=== PATIENT | female | born 1940 | race Two or more races ===

== ENCOUNTER 2017-11-08 10:40 | Inpatient (IN) | payer MEDICAID, OTHER ==
[~2017-11-08] VITALS: Ht 147.3 cm; Wt 28.1 kg
[2017-11-08] VITALS (26 sets, daily range): BP systolic 77–173; BP diastolic 51–102
[~2017-11-08 10:40] MED LIST: HYDROCHLOROTHIA25 MG ORAL; NORVASC5 MG ORAL
--- NOTE | 2017-11-08 11:15 | Emergency Room Report ---
History of Present Illness General Chief Complaint: Upper Respiratory Illness Source: Patient Present Illness HPI Patient is a 69-year-old female who presented after increased diarrhea and headache. Patient reports having watery diarrhea. She reports having brown stool. She was having prior history of cardiac murmur. She had been having intermittent headache. She denies any fever. She denies any current pain. Allergies: Coded Allergies: PENICILLINS (Verified Allergy, Mild, Rash, 06/30/14) Patient History Past Medical History: see triage record Reviewed Nursing Documentation: PMH: Agreed, PSxH: Agreed Nursing Documentation-PMH Past Medical History: No History, Except For Hx Hypertension: Yes Review of Systems All Other Systems: negative except mentioned in HPI Physical Exam Vital Signs Date Time Temp Pulse Resp B/P (MAP) Pulse Ox O2 Delivery O2 Flow Rate FiO2 11/08/17 10:43 97.3 105 16 168/110 91 Room Air Sp02 EP Interpretation: reviewed, normal General Appearance: normal inspection, well appearing, no apparent distress, alert, Chronically Ill Head: atraumatic ENT: normal ENT inspection, hearing grossly normal, normal voice Neck: normal inspection, full range of motion, supple, no bony tend Respiratory: normal inspection, lungs clear, normal breath sounds, no respiratory distress, no retraction, no wheezing Cardiovascular #1: regular rate, rhythm, no edema, systolic murmur Gastrointestinal: normal inspection, normal bowel sounds, non tender, soft, no guarding, no hernia Genitourinary: no CVA tenderness Musculoskeletal: normal inspection, back normal, normal range of motion Neurologic: normal inspection, alert, responsive, speech normal Psychiatric: normal inspection, judgement/insight normal, mood/affect normal Skin: normal inspection, normal color, no rash Procedures Critical Care Time Critical Care Time Patient had a critical medical condition which untreated could potentially result in life or limb threatening injury. Total critical care time excluding procedures approximately 45 minutes. Central Line Central Line : Consent: Verbal Central Line Lumen: triple Maximal Sterile Barrier Tech: yes cap, yes mask, yes sterile gown, yes sterile gloves, yes large sterile sheet, yes hand hygiene, yes chlorhexidine prep Central Line Postion: internal jugular (L) Anesthesia: Lidocaine cc's of anesthesia: 5 Complications: none Central Line Post Position: sutured, good blood return, position confirmed w / CXR Attempts: One Patient Tolerated: Well Complications: None Intubation Intubation : Consent: Emergent Intubation Method: orotracheal Tube Size (cm): 6.0 Medications: Etomidate Breath Sounds after Intubation: equal Intubation Complications: no complications Post Intubation Xray: Yes Attempts: One Patient Tolerated: Well Complications: None Medical Decision Making Diagnostic Impression: Primary Impression: Pulmonary edema Additional Impressions: Respiratory failure Valvular disease ER Course Patient presented for abdominal pain. Differential diagnoses included ischemic bowel, appendicitis, perforated viscus, abdominal aortic aneurysm, inferior myocardial infarction, viral gastroenteritis. Because of complexity of patient' s case laboratory testing and imaging studies were ordered.patient was noted to have a negative troponin. Chest x-ray was noted to have some bilateral infiltrates. Dr. Pittman was contacted for inpatient management due to complexity of medical condition and is contracted physician. The patient noted have decompensation was intubated for respiratory distress. The patient started on nitroglycerin drip. CT abdomen pelvis read by radiology showed bilateral pleural effusions right greater than left . Patient was started on mechanical ventilation. Abg showed hypoventilation. Labs Test 11/08/17 11:28 11/08/17 14:48 White Blood Count 6.8 K/UL (4.8-10.8) Red Blood Count 5.10 M/UL (4.20-5.40) Hemoglobin 13.5 G/DL (12.0-16.0) Hematocrit 43.3 % (37.0-47.0) Mean Corpuscular Volume 85 FL (80-99) Mean Corpuscular Hemoglobin 26.5 PG (27.0-31.0) Mean Corpuscular Hemoglobin Concent 31.2 G/DL (32.0-36.0) Red Cell Distribution Width 12.0 % (11.6-14.8) Platelet Count 173 K/UL (150-450) Mean Platelet Volume 8.3 FL (6.5-10.1) Neutrophils (%) (Auto) 80.9 % (45.0-75.0) Lymphocytes (%) (Auto) 10.8 % (20.0-45.0) Monocytes (%) (Auto) 7.6 % (1.0-10.0) Eosinophils (%) (Auto) 0.2 % (0.0-3.0) Basophils (%) (Auto) 0.6 % (0.0-2.0) Sodium Level 133 MMOL/L (136-145) Potassium Level 4.2 MMOL/L (3.5-5.1) Chloride Level 97 MMOL/L (98-107) Carbon Dioxide Level 30 MMOL/L (21-32) Anion Gap 7 mmol/L (5-15) Blood Urea Nitrogen 14 mg/dL (7-18) Creatinine 0.8 MG/DL (0.55-1.30) Estimat Glomerular Filtration Rate mL/min (>60) Glucose Level 121 MG/DL (74-106) Calcium Level 9.2 MG/DL (8.5-10.1) Total Bilirubin 0.5 MG/DL (0.2-1.0) Aspartate Amino Transf (AST/SGOT) 33 U/L (15-37) Alanine Aminotransferase (ALT/SGPT) 26 U/L (12-78) Alkaline Phosphatase 80 U/L (46-116) Troponin I 0.000 ng/mL (0.000-0.056) Total Protein 8.0 G/DL (6.4-8.2) Albumin 4.1 G/DL (3.4-5.0) Globulin 3.9 g/dL Albumin/Globulin Ratio 1.1 (1.0-2.7) Lipase 199 U/L (73-393) Arterial Blood pH 7.180 (7.350-7.450) Arterial Blood Partial Pressure CO2 70.0 mmHg (35.0-45.0) Arterial Blood Partial Pressure O2 95.1 mmHg (75.0-100.0) Arterial Blood HCO3 25.8 mmol/L (22.0-26.0) Arterial Blood Oxygen Saturation 94.9 % (92.0-98.0) Arterial Blood Base Excess -3.9 Rafy Test Positive EKG Diagnostic Results Rate: normal Rhythm: NSR ST Segments: no acute changes Last Vital Signs Date Time Temp Pulse Resp B/P (MAP) Pulse Ox O2 Delivery O2 Flow Rate FiO2 11/08/17 10:43 97.3 105 16 168/110 91 Room Air Status: unchanged Disposition: ADMITTED INPATIENT Condition: Critical Referrals: NON PHYSICIAN (PCP) Peter Mancia Nov 08, 2017 11:15
[2017-11-08 11:48] LABS: BASOPHILS % (AUTO) 0.6 % (0.0-2.0); EOSINOPHILS % (AUTO) 0.2 % (0.0-3.0); HEMATOCRIT 43.3 % (37.0-47.0); HEMOGLOBIN 13.5 G/DL (12.0-16.0); LYMPHOCYTES % (AUTO) 10.8 % (20.0-45.0); MEAN CORPUSCULAR VOLUME 85 FL (80-99); MONOCYTES % (AUTO) 7.6 % (1.0-10.0); NEUTROPHILS % (AUTO) 80.9 % (45.0-75.0); PLATELET COUNT 173 K/UL (150-450); WHITE BLOOD COUNT 6.8 K/UL (4.8-10.8)
[2017-11-08 12:04] LABS: ANION GAP 7 mmol/L (5-15); BLOOD UREA NITROGEN 14 mg/dL (7-18); CALCIUM 9.2 MG/DL (8.5-10.1); CARBON DIOXIDE 30 MMOL/L (21-32); CHLORIDE 97 MMOL/L (98-107); CREATININE 0.8 MG/DL (0.55-1.30); POTASSIUM 4.2 MMOL/L (3.5-5.1); SODIUM 133 MMOL/L (136-145)
[2017-11-08 12:08] LABS: ALANINE AMINOTRANSFERASE 26 U/L (12-78); ALBUMIN 4.1 G/DL (3.4-5.0); ALBUMIN/GLOBULIN RATIO 1.1 (1.0-2.7); ALKALINE PHOSPHATASE 80 U/L (46-116); ASPARTATE AMINO TRANSFERASE 33 U/L (15-37); BILIRUBIN,TOTAL 0.5 MG/DL (0.2-1.0)
[2017-11-08] MEDS ORDERED: ATENOLOL25 MG ORAL (12:09)
[2017-11-08] MEDS ORDERED: Sodium Chloride 500ML 500 ML IV ONE (12:30)
[2017-11-08] MEDS ORDERED: DiphenhydrAMINE 50mg/ml Inj ONE (12:55)
[2017-11-08] MEDS ORDERED: Etomidate 40mg/20ml Inj IV ONE (13:15)
[2017-11-08] MEDS ORDERED: Nitroglycerin 50mg/250ml btl 250 ML IV SCH ×2 (13:30→22:15)
[2017-11-08] MEDS ORDERED: LORazepam Inj 2mg/ml 1ml ONE (13:44)
[2017-11-08] MEDS ORDERED: LORazepam Inj 2mg/ml 1ml IV ONE (14:00)
[2017-11-08] MEDS ORDERED: DiphenhydrAMINE 50mg/ml Inj IVP ONE (14:30)
[2017-11-08] MEDS ORDERED: Albuterol/Ipratropium 3ml neb HHN PRN (14:30)
[2017-11-08] MEDS ORDERED: Miralax 17gm pkt ORAL PRN (14:30)
[2017-11-08] MEDS ORDERED: Lidocaine 1% MPF 10mg/ml 5ml ONE (14:43)
[2017-11-08 15:59] LABS: APPEARANCE,URINE CLEAR; BILIRUBIN, URINE NEGATIVE (NEGATIVE); COLOR,URINE PALE YELLOW; GLUCOSE, URINE (UA) NEGATIVE (NEGATIVE); KETONES,URINE NEGATIVE (NEGATIVE); LEUKOCYTE ESTERASE ,URINE NEGATIVE (NEGATIVE); NITRITE,URINE NEGATIVE (NEGATIVE); PH,URINE 7 (4.5-8.0); PROTEIN,URINE 2+ (NEGATIVE); UROBILINOGEN,URINE NORMAL MG/DL (0.0-1.0)
--- NOTE | 2017-11-08 17:49 | Emergency Room Report ---
History of Present Illness General Chief Complaint: Upper Respiratory Illness Source: Patient Present Illness Allergies: Coded Allergies: PENICILLINS (Verified Allergy, Mild, Rash, 06/30/14) Nursing Documentation-[facility] Past Medical History: No History, Except For Hx Hypertension: Yes Physical Exam Vital Signs Date Time Temp Pulse Resp B/P (MAP) Pulse Ox O2 Delivery O2 Flow Rate FiO2 11/08/17 10:43 97.3 105 16 168/110 91 Room Air 11/08/17 12:06 2.0 11/08/17 13:00 100 Procedures Critical Care Time Critical Care Time CC time 30minutes Critical care time endorsed for this patient for acute respiratory failue from suspected acute CHF Critical care time includes review of laboratory tests, imaging, review of EMR, review of paperwork from SNF (if available), discussion with patient and family (if available), review of code status/POLS (if available). Critical care time also likely includes assessment of fluid status, stabilization of vital signs, review of ABG and adjustment of vent settings Critical care time does not include any procedures which are documented elsewhere in this EMR. Medical Decision Making Diagnostic Impression: Primary Impression: Pulmonary edema Qualified Codes: J81.0 - Acute pulmonary edema Additional Impressions: Respiratory failure Qualified Codes: J96.01 - Acute respiratory failure with hypoxia; J96.02 - Acute respiratory failure with hypercapnia Valvular disease ER Course Patient endorsed to me by Dr Mancia at 230pm On repeat ABG, improved CO2 and pH Vent settings remain with low TV given small weight - I texted Dr Pittman to readjust his vent settings appropriately PaO2 also good so we lowered PEEP to 5 from 8. Patient otherwise stable in ED Waiting for ICU bed Rhythm Strip Diag. Results EP Interpretation: yes Rate: 73 Rhythm: NSR, no PVC's, no ectopy Last Vital Signs Date Time Temp Pulse Resp B/P (MAP) Pulse Ox O2 Delivery O2 Flow Rate FiO2 11/08/17 17:30 22 11/08/17 17:22 82 70 11/08/17 17:00 97.9 116/73 100 Mechanical Ventilator 11/08/17 12:06 2.0 Status: improved Disposition: ADMITTED INPATIENT Condition: Critical Referrals: NON PHYSICIAN (PCP) JAMMIE COOK M.D. Nov 08, 2017 17:49
[2017-11-08] MEDS ORDERED: ASPIR 8181 MG ORAL (18:35)
[2017-11-08] MEDS ORDERED: METOPROLOL TART25 MG ORAL (18:35)
[2017-11-08] MEDS ORDERED: FOSAMAX70 MG ORAL (18:35)
[2017-11-08] MEDS: Heparin 5000 units/ml inj SUBQ SCH (21:39)
[2017-11-09] VITALS (40 sets, daily range): BP systolic 55–145; BP diastolic 47–81
[2017-11-09 05:31] LABS: HEMATOCRIT 34.7 % (37.0-47.0); HEMOGLOBIN 11.3 G/DL (12.0-16.0); MEAN CORPUSCULAR VOLUME 84 FL (80-99); PLATELET COUNT 134 K/UL (150-450); RED BLOOD COUNT 4.13 M/UL (4.20-5.40); WHITE BLOOD COUNT 8.3 K/UL (4.8-10.8)
[2017-11-09 05:51] LABS: ALBUMIN 3.2 G/DL (3.4-5.0); ANION GAP 8 mmol/L (5-15); BLOOD UREA NITROGEN 15 mg/dL (7-18); CALCIUM 8.3 MG/DL (8.5-10.1); CARBON DIOXIDE 30 MMOL/L (21-32); CHLORIDE 99 MMOL/L (98-107); PHOSPHORUS 4.7 MG/DL (2.5-4.9); POTASSIUM 3.5 MMOL/L (3.5-5.1); SODIUM 137 MMOL/L (136-145); TRIGLYCERIDES 48 MG/DL (30-150)
[2017-11-09] MEDS ORDERED: Morphine Sulfate 4mg/ml Inj IVP PRN (07:30)
[2017-11-09] MEDS ORDERED: LORazepam Inj 2mg/ml 1ml IV PRN (07:30)
--- NOTE | 2017-11-09 07:30 | History and Physical ---
History of Present Illness General Date patient seen: Nov 09, 2017 Reason for Hospitalization: Upper Respiratory Illness Present Illness HPI 69-year-old female with hx of HTN, presented from home with CC of increased diarrhea and headache. Patient reports having watery diarrhea. She reports having brown stool. She was having prior history of cardiac murmur. She had been having intermittent headache. She denies any fever. She denies any current pain. She developed respiratory failure and intubated and transferred to ICU. Currently, she is intubated, sedated and looks comfortable. Allergies: Coded Allergies: PENICILLINS (Verified Allergy, Mild, Rash, 06/30/14) Medication History Scheduled Alendronate Sodium* (Fosamax*), 35 MG ORAL ONCE A WEEK, (Reported) Amlodipine Besylate (Norvasc), 5 MG ORAL DAILY Aspirin* (Aspir 81*), 81 MG ORAL DAILY, (Reported) Hydrochlorothiazide* (Hydrochlorothiazide*), 25 MG ORAL DAILY Metoprolol Tartrate* (Metoprolol Tartrate*), 25 MG ORAL DAILY, (Reported) Discontinued Medications Atenolol* (Tenormin*), 25 MG ORAL DAILY, (Reported) Discontinued Reason: Pt stopped taking med Patient History Healthcare decision maker Resuscitation status Full Code Advanced Directive on File Past Medical/Surgical History Past Medical/Surgical History: (1) Hypertension (2) LVH (left ventricular hypertrophy) due to hypertensive disease Review of Systems All Other Systems: negative except mentioned in HPI Physical Exam General Appearance: cachetic Lines, tubes and drains: peripheral HEENT: normocephalic, atraumatic Neck: non-tender, normal alignment Respiratory/Chest: chest wall non-tender, lungs clear Cardiovascular/Chest: normal peripheral pulses, normal rate Abdomen: non tender, soft Genitourinary/Rectal: normal rectal exam Extremities: normal range of motion Skin Exam: normal pigmentation 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 Last 24 Hour Vital Signs Date Time Temp Pulse Resp B/P (MAP) Pulse Ox O2 Delivery O2 Flow Rate FiO2 11/09/17 07:00 85 22 107/59 100 Mechanical Ventilator 70 11/09/17 06:30 84 21 94/51 100 Mechanical Ventilator 70 11/09/17 06:00 83 21 112/64 100 Mechanical Ventilator 70 11/09/17 05:30 86 25 145/81 100 Mechanical Ventilator 70 11/09/17 05:30 87 27 70 11/09/17 05:00 89 24 99/59 100 Mechanical Ventilator 70 11/09/17 04:30 86 21 96/52 100 Mechanical Ventilator 70 11/09/17 04:00 98.1 86 21 94/53 100 Mechanical Ventilator 70 11/09/17 04:00 70 11/09/17 04:00 21 11/09/17 04:00 87 11/09/17 03:30 88 22 93/52 100 Mechanical Ventilator 70 11/09/17 03:07 86 22 70 11/09/17 03:00 86 23 92/55 100 Mechanical Ventilator 70 11/09/17 03:00 23 11/09/17 02:45 86 24 101/54 100 Mechanical Ventilator 70 11/09/17 02:30 22 11/09/17 02:30 97 27 100/65 100 Mechanical Ventilator 70 11/09/17 02:15 87 23 107/61 100 Mechanical Ventilator 70 11/09/17 02:15 22 11/09/17 02:00 88 23 97/54 100 Mechanical Ventilator 70 11/09/17 02:00 25 11/09/17 01:45 87 24 97/55 100 Mechanical Ventilator 70 11/09/17 01:45 26 11/09/17 01:30 87 23 70 11/09/17 01:30 30 11/09/17 01:30 88 24 96/55 100 Mechanical Ventilator 70 11/09/17 01:15 23 11/09/17 01:15 87 24 91/54 100 Mechanical Ventilator 70 11/09/17 01:00 86 24 99/55 100 Mechanical Ventilator 70 11/09/17 01:00 24 11/09/17 00:45 24 11/09/17 00:45 99.2 84 25 107/59 100 Mechanical Ventilator 70 11/09/17 00:30 85 25 101/55 100 Mechanical Ventilator 70 11/09/17 00:30 23 11/09/17 00:20 30 11/09/17 00:15 96 30 110/71 100 Mechanical Ventilator 70 11/09/17 00:03 85 26 70 11/09/17 00:00 98.1 87 24 86/55 100 Mechanical Ventilator 70 11/08/17 23:50 23 11/08/17 23:45 87 23 77/51 100 Mechanical Ventilator 70 11/08/17 23:35 23 2/10/18 23:30 86 23 101/61 100 Mechanical Ventilator 70 218 23:20 22 218 23:15 85 23 95/58 100 Mechanical Ventilator 70 2/18 23:05 23 218 23:00 89 24 125/75 100 Mechanical Ventilator 70 2/18 22:50 23 18 22:45 108 30 99/86 100 Mechanical Ventilator 70 18 22:44 25 18 22:40 130/76 18 22:39 24 18 22:30 88 25 130/76 100 Mechanical Ventilator 70 18 22:00 92 25 142/86 100 Mechanical Ventilator 70 11/08/17 21:00 84 24 124/70 100 Mechanical Ventilator 70 11/08/17 20:00 70 18 20:00 91 24 111/59 100 Mechanical Ventilator 70 18 20:00 82 11/08/17 19:45 83 24 144/82 100 Mechanical Ventilator 70 11/08/17 19:30 98.3 106 32 167/93 95 Mechanical Ventilator 70 18 19:00 98.3 99 34 159/97 94 Mechanical Ventilator 70 18 19:00 70 11/08/17 18:42 81 31 70 218 18:42 81 31 Mechanical Ventilator 70 18 18:30 22 18 18:25 81 20 119/69 100 Mechanical Ventilator 70 18 18:00 98.1 79 23 116/64 100 Mechanical Ventilator 70 18 17:46 70 18 17:30 22 18 17:22 82 27 70 218 17:20 70 218 17:00 97.9 83 22 116/73 100 Mechanical Ventilator 100 11/08/17 16:30 25 11/08/17 16:15 21 11/08/17 16:05 23 11/08/17 16:00 98.0 83 24 104/64 100 Mechanical Ventilator 100 11/08/17 16:00 21 11/08/17 15:50 23 11/08/17 15:45 20 11/08/17 15:35 22 11/08/17 15:30 18 11/08/17 15:29 90 27 100 11/08/17 15:25 20 11/08/17 15:25 18 11/08/17 15:24 18 11/08/17 15:05 90 20 121/68 99 Mechanical Ventilator 100 11/08/17 15:05 20 11/08/17 14:50 20 11/08/17 14:50 92 20 132/71 95 Mechanical Ventilator 100 11/08/17 14:40 20 11/08/17 14:35 18 11/08/17 14:35 96 18 139/81 99 Mechanical Ventilator 100 11/08/17 14:26 92 21 143/93 100 Mechanical Ventilator 100 11/08/17 14:26 19 11/08/17 14:15 159/86 11/08/17 14:11 98 22 144/84 99 Mechanical Ventilator 100 11/08/17 14:11 22 11/08/17 13:56 102 22 159/86 100 Room Air 11/08/17 13:56 19 11/08/17 13:41 23 11/08/17 13:41 119 21 153/83 99 Mechanical Ventilator 100 11/08/17 13:26 112 22 159/86 99 Mechanical Ventilator 100 11/08/17 13:26 28 11/08/17 13:10 111 31 100 11/08/17 13:00 100 11/08/17 13:00 112 12 173/102 99 Ambu-Bag 100 11/08/17 12:06 96 22 156/92 95 Nasal Cannula 2.0 11/08/17 11:44 97.6 93 23 157/101 94 Room Air 11/08/17 11:32 16 Room Air 11/08/17 10:43 97.3 105 16 168/110 91 Room Air Intake and Output 11/08/17 11/09/17 19:00 07:00 Intake Total 49.51 ml Output Total 280 ml 1305 ml Balance -280 ml -1255.49 ml Intake IV Total 49.51 ml Output Urine Total 280 ml 1305 ml # Voids 30 Laboratory Tests Test 11/08/17 11:28 11/08/17 14:48 11/08/17 15:31 11/08/17 17:04 White Blood Count 6.8 K/UL (4.8-10.8) Red Blood Count 5.10 M/UL (4.20-5.40) Hemoglobin 13.5 G/DL (12.0-16.0) Hematocrit 43.3 % (37.0-47.0) Mean Corpuscular Volume 85 FL (80-99) Mean Corpuscular Hemoglobin 26.5 PG (27.0-31.0) L Mean Corpuscular Hemoglobin Concent 31.2 G/DL (32.0-36.0) L Red Cell Distribution Width 12.0 % (11.6-14.8) Platelet Count 173 K/UL (150-450) Mean Platelet Volume 8.3 FL (6.5-10.1) Neutrophils (%) (Auto) 80.9 % (45.0-75.0) H Lymphocytes (%) (Auto) 10.8 % (20.0-45.0) L Monocytes (%) (Auto) 7.6 % (1.0-10.0) Eosinophils (%) (Auto) 0.2 % (0.0-3.0) Basophils (%) (Auto) 0.6 % (0.0-2.0) Sodium Level 133 MMOL/L (136-145) L Potassium Level 4.2 MMOL/L (3.5-5.1) Chloride Level 97 MMOL/L (98-107) L Carbon Dioxide Level 30 MMOL/L (21-32) Anion Gap 7 mmol/L (5-15) Blood Urea Nitrogen 14 mg/dL (7-18) Creatinine 0.8 MG/DL (0.55-1.30) Estimat Glomerular Filtration Rate mL/min (>60) Glucose Level 121 MG/DL (74-106) H Calcium Level 9.2 MG/DL (8.5-10.1) Total Bilirubin 0.5 MG/DL (0.2-1.0) Aspartate Amino Transf (AST/SGOT) 33 U/L (15-37) Alanine Aminotransferase (ALT/SGPT) 26 U/L (12-78) Alkaline Phosphatase 80 U/L (46-116) Troponin I 0.000 ng/mL (0.000-0.056) 0.019 ng/mL (0.000-0.056) Total Protein 8.0 G/DL (6.4-8.2) Albumin 4.1 G/DL (3.4-5.0) Globulin 3.9 g/dL Albumin/Globulin Ratio 1.1 (1.0-2.7) Triglycerides Level 83 MG/DL (30-150) Lipase 199 U/L (73-393) Arterial Blood pH 7.180 (7.350-7.450) Arterial Blood Partial Pressure CO2 70.0 mmHg (35.0-45.0) *H Arterial Blood Partial Pressure O2 95.1 mmHg (75.0-100.0) Arterial Blood HCO3 25.8 mmol/L (22.0-26.0) Arterial Blood Oxygen Saturation 94.9 % (92.0-98.0) Arterial Blood Base Excess -3.9 Rafy Test Positive Urine Color Pale yellow Urine Appearance Clear Urine pH 7 (4.5-8.0) Urine Specific [place] 1.005 (1.005-1.035) Urine Protein 2+ (NEGATIVE) H Urine Glucose (UA) Negative (NEGATIVE) Urine Ketones Negative (NEGATIVE) Urine Occult Blood 4+ (NEGATIVE) H Urine Nitrite Negative (NEGATIVE) Urine Bilirubin Negative (NEGATIVE) Urine Urobilinogen Normal MG/DL (0.0-1.0) Urine Leukocyte Esterase Negative (NEGATIVE) Urine RBC 2-4 /HPF (0 - 2) H Urine WBC 0-2 /HPF (0 - 2) Urine Squamous Epithelial Cells Few /LPF (NONE/OCC) Urine Amorphous Sediment Few /LPF (NONE) H Urine Bacteria Few /HPF (NONE) Test 11/08/17 17:31 11/09/17 04:20 Arterial Blood pH 7.370 (7.350-7.450) Arterial Blood Partial Pressure CO2 43.2 mmHg (35.0-45.0) Arterial Blood Partial Pressure O2 100.7 mmHg (75.0-100.0) H Arterial Blood HCO3 24.8 mmol/L (22.0-26.0) Arterial Blood Oxygen Saturation 97.1 % (92.0-98.0) Arterial Blood Base Excess -0.5 Rafy Test Positive White Blood Count 8.3 K/UL (4.8-10.8) Red Blood Count 4.13 M/UL (4.20-5.40) L Hemoglobin 11.3 G/DL (12.0-16.0) L Hematocrit 34.7 % (37.0-47.0) L Mean Corpuscular Volume 84 FL (80-99) Mean Corpuscular Hemoglobin 27.4 PG (27.0-31.0) Mean Corpuscular Hemoglobin Concent 32.6 G/DL (32.0-36.0) Red Cell Distribution Width 12.0 % (11.6-14.8) Platelet Count 134 K/UL (150-450) L Mean Platelet Volume 9.3 FL (6.5-10.1) Neutrophils (%) (Auto) % (45.0-75.0) Lymphocytes (%) (Auto) % (20.0-45.0) Monocytes (%) (Auto) % (1.0-10.0) Eosinophils (%) (Auto) % (0.0-3.0) Basophils (%) (Auto) % (0.0-2.0) Neutrophils % (Manual) Pending Lymphocytes % (Manual) Pending Platelet Estimate Pending Platelet Morphology Pending Sodium Level 137 MMOL/L (136-145) Potassium Level 3.5 MMOL/L (3.5-5.1) Chloride Level 99 MMOL/L (98-107) Carbon Dioxide Level 30 MMOL/L (21-32) Anion Gap 8 mmol/L (5-15) Blood Urea Nitrogen 15 mg/dL (7-18) Creatinine 1.0 MG/DL (0.55-1.30) Estimat Glomerular Filtration Rate mL/min (>60) Glucose Level 95 MG/DL (74-106) Calcium Level 8.3 MG/DL (8.5-10.1) L Phosphorus Level 4.7 MG/DL (2.5-4.9) Troponin I 0.022 ng/mL (0.000-0.056) Albumin 3.2 G/DL (3.4-5.0) L Triglycerides Level 48 MG/DL (30-150) Height (Feet): 4 Height (Inches): 10.00 Weight (Pounds): 59 Medications Current Medications Medications (Trade) Dose Ordered Sig/Puja Route PRN Reason Start Time Stop Time Status Last Admin Dose Admin Acetaminophen (Tylenol) 650 mg Q4H PRN ORAL Fever 11/08/17 14:30 12/08/17 14:29 Albuterol/ Ipratropium (Albuterol/ Ipratropium) 3 ml Q4H PRN HHN Shortness of Breath 11/08/17 14:30 11/13/17 14:29 Dextrose (Dextrose 50%) STAT PRN IV Hypoglycemia 11/08/17 14:30 12/08/17 14:29 Furosemide (Lasix) 40 mg EVERY 8 HOURS IV 11/08/17 14:45 12/08/17 14:44 11/09/17 05:45 Heparin Sodium (Porcine) (Heparin 5000 units/ml) 5,000 units EVERY 12 HOURS SUBQ 11/08/17 21:00 12/08/17 20:59 11/08/17 21:39 Lorazepam (Ativan 2mg/ml 1ml) 2 mg Q4H PRN IV For Anxiety 11/08/17 14:30 11/15/17 14:29 Morphine Sulfate (Morphine Sulfate) 4 mg Q4H PRN IVP Moderate Pain (Pain Scale 4-6) 11/08/17 14:30 11/15/17 14:29 Nitroglycerin 250 ml @ 0 mls/hr Q24H IV 11/08/17 13:30 12/08/17 13:29 11/08/17 14:15 Nitroglycerin 250 ml @ 0 mls/hr Q24H IV 11/08/17 22:15 12/08/17 22:14 11/08/17 22:40 Ondansetron HCl (Zofran) 4 mg Q6H PRN IVP Nausea & Vomiting 11/08/17 14:30 12/08/17 14:29 Pantoprazole (Protonix) 40 mg DAILY IV 11/09/17 09:00 12/09/17 08:59 Polyethylene Glycol (Miralax) 17 gm DAILYPRN PRN ORAL Constipation 11/08/17 14:30 12/08/17 14:29 Propofol 100 ml @ 0 mls/hr Q24H IV 11/08/17 13:15 11/10/17 13:14 11/08/17 13:26 Propofol 100 ml @ 0 mls/hr Q24H IV 11/08/17 22:15 11/10/17 22:14 11/08/17 22:39 Temazepam (Restoril) 15 mg HSPRN PRN ORAL Insomnia 11/08/17 14:30 11/15/17 14:29 Assessment/Plan Problem List: (1) Respiratory failure ICD Codes: J96.90 - Respiratory failure, unspecified, unspecified whether with hypoxia or hypercapnia SNOMED: 568553025 Qualifiers: Qualified Codes: J96.01 - Acute respiratory failure with hypoxia; J96.02 - Acute respiratory failure with hypercapnia (2) Pulmonary edema ICD Codes: J81.1 - Chronic pulmonary edema SNOMED: 82029324 Qualifiers: Qualified Codes: J81.0 - Acute pulmonary edema (3) Protein-calorie malnutrition, severe ICD Codes: E43 - Unspecified severe protein-calorie malnutrition SNOMED: 145486292 Respiratory: monitor respiratory rate, adjust FIO2, CXR Cardiac: continue to monitor HR/BP Renal: F/U I&O Infectious Disease: check cultures, continue antibiotics Gastrointestinal: continue feedings/current rate Endocrine: monitor blood sugar, check TSH Hematologic: monitor H/H, transfuse if hgb<8.5 Neurologic: PRN Ativan, keep patient comfortable Affect: PRN ativan Prophylaxis: Protonix Notes Reviewed: cardio, renal Discussed with: nurses, consultants, child welfare caseworker DIANA AGGARWAL Nov 09, 2017 07:30
--- NOTE | 2017-11-09 08:32 | Diagnostic Imaging Report ---
Indication: Dyspnea Technique: XRAY Chest 1v Comparison: Heart is enlarged. There is interstitial opacification/edema and bilateral predominantly perihilar airspace opacities. There is a small left pleural effusion with left basilar atelectasis/consolidation. There is no pneumothorax. No acute osseous abnormality seen. Findings: Cardiomegaly with interstitial opacification/edema and patchy bilateral airspace opacities. Small left pleural effusion and left basilar atelectasis/consolidation. Findings may be related to CHF/pulmonary edema. Superimposed pneumonia not excluded. Clinical correlation and follow-up exam recommended. Impression: No radiographic evidence of acute cardiopulmonary disease.
--- NOTE | 2017-11-09 08:36 | Diagnostic Imaging Report ---
Indication: Intubation. Technique: XRAY Chest 1v Comparison: 11/08/2017, 12:33 Findings/Impression: Interval endotracheal intubation. Tip of the ET tube approximately 6 cm above the [place]. Additional findings without significant interval change from exam approximately one hour earlier. This corresponds with the [facility] preliminary report.
--- NOTE | 2017-11-09 08:40 | Diagnostic Imaging Report ---
Indication: Intubation. Technique: XRAY Chest 1v Comparison: 11/08/2017, 13:20 Findings/Impression: Interval placement of left internal jugular vein approach central venous catheter. Catheter tip in the region of the right atrium. There is no definite pneumothorax. ET tube approximately 5.5 cm above the car[place]. Balloon of the ETT tip above the level of thoracic inlet. Advancement is recommended for more ideal positioning. Additional findings without significant interval change from exam a few hours earlier.
--- NOTE | 2017-11-09 08:52 | Diagnostic Imaging Report ---
Indication: Dyspnea Technique: XRAY Chest 1v Comparison: 11/08/2017 Findings: ET tube tip approximately 5 cm above the carol[place]. The balloon is inflated with portions above the thoracic inlet. Slight advancement would provide more ideal positioning. This was discussed with treating ICU nurse via telephone conversation 8:42 AM 11/09/2017. Interval placement of NG tube, which courses below the level of diaphragms, tip outside the inferior margin of the study. Left-sided central line tip at the cavoatrial junction. Heart size and mediastinal contours are stable. Persistent interstitial and perihilar opacities. Aeration is slightly improved. Small left pleural effusion with left basilar atelectasis/consolidation -also slightly improved. No pneumothorax. No acute osseous abnormality. IMPRESSION: Persistent but improved interstitial and perihilar airspace opacities possibly reflective of slight interval improvement in pulmonary edema. Support lines and tubes as above.
[2017-11-09] MEDS ORDERED: Pantoprazole Inj IV SCH (09:00)
[2017-11-09] MEDS: Pantoprazole Inj IV SCH (09:22)
[2017-11-09] MEDS: LORazepam Inj 2mg/ml 1ml IV PRN ×2 (09:23→13:39)
[2017-11-09] MEDS: Heparin 5000 units/ml inj SUBQ SCH ×2 (09:28→20:42)
--- NOTE | 2017-11-09 10:28 | Diagnostic Imaging Report ---
Indication: Follow-up Technique: XRAY Chest 1v Comparison: 11/09/2017, 8:08 Findings: ET tube has been advanced slightly, tip 3.5 cm above the carolynn. Central line and enteric tube unchanged. Heart size and mediastinal contours are stable. Persistent interstitial and perihilar airspace opacities. Probable small left pleural effusion with left basilar atelectasis/consolidation. No pneumothorax. Impression: Slight advancement of the ET tube, tip now 3.5 cm above the carolynn. Additional findings without significant interval change from exam approximately 90 minutes earlier.
--- NOTE | 2017-11-09 12:03 | Diagnostic Imaging Report ---
Indication: Abdominal pain Technique: CT of the abdomen and pelvis utilizing automated exposure control with intravenous contrast. Venous scanning performed. CT dose: Total DLP 288.6 mGycm; CTDI vol 7.14 mGy Comparison: None Findings: Motion degraded exam. Evaluation of the intra-abdominal structures is limited due to paucity of intra-abdominal fat. There is trace left and small right pleural effusions. There is compressive atelectasis in the bilateral lower lungs. Suggestion of septal thickening. Heart is enlarged. No focal liver mass lesion is appreciated. Gallbladder grossly unremarkable. Spleen, adrenal glands and pancreas grossly unremarkable. Kidneys enhance symmetrically. No definite urinary tract stone or hydronephrosis bilaterally. Bladder is unremarkable in appearance. Lobular contour of the uterus with multiple coarse calcifications likely representing fibroids. Adnexa are not definitively visualized. No free intraperitoneal air. No evidence of bowel obstruction. The colon is underdistended and not well assessed. There may be underlying colonic thickening, possible colitis in the appropriate clinical setting. There is no evidence to suggest an acute appendicitis. Abdominal aorta is normal in caliber with mild atherosclerotic calcification. No bulky lymphadenopathy identified. There are multilevel degenerative changes of the spine. No acute osseous abnormality is seen. Calcifications noted in the gluteal soft tissues, possible prior trauma or medication injection. IMPRESSION: Limited exam due to patient motion and paucity of intra-abdominal fat, which particularly limits evaluation of the gastrointestinal tract. Within these limitations: * Small right and trace left pleural effusions. Septal thickening suggesting marrow edema. Correlate with chest radiograph. * Cardiomegaly. * Large calcified fibroids. * Underdistention versus thickening of portions. Correlate clinically to assess for mild colitis. Additional findings as above. This corresponds with the statrad preliminary report. The CT scanner at [facility] is accredited by the [employer] and the scans are performed using protocols designed to limit radiation exposure to as low as reasonably achievable to attain images of sufficient resolution adequate for diagnostic evaluation.
--- NOTE | 2017-11-09 12:52 | Diagnostic Imaging Report ---
Indication: Renal failure Technique: Planar grayscale and color Doppler imaging of the kidneys and bladder. Comparison: Concurrent CT of the abdomen Findings: Right kidney measures 8.3 cm in length. Left kidney measures 7.9 cm in length. Both kidneys demonstrate normal parenchymal echogenicity. No evidence of hydronephrosis bilaterally. Layering echogenic debris noted within the bladder. No appreciable bladder wall thickening. Impression: Layering echogenic debris noted within the bladder. Correlate with urinalysis to exclude cystitis. No evidence of hydronephrosis bilaterally.
[2017-11-09] MEDS: Morphine Sulfate 4mg/ml Inj IVP PRN (13:46)
--- NOTE | 2017-11-09 14:43 | Cardiology Report ---
APPROVED REPORT EXAM: Two-dimensional and M-mode echocardiogram with Doppler and color Doppler. INDICATION LV FUNCTION M-Mode DIMENSIONS IVSd1.1 (0.7-1.1cm)Left Atrium (MM)2.4 (1.6-4.0cm) LVDd3.5 (3.5-5.6cm)Aortic Root3.0 (2.0-3.7cm) PWd0.8 (0.7-1.1cm)Aortic Cusp Exc.1.7 (1.5-2.0cm) IVSs2.1 cm LVDs2.3 (2.5-4.0cm) PWs1.0 cm Normal left ventricular chamber size, systolic function and wall motion. Left ventricular ejection fraction estimated to be 65-70 %. No evidence of pericardial effusion Mild left ventricular hypertrophy by 2-D. echogenic material noted on anterior mitral valve leaflet. Mild Left atrial enlargement. Right ventricular chamber sizes is within normal limits. Focal aortic valve sclerosis with adequate cusp excursion. Heavy Thickened mitral valve leaflets with normal excursion. Heavy Mitral annulus and aortic root calcification. Pulmonic valve not well visualized. Normal tricuspid valve structure. IVC at 1.5 cm with physiologic collapse . A color flow and spectral Doppler study was performed and revealed: No aortic regurgitation. Mild mitral regurgitation. Normal left ventricular diastolic function. Mild tricuspid regurgitation. Tricuspid systolic velocities suggests peak right ventricular systolic pressure of 39 mmHg ,consistent with mild pulmonary hypertension . Trace Pulmonic regurgitation present.
[2017-11-09] MEDS ORDERED: NS 500ML ONE (16:08)
[2017-11-09] MEDS ORDERED: D5 1/2NS 1000ml IV ONE (16:08)
[2017-11-10] VITALS (24 sets, daily range): BP systolic 101–148; BP diastolic 55–87
[2017-11-10 04:08] LABS: BASOPHILS % (AUTO) 0.3 % (0.0-2.0); EOSINOPHILS % (AUTO) 0.1 % (0.0-3.0); LYMPHOCYTES % (AUTO) 7.5 % (20.0-45.0); MEAN CORPUSCULAR VOLUME 85 FL (80-99); MONOCYTES % (AUTO) 9.3 % (1.0-10.0); NEUTROPHILS % (AUTO) 82.8 % (45.0-75.0); PLATELET COUNT 132 K/UL (150-450); RED BLOOD COUNT 4.02 M/UL (4.20-5.40); WHITE BLOOD COUNT 7.8 K/UL (4.8-10.8)
[2017-11-10 04:48] LABS: ALANINE AMINOTRANSFERASE 17 U/L (12-78); ALBUMIN 3.1 G/DL (3.4-5.0); ALBUMIN/GLOBULIN RATIO 0.9 (1.0-2.7); ALKALINE PHOSPHATASE 58 U/L (46-116); ANION GAP 12 mmol/L (5-15); ASPARTATE AMINO TRANSFERASE 26 U/L (15-37); BILIRUBIN,TOTAL 0.7 MG/DL (0.2-1.0); BLOOD UREA NITROGEN 25 mg/dL (7-18); CALCIUM 7.8 MG/DL (8.5-10.1); CARBON DIOXIDE 30 MMOL/L (21-32); CHLORIDE 99 MMOL/L (98-107); CREATININE 1.1 MG/DL (0.55-1.30); PHOSPHORUS 3.5 MG/DL (2.5-4.9); POTASSIUM 2.9 MMOL/L (3.5-5.1); SODIUM 141 MMOL/L (136-145)
[2017-11-10] MEDS: Potassium Chloride 40 MEQ in Sodium Chloride 500ML 550 ML IVPB SCH ×2 (08:38→11:50)
[2017-11-10] MEDS: Pantoprazole Inj IV SCH (08:38)
[2017-11-10] MEDS: Heparin 5000 units/ml inj SUBQ SCH ×2 (08:42→20:44)
[2017-11-10] MEDS ORDERED: NS 275ml ONE (10:06)
--- NOTE | 2017-11-10 10:12 | Pulmonolgy Critical Care Note ---
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 (4) Protein-calorie malnutrition, severe Respiratory: monitor respiratory rate Cardiac: continue to monitor HR/BP Renal: F/U I&O, other - start lasix Infectious Disease: check cultures Gastrointestinal: adjust feedings Endocrine: monitor blood sugar Hematologic: monitor H/H Affect: PRN ativan Prophylaxis: Protonix Notes Reviewed: loftsman/woman Discussed with: nurses, consultants, case packer and sealerpromotions manager - Objective Last 24 Hour Vital Signs Date Time Temp Pulse Resp B/P (MAP) Pulse Ox O2 Delivery O2 Flow Rate FiO2 11/10/17 09:20 88 16 45 11/10/17 09:00 82 18 131/69 100 Mechanical Ventilator 50 11/10/17 08:00 97 11/10/17 08:00 50 11/10/17 08:00 98.4 97 18 131/72 100 Mechanical Ventilator 50 11/10/17 07:16 96 18 45 11/10/17 07:00 98 23 125/65 100 Mechanical Ventilator 50 11/10/17 06:00 114 17 126/69 100 Mechanical Ventilator 50 11/10/17 05:13 94 15 50 11/10/17 05:00 89 17 116/62 100 Mechanical Ventilator 50 11/10/17 04:00 50 11/10/17 04:00 96 11/10/17 04:00 99.2 99 20 120/61 100 Mechanical Ventilator 50 11/10/17 03:30 97 16 50 11/10/17 03:00 98 17 108/59 100 Mechanical Ventilator 50 11/10/17 02:00 99 17 106/60 100 Mechanical Ventilator 50 11/10/17 01:30 99 17 50 11/10/17 01:00 94 22 112/63 100 Mechanical Ventilator 50 11/10/17 00:00 50 11/10/17 00:00 105 11/10/17 00:00 98.3 92 21 122/87 100 Mechanical Ventilator 50 11/09/17 23:30 99 18 50 11/09/17 23:00 95 21 85/51 100 Mechanical Ventilator 50 11/09/17 22:00 94 23 135/76 100 Mechanical Ventilator 50 11/09/17 21:16 84 20 50 11/09/17 21:00 82 16 90/48 100 Mechanical Ventilator 50 11/09/17 20:00 50 11/09/17 20:00 82 11/09/17 20:00 98.5 80 14 100/53 100 Mechanical Ventilator 50 11/09/17 19:30 83 16 50 11/09/17 19:00 88 14 123/78 100 Mechanical Ventilator 70 11/09/17 18:00 87 16 111/67 100 Mechanical Ventilator 70 11/09/17 17:13 83 14 70 11/09/17 17:00 86 17 86/50 100 Mechanical Ventilator 70 11/09/17 16:00 84 11/09/17 16:00 98.6 87 14 91/54 100 Mechanical Ventilator 70 11/09/17 16:00 70 11/09/17 15:14 89 15 70 11/09/17 15:00 90 15 84/50 100 Mechanical Ventilator 70 11/09/17 14:00 90 15 76/47 100 Mechanical Ventilator 70 11/09/17 13:25 102 21 70 11/09/17 13:00 87 21 114/62 100 Mechanical Ventilator 70 11/09/17 12:00 70 11/09/17 12:00 98.2 87 21 103/54 100 Mechanical Ventilator 70 11/09/17 12:00 87 11/09/17 11:22 86 18 70 11/09/17 11:00 87 18 109/59 100 Mechanical Ventilator 70 Status: sedated Condition: critical HEENT: atraumatic Abdomen: soft, non-tender Extremities: no C/C/E Decubiti: location Micro: Microbiology Date/Time Source Procedure Growth Status 11/08/17 16:00 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 Complete Critical Care - Subjective ICU Day: 2 Condition: critical EKG Rhythm: Sinus Rhythm FI02: 45 Vent Support Breath Rate: 12 Vent Support Mode: AC Vent Tidal Volume: 300 Sputum Amount: Small PEEP: 5.0 PIP: 22 I&O: Intake and Output 11/09/17 11/10/17 19:00 07:00 Intake Total 3.0 ml Output Total 915 ml 2080 ml Balance -912.0 ml -2080 ml Intake IV Total 3.0 ml Output Urine Total 915 ml 2080 ml CXR: clearing ET-Tube: 6.0 ET Position: 20 Labs: Laboratory Tests Test 11/09/17 14:10 11/10/17 03:45 11/10/17 07:55 Troponin I 0.008 ng/mL (0.000-0.056) 0.000 ng/mL (0.000-0.056) White Blood Count 7.8 K/UL (4.8-10.8) Red Blood Count 4.02 M/UL (4.20-5.40) L Hemoglobin 11.0 G/DL (12.0-16.0) L Hematocrit 34.0 % (37.0-47.0) L Mean Corpuscular Volume 85 FL (80-99) Mean Corpuscular Hemoglobin 27.4 PG (27.0-31.0) Mean Corpuscular Hemoglobin Concent 32.4 G/DL (32.0-36.0) Red Cell Distribution Width 12.0 % (11.6-14.8) Platelet Count 132 K/UL (150-450) L Mean Platelet Volume 8.6 FL (6.5-10.1) Neutrophils (%) (Auto) 82.8 % (45.0-75.0) H Lymphocytes (%) (Auto) 7.5 % (20.0-45.0) L Monocytes (%) (Auto) 9.3 % (1.0-10.0) Eosinophils (%) (Auto) 0.1 % (0.0-3.0) Basophils (%) (Auto) 0.3 % (0.0-2.0) Sodium Level 141 MMOL/L (136-145) Potassium Level 2.9 MMOL/L (3.5-5.1) L Chloride Level 99 MMOL/L (98-107) Carbon Dioxide Level 30 MMOL/L (21-32) Anion Gap 12 mmol/L (5-15) Blood Urea Nitrogen 25 mg/dL (7-18) H Creatinine 1.1 MG/DL (0.55-1.30) Estimat Glomerular Filtration Rate mL/min (>60) Glucose Level 90 MG/DL (74-106) Calcium Level 7.8 MG/DL (8.5-10.1) L Phosphorus Level 3.5 MG/DL (2.5-4.9) Magnesium Level 1.5 MG/DL (1.8-2.4) L Total Bilirubin 0.7 MG/DL (0.2-1.0) Aspartate Amino Transf (AST/SGOT) 26 U/L (15-37) Alanine Aminotransferase (ALT/SGPT) 17 U/L (12-78) Alkaline Phosphatase 58 U/L (46-116) Total Protein 6.7 G/DL (6.4-8.2) Albumin 3.1 G/DL (3.4-5.0) L Globulin 3.6 g/dL Albumin/Globulin Ratio 0.9 (1.0-2.7) L Arterial Blood pH 7.400 (7.350-7.450) Arterial Blood Partial Pressure CO2 52.2 mmHg (35.0-45.0) H Arterial Blood Partial Pressure O2 138.8 mmHg (75.0-100.0) H Arterial Blood HCO3 32.0 mmol/L (22.0-26.0) H Arterial Blood Oxygen Saturation 98.3 % (92.0-98.0) H Arterial Blood Base Excess 6.1 Rafy Test Positive DIANA AGGARWAL Nov 10, 2017 10:12
[2017-11-10] MEDS: LORazepam Inj 2mg/ml 1ml IV PRN ×2 (10:36→22:36)
--- NOTE | 2017-11-10 11:05 | Diagnostic Imaging Report ---
Indication: Dyspnea Comparison: 11/09/2017 A single view chest radiograph was obtained. Findings: Cardiomegaly is again demonstrated. Some interstitial edema has probably improved since the prior day. Tubes and lines are stable. Lungs are hyperexpanded. IMPRESSION: Improved interstitial edema
[2017-11-10] MEDS ORDERED: Potassium Chloride 40 MEQ in 1/2 NS 1000ml 1,000 ML IV SCH (16:00)
[2017-11-10] MEDS ORDERED: Dyna-Hex 2% Top Sol 2oz TOPIC SCH (20:00)
--- NOTE | 2017-11-10 20:00 | Cardiology Progress Note ---
Assessment/Plan Assessment/Plan [id number] sig heart murmur nto correlate with echo reading will try to review echo tooorrrow check venous duplex Objective Last 24 Hour Vital Signs Date Time Temp Pulse Resp B/P (MAP) Pulse Ox O2 Delivery O2 Flow Rate FiO2 11/10/17 18:00 88 19 105/61 100 Mechanical Ventilator 40 11/10/17 17:00 86 20 108/59 100 Mechanical Ventilator 40 11/10/17 16:53 99 17 45 11/10/17 16:00 92 11/10/17 16:00 97.8 92 17 118/62 100 Mechanical Ventilator 40 11/10/17 16:00 40 11/10/17 15:06 101 14 45 11/10/17 15:00 93 20 123/69 100 Mechanical Ventilator 40 11/10/17 14:00 100 24 126/70 100 Mechanical Ventilator 40 11/10/17 13:18 88 19 45 11/10/17 13:00 91 18 115/69 100 Mechanical Ventilator 40 11/10/17 12:00 40 11/10/17 12:00 89 11/10/17 12:00 98.3 89 18 139/78 100 Mechanical Ventilator 40 11/10/17 11:14 88 17 45 11/10/17 11:00 90 17 108/56 100 Mechanical Ventilator 40 11/10/17 10:00 97 21 116/61 100 Mechanical Ventilator 40 11/10/17 09:20 88 16 45 11/10/17 09:00 82 18 131/69 100 Mechanical Ventilator 50 11/10/17 08:00 97 11/10/17 08:00 50 11/10/17 08:00 98.4 97 18 131/72 100 Mechanical Ventilator 50 11/10/17 07:16 96 18 45 11/10/17 07:00 98 23 125/65 100 Mechanical Ventilator 50 11/10/17 06:00 114 17 126/69 100 Mechanical Ventilator 50 11/10/17 05:13 94 15 50 11/10/17 05:00 89 17 116/62 100 Mechanical Ventilator 50 11/10/17 04:00 50 11/10/17 04:00 96 11/10/17 04:00 99.2 99 20 120/61 100 Mechanical Ventilator 50 11/10/17 03:30 97 16 50 11/10/17 03:00 98 17 108/59 100 Mechanical Ventilator 50 11/10/17 02:00 99 17 106/60 100 Mechanical Ventilator 50 11/10/17 01:30 99 17 50 11/10/17 01:00 94 22 112/63 100 Mechanical Ventilator 50 11/10/17 00:00 50 11/10/17 00:00 105 11/10/17 00:00 98.3 92 21 122/87 100 Mechanical Ventilator 50 11/09/17 23:30 99 18 50 11/09/17 23:00 95 21 85/51 100 Mechanical Ventilator 50 11/09/17 22:00 94 23 135/76 100 Mechanical Ventilator 50 11/09/17 21:16 84 20 50 11/09/17 21:00 82 16 90/48 100 Mechanical Ventilator 50 11/09/17 20:00 50 11/09/17 20:00 82 11/09/17 20:00 98.5 80 14 100/53 100 Mechanical Ventilator 50 Intake and Output 11/09/17 11/10/17 19:00 07:00 Intake Total 3.0 ml Output Total 915 ml 2080 ml Balance -912.0 ml -2080 ml Intake IV Total 3.0 ml Output Urine Total 915 ml 2080 ml Laboratory Tests Test 11/10/17 03:45 11/10/17 07:55 White Blood Count 7.8 K/UL (4.8-10.8) Red Blood Count 4.02 M/UL (4.20-5.40) L Hemoglobin 11.0 G/DL (12.0-16.0) L Hematocrit 34.0 % (37.0-47.0) L Mean Corpuscular Volume 85 FL (80-99) Mean Corpuscular Hemoglobin 27.4 PG (27.0-31.0) Mean Corpuscular Hemoglobin Concent 32.4 G/DL (32.0-36.0) Red Cell Distribution Width 12.0 % (11.6-14.8) Platelet Count 132 K/UL (150-450) L Mean Platelet Volume 8.6 FL (6.5-10.1) Neutrophils (%) (Auto) 82.8 % (45.0-75.0) H Lymphocytes (%) (Auto) 7.5 % (20.0-45.0) L Monocytes (%) (Auto) 9.3 % (1.0-10.0) Eosinophils (%) (Auto) 0.1 % (0.0-3.0) Basophils (%) (Auto) 0.3 % (0.0-2.0) Sodium Level 141 MMOL/L (136-145) Potassium Level 2.9 MMOL/L (3.5-5.1) L Chloride Level 99 MMOL/L (98-107) Carbon Dioxide Level 30 MMOL/L (21-32) Anion Gap 12 mmol/L (5-15) Blood Urea Nitrogen 25 mg/dL (7-18) H Creatinine 1.1 MG/DL (0.55-1.30) Estimat Glomerular Filtration Rate mL/min (>60) Glucose Level 90 MG/DL (74-106) Calcium Level 7.8 MG/DL (8.5-10.1) L Phosphorus Level 3.5 MG/DL (2.5-4.9) Magnesium Level 1.5 MG/DL (1.8-2.4) L Total Bilirubin 0.7 MG/DL (0.2-1.0) Aspartate Amino Transf (AST/SGOT) 26 U/L (15-37) Alanine Aminotransferase (ALT/SGPT) 17 U/L (12-78) Alkaline Phosphatase 58 U/L (46-116) Troponin I 0.000 ng/mL (0.000-0.056) Total Protein 6.7 G/DL (6.4-8.2) Albumin 3.1 G/DL (3.4-5.0) L Globulin 3.6 g/dL Albumin/Globulin Ratio 0.9 (1.0-2.7) L Arterial Blood pH 7.400 (7.350-7.450) Arterial Blood Partial Pressure CO2 52.2 mmHg (35.0-45.0) H Arterial Blood Partial Pressure O2 138.8 mmHg (75.0-100.0) H Arterial Blood HCO3 32.0 mmol/L (22.0-26.0) H Arterial Blood Oxygen Saturation 98.3 % (92.0-98.0) H Arterial Blood Base Excess 6.1 Rafy Test Positive Microbiology Date/Time Source Procedure Growth Status 11/08/17 16:00 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 Complete NALINI GIBBONS Nov 10, 2017 20:00
[2017-11-11] VITALS (24 sets, daily range): BP systolic 87–161; BP diastolic 54–95
--- NOTE | 2017-11-11 03:00 | Consultation ---
DATE OF CONSULTATION: 11/10/2017 CARDIOLOGY CRITICAL CARE NOTE CONSULTING PHYSICIAN: Kamar Pedroza M.D. REFERRING PHYSICIAN: Dylan Pittman M.D. REASON FOR REFERRAL: Respiratory failure and a heart murmur. HISTORY OF PRESENT ILLNESS: This is a 77-year-old female with a history of a heart murmur. Apparently, she has seen a physician before, but nobody apparently has been following her. On the day of admission, she was coughing a bit. No real shortness of breath. Her cough did not sound productive. She was not having any real fevers or chills and she was able to walk to the emergency room according to her sister, and she presented to the emergency room at [facility]. It appears that she was critically ill with acute respiratory failure with hypoxemia and the patient was intubated in the emergency room and subsequently admitted to the hospital. This consultation was requested because of the patient's heart murmur. The patient is on a ventilator, not able to provide any meaningful history. Information is obtained from the patient's sister. PAST MEDICAL HISTORY: Positive for history of heart murmur and high blood pressure. No history of heart attack. No cancer, stroke, hepatitis, tuberculosis, asthma, or emphysema. No ulcers, kidney problems, liver problems, thyroid problems, anemia, or arthritis. ALLERGIES: She is allergic to penicillin. SOCIAL HISTORY: Does not smoke or drink. REVIEW OF SYSTEMS: GASTROINTESTINAL: She has had five bouts of diarrhea in the morning of her admission. No bloody or black stool. GENITOURINARY: She was not complaining of discomfort on urination. PULMONARY: Does cough, but no sinus congestion. NEUROLOGIC: She was . PHYSICAL EXAMINATION: GENERAL: Shows to be an elderly female on a mechanical ventilator. She is thin, cachectic looking. NECK: Supple. No jugular venous distention. LUNGS: Appear to be clear to auscultation bilaterally. CARDIAC: S1 is normal. S2 is normal. Regular rhythm. Holosystolic regurgitant murmur and systolic ejection murmur is noted. ABDOMEN: Soft and nontender. Positive bowel sounds. EXTREMITIES: There is no edema. NEUROLOGIC: She is minimally responsive. LABORATORY AND DIAGNOSTIC DATA: A chest x-ray performed shows cardiomegaly and interstitial edema, probably improved since prior days. Her original chest x-ray in the emergency room showed no radiographic evidence of acute cardiopulmonary process, the heart was enlarged however and interstitial opacification edema was noted on that EKG. She has had a CT scan of her abdomen and pelvis that preliminary report shows a small right and trace left pleural effusion, septal thickness suggestive of edema, cardiomegaly, large calcified fibroids, underdistention, and then she has had an echocardiogram that shows ejection fraction of 65% to 70%. Echogenic material noted on the anterior mitral valve, no significant valvular regurgitation being documented on that echocardiogram. Right ventricular systolic pressure of 39 and mild left ventricular hypertrophy was noted on that echocardiogram. White count of 7.8, hemoglobin 11, and platelet count of 132,000. The pH of 7.40, pCO2 52, pO2 139, and bicarbonate 32. Sodium is 141, potassium 2.9, chloride 99, bicarbonate 30, BUN 12, creatinine 1.0, and glucose of 90. Liver function tests are relatively normal except for albumin of 3.1. All three sets of cardiac enzymes are negative and no proBNP is available. Her EKG performed in the emergency room shows sinus rhythm, a lot of motion artifact being documented. No significant ST-T wave abnormalities are documented. ASSESSMENT AND PLAN: 1. Respiratory failure. 2. Hypertension history. 3. Diarrhea at the time of admission. 4. Cachexia. Dr. Pittman, this patient was seen in cardiac consultation and she is on a mechanical ventilator. Blood pressure appears to be intact at the present time. She does have a heart problem, but the echocardiogram report does not show any evidence of significant left ventricular hypertrophy, outflow obstruction, or valvular regurgitation of any kind or valvular stenosis of any kind. I will try to review the echocardiogram myself tomorrow. She should have a venous duplex study of the lower extremities to rule out deep venous thromboses and she is getting empiric antibiotics. Potassium to be supplemented. Blood cultures so far are negative and x-rays are as mentioned. CT scan of the abdomen was also noted. We will follow the patient along with you. Kamar Pedroza M.D. DR: Jensen JOB#: [id number] CC:
[2017-11-11 06:30] LABS: BASOPHILS % (AUTO) 0.4 % (0.0-2.0); EOSINOPHILS % (AUTO) 0.1 % (0.0-3.0); HEMATOCRIT 33.5 % (37.0-47.0); HEMOGLOBIN 10.7 G/DL (12.0-16.0); LYMPHOCYTES % (AUTO) 6.9 % (20.0-45.0); MEAN CORPUSCULAR VOLUME 86 FL (80-99); MONOCYTES % (AUTO) 8.8 % (1.0-10.0); NEUTROPHILS % (AUTO) 83.8 % (45.0-75.0); PLATELET COUNT 122 K/UL (150-450); RED BLOOD COUNT 3.89 M/UL (4.20-5.40); RED CELL DISTRIBUTION WIDTH 12.3 % (11.6-14.8); WHITE BLOOD COUNT 6.5 K/UL (4.8-10.8)
[2017-11-11 06:51] LABS: ALANINE AMINOTRANSFERASE 19 U/L (12-78); ALBUMIN 2.8 G/DL (3.4-5.0); ALBUMIN/GLOBULIN RATIO 0.8 (1.0-2.7); ALKALINE PHOSPHATASE 65 U/L (46-116); ANION GAP 4 mmol/L (5-15); ASPARTATE AMINO TRANSFERASE 27 U/L (15-37); BILIRUBIN,TOTAL 0.4 MG/DL (0.2-1.0); BLOOD UREA NITROGEN 17 mg/dL (7-18); CALCIUM 8.1 MG/DL (8.5-10.1); CARBON DIOXIDE 30 MMOL/L (21-32); CHLORIDE 107 MMOL/L (98-107); CREATININE 0.7 MG/DL (0.55-1.30); PHOSPHORUS 1.4 MG/DL (2.5-4.9); POTASSIUM 5.2 MMOL/L (3.5-5.1); SODIUM 141 MMOL/L (136-145)
[2017-11-11] MEDS: Pantoprazole Inj IV SCH (08:17)
[2017-11-11] MEDS: Heparin 5000 units/ml inj SUBQ SCH ×2 (08:18→20:44)
--- NOTE | 2017-11-11 09:20 | Pulmonolgy Critical Care Note ---
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 (4) Protein-calorie malnutrition, severe Respiratory: monitor respiratory rate, adjust FIO2, CXR Cardiac: continue to monitor HR/BP Renal: F/U I&O, keep IV fluid, check electrolytes Infectious Disease: check cultures, continue antibiotics Gastrointestinal: continue feedings/current rate Endocrine: monitor blood sugar Hematologic: monitor H/H, transfuse if hgb<8.5 Neurologic: PRN Ativan, keep patient comfortable Affect: PRN ativan Prophylaxis: Heparin Notes Reviewed: mobile lounge driver, cardio, renal Discussed with: nurses, consultants, case hardenerbusiness management manager - Objective Last 24 Hour Vital Signs Date Time Temp Pulse Resp B/P (MAP) Pulse Ox O2 Delivery O2 Flow Rate FiO2 11/11/17 09:04 115 27 30 11/11/17 08:00 98.5 103 16 132/76 100 Mechanical Ventilator 30 11/11/17 08:00 30 11/11/17 07:28 112 24 30 11/11/17 07:00 119 22 161/81 100 Mechanical Ventilator 30 11/11/17 06:00 89 17 105/71 100 Mechanical Ventilator 30 11/11/17 05:00 88 15 104/62 100 Mechanical Ventilator 30 11/11/17 04:51 88 17 30 11/11/17 04:00 90 11/11/17 04:00 30 11/11/17 04:00 98.7 99 14 93/60 100 Mechanical Ventilator 30 11/11/17 03:02 96 20 35 11/11/17 03:00 103 18 144/95 100 Mechanical Ventilator 30 11/11/17 02:00 81 14 99/57 100 Mechanical Ventilator 35 11/11/17 01:03 81 15 35 11/11/17 01:00 85 17 97/55 100 Mechanical Ventilator 35 11/11/17 00:00 98.9 81 16 87/54 100 Mechanical Ventilator 40 11/11/17 00:00 40 11/11/17 00:00 86 11/10/17 23:18 105 18 40 11/10/17 23:00 90 19 148/86 100 Mechanical Ventilator 40 11/10/17 22:00 99 16 142/70 100 Mechanical Ventilator 40 11/10/17 21:11 86 15 40 11/10/17 21:00 83 15 116/59 100 Mechanical Ventilator 40 11/10/17 20:00 40 11/10/17 20:00 98.4 85 17 101/55 100 Mechanical Ventilator 40 11/10/17 20:00 83 11/10/17 19:44 83 17 40 11/10/17 19:00 87 19 105/61 100 Mechanical Ventilator 40 11/10/17 18:00 88 19 105/61 100 Mechanical Ventilator 40 11/10/17 17:00 86 20 108/59 100 Mechanical Ventilator 40 11/10/17 16:53 99 17 45 11/10/17 16:00 92 11/10/17 16:00 97.8 92 17 118/62 100 Mechanical Ventilator 40 11/10/17 16:00 40 11/10/17 15:06 101 14 45 11/10/17 15:00 93 20 123/69 100 Mechanical Ventilator 40 11/10/17 14:00 100 24 126/70 100 Mechanical Ventilator 40 11/10/17 13:18 88 19 45 11/10/17 13:00 91 18 115/69 100 Mechanical Ventilator 40 11/10/17 12:00 40 11/10/17 12:00 89 11/10/17 12:00 98.3 89 18 139/78 100 Mechanical Ventilator 40 11/10/17 11:14 88 17 45 11/10/17 11:00 90 17 108/56 100 Mechanical Ventilator 40 11/10/17 10:00 97 21 116/61 100 Mechanical Ventilator 40 11/10/17 09:20 88 16 45 Status: sedated Condition: critical HEENT: atraumatic Neck: full ROM Lungs: clear Heart: HR/BP unstable Abdomen: non-tender, feeding tube Extremities: edema Decubiti: location, stage Micro: Microbiology Date/Time Source Procedure Growth Status 11/08/17 16:00 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 Complete Critical Care - Subjective ROS Limited/Unobtainable: Yes ICU Day: 3 Condition: critical EKG Rhythm: Sinus Rhythm FI02: 30 Vent Support Breath Rate: 12 Vent Support Mode: AC Vent Tidal Volume: 300 Sputum Amount: Small PEEP: 5.0 PIP: 27 Tube Feeding Amount: 35 I&O: Intake and Output 11/10/17 11/11/17 19:00 07:00 Intake Total 1155 ml 910 ml Output Total 760 ml 450 ml Balance 395 ml 460 ml Intake Free Water 50 ml IV Total 1105 ml 600 ml Tube Feeding 50 ml 260 ml Output Urine Total 760 ml 450 ml CXR: No change ET-Tube: 6.0 ET Position: 20 Labs: Laboratory Tests Test 11/11/17 05:00 11/11/17 08:15 White Blood Count 6.5 K/UL (4.8-10.8) Red Blood Count 3.89 M/UL (4.20-5.40) L Hemoglobin 10.7 G/DL (12.0-16.0) L Hematocrit 33.5 % (37.0-47.0) L Mean Corpuscular Volume 86 FL (80-99) Mean Corpuscular Hemoglobin 27.4 PG (27.0-31.0) Mean Corpuscular Hemoglobin Concent 31.8 G/DL (32.0-36.0) L Red Cell Distribution Width 12.3 % (11.6-14.8) Platelet Count 122 K/UL (150-450) L Mean Platelet Volume 8.9 FL (6.5-10.1) Neutrophils (%) (Auto) 83.8 % (45.0-75.0) H Lymphocytes (%) (Auto) 6.9 % (20.0-45.0) L Monocytes (%) (Auto) 8.8 % (1.0-10.0) Eosinophils (%) (Auto) 0.1 % (0.0-3.0) Basophils (%) (Auto) 0.4 % (0.0-2.0) Sodium Level 141 MMOL/L (136-145) Potassium Level 5.2 MMOL/L (3.5-5.1) #H Chloride Level 107 MMOL/L (98-107) Carbon Dioxide Level 30 MMOL/L (21-32) Anion Gap 4 mmol/L (5-15) L Blood Urea Nitrogen 17 mg/dL (7-18) Creatinine 0.7 MG/DL (0.55-1.30) Estimat Glomerular Filtration Rate mL/min (>60) Glucose Level 154 MG/DL (74-106) H Calcium Level 8.1 MG/DL (8.5-10.1) L Phosphorus Level 1.4 MG/DL (2.5-4.9) L Magnesium Level 2.8 MG/DL (1.8-2.4) H Total Bilirubin 0.4 MG/DL (0.2-1.0) Aspartate Amino Transf (AST/SGOT) 27 U/L (15-37) Alanine Aminotransferase (ALT/SGPT) 19 U/L (12-78) Alkaline Phosphatase 65 U/L (46-116) Pro-B-Type Natriuretic Peptide 2068 pg/mL (0-125) H Total Protein 6.3 G/DL (6.4-8.2) L Albumin 2.8 G/DL (3.4-5.0) L Globulin 3.5 g/dL Albumin/Globulin Ratio 0.8 (1.0-2.7) L Arterial Blood pH 7.415 (7.350-7.450) Arterial Blood Partial Pressure CO2 46.2 mmHg (35.0-45.0) H Arterial Blood Partial Pressure O2 87.7 mmHg (75.0-100.0) Arterial Blood HCO3 29.0 mmol/L (22.0-26.0) H Arterial Blood Oxygen Saturation 96.7 % (92.0-98.0) Arterial Blood Base Excess 3.8 Rafy Test Positive DIANA AGGARWAL Nov 11, 2017 09:19
[2017-11-11] MEDS ORDERED: Phospha 250 Neutral tab ORAL ONE (09:45)
[2017-11-11] MEDS ORDERED: Tubing IV Secondary IV ONE (10:55)
--- NOTE | 2017-11-11 11:01 | Diagnostic Imaging Report ---
Indication: Dyspnea Comparison: 11/10/2017 A single view chest radiograph was obtained. Findings: Tubes and lines are stable. Heart is enlarged. Lungs are hyperexpanded. Left hemidiaphragm is obscured. IMPRESSION: No change from the previous day
[2017-11-11] MEDS: LORazepam Inj 2mg/ml 1ml IV PRN ×2 (11:17→17:44)
--- NOTE | 2017-11-11 13:12 | Diagnostic Imaging Report ---
APPROVED REPORT CPT Code: 79956 Present Symptoms BILATERAL: Imaging reveals a patent deep venous system bilaterally. There is no evidence of thrombus within the femoral, popliteal or tibial segments. The greater saphenous veins are also within normal limits. Doppler indicates normal spontaneous flow within these segments.
--- NOTE | 2017-11-11 14:35 | Cardiology Progress Note ---
Assessment/Plan Assessment/Plan 1. Respiratory failure. 2. Hypertension history. 3. Diarrhea at the time of admission. 4. Cachexia. i wonder she may have MR not picked up on tanja echo view as may be eccentric will d/w with manufacturing test technician to take more images is now quite tachy in the 130's will given lwo martinez iv bb is waking up more per staff may be agitated due to ett cxr apear hyperinflated echo images personally reviewed MV sig thickened ant leafleft may be billowing past the post leaflet Subjective ROS Limited/Unobtainable: Yes Cardiovascular: Reports: chest pain Objective Last 24 Hour Vital Signs Date Time Temp Pulse Resp B/P (MAP) Pulse Ox O2 Delivery O2 Flow Rate FiO2 11/11/17 14:00 108 17 137/79 100 Mechanical Ventilator 30 11/11/17 13:29 118 19 30 11/11/17 13:00 125 21 150/93 100 Mechanical Ventilator 30 11/11/17 12:00 98.7 120 20 113/67 100 Mechanical Ventilator 30 11/11/17 12:00 30 11/11/17 12:00 97 11/11/17 11:00 127 22 157/88 100 Mechanical Ventilator 30 11/11/17 10:45 136 31 30 11/11/17 10:00 125 21 153/57 100 Mechanical Ventilator 30 11/11/17 09:04 115 27 30 11/11/17 09:00 130 18 147/82 100 Mechanical Ventilator 30 11/11/17 08:00 98.5 103 16 132/76 100 Mechanical Ventilator 30 11/11/17 08:00 105 11/11/17 08:00 30 11/11/17 07:28 112 24 30 11/11/17 07:00 119 22 161/81 100 Mechanical Ventilator 30 11/11/17 06:00 89 17 105/71 100 Mechanical Ventilator 30 11/11/17 05:00 88 15 104/62 100 Mechanical Ventilator 30 11/11/17 04:51 88 17 30 11/11/17 04:00 90 11/11/17 04:00 30 11/11/17 04:00 98.7 99 14 93/60 100 Mechanical Ventilator 30 11/11/17 03:02 96 20 35 11/11/17 03:00 103 18 144/95 100 Mechanical Ventilator 30 11/11/17 02:00 81 14 99/57 100 Mechanical Ventilator 35 11/11/17 01:03 81 15 35 11/11/17 01:00 85 17 97/55 100 Mechanical Ventilator 35 11/11/17 00:00 98.9 81 16 87/54 100 Mechanical Ventilator 40 11/11/17 00:00 40 11/11/17 00:00 86 11/10/17 23:18 105 18 40 11/10/17 23:00 90 19 148/86 100 Mechanical Ventilator 40 11/10/17 22:00 99 16 142/70 100 Mechanical Ventilator 40 11/10/17 21:11 86 15 40 11/10/17 21:00 83 15 116/59 100 Mechanical Ventilator 40 11/10/17 20:00 40 11/10/17 20:00 98.4 85 17 101/55 100 Mechanical Ventilator 40 11/10/17 20:00 83 11/10/17 19:44 83 17 40 11/10/17 19:00 87 19 105/61 100 Mechanical Ventilator 40 11/10/17 18:00 88 19 105/61 100 Mechanical Ventilator 40 11/10/17 17:00 86 20 108/59 100 Mechanical Ventilator 40 11/10/17 16:53 99 17 45 11/10/17 16:00 92 11/10/17 16:00 97.8 92 17 118/62 100 Mechanical Ventilator 40 11/10/17 16:00 40 11/10/17 15:06 101 14 45 11/10/17 15:00 93 20 123/69 100 Mechanical Ventilator 40 General Appearance: on vent Cardiovascular: normal rate, tachycardia Respiratory/Chest: rhonchi - bilaterally Abdomen: normal bowel sounds, non tender, soft Extremities: no swelling Intake and Output 11/10/17 11/11/17 19:00 07:00 Intake Total 1155 ml 910 ml Output Total 760 ml 450 ml Balance 395 ml 460 ml Intake Free Water 50 ml IV Total 1105 ml 600 ml Tube Feeding 50 ml 260 ml Output Urine Total 760 ml 450 ml Laboratory Tests Test 11/11/17 05:00 11/11/17 08:15 White Blood Count 6.5 K/UL (4.8-10.8) Red Blood Count 3.89 M/UL (4.20-5.40) L Hemoglobin 10.7 G/DL (12.0-16.0) L Hematocrit 33.5 % (37.0-47.0) L Mean Corpuscular Volume 86 FL (80-99) Mean Corpuscular Hemoglobin 27.4 PG (27.0-31.0) Mean Corpuscular Hemoglobin Concent 31.8 G/DL (32.0-36.0) L Red Cell Distribution Width 12.3 % (11.6-14.8) Platelet Count 122 K/UL (150-450) L Mean Platelet Volume 8.9 FL (6.5-10.1) Neutrophils (%) (Auto) 83.8 % (45.0-75.0) H Lymphocytes (%) (Auto) 6.9 % (20.0-45.0) L Monocytes (%) (Auto) 8.8 % (1.0-10.0) Eosinophils (%) (Auto) 0.1 % (0.0-3.0) Basophils (%) (Auto) 0.4 % (0.0-2.0) Sodium Level 141 MMOL/L (136-145) Potassium Level 5.2 MMOL/L (3.5-5.1) #H Chloride Level 107 MMOL/L (98-107) Carbon Dioxide Level 30 MMOL/L (21-32) Anion Gap 4 mmol/L (5-15) L Blood Urea Nitrogen 17 mg/dL (7-18) Creatinine 0.7 MG/DL (0.55-1.30) Estimat Glomerular Filtration Rate mL/min (>60) Glucose Level 154 MG/DL (74-106) H Calcium Level 8.1 MG/DL (8.5-10.1) L Phosphorus Level 1.4 MG/DL (2.5-4.9) L Magnesium Level 2.8 MG/DL (1.8-2.4) H Total Bilirubin 0.4 MG/DL (0.2-1.0) Aspartate Amino Transf (AST/SGOT) 27 U/L (15-37) Alanine Aminotransferase (ALT/SGPT) 19 U/L (12-78) Alkaline Phosphatase 65 U/L (46-116) Pro-B-Type Natriuretic Peptide 2068 pg/mL (0-125) H Total Protein 6.3 G/DL (6.4-8.2) L Albumin 2.8 G/DL (3.4-5.0) L Globulin 3.5 g/dL Albumin/Globulin Ratio 0.8 (1.0-2.7) L Arterial Blood pH 7.415 (7.350-7.450) Arterial Blood Partial Pressure CO2 46.2 mmHg (35.0-45.0) H Arterial Blood Partial Pressure O2 87.7 mmHg (75.0-100.0) Arterial Blood HCO3 29.0 mmol/L (22.0-26.0) H Arterial Blood Oxygen Saturation 96.7 % (92.0-98.0) Arterial Blood Base Excess 3.8 Rafy Test Positive Microbiology Date/Time Source Procedure Growth Status 11/08/17 16:00 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 Complete NALINI GIBBONS Nov 11, 2017 14:35
[2017-11-11] MEDS ORDERED: Metoprolol 5mg/5ml Inj IVP ONE ×2 (14:45→19:05)
--- NOTE | 2017-11-11 16:57 | Cardiology Report ---
APPROVED REPORT EKG Measurement Heart [id number] Sinus tachycardia Rightward axis Left ventricular hypertrophy with QRS widening Abnormal ECG
[2017-11-12] VITALS (24 sets, daily range): BP systolic 80–162; BP diastolic 48–96
[2017-11-12] MEDS: LORazepam Inj 2mg/ml 1ml IV PRN ×2 (02:14→11:07)
[2017-11-12 06:59] LABS: BASOPHILS % (AUTO) 0.3 % (0.0-2.0); EOSINOPHILS % (AUTO) 0.1 % (0.0-3.0); HEMATOCRIT 35.3 % (37.0-47.0); HEMOGLOBIN 11.1 G/DL (12.0-16.0); LYMPHOCYTES % (AUTO) 12.6 % (20.0-45.0); MEAN CORPUSCULAR VOLUME 86 FL (80-99); MONOCYTES % (AUTO) 9.4 % (1.0-10.0); NEUTROPHILS % (AUTO) 77.7 % (45.0-75.0); PLATELET COUNT 129 K/UL (150-450); RED BLOOD COUNT 4.12 M/UL (4.20-5.40)
[2017-11-12 07:13] LABS: ALANINE AMINOTRANSFERASE 19 U/L (12-78); ALBUMIN 2.8 G/DL (3.4-5.0); ALBUMIN/GLOBULIN RATIO 0.7 (1.0-2.7); ALKALINE PHOSPHATASE 65 U/L (46-116); ANION GAP 3 mmol/L (5-15); ASPARTATE AMINO TRANSFERASE 21 U/L (15-37); BILIRUBIN,TOTAL 0.5 MG/DL (0.2-1.0); BLOOD UREA NITROGEN 11 mg/dL (7-18); CALCIUM 8.6 MG/DL (8.5-10.1); CARBON DIOXIDE 30 MMOL/L (21-32); CHLORIDE 103 MMOL/L (98-107); CREATININE 0.6 MG/DL (0.55-1.30); PHOSPHORUS 1.6 MG/DL (2.5-4.9); POTASSIUM 4.3 MMOL/L (3.5-5.1); SODIUM 136 MMOL/L (136-145)
[2017-11-12] MEDS: Pantoprazole Inj IV SCH (09:14)
[2017-11-12] MEDS: Metoprolol 5mg/5ml Inj IVP PRN (09:15)
[2017-11-12] MEDS: Heparin 5000 units/ml inj SUBQ SCH ×2 (09:16→21:13)
--- NOTE | 2017-11-12 10:22 | Pulmonolgy Critical Care Note ---
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 (4) Protein-calorie malnutrition, severe Respiratory: monitor respiratory rate, adjust FIO2, CXR, other - try weaning in am again Cardiac: continue pressors, continue to monitor HR/BP Renal: F/U I&O, keep IV fluid Infectious Disease: check cultures, continue antibiotics Gastrointestinal: continue feedings/current rate Endocrine: monitor blood sugar, check TSH, continue sliding scale insulin Hematologic: transfuse if hgb<8.5 Neurologic: PRN Ativan, PRN Morphine, keep patient comfortable Affect: PRN ativan Prophylaxis: Protonix, Heparin Time Spent (Minutes): 30 Notes Reviewed: building construction contractor, cardio, renal Discussed with: nurses, consultants, case preparer and linermanager interface - Objective Last 24 Hour Vital Signs Date Time Temp Pulse Resp B/P (MAP) Pulse Ox O2 Delivery O2 Flow Rate FiO2 11/12/17 09:15 132 153/82 11/12/17 09:02 30 11/12/17 09:00 132 29 153/82 100 Mechanical Ventilator 30 11/12/17 08:55 30 11/12/17 08:50 100 11/12/17 08:45 106 25 30 11/12/17 08:42 110 22 30 11/12/17 08:00 98.3 117 20 132/76 100 Mechanical Ventilator 30 11/12/17 08:00 103 11/12/17 08:00 30 11/12/17 07:00 115 21 121/72 100 Mechanical Ventilator 30 11/12/17 07:00 105 21 121/72 100 Mechanical Ventilator 30 11/12/17 06:59 99 21 30 11/12/17 06:00 98 21 121/72 100 Mechanical Ventilator 30 11/12/17 05:08 110 20 30 11/12/17 05:00 101 22 118/63 100 Mechanical Ventilator 30 11/12/17 04:00 98.2 100 16 110/64 100 Mechanical Ventilator 30 11/12/17 04:00 30 11/12/17 04:00 100 11/12/17 03:16 98 18 30 11/12/17 03:00 97 19 102/58 100 Mechanical Ventilator 30 11/12/17 02:00 121 27 162/96 100 Mechanical Ventilator 30 11/12/17 01:08 112 20 30 11/12/17 01:00 97 19 104/55 100 Mechanical Ventilator 30 11/12/17 00:00 103 11/12/17 00:00 30 11/12/17 00:00 98.7 101 20 135/60 100 Mechanical Ventilator 30 11/11/17 23:14 117 22 30 11/11/17 23:00 114 24 139/86 100 Mechanical Ventilator 30 11/11/17 22:00 98.7 112 24 140/87 100 Mechanical Ventilator 30 11/11/17 21:20 104 24 30 11/11/17 21:00 111 24 133/74 100 Mechanical Ventilator 30 11/11/17 20:00 99.1 112 24 145/89 100 Mechanical Ventilator 30 11/11/17 20:00 111 11/11/17 20:00 30 11/11/17 19:11 107 21 30 11/11/17 19:02 122 143/54 11/11/17 19:00 109 21 145/89 100 Mechanical Ventilator 30 11/11/17 18:00 117 21 143/54 99 Mechanical Ventilator 30 11/11/17 17:00 98.6 124 28 157/88 98 Mechanical Ventilator 30 11/11/17 16:53 126 31 30 11/11/17 16:00 99.0 123 17 155/86 100 Mechanical Ventilator 30 11/11/17 16:00 119 11/11/17 16:00 30 11/11/17 15:29 115 29 30 11/11/17 15:06 116 137/79 11/11/17 15:00 116 21 139/70 100 Mechanical Ventilator 30 11/11/17 14:00 108 17 137/79 100 Mechanical Ventilator 30 11/11/17 13:29 118 19 30 11/11/17 13:00 125 21 150/93 100 Mechanical Ventilator 30 11/11/17 12:00 98.7 120 20 113/67 100 Mechanical Ventilator 30 11/11/17 12:00 30 11/11/17 12:00 97 11/11/17 11:00 127 22 157/88 100 Mechanical Ventilator 30 11/11/17 10:45 136 31 30 Status: sedated, other - RESPIRATORY NOTE:pt was placed back to AC 12, Vt 300, FiO2 30%. HR was elevated to 135 pt lasted only 5 min. Condition: critical, grave Neck: full ROM Lungs: rales, rhonchi Heart: HR/BP stable Abdomen: soft, non-tender, feeding tube Extremities: edema Decubiti: location Critical Care - Subjective ROS Limited/Unobtainable: Yes Condition: critical EKG Rhythm: Sinus Rhythm FI02: 30 Vent Support Breath Rate: 12 Vent Support Mode: AC Vent Tidal Volume: 300 Sputum Amount: Scant PEEP: 5.0 PIP: 25 Tube Feeding Amount: 35 I&O: Intake and Output 11/11/17 11/12/17 19:00 07:00 Intake Total 625 ml 365 ml Output Total 495 ml 515 ml Balance 130 ml -150 ml Intake Free Water 80 ml 50 ml IV Total 100 ml Tube Feeding 415 ml 315 ml Other 30 ml Output Urine Total 495 ml 515 ml CXR: ET in place, no change ET-Tube: 6.0 ET Position: 20 Labs: Laboratory Tests Test 11/12/17 04:00 11/12/17 05:10 Arterial Blood pH 7.440 (7.350-7.450) Arterial Blood Partial Pressure CO2 43.0 mmHg (35.0-45.0) Arterial Blood Partial Pressure O2 92.7 mmHg (75.0-100.0) Arterial Blood HCO3 28.6 mmol/L (22.0-26.0) H Arterial Blood Oxygen Saturation 97.2 % (92.0-98.0) Arterial Blood Base Excess 4.0 Rafy Test Positive White Blood Count 5.0 K/UL (4.8-10.8) Red Blood Count 4.12 M/UL (4.20-5.40) L Hemoglobin 11.1 G/DL (12.0-16.0) L Hematocrit 35.3 % (37.0-47.0) L Mean Corpuscular Volume 86 FL (80-99) Mean Corpuscular Hemoglobin 26.9 PG (27.0-31.0) L Mean Corpuscular Hemoglobin Concent 31.4 G/DL (32.0-36.0) L Red Cell Distribution Width 12.0 % (11.6-14.8) Platelet Count 129 K/UL (150-450) L Mean Platelet Volume 8.7 FL (6.5-10.1) Neutrophils (%) (Auto) 77.7 % (45.0-75.0) H Lymphocytes (%) (Auto) 12.6 % (20.0-45.0) L Monocytes (%) (Auto) 9.4 % (1.0-10.0) Eosinophils (%) (Auto) 0.1 % (0.0-3.0) Basophils (%) (Auto) 0.3 % (0.0-2.0) Sodium Level 136 MMOL/L (136-145) Potassium Level 4.3 MMOL/L (3.5-5.1) Chloride Level 103 MMOL/L (98-107) Carbon Dioxide Level 30 MMOL/L (21-32) Anion Gap 3 mmol/L (5-15) L Blood Urea Nitrogen 11 mg/dL (7-18) Creatinine 0.6 MG/DL (0.55-1.30) Estimat Glomerular Filtration Rate mL/min (>60) Glucose Level 124 MG/DL (74-106) H Calcium Level 8.6 MG/DL (8.5-10.1) Phosphorus Level 1.6 MG/DL (2.5-4.9) L Magnesium Level 2.2 MG/DL (1.5-2.4) Total Bilirubin 0.5 MG/DL (0.2-1.0) Aspartate Amino Transf (AST/SGOT) 21 U/L (15-37) Alanine Aminotransferase (ALT/SGPT) 19 U/L (12-78) Alkaline Phosphatase 65 U/L (46-116) Total Protein 6.8 G/DL (6.4-8.2) Albumin 2.8 G/DL (3.4-5.0) L Globulin 4.0 g/dL Albumin/Globulin Ratio 0.7 (1.0-2.7) L DIANA AGGARWAL Nov 12, 2017 10:22
--- NOTE | 2017-11-12 11:42 | Diagnostic Imaging Report ---
Indication: Dyspnea Comparison: 11/11/2017 A single view chest radiograph was obtained. Findings: Heart is enlarged. Endotracheal tube is a few centimeters above the [place] in good position. Nasogastric tube is in good position. Left jugular catheter previously seen was removed. The left hemidiaphragm is not visualized. IMPRESSION: No significant change compared to the previous day.
[2017-11-12] MEDS: Morphine Sulfate 4mg/ml Inj IVP PRN (13:12)
[2017-11-13] VITALS (24 sets, daily range): BP systolic 96–205; BP diastolic 33–119
[2017-11-13] MEDS: Metoprolol 5mg/5ml Inj IVP PRN ×2 (03:12→09:18)
[2017-11-13 05:56] LABS: BASOPHILS % (AUTO) 0.9 % (0.0-2.0); EOSINOPHILS % (AUTO) 0.7 % (0.0-3.0); HEMATOCRIT 36.6 % (37.0-47.0); HEMOGLOBIN 11.7 G/DL (12.0-16.0); LYMPHOCYTES % (AUTO) 10.3 % (20.0-45.0); MEAN CORPUSCULAR VOLUME 85 FL (80-99); MONOCYTES % (AUTO) 11.7 % (1.0-10.0); NEUTROPHILS % (AUTO) 76.5 % (45.0-75.0); PLATELET COUNT 176 K/UL (150-450); RED CELL DISTRIBUTION WIDTH 11.9 % (11.6-14.8); WHITE BLOOD COUNT 6.3 K/UL (4.8-10.8)
[2017-11-13 06:45] LABS: ALANINE AMINOTRANSFERASE 23 U/L (12-78); ALBUMIN 2.9 G/DL (3.4-5.0); ALBUMIN/GLOBULIN RATIO 0.7 (1.0-2.7); ALKALINE PHOSPHATASE 65 U/L (46-116); ANION GAP 4 mmol/L (5-15); ASPARTATE AMINO TRANSFERASE 24 U/L (15-37); BILIRUBIN,TOTAL 0.4 MG/DL (0.2-1.0); BLOOD UREA NITROGEN 18 mg/dL (7-18); CALCIUM 8.9 MG/DL (8.5-10.1); CARBON DIOXIDE 31 MMOL/L (21-32); CHLORIDE 98 MMOL/L (98-107); CREATININE 0.6 MG/DL (0.55-1.30); PHOSPHORUS 2.4 MG/DL (2.5-4.9); POTASSIUM 4.4 MMOL/L (3.5-5.1); SODIUM 133 MMOL/L (136-145)
[2017-11-13] MEDS: Pantoprazole Inj IV SCH (09:19)
[2017-11-13] MEDS: Heparin 5000 units/ml inj SUBQ SCH ×2 (09:24→20:43)
--- NOTE | 2017-11-13 11:03 | Pulmonolgy Critical Care Note ---
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 (4) Protein-calorie malnutrition, severe Respiratory: adjust tidal volume, monitor respiratory rate, adjust FIO2, CXR, ABG, other - no tolerating weaning, hr up to 130 and RR more thna 35 Cardiac: continue to monitor HR/BP Renal: F/U I&O, keep IV fluid Infectious Disease: check cultures Gastrointestinal: continue feedings/current rate, hold feedings Endocrine: monitor blood sugar, check TSH, continue sliding scale insulin Hematologic: monitor H/H, transfuse if hgb<8.5 Neurologic: PRN Morphine, keep patient comfortable Affect: PRN ativan Prophylaxis: Protonix Disposition: keep in ICU Notes Reviewed: health information systems technician Discussed with: nurses, consultants, upper caserterritory manager - Objective Last 24 Hour Vital Signs Date Time Temp Pulse Resp B/P (MAP) Pulse Ox O2 Delivery O2 Flow Rate FiO2 11/13/17 10:00 30 11/13/17 10:00 105 19 121/71 100 Mechanical Ventilator 30 11/13/17 09:54 104 21 30 11/13/17 09:53 100 11/13/17 09:18 148 170/100 11/13/17 09:00 142 28 170/100 100 Mechanical Ventilator 30 11/13/17 08:00 98.6 128 25 166/86 100 Mechanical Ventilator 30 11/13/17 08:00 30 11/13/17 08:00 132 11/13/17 07:12 135 29 30 11/13/17 07:00 133 19 170/103 100 Mechanical Ventilator 30 11/13/17 06:00 107 19 147/33 100 Mechanical Ventilator 30 11/13/17 05:04 110 21 30 11/13/17 05:00 110 18 160/53 100 Mechanical Ventilator 30 11/13/17 04:00 98.1 96 18 152/68 100 Mechanical Ventilator 30 11/13/17 04:00 96 11/13/17 04:00 30 11/13/17 03:12 131 159/59 11/13/17 03:00 126 19 159/59 100 Mechanical Ventilator 30 11/13/17 02:53 122 23 30 11/13/17 02:00 100 18 156/59 100 Mechanical Ventilator 30 11/13/17 01:15 99 19 30 11/13/17 01:00 99 18 156/59 100 Mechanical Ventilator 30 11/13/17 00:00 97 11/13/17 00:00 97.8 97 19 146/44 100 Mechanical Ventilator 30 11/13/17 00:00 30 11/12/17 23:17 106 18 30 11/12/17 23:00 95 18 151/58 100 Mechanical Ventilator 30 11/12/17 22:00 96 17 139/75 100 Mechanical Ventilator 30 11/12/17 21:21 94 16 30 11/12/17 21:00 92 18 126/64 100 Mechanical Ventilator 30 11/12/17 20:00 98.0 87 16 117/56 100 Mechanical Ventilator 30 11/12/17 20:00 92 11/12/17 20:00 30 11/12/17 19:06 84 16 30 11/12/17 19:00 92 17 117/56 100 Mechanical Ventilator 30 11/12/17 18:00 82 17 123/71 100 Mechanical Ventilator 30 11/12/17 17:02 82 15 30 11/12/17 17:00 98.4 89 16 133/71 100 Mechanical Ventilator 30 11/12/17 16:00 30 11/12/17 16:00 92 17 82/57 100 Mechanical Ventilator 30 11/12/17 16:00 90 11/12/17 15:00 98.5 93 17 90/54 100 Mechanical Ventilator 30 11/12/17 14:53 96 15 30 11/12/17 14:12 99.5 11/12/17 14:00 99.8 95 16 80/48 100 Mechanical Ventilator 30 11/12/17 13:13 100.3 11/12/17 13:00 100.3 129 33 107/60 100 Mechanical Ventilator 30 11/12/17 12:52 131 35 30 11/12/17 12:00 99.1 112 24 107/60 100 Mechanical Ventilator 30 11/12/17 12:00 114 Status: awake Condition: critical Neck: full ROM Lungs: clear Abdomen: non-tender Extremities: no C/C/E, edema Critical Care - Subjective ROS Limited/Unobtainable: No ICU Day: 5 Intubation Day: 5 Condition: critical EKG Rhythm: Sinus Rhythm FI02: 30 Vent Support Breath Rate: 12 Vent Support Mode: CPAP Vent Tidal Volume: 300 Sputum Amount: Scant PEEP: 5.0 PIP: 17 Tube Feeding Amount: 35 I&O: Intake and Output 11/12/17 11/13/17 19:00 07:00 Intake Total 520 ml 520 ml Output Total 285 ml 265 ml Balance 235 ml 255 ml Intake Free Water 100 ml 100 ml Tube Feeding 420 ml 420 ml Output Urine Total 285 ml 265 ml CXR: no change ET-Tube: 6.0 ET Position: 20 Labs: Laboratory Tests Test 11/13/17 04:50 11/13/17 10:00 White Blood Count 6.3 K/UL (4.8-10.8) Red Blood Count 4.30 M/UL (4.20-5.40) Hemoglobin 11.7 G/DL (12.0-16.0) L Hematocrit 36.6 % (37.0-47.0) L Mean Corpuscular Volume 85 FL (80-99) Mean Corpuscular Hemoglobin 27.1 PG (27.0-31.0) Mean Corpuscular Hemoglobin Concent 31.9 G/DL (32.0-36.0) L Red Cell Distribution Width 11.9 % (11.6-14.8) Platelet Count 176 K/UL (150-450) Mean Platelet Volume 9.1 FL (6.5-10.1) Neutrophils (%) (Auto) 76.5 % (45.0-75.0) H Lymphocytes (%) (Auto) 10.3 % (20.0-45.0) L Monocytes (%) (Auto) 11.7 % (1.0-10.0) H Eosinophils (%) (Auto) 0.7 % (0.0-3.0) Basophils (%) (Auto) 0.9 % (0.0-2.0) Sodium Level 133 MMOL/L (136-145) L Potassium Level 4.4 MMOL/L (3.5-5.1) Chloride Level 98 MMOL/L (98-107) Carbon Dioxide Level 31 MMOL/L (21-32) Anion Gap 4 mmol/L (5-15) L Blood Urea Nitrogen 18 mg/dL (7-18) Creatinine 0.6 MG/DL (0.55-1.30) Estimat Glomerular Filtration Rate mL/min (>60) Glucose Level 110 MG/DL (74-106) H Calcium Level 8.9 MG/DL (8.5-10.1) Phosphorus Level 2.4 MG/DL (2.5-4.9) L Magnesium Level 2.2 MG/DL (1.8-2.4) Total Bilirubin 0.4 MG/DL (0.2-1.0) Aspartate Amino Transf (AST/SGOT) 24 U/L (15-37) Alanine Aminotransferase (ALT/SGPT) 23 U/L (12-78) Alkaline Phosphatase 65 U/L (46-116) Total Protein 7.2 G/DL (6.4-8.2) Albumin 2.9 G/DL (3.4-5.0) L Globulin 4.3 g/dL Albumin/Globulin Ratio 0.7 (1.0-2.7) L Arterial Blood pH 7.424 (7.350-7.450) Arterial Blood Partial Pressure CO2 46.3 mmHg (35.0-45.0) H Arterial Blood Partial Pressure O2 84.0 mmHg (75.0-100.0) Arterial Blood HCO3 29.6 mmol/L (22.0-26.0) H Arterial Blood Oxygen Saturation 96.5 % (92.0-98.0) Arterial Blood Base Excess 4.6 Rafy Test Positive DIANA AGGARWAL Nov 13, 2017 11:03
[2017-11-13] MEDS: LORazepam Inj 2mg/ml 1ml IV PRN ×2 (11:43→20:42)
[2017-11-13] MEDS: D5NS 1,000 ML IV SCH (11:56)
[2017-11-13] MEDS ORDERED: Sodium Phosphate 30 MM in NS 275 ML IV ONE (13:00)
--- NOTE | 2017-11-13 13:05 | Diagnostic Imaging Report ---
Indication: Dyspnea Comparison: 11/12/2017 A single view chest radiograph was obtained. Findings: There is a left basilar density and pleural effusion noted. The heart is enlarged. There is interstitial edema and prominent vascularity. NG tube is in good position. Endotracheal tube is in good position. IMPRESSION: Left pleural effusion suspected. No significant change
[2017-11-13] MEDS: Morphine Sulfate 4mg/ml Inj IVP PRN (15:20)
[2017-11-13] MEDS ORDERED: Sterile Water Irrig 1000ml IRRIG ONE (17:35)
[2017-11-13] MEDS ORDERED: D5 1/2NS 1000ml IV ONE (17:35)
--- NOTE | 2017-11-13 20:19 | Cardiology Progress Note ---
Assessment/Plan Assessment/Plan 1. Respiratory failure. 2. Hypertension history. 3. Diarrhea at the time of admission. 4. Cachexia. i wonder she may have MR not picked up on tanja echo view as may be eccentric will d/w with cardiovascular radiologic technologist to take more images will given lwo dose bb via ng with prniv if needed agitation causes her to have more tachy cxr apear hyperinflated echo images personally reviewed MV sig thickened ant leafleft may be billowing past the post leaflet no new images were performed Subjective ROS Limited/Unobtainable: Yes Objective Last 24 Hour Vital Signs Date Time Temp Pulse Resp B/P (MAP) Pulse Ox O2 Delivery O2 Flow Rate FiO2 11/13/17 20:00 110 27 118/59 100 Mechanical Ventilator 30 11/13/17 20:00 30 11/13/17 19:04 99 16 30 11/13/17 19:00 110 24 108/53 100 Mechanical Ventilator 30 11/13/17 18:00 98 15 101/52 100 Mechanical Ventilator 30 11/13/17 17:00 99 22 115/61 100 Mechanical Ventilator 30 11/13/17 16:56 105 16 30 11/13/17 16:00 30 11/13/17 16:00 98.7 105 17 96/56 100 Mechanical Ventilator 30 11/13/17 16:00 105 11/13/17 15:13 124 26 30 11/13/17 15:00 213 20 137/84 100 Mechanical Ventilator 30 11/13/17 14:00 119 23 123/61 100 Mechanical Ventilator 30 11/13/17 13:00 116 22 153/53 100 Mechanical Ventilator 30 11/13/17 12:53 125 27 30 11/13/17 12:00 30 11/13/17 12:00 128 11/13/17 12:00 99.2 128 26 102/55 100 Mechanical Ventilator 30 11/13/17 11:01 117 23 30 11/13/17 11:00 111 18 116/64 100 Mechanical Ventilator 30 11/13/17 10:50 30 11/13/17 10:00 30 11/13/17 10:00 105 19 121/71 100 Mechanical Ventilator 30 11/13/17 09:54 104 21 30 11/13/17 09:53 100 11/13/17 09:18 148 170/100 11/13/17 09:00 142 28 170/100 100 Mechanical Ventilator 30 11/13/17 08:00 98.6 128 25 166/86 100 Mechanical Ventilator 30 11/13/17 08:00 30 11/13/17 08:00 132 11/13/17 07:12 135 29 30 11/13/17 07:00 133 19 170/103 100 Mechanical Ventilator 30 11/13/17 06:00 107 19 147/33 100 Mechanical Ventilator 30 11/13/17 05:04 110 21 30 11/13/17 05:00 110 18 160/53 100 Mechanical Ventilator 30 11/13/17 04:00 98.1 96 18 152/68 100 Mechanical Ventilator 30 11/13/17 04:00 96 11/13/17 04:00 30 11/13/17 03:12 131 159/59 11/13/17 03:00 126 19 159/59 100 Mechanical Ventilator 30 11/13/17 02:53 122 23 30 11/13/17 02:00 100 18 156/59 100 Mechanical Ventilator 30 11/13/17 01:15 99 19 30 11/13/17 01:00 99 18 156/59 100 Mechanical Ventilator 30 11/13/17 00:00 97 11/13/17 00:00 97.8 97 19 146/44 100 Mechanical Ventilator 11/13/17 00:00 30 11/12/17 23:17 106 18 30 11/12/17 23:00 95 18 151/58 100 Mechanical Ventilator 30 11/12/17 22:00 96 17 139/75 100 Mechanical Ventilator 30 11/12/17 21:21 94 16 30 11/12/17 21:00 92 18 126/64 100 Mechanical Ventilator 30 General Appearance: on vent Neck: supple Cardiovascular: normal rate, regular rhythm Respiratory/Chest: lungs clear Abdomen: normal bowel sounds, non tender, soft Extremities: no swelling Intake and Output 11/12/17 11/13/17 19:00 07:00 Intake Total 520 ml 520 ml Output Total 285 ml 265 ml Balance 235 ml 255 ml Intake Free Water 100 ml 100 ml Tube Feeding 420 ml 420 ml Output Urine Total 285 ml 265 ml Laboratory Tests Test 11/13/17 04:50 11/13/17 10:00 White Blood Count 6.3 K/UL (4.8-10.8) Red Blood Count 4.30 M/UL (4.20-5.40) Hemoglobin 11.7 G/DL (12.0-16.0) L Hematocrit 36.6 % (37.0-47.0) L Mean Corpuscular Volume 85 FL (80-99) Mean Corpuscular Hemoglobin 27.1 PG (27.0-31.0) Mean Corpuscular Hemoglobin Concent 31.9 G/DL (32.0-36.0) L Red Cell Distribution Width 11.9 % (11.6-14.8) Platelet Count 176 K/UL (150-450) Mean Platelet Volume 9.1 FL (6.5-10.1) Neutrophils (%) (Auto) 76.5 % (45.0-75.0) H Lymphocytes (%) (Auto) 10.3 % (20.0-45.0) L Monocytes (%) (Auto) 11.7 % (1.0-10.0) H Eosinophils (%) (Auto) 0.7 % (0.0-3.0) Basophils (%) (Auto) 0.9 % (0.0-2.0) Sodium Level 133 MMOL/L (136-145) L Potassium Level 4.4 MMOL/L (3.5-5.1) Chloride Level 98 MMOL/L (98-107) Carbon Dioxide Level 31 MMOL/L (21-32) Anion Gap 4 mmol/L (5-15) L Blood Urea Nitrogen 18 mg/dL (7-18) Creatinine 0.6 MG/DL (0.55-1.30) Estimat Glomerular Filtration Rate mL/min (>60) Glucose Level 110 MG/DL (74-106) H Calcium Level 8.9 MG/DL (8.5-10.1) Phosphorus Level 2.4 MG/DL (2.5-4.9) L Magnesium Level 2.2 MG/DL (1.8-2.4) Total Bilirubin 0.4 MG/DL (0.2-1.0) Aspartate Amino Transf (AST/SGOT) 24 U/L (15-37) Alanine Aminotransferase (ALT/SGPT) 23 U/L (12-78) Alkaline Phosphatase 65 U/L (46-116) Total Protein 7.2 G/DL (6.4-8.2) Albumin 2.9 G/DL (3.4-5.0) L Globulin 4.3 g/dL Albumin/Globulin Ratio 0.7 (1.0-2.7) L Arterial Blood pH 7.424 (7.350-7.450) Arterial Blood Partial Pressure CO2 46.3 mmHg (35.0-45.0) H Arterial Blood Partial Pressure O2 84.0 mmHg (75.0-100.0) Arterial Blood HCO3 29.6 mmol/L (22.0-26.0) H Arterial Blood Oxygen Saturation 96.5 % (92.0-98.0) Arterial Blood Base Excess 4.6 Rafy Test Positive NALINI GIBBONS Nov 13, 2017 20:19
[2017-11-13] MEDS: Metoprolol Tartrate 12.5mg TAB NG SCH (20:41)
[2017-11-14] VITALS (24 sets, daily range): BP systolic 93–186; BP diastolic 51–92
[2017-11-14] MEDS: Morphine Sulfate 4mg/ml Inj IVP PRN ×3 (02:05→17:35)
[2017-11-14 05:13] LABS: BASOPHILS % (AUTO) 0.9 % (0.0-2.0); EOSINOPHILS % (AUTO) 0.4 % (0.0-3.0); HEMOGLOBIN 11.9 G/DL (12.0-16.0); LYMPHOCYTES % (AUTO) 11.6 % (20.0-45.0); MEAN CORPUSCULAR VOLUME 85 FL (80-99); MONOCYTES % (AUTO) 11.9 % (1.0-10.0); NEUTROPHILS % (AUTO) 75.1 % (45.0-75.0); PLATELET COUNT 201 K/UL (150-450); RED BLOOD COUNT 4.34 M/UL (4.20-5.40); WHITE BLOOD COUNT 7.6 K/UL (4.8-10.8)
[2017-11-14 05:31] LABS: ALANINE AMINOTRANSFERASE 28 U/L (12-78); ALBUMIN 2.9 G/DL (3.4-5.0); ALBUMIN/GLOBULIN RATIO 0.6 (1.0-2.7); ALKALINE PHOSPHATASE 66 U/L (46-116); ANION GAP 4 mmol/L (5-15); ASPARTATE AMINO TRANSFERASE 25 U/L (15-37); BILIRUBIN,TOTAL 0.4 MG/DL (0.2-1.0); BLOOD UREA NITROGEN 12 mg/dL (7-18); CALCIUM 8.7 MG/DL (8.5-10.1); CARBON DIOXIDE 30 MMOL/L (21-32); CHLORIDE 100 MMOL/L (98-107); CREATININE 0.6 MG/DL (0.55-1.30); PHOSPHORUS 3.3 MG/DL (2.5-4.9); POTASSIUM 4.2 MMOL/L (3.5-5.1); SODIUM 134 MMOL/L (136-145)
--- NOTE | 2017-11-14 07:41 | Pulmonolgy Critical Care Note ---
Critical Care - Asmt/Plan Assessment/Plan: ASSESSMENT Acute hypoxemic hypercapnic RF requiring intubation pulmonary edema HTN heart disease with LVH Mild pulmonary HTN severe protein calorie malnutrition PLAN OF CARE ICU s/p Nitro gtt, BP stable Vent support pulmonary toilet ATC and prn daily CXR and ABG, thus far did not tolerate weaning continue weaning protocol ABG stable on current settings keep settings as is serial troponin x 4 negative ECG no acute ischemic changes , r/out for acute [facility] cardio follows ECHO with pEF 65-70% and RVSP of 39 initial CXR with pulm edema Venous Duplex BLE negative Renal US no hydro, normal bilateral kidney echogenicity Gentle IVF DVT GI prophylaxis case discussed and evaluated by supervising physician Critical Care - Objective Last 24 Hour Vital Signs Date Time Temp Pulse Resp B/P (MAP) Pulse Ox O2 Delivery O2 Flow Rate FiO2 11/14/17 07:00 99 18 120/70 100 Mechanical Ventilator 30 11/14/17 06:51 102 13 30 11/14/17 06:00 101 18 120/70 98 Mechanical Ventilator 30 11/14/17 05:25 120 23 30 11/14/17 05:00 120 18 145/69 98 Mechanical Ventilator 30 11/14/17 04:00 98.8 91 16 105/61 100 Mechanical Ventilator 30 11/14/17 04:00 30 11/14/17 04:00 93 11/14/17 03:24 95 15 30 11/14/17 03:00 98 18 93/56 98 Mechanical Ventilator 30 11/14/17 02:36 98.6 11/14/17 02:05 98.6 11/14/17 02:00 110 18 138/74 98 Mechanical Ventilator 30 11/14/17 01:00 110 17 106/57 100 Mechanical Ventilator 30 11/14/17 00:48 102 18 30 11/14/17 00:00 104 11/14/17 00:00 30 11/14/17 00:00 98.6 107 24 135/71 100 Mechanical Ventilator 30 11/13/17 23:00 96 23 107/57 100 Mechanical Ventilator 30 11/13/17 22:43 98 18 30 11/13/17 22:00 101 22 106/58 100 Mechanical Ventilator 30 11/13/17 21:00 98.8 107 27 129/69 100 Mechanical Ventilator 30 11/13/17 20:41 141 32 30 11/13/17 20:41 148 118/59 2/15/18 20:00 112 11/13/17 20:00 110 27 118/59 100 Mechanical Ventilator 30 11/13/17 20:00 30 11/13/17 19:04 99 16 30 11/13/17 19:00 110 24 108/53 100 Mechanical Ventilator 30 11/13/17 18:00 98 15 101/52 100 Mechanical Ventilator 30 11/13/17 17:00 99 22 115/61 100 Mechanical Ventilator 30 11/13/17 16:56 105 16 30 11/13/17 16:00 30 11/13/17 16:00 98.7 105 17 96/56 100 Mechanical Ventilator 30 11/13/17 16:00 105 11/13/17 15:13 124 26 30 11/13/17 15:00 213 20 137/84 100 Mechanical Ventilator 30 11/13/17 14:00 119 23 123/61 100 Mechanical Ventilator 30 11/13/17 13:00 116 22 153/53 100 Mechanical Ventilator 30 11/13/17 12:53 125 27 30 11/13/17 12:00 30 11/13/17 12:00 128 11/13/17 12:00 99.2 128 26 102/55 100 Mechanical Ventilator 30 11/13/17 11:01 117 23 30 11/13/17 11:00 111 18 116/64 100 Mechanical Ventilator 30 11/13/17 10:50 30 11/13/17 10:00 30 11/13/17 10:00 105 19 121/71 100 Mechanical Ventilator 30 11/13/17 09:54 104 21 30 11/13/17 09:53 100 11/13/17 09:18 148 170/100 11/13/17 09:00 142 28 170/100 100 Mechanical Ventilator 30 11/13/17 08:00 98.6 128 25 166/86 100 Mechanical Ventilator 30 11/13/17 08:00 30 11/13/17 08:00 132 Status: sedated Condition: critical HEENT: atraumatic, normocephalic, other - OP with ET in place, inatct, OP tube with TF Lungs: clear Heart: HR/BP stable Abdomen: soft, non-tender, active bowel sounds Extremities: no C/C/E Critical Care - Subjective Interval Events: not tolerating weaning so far afebrile, no leucocytosis Condition: critical IV Access: peripheral EKG Rhythm: Sinus Tachycardia FI02: 30 Vent Support Breath Rate: 12 Vent Support Mode: AC Vent Tidal Volume: 300 Sputum Amount: Small PEEP: 5.0 PIP: 14 Fluids: D5NS at 40 Tube Feeding Amount: 35 I&O: Intake and Output 11/13/17 11/14/17 19:00 07:00 Intake Total 960.0 ml 830 ml Output Total 345 ml 360 ml Balance 615.0 ml 470 ml Intake Free Water 50 ml 50 ml IV Total 490.0 ml 360 ml Tube Feeding 420 ml 420 ml Output Urine Total 345 ml 360 ml CXR: 11/14 -Stable satisfactory positions of endotracheal and nasogastric tubes. Opacity at the left lung base, obscuration of left hemidiaphragm likely indicate pleural fluid and consolidation. There is slight hazy opacity of the right lung base. The heart remains enlarged. Findings are overall unchanged ET-Tube: 6.0 ET Position: 20 Behzad (Angélica Ramos NP Nov 14, 2017 07:41
[2017-11-14] MEDS: Metoprolol Tartrate 12.5mg TAB NG SCH (09:10)
[2017-11-14] MEDS: Pantoprazole Inj IV SCH (09:10)
[2017-11-14] MEDS: Heparin 5000 units/ml inj SUBQ SCH ×2 (09:11→21:12)
--- NOTE | 2017-11-14 09:31 | Diagnostic Imaging Report ---
Indication: Dyspnea Technique: One view of the chest Comparison: 11/13/2017 Findings: Stable satisfactory positions of endotracheal and nasogastric tubes. Opacity at the left lung base, obscuration of left hemidiaphragm likely indicate pleural fluid and consolidation. There is slight hazy opacity of the right lung base. The heart remains enlarged. Findings are overall unchanged Impression: Unchanged, over one day, findings as above.
[2017-11-14] MEDS ORDERED: Albuterol/Ipratropium 3ml neb HHN PRN (11:45)
[2017-11-14] MEDS: D5NS 1,000 ML IV SCH (12:19)
[2017-11-14] MEDS: Albuterol/Ipratropium 3ml neb HHN SCH ×2 (13:00→19:00)
[2017-11-14] MEDS: Metoprolol 5mg/5ml Inj IVP PRN (17:46)
--- NOTE | 2017-11-14 18:09 | Cardiology Progress Note ---
Assessment/Plan Assessment/Plan 1. Respiratory failure. 2. Hypertension history. 3. Diarrhea at the time of admission. 4. Cachexia. i wonder she may have MR not picked up on tanja echo view as may be eccentric will d/w with hyperbaric technologist to take more images will given lwo dose bb via ng with prn iv if needed agitation causes her to have more tachy cxr apear hyperinflated echo images personally reviewed MV sig thickened ant leafleft may be billowing past the post leaflet no new images were performed will hold ivf and admister lasix to keep on dry side to see if better able to wean Subjective ROS Limited/Unobtainable: Yes Subjective on vent agitation causes tachy Objective Last 24 Hour Vital Signs Date Time Temp Pulse Resp B/P (MAP) Pulse Ox O2 Delivery O2 Flow Rate FiO2 11/14/17 17:46 129 173/92 11/14/17 17:45 145 20 186/92 100 Mechanical Ventilator 30 11/14/17 17:35 98.4 11/14/17 17:16 134 21 30 11/14/17 15:11 102 19 30 11/14/17 15:00 99 20 143/76 100 Mechanical Ventilator 30 11/14/17 14:00 99 20 116/63 100 Mechanical Ventilator 30 11/14/17 14:00 30 11/14/17 13:54 98.4 11/14/17 13:24 98.4 11/14/17 13:06 128 26 30 11/14/17 12:00 122 11/14/17 12:00 98.4 113 18 143/68 99 Mechanical Ventilator 30 11/14/17 12:00 30 11/14/17 11:00 109 20 111/74 100 Mechanical Ventilator 30 11/14/17 10:41 95 16 30 11/14/17 10:00 95 20 125/78 100 Mechanical Ventilator 30 11/14/17 10:00 30 11/14/17 09:10 110 134/76 11/14/17 09:05 110 21 30 11/14/17 09:05 30 11/14/17 09:04 100 11/14/17 09:00 109 20 158/91 100 Mechanical Ventilator 30 11/14/17 08:00 100 11/14/17 08:00 98.8 98 15 134/76 99 Mechanical Ventilator 30 11/14/17 07:45 30 11/14/17 07:00 99 18 120/70 100 Mechanical Ventilator 30 11/14/17 06:51 102 13 30 11/14/17 06:00 101 18 120/70 98 Mechanical Ventilator 30 11/14/17 05:25 120 23 30 11/14/17 05:00 120 18 145/69 98 Mechanical Ventilator 30 11/14/17 04:00 98.8 91 16 105/61 100 Mechanical Ventilator 30 11/14/17 04:00 30 11/14/17 04:00 93 11/14/17 03:24 95 15 30 11/14/17 03:00 98 18 93/56 98 Mechanical Ventilator 30 11/14/17 02:05 98.6 11/14/17 02:00 110 18 138/74 98 Mechanical Ventilator 30 11/14/17 01:00 110 17 106/57 100 Mechanical Ventilator 30 11/14/17 00:48 102 18 30 11/14/17 00:00 104 11/14/17 00:00 30 11/14/17 00:00 98.6 107 24 135/71 100 Mechanical Ventilator 30 11/13/17 23:00 96 23 107/57 100 Mechanical Ventilator 30 11/13/17 22:43 98 18 30 11/13/17 22:00 101 22 106/58 100 Mechanical Ventilator 30 11/13/17 21:00 98.8 107 27 129/69 100 Mechanical Ventilator 30 11/13/17 20:41 141 32 30 11/13/17 20:41 148 118/59 11/13/17 20:00 112 11/13/17 20:00 110 27 118/59 100 Mechanical Ventilator 30 11/13/17 20:00 30 11/13/17 19:04 99 16 30 11/13/17 19:00 110 24 108/53 100 Mechanical Ventilator 30 General Appearance: no apparent distress, on vent Neck: supple Cardiovascular: normal rate Respiratory/Chest: lungs clear Abdomen: soft, hypoactive bowel sounds Extremities: no swelling Intake and Output 11/13/17 11/14/17 19:00 07:00 Intake Total 960.0 ml 870 ml Output Total 345 ml 360 ml Balance 615.0 ml 510 ml Intake Free Water 50 ml 50 ml IV Total 490.0 ml 400 ml Tube Feeding 420 ml 420 ml Output Urine Total 345 ml 360 ml Laboratory Tests Test 11/14/17 05:00 11/14/17 07:30 White Blood Count 7.6 K/UL (4.8-10.8) Red Blood Count 4.34 M/UL (4.20-5.40) Hemoglobin 11.9 G/DL (12.0-16.0) L Hematocrit 37.0 % (37.0-47.0) Mean Corpuscular Volume 85 FL (80-99) Mean Corpuscular Hemoglobin 27.4 PG (27.0-31.0) Mean Corpuscular Hemoglobin Concent 32.1 G/DL (32.0-36.0) Red Cell Distribution Width 12.0 % (11.6-14.8) Platelet Count 201 K/UL (150-450) Mean Platelet Volume 8.7 FL (6.5-10.1) Neutrophils (%) (Auto) 75.1 % (45.0-75.0) H Lymphocytes (%) (Auto) 11.6 % (20.0-45.0) L Monocytes (%) (Auto) 11.9 % (1.0-10.0) H Eosinophils (%) (Auto) 0.4 % (0.0-3.0) Basophils (%) (Auto) 0.9 % (0.0-2.0) Sodium Level 134 MMOL/L (136-145) L Potassium Level 4.2 MMOL/L (3.5-5.1) Chloride Level 100 MMOL/L (98-107) Carbon Dioxide Level 30 MMOL/L (21-32) Anion Gap 4 mmol/L (5-15) L Blood Urea Nitrogen 12 mg/dL (7-18) Creatinine 0.6 MG/DL (0.55-1.30) Estimat Glomerular Filtration Rate mL/min (>60) Glucose Level 120 MG/DL (74-106) H Calcium Level 8.7 MG/DL (8.5-10.1) Phosphorus Level 3.3 MG/DL (2.5-4.9) Magnesium Level 2.2 MG/DL (1.8-2.4) Total Bilirubin 0.4 MG/DL (0.2-1.0) Aspartate Amino Transf (AST/SGOT) 25 U/L (15-37) Alanine Aminotransferase (ALT/SGPT) 28 U/L (12-78) Alkaline Phosphatase 66 U/L (46-116) Total Protein 7.4 G/DL (6.4-8.2) Albumin 2.9 G/DL (3.4-5.0) L Globulin 4.5 g/dL Albumin/Globulin Ratio 0.6 (1.0-2.7) L Arterial Blood pH 7.400 (7.350-7.450) Arterial Blood Partial Pressure CO2 49.8 mmHg (35.0-45.0) H Arterial Blood Partial Pressure O2 77.0 mmHg (75.0-100.0) Arterial Blood HCO3 30.2 mmol/L (22.0-26.0) H Arterial Blood Oxygen Saturation 95.0 % (92.0-98.0) Arterial Blood Base Excess 4.5 Rafy Test Positive NALINI GIBBONS Nov 14, 2017 18:09
[2017-11-14] MEDS: Metoprolol 25mg tab NG SCH (21:10)
[2017-11-14] MEDS: Acetaminophen 650mg/20.3ml NG PRN (21:13)
[2017-11-15] VITALS (24 sets, daily range): BP systolic 91–184; BP diastolic 53–94
[2017-11-15] MEDS: Albuterol/Ipratropium 3ml neb HHN SCH ×3 (01:00→06:47)
[2017-11-15] MEDS: LORazepam Inj 2mg/ml 1ml IV PRN ×3 (02:22→17:19)
[2017-11-15 05:25] LABS: BASOPHILS % (AUTO) 0.4 % (0.0-2.0); EOSINOPHILS % (AUTO) 0.8 % (0.0-3.0); HEMATOCRIT 30.6 % (37.0-47.0); HEMOGLOBIN 9.8 G/DL (12.0-16.0); LYMPHOCYTES % (AUTO) 7.8 % (20.0-45.0); MEAN CORPUSCULAR VOLUME 85 FL (80-99); NEUTROPHILS % (AUTO) 80.1 % (45.0-75.0); PLATELET COUNT 194 K/UL (150-450); RED BLOOD COUNT 3.62 M/UL (4.20-5.40); RED CELL DISTRIBUTION WIDTH 11.8 % (11.6-14.8); WHITE BLOOD COUNT 6.4 K/UL (4.8-10.8)
[2017-11-15 06:01] LABS: ANION GAP 3 mmol/L (5-15); BLOOD UREA NITROGEN 16 mg/dL (7-18); CALCIUM 8.2 MG/DL (8.5-10.1); CARBON DIOXIDE 36 MMOL/L (21-32); CHLORIDE 98 MMOL/L (98-107); CREATININE 0.6 MG/DL (0.55-1.30); POTASSIUM 3.7 MMOL/L (3.5-5.1); SODIUM 137 MMOL/L (136-145)
[2017-11-15] MEDS: Metoprolol 5mg/5ml Inj IVP PRN (07:26)
[2017-11-15] MEDS: Metoprolol 25mg tab NG SCH ×2 (09:00→21:06)
--- NOTE | 2017-11-15 09:29 | Pulmonolgy Critical Care Note ---
Critical Care - Asmt/Plan Assessment/Plan: ASSESSMENT Acute hypoxemic hypercapnic RF requiring intubation pulmonary edema HTN heart disease with LVH Mild pulmonary HTN severe protein calorie malnutrition PLAN OF CARE ICU s/p Nitro gtt, Vent support pulmonary toilet ATC and prn ( with Xopebnex due to tachy) daily CXR and ABG, thus far did not tolerate weaning continue weaning protocol worsening CXR and raising pro BNP per cardio : stopped gentle IVF, s/p diuresis x 1 on 11/15 ABG stable on current settings keep settings as is serial troponin x 4 negative ECG no acute ischemic changes , r/out for acute [place] cardio follows ECHO with pEF 65-70% and RVSP of 39 initial CXR with pulm edema Venous Duplex BLE negative Renal US no hydro, normal bilateral kidney echogenicity DVT GI prophylaxis if unable to wean, may need trach case discussed and evaluated by supervising physician Critical Care - Objective Last 24 Hour Vital Signs Date Time Temp Pulse Resp B/P (MAP) Pulse Ox O2 Delivery O2 Flow Rate FiO2 11/15/17 09:18 40 11/15/17 08:52 124 37 50 11/15/17 08:05 30 11/15/17 08:00 50 11/15/17 08:00 99.3 129 33 157/92 95 Mechanical Ventilator 50 11/15/17 07:26 140 190/116 11/15/17 07:00 127 19 91/53 97 Mechanical Ventilator 50 11/15/17 06:48 Mechanical Ventilator 30 11/15/17 06:48 Mechanical Ventilator 30 11/15/17 06:42 114 21 50 11/15/17 06:00 93 19 91/53 100 Mechanical Ventilator 50 11/15/17 05:17 109 28 30 11/15/17 05:00 105 23 144/84 100 Mechanical Ventilator 50 11/15/17 04:00 50 11/15/17 04:00 96 11/15/17 04:00 99.5 115 22 144/94 100 Mechanical Ventilator 50 11/15/17 03:10 98 22 30 11/15/17 03:00 98 20 106/56 100 Mechanical Ventilator 50 11/15/17 02:00 96 22 141/87 100 Mechanical Ventilator 50 11/15/17 01:28 103 18 30 11/15/17 01:24 Mechanical Ventilator 30 11/15/17 01:24 Mechanical Ventilator 30 2/17/18 01:00 87 21 141/87 100 Mechanical Ventilator 50 2/17/18 00:00 99.4 88 19 108/54 100 Mechanical Ventilator 50 2/17/18 00:00 93 2/16/18 23:09 106 20 30 2/16/18 23:00 93 18 103/57 100 Mechanical Ventilator 50 2/16/18 22:00 101 19 102/51 100 Mechanical Ventilator 50 2/16/18 21:47 99.7 2/16/18 21:24 121 32 30 2/16/18 21:13 100.5 2/16/18 21:10 110 111/60 2/16/18 21:00 99.4 114 22 111/60 100 Mechanical Ventilator 50 2/16/18 20:00 118 2/16/18 20:00 100.5 112 22 115/60 100 Mechanical Ventilator 50 2/16/18 20:00 50 2/16/18 19:51 Mechanical Ventilator 30 2/16/18 19:51 Mechanical Ventilator 30 2/16/18 19:17 126 34 30 2/16/18 19:00 117 20 150/75 100 Mechanical Ventilator 30 2/16/18 18:05 98.4 2/16/18 18:00 105 20 122/69 100 Mechanical Ventilator 30 2/16/18 17:46 129 173/92 2/16/18 17:45 145 20 186/92 100 Mechanical Ventilator 30 2/16/18 17:35 98.4 2/16/18 17:16 134 21 30 2/16/18 17:00 139 20 157/72 100 Mechanical Ventilator 30 2/16/18 17:00 50 2/16/18 16:00 102 2/16/18 16:00 98.9 123 18 126/70 99 Mechanical Ventilator 30 2/16/18 15:11 102 19 30 2/16/18 15:00 99 20 143/76 100 Mechanical Ventilator 30 2/16/18 14:00 99 20 116/63 100 Mechanical Ventilator 30 2/16/18 14:00 30 2/16/18 13:24 98.4 2/16/18 13:06 128 26 30 2/16/18 12:00 122 2/16/18 12:00 98.4 113 18 143/68 99 Mechanical Ventilator 30 2/16/18 12:00 30 2/16/18 11:00 109 20 111/74 100 Mechanical Ventilator 30 2/16/18 10:41 95 16 30 11/14/17 10:00 95 20 125/78 100 Mechanical Ventilator 30 11/14/17 10:00 30 Objective: Status: somnolent, arousable Condition: critical HEENT: atraumatic, normocephalic, OP with ET in place, intact, OP tube with TF Lungs: clear Heart: HR/BP stable, ST on tele Abdomen: soft, non-tender, active bowel sounds Extremities: no C/C/E Critical Care - Subjective Interval Events: unable to wean afebrile, no leukocytosis tachy cardio stopped IV yesterday, diuresis x 1 Condition: critical IV Access: peripheral EKG Rhythm: Sinus Tachycardia FI02: 40 Vent Support Breath Rate: 12 Vent Support Mode: AC Vent Tidal Volume: 300 Sputum Amount: Small PEEP: 5.0 PIP: 29 Tube Feeding Amount: 35 I&O: Intake and Output 11/14/17 11/15/17 19:00 07:00 Intake Total 960 ml 520 ml Output Total 275 ml 690 ml Balance 685 ml -170 ml Intake Free Water 50 ml 50 ml IV Total 440 ml Tube Feeding 420 ml 420 ml Other 50 ml 50 ml Output Urine Total 275 ml 690 ml CXR: 11/15 Increasing bilateral infiltrates versus pulmonary edema. ET-Tube: 6.0 ET Position: 20 Behzad ([facility] Aburto NP Nov 15, 2017 09:29
[2017-11-15] MEDS: Pantoprazole Inj IV SCH (09:54)
[2017-11-15] MEDS: Heparin 5000 units/ml inj SUBQ SCH ×2 (09:55→21:12)
--- NOTE | 2017-11-15 10:58 | Diagnostic Imaging Report ---
Indication: Dyspnea Comparison: 11/15/2018 A single view chest radiograph was obtained. Findings: Patchy increasing infiltrates are demonstrated versus pulmonary edema. Please correlate clinically. Tubes and lines are stable. Heart is enlarged. IMPRESSION: Increasing bilateral infiltrates versus pulmonary edema. Please correlate clinically
[2017-11-15] MEDS: Morphine Sulfate 4mg/ml Inj IVP PRN (11:40)
--- NOTE | 2017-11-15 11:59 | Diagnostic Imaging Report ---
Indication: Dyspnea Comparison: 11/14/2018 A single view chest radiograph was obtained. Findings: Accounting for differences in technique no significant change appreciated. Tubes appear stable. The heart is enlarged but stable. Interstitial edema is suspected. Please correlate clinically. Impression: Suspected interstitial edema.
[2017-11-15] MEDS: Levalbuterol Inh UD 1.25mg/0.5ml HHN SCH ×2 (12:57→19:22)
--- NOTE | 2017-11-15 14:19 | Cardiology Progress Note ---
Assessment/Plan Assessment/Plan 1. Respiratory failure. 2. Hypertension history. 3. Diarrhea at the time of admission. 4. Cachexia. 5. sinus tachy 6. nsvt i wonder she may have MR not picked up on tanja echo view as may be eccentric will d/w with electronic warfare technician to take more images will given lwo dose bb via ng with prn iv if needed agitation causes her to have more tachy cxr apear hyperinflated echo images personally reviewed MV sig thickened ant leaf left may be billowing past the post leaflet no new images were performed increase bb has nsvt will check trop and electrolytes Subjective ROS Limited/Unobtainable: Yes Subjective on vent agitation causes tachy Objective Last 24 Hour Vital Signs Date Time Temp Pulse Resp B/P (MAP) Pulse Ox O2 Delivery O2 Flow Rate FiO2 11/15/17 13:07 108 17 98 Mechanical Ventilator 40 11/15/17 13:00 109 24 131/71 99 Mechanical Ventilator 40 11/15/17 12:57 106 13 98 Mechanical Ventilator 40 11/15/17 12:56 108 24 40 11/15/17 12:17 108 11/15/17 12:00 108 24 116/59 95 Mechanical Ventilator 40 11/15/17 12:00 40 18 11:20 116 27 40 18 11:00 123 31 135/70 99 Mechanical Ventilator 40 11/15/17 10:00 114 33 148/76 94 Mechanical Ventilator 40 18 09:18 40 18 09:00 125 33 184/94 100 Mechanical Ventilator 30 11/15/17 08:57 127 11/15/17 08:52 124 37 30 11/15/17 08:05 30 18 08:05 30 11/15/18 08:00 50 18 08:00 99.3 129 33 157/92 95 Mechanical Ventilator 50 18 07:26 140 190/116 18 07:00 127 19 91/53 97 Mechanical Ventilator 50 18 06:48 Mechanical Ventilator 30 18 06:48 Mechanical Ventilator 30 18 06:42 114 21 50 11/15/18 06:00 93 19 91/53 100 Mechanical Ventilator 50 18 05:17 109 28 30 18 05:00 105 23 144/84 100 Mechanical Ventilator 50 2/17/18 04:00 50 2/17/18 04:00 96 2/17/18 04:00 99.5 115 22 144/94 100 Mechanical Ventilator 50 2/17/18 03:10 98 22 30 2/17/18 03:00 98 20 106/56 100 Mechanical Ventilator 50 2/17/18 02:00 96 22 141/87 100 Mechanical Ventilator 50 2/17/18 01:28 103 18 30 2/17/18 01:24 Mechanical Ventilator 30 2/17/18 01:24 Mechanical Ventilator 30 2/17/18 01:00 87 21 141/87 100 Mechanical Ventilator 50 2/17/18 00:00 99.4 88 19 108/54 100 Mechanical Ventilator 50 2/17/18 00:00 93 2/16/18 23:09 106 20 30 2/16/18 23:00 93 18 103/57 100 Mechanical Ventilator 50 2/16/18 22:00 101 19 102/51 100 Mechanical Ventilator 50 2/16/18 21:47 99.7 2/16/18 21:24 121 32 30 2/16/18 21:13 100.5 2/16/18 21:10 110 111/60 2/16/18 21:00 99.4 114 22 111/60 100 Mechanical Ventilator 50 2/16/18 20:00 118 2/16/18 20:00 100.5 112 22 115/60 100 Mechanical Ventilator 50 2/16/18 20:00 50 2/16/18 19:51 Mechanical Ventilator 30 2/16/18 19:51 Mechanical Ventilator 30 2/16/18 19:17 126 34 30 2/16/18 19:00 117 20 150/75 100 Mechanical Ventilator 30 2/16/18 18:05 98.4 2/16/18 18:00 105 20 122/69 100 Mechanical Ventilator 30 2/16/18 17:46 129 173/92 2/16/18 17:45 145 20 186/92 100 Mechanical Ventilator 30 2/16/18 17:35 98.4 2/16/18 17:16 134 21 30 2/16/18 17:00 139 20 157/72 100 Mechanical Ventilator 30 2/16/18 17:00 50 2/16/18 16:00 102 2/16/18 16:00 98.9 123 18 126/70 99 Mechanical Ventilator 30 2/16/18 15:11 102 19 30 11/14/17 15:00 99 20 143/76 100 Mechanical Ventilator 30 General Appearance: no apparent distress Neck: supple Cardiovascular: normal rate, systolic murmur Respiratory/Chest: lungs clear Abdomen: normal bowel sounds, non tender, soft Extremities: no swelling Intake and Output 11/14/17 11/15/17 19:00 07:00 Intake Total 960 ml 520 ml Output Total 275 ml 690 ml Balance 685 ml -170 ml Intake Free Water 50 ml 50 ml IV Total 440 ml Tube Feeding 420 ml 420 ml Other 50 ml 50 ml Output Urine Total 275 ml 690 ml Laboratory Tests Test 11/15/17 04:00 11/15/17 05:00 Arterial Blood pH 7.430 (7.350-7.450) Arterial Blood Partial Pressure CO2 54.4 mmHg (35.0-45.0) H Arterial Blood Partial Pressure O2 155.4 mmHg (75.0-100.0) H Arterial Blood HCO3 36.0 mmol/L (22.0-26.0) H Arterial Blood Oxygen Saturation 98.7 % (92.0-98.0) H Arterial Blood Base Excess 10.2 Rafy Test Positive White Blood Count 6.4 K/UL (4.8-10.8) Red Blood Count 3.62 M/UL (4.20-5.40) L Hemoglobin 9.8 G/DL (12.0-16.0) L Hematocrit 30.6 % (37.0-47.0) L Mean Corpuscular Volume 85 FL (80-99) Mean Corpuscular Hemoglobin 27.0 PG (27.0-31.0) Mean Corpuscular Hemoglobin Concent 32.0 G/DL (32.0-36.0) Red Cell Distribution Width 11.8 % (11.6-14.8) Platelet Count 194 K/UL (150-450) Mean Platelet Volume 8.5 FL (6.5-10.1) Neutrophils (%) (Auto) 80.1 % (45.0-75.0) H Lymphocytes (%) (Auto) 7.8 % (20.0-45.0) L Monocytes (%) (Auto) 11.0 % (1.0-10.0) H Eosinophils (%) (Auto) 0.8 % (0.0-3.0) Basophils (%) (Auto) 0.4 % (0.0-2.0) Sodium Level 137 MMOL/L (136-145) Potassium Level 3.7 MMOL/L (3.5-5.1) Chloride Level 98 MMOL/L (98-107) Carbon Dioxide Level 36 MMOL/L (21-32) H Anion Gap 3 mmol/L (5-15) L Blood Urea Nitrogen 16 mg/dL (7-18) Creatinine 0.6 MG/DL (0.55-1.30) Estimat Glomerular Filtration Rate mL/min (>60) Glucose Level 148 MG/DL (74-106) H Calcium Level 8.2 MG/DL (8.5-10.1) L Magnesium Level 1.9 MG/DL (1.8-2.4) Pro-B-Type Natriuretic Peptide 4926 pg/mL (0-125) H NALINI GIBBONS Nov 15, 2017 14:19
[2017-11-15] MEDS ORDERED: Metoprolol Tartrate 12.5mg TAB NG ONE (14:30)
[2017-11-15] MEDS: Acetaminophen 650mg/20.3ml NG PRN (16:00)
[2017-11-16] VITALS (24 sets, daily range): BP systolic 96–162; BP diastolic 33–90
[2017-11-16] MEDS: LORazepam Inj 2mg/ml 1ml IV PRN ×2 (00:29→21:48)
[2017-11-16] MEDS: Morphine Sulfate 4mg/ml Inj IVP PRN ×2 (01:40→15:58)
[2017-11-16 05:02] LABS: BASOPHILS % (AUTO) 0.7 % (0.0-2.0); EOSINOPHILS % (AUTO) 0.4 % (0.0-3.0); HEMATOCRIT 33.9 % (37.0-47.0); LYMPHOCYTES % (AUTO) 7.1 % (20.0-45.0); MEAN CORPUSCULAR VOLUME 85 FL (80-99); MONOCYTES % (AUTO) 13.3 % (1.0-10.0); NEUTROPHILS % (AUTO) 78.5 % (45.0-75.0); PLATELET COUNT 222 K/UL (150-450); RED BLOOD COUNT 4.01 M/UL (4.20-5.40); RED CELL DISTRIBUTION WIDTH 11.9 % (11.6-14.8); WHITE BLOOD COUNT 6.9 K/UL (4.8-10.8)
[2017-11-16 05:24] LABS: ANION GAP 4 mmol/L (5-15); BLOOD UREA NITROGEN 14 mg/dL (7-18); CARBON DIOXIDE 31 MMOL/L (21-32); CHLORIDE 97 MMOL/L (98-107); CREATININE 0.6 MG/DL (0.55-1.30); POTASSIUM 4.6 MMOL/L (3.5-5.1); SODIUM 132 MMOL/L (136-145)
[2017-11-16] MEDS: Levalbuterol Inh UD 1.25mg/0.5ml HHN SCH ×3 (06:59→19:30)
--- NOTE | 2017-11-16 09:31 | Pulmonolgy Critical Care Note ---
Critical Care - Asmt/Plan Assessment/Plan: ASSESSMENT Acute hypoxemic hypercapnic RF requiring intubation pulmonary edema HTN heart disease with LVH Mild pulmonary HTN severe protein calorie malnutrition fevers PLAN OF CARE ICU s/p Nitro gtt, Vent support pulmonary toilet ATC and prn ( with Xopenex due to tachy) daily CXR and ABG, ABG this am stable on currnt settings, but patient tachycardic and tachypneic thus far did not tolerate weaning continue weaning protocol febrile, do UA, CXR, blood cx and start empiric abx ID eval pro BNP u) and CXR on 11/15 worse a s well per cardio : stopped gentle IVF s/p diuresis x 1 on 11/15 may need additional diuresis serial troponin x 4 negative ECG no acute ischemic changes , r/out for acute [place] cardio follows ECHO with pEF 65-70% and RVSP of 39 initial CXR with pulm edema Venous Duplex BLE negative Renal US no hydro, normal bilateral kidney echogenicity DVT GI prophylaxis if unable to wean, may need trach family can't decide case discussed and evaluated by supervising physician Critical Care - Objective Last 24 Hour Vital Signs Date Time Temp Pulse Resp B/P (MAP) Pulse Ox O2 Delivery O2 Flow Rate FiO2 11/16/17 09:06 127 35 40 11/16/17 07:26 115 22 100 Mechanical Ventilator 40 11/16/17 07:00 109 31 100 Mechanical Ventilator 40 11/16/17 06:52 119 30 40 11/16/17 06:05 120 27 132/67 98 Mechanical Ventilator 40 11/16/17 05:25 113 30 40 11/16/17 05:00 110 25 153/84 97 Mechanical Ventilator 40 11/16/17 04:00 107 11/16/17 04:00 40 11/16/17 04:00 100.1 107 22 117/66 98 Mechanical Ventilator 40 11/16/17 03:01 104 20 40 11/16/17 03:00 104 21 120/67 100 Mechanical Ventilator 40 11/16/17 02:00 105 23 96/52 100 Mechanical Ventilator 40 11/16/17 01:21 116 37 40 11/16/17 01:00 105 21 142/90 100 Mechanical Ventilator 40 11/16/17 00:00 108 11/16/17 00:00 40 11/16/17 00:00 98.3 108 31 134/74 100 Mechanical Ventilator 40 2/17/18 23:12 108 33 40 2/17/18 23:00 105 31 115/67 100 Mechanical Ventilator 40 2/17/18 22:00 100 28 133/81 100 Mechanical Ventilator 40 2/17/18 21:17 106 30 40 2/17/18 21:06 103 120/72 2/17/18 21:00 113 35 103/60 100 Mechanical Ventilator 40 2/17/18 20:00 99.9 106 30 120/72 100 Mechanical Ventilator 40 2/17/18 20:00 120 2/17/18 20:00 40 2/17/18 19:29 111 30 98 Mechanical Ventilator 40 2/17/18 19:24 104 13 100 Mechanical Ventilator 40 2/17/18 19:23 104 37 40 2/17/18 19:00 111 32 126/75 100 Mechanical Ventilator 40 2/17/18 18:00 116 32 127/70 100 Mechanical Ventilator 40 2/17/18 17:00 125 32 160/90 98 Mechanical Ventilator 40 2/17/18 16:52 116 37 40 2/17/18 16:30 100.7 2/17/18 16:00 40 2/17/18 16:00 119 32 148/79 98 Mechanical Ventilator 40 2/17/18 16:00 101.8 2/17/18 15:31 129 2/17/18 15:03 126 38 40 2/17/18 15:00 125 35 164/82 97 Mechanical Ventilator 40 2/17/18 15:00 101.8 2/17/18 14:42 119 150/73 2/17/18 14:00 119 29 150/73 98 Mechanical Ventilator 40 2/17/18 13:07 108 17 98 Mechanical Ventilator 40 2/17/18 13:00 109 24 131/71 99 Mechanical Ventilator 40 2/17/18 12:57 106 13 98 Mechanical Ventilator 40 2/17/18 12:56 108 24 40 2/17/18 12:17 108 2/17/18 12:00 108 24 116/59 95 Mechanical Ventilator 40 2/17/18 12:00 40 2/17/18 11:20 116 27 40 2/17/18 11:00 123 31 135/70 99 Mechanical Ventilator 40 2/17/18 10:00 114 33 148/76 94 Mechanical Ventilator 40 Objective: Status: somnolent, arousable Condition: critical HEENT: atraumatic, normocephalic, OP with ET in place, intact, OP tube with TF Lungs: few crackles at bases Heart: ST on tele Abdomen: soft, non-tender, active bowel sounds Extremities: no C/C/E Critical Care - Subjective ROS Limited/Unobtainable: Yes Interval Events: tachycardic tachypneic not tolerating weaning + fever, no leucocytosis ABG ok Condition: critical IV Access: peripheral EKG Rhythm: Sinus Tachycardia FI02: 40 Vent Support Breath Rate: 12 Vent Support Mode: AC Vent Tidal Volume: 300 Sputum Amount: Moderate PEEP: 5.0 PIP: 30 Tube Feeding Amount: 35 I&O: Intake and Output 11/15/17 11/16/17 19:00 07:00 Intake Total 480 ml 385 ml Output Total 415 ml 435 ml Balance 65 ml -50 ml Intake Free Water 60 ml Tube Feeding 420 ml 385 ml Output Urine Total 415 ml 435 ml # Bowel Movements 4 CXR: 11/16 Interstitial edema demonstrated bilaterally with cardiomegaly. Some airspace opacities also noted Endotracheal tube and nasogastric tubes are in good position unchanged. ET-Tube: 6.0 ET Position: 20 Behzad (ManuelAngélica perez NP Nov 16, 2017 09:31
[2017-11-16] MEDS: Metoprolol 25mg tab NG SCH (09:45)
[2017-11-16] MEDS ORDERED: Albuterol/Ipratropium 3ml neb HHN PRN (09:45)
[2017-11-16] MEDS: Acetaminophen 650mg/20.3ml NG PRN (09:45)
[2017-11-16] MEDS: Pantoprazole Inj IV SCH (09:45)
[2017-11-16] MEDS: Heparin 5000 units/ml inj SUBQ SCH ×2 (09:51→20:32)
--- NOTE | 2017-11-16 10:58 | Cardiology Progress Note ---
Assessment/Plan Assessment/Plan 1. Respiratory failure. 2. Hypertension history. 3. Diarrhea at the time of admission. 4. Cachexia. 5. sinus tachy 6. nsvt 7. fever i wonder she may have MR not picked up on the echo view as may be eccentric will d/w with restaurant maintenance technician to take more images on bb via ng with prn iv if needed increase agitation causes her to have more tachy echo images personally reviewed MV sig thickened ant leaf left may be billowing past the post leaflet no new images were performed iv lasix daily febriel to day will order blood cx adn yanet cs d/w isaiah ciera note d/w rn Subjective ROS Limited/Unobtainable: Yes Subjective on vent agitation causes tachy Objective Last 24 Hour Vital Signs Date Time Temp Pulse Resp B/P (MAP) Pulse Ox O2 Delivery O2 Flow Rate FiO2 11/16/17 10:40 104 31 40 11/16/17 10:15 100.0 11/16/17 09:45 130 144/73 11/16/17 09:45 102.0 11/16/17 09:06 127 35 40 11/16/17 07:26 115 22 100 Mechanical Ventilator 40 11/16/17 07:00 109 31 100 Mechanical Ventilator 40 11/16/17 06:52 119 30 40 11/16/17 06:05 120 27 132/67 98 Mechanical Ventilator 40 11/16/17 05:25 113 30 40 11/16/17 05:00 110 25 153/84 97 Mechanical Ventilator 40 11/16/17 04:00 107 11/16/17 04:00 40 11/16/17 04:00 100.1 107 22 117/66 98 Mechanical Ventilator 40 11/16/17 03:01 104 20 40 18 03:00 104 21 120/67 100 Mechanical Ventilator 40 11/16/17 02:00 105 23 96/52 100 Mechanical Ventilator 40 11/16/17 01:21 116 37 40 18 01:00 105 21 142/90 100 Mechanical Ventilator 40 11/16/17 00:00 108 218/18 00:00 40 11/16/17 00:00 98.3 108 31 134/74 100 Mechanical Ventilator 40 11/15/17 23:12 108 33 40 11/15/17 23:00 105 31 115/67 100 Mechanical Ventilator 40 2/17/18 22:00 100 28 133/81 100 Mechanical Ventilator 40 2/17/18 21:17 106 30 40 2/17/18 21:06 103 120/72 2/17/18 21:00 113 35 103/60 100 Mechanical Ventilator 40 2/17/18 20:00 99.9 106 30 120/72 100 Mechanical Ventilator 40 2/17/18 20:00 120 2/17/18 20:00 40 2/17/18 19:29 111 30 98 Mechanical Ventilator 40 2/17/18 19:24 104 13 100 Mechanical Ventilator 40 2/17/18 19:23 104 37 40 2/17/18 19:00 111 32 126/75 100 Mechanical Ventilator 40 2/17/18 18:00 116 32 127/70 100 Mechanical Ventilator 40 217/18 17:00 125 32 160/90 98 Mechanical Ventilator 40 217/18 16:52 116 37 40 217/18 16:00 40 17/18 16:00 119 32 148/79 98 Mechanical Ventilator 40 11/15/18 16:00 101.8 11/15/18 15:31 129 /17/18 15:03 126 38 40 217/18 15:00 125 35 164/82 97 Mechanical Ventilator 40 17/18 15:00 101.8 217/18 14:42 119 150/73 17/18 14:00 119 29 150/73 98 Mechanical Ventilator 40 17/18 13:07 108 17 98 Mechanical Ventilator 40 217/18 13:00 109 24 131/71 99 Mechanical Ventilator 40 2/18 12:57 106 13 98 Mechanical Ventilator 40 11/15/18 12:56 108 24 40 217/18 12:17 108 2/17/18 12:00 108 24 116/59 95 Mechanical Ventilator 40 217/18 12:00 40 2/17/18 11:20 116 27 40 2/17/18 11:00 123 31 135/70 99 Mechanical Ventilator 40 General Appearance: on vent Neck: supple Cardiovascular: normal rate, systolic murmur Respiratory/Chest: lungs clear, normal breath sounds Abdomen: normal bowel sounds, non tender, soft Extremities: no swelling Intake and Output 17/18 2/18/18 19:00 07:00 Intake Total 480 ml 385 ml Output Total 415 ml 435 ml Balance 65 ml -50 ml Intake Free Water 60 ml Tube Feeding 420 ml 385 ml Output Urine Total 415 ml 435 ml # Bowel Movements 4 Laboratory Tests Test 11/16/17 03:50 11/16/17 04:00 White Blood Count 6.9 K/UL (4.8-10.8) Red Blood Count 4.01 M/UL (4.20-5.40) L Hemoglobin 11.0 G/DL (12.0-16.0) L Hematocrit 33.9 % (37.0-47.0) L Mean Corpuscular Volume 85 FL (80-99) Mean Corpuscular Hemoglobin 27.4 PG (27.0-31.0) Mean Corpuscular Hemoglobin Concent 32.4 G/DL (32.0-36.0) Red Cell Distribution Width 11.9 % (11.6-14.8) Platelet Count 222 K/UL (150-450) Mean Platelet Volume 7.6 FL (6.5-10.1) Neutrophils (%) (Auto) 78.5 % (45.0-75.0) H Lymphocytes (%) (Auto) 7.1 % (20.0-45.0) L Monocytes (%) (Auto) 13.3 % (1.0-10.0) H Eosinophils (%) (Auto) 0.4 % (0.0-3.0) Basophils (%) (Auto) 0.7 % (0.0-2.0) Sodium Level 132 MMOL/L (136-145) L Potassium Level 4.6 MMOL/L (3.5-5.1) Chloride Level 97 MMOL/L (98-107) L Carbon Dioxide Level 31 MMOL/L (21-32) Anion Gap 4 mmol/L (5-15) L Blood Urea Nitrogen 14 mg/dL (7-18) Creatinine 0.6 MG/DL (0.55-1.30) Estimat Glomerular Filtration Rate mL/min (>60) Glucose Level 105 MG/DL (74-106) Calcium Level 9.0 MG/DL (8.5-10.1) Arterial Blood pH 7.458 (7.350-7.450) Arterial Blood Partial Pressure CO2 53.1 mmHg (35.0-45.0) H Arterial Blood Partial Pressure O2 81.1 mmHg (75.0-100.0) Arterial Blood HCO3 36.7 mmol/L (22.0-26.0) H Arterial Blood Oxygen Saturation 96.2 % (92.0-98.0) Arterial Blood Base Excess 11.3 Rafy Test Positive NALINI GIBBONS Nov 16, 2017 10:58
--- NOTE | 2017-11-16 11:47 | Diagnostic Imaging Report ---
Indication: Dyspnea Comparison: 11/15/2017 A single view chest radiograph was obtained. Findings: Interstitial edema demonstrated bilaterally with cardiomegaly. Some airspace opacities also noted Endotracheal tube and nasogastric tubes are in good position unchanged. IMPRESSION: No change from the prior day. Pulmonary edema and/or infiltrates
[2017-11-16] MEDS ORDERED: Aztreonam Inj 0.5 GM in D5W 55 ML IVPB SCH (13:00)
[2017-11-16] MEDS ORDERED: Vancomycin 500mg/D5W 110ml IVPB SCH ×2 (14:00)
[2017-11-16] MEDS: Vancomycin 500 MG in NS 110 ML IVPB SCH (14:25)
[2017-11-16 17:37] LABS: APPEARANCE,URINE CLEAR; BILIRUBIN, URINE NEGATIVE (NEGATIVE); GLUCOSE, URINE (UA) NEGATIVE (NEGATIVE); KETONES,URINE NEGATIVE (NEGATIVE); LEUKOCYTE ESTERASE ,URINE 1+ (NEGATIVE); NITRITE,URINE NEGATIVE (NEGATIVE); PH,URINE 5 (4.5-8.0); PROTEIN,URINE NEGATIVE (NEGATIVE); UROBILINOGEN,URINE 1 MG/DL (0.0-1.0)
[2017-11-16 17:39] LABS: COLOR,URINE YELLOW
[2017-11-16] MEDS: Aztreonam Inj 0.5 GM in NS 55 ML IVPB SCH (20:31)
[2017-11-16] MEDS: Metoprolol Tartrate 50mg tab NG SCH (20:34)
[2017-11-17] VITALS (24 sets, daily range): BP systolic 79–160; BP diastolic 38–88
[2017-11-17] MEDS: Acetaminophen 650mg/20.3ml NG PRN ×2 (00:09→17:36)
[2017-11-17] MEDS: Aztreonam Inj 0.5 GM in NS 55 ML IVPB SCH ×3 (05:01→21:08)
[2017-11-17 05:35] LABS: BASOPHILS % (AUTO) 0.6 % (0.0-2.0); EOSINOPHILS % (AUTO) 0.2 % (0.0-3.0); HEMATOCRIT 27.7 % (37.0-47.0); HEMOGLOBIN 8.9 G/DL (12.0-16.0); LYMPHOCYTES % (AUTO) 8.9 % (20.0-45.0); MEAN CORPUSCULAR VOLUME 84 FL (80-99); MONOCYTES % (AUTO) 12.4 % (1.0-10.0); NEUTROPHILS % (AUTO) 77.8 % (45.0-75.0); PLATELET COUNT 230 K/UL (150-450); RED BLOOD COUNT 3.31 M/UL (4.20-5.40); RED CELL DISTRIBUTION WIDTH 11.8 % (11.6-14.8); WHITE BLOOD COUNT 9.6 K/UL (4.8-10.8)
[2017-11-17 05:42] LABS: ANION GAP 2 mmol/L (5-15); BLOOD UREA NITROGEN 17 mg/dL (7-18); CALCIUM 8.2 MG/DL (8.5-10.1); CARBON DIOXIDE 34 MMOL/L (21-32); CHLORIDE 95 MMOL/L (98-107); CREATININE 0.7 MG/DL (0.55-1.30); SODIUM 131 MMOL/L (136-145)
[2017-11-17] MEDS: LORazepam Inj 2mg/ml 1ml IV PRN ×3 (06:04→23:22)
[2017-11-17] MEDS: Levalbuterol Inh UD 1.25mg/0.5ml HHN SCH ×3 (07:24→18:50)
[2017-11-17] MEDS: Morphine Sulfate 4mg/ml Inj IVP PRN (08:15)
[2017-11-17] MEDS: Pantoprazole Inj IV SCH (08:15)
[2017-11-17] MEDS: Metoprolol Tartrate 50mg tab NG SCH ×2 (08:16→21:00)
[2017-11-17] MEDS: Heparin 5000 units/ml inj SUBQ SCH ×2 (08:34→21:00)
--- NOTE | 2017-11-17 09:39 | Pulmonolgy Critical Care Note ---
Critical Care - Asmt/Plan Assessment/Plan: ASSESSMENT Acute hypoxemic hypercapnic RF requiring intubation pulmonary edema HTN heart disease with LVH Mild pulmonary HTN severe protein calorie malnutrition fevers PLAN OF CARE ICU s/p Nitro gtt, Vent support pulmonary toilet ATC and prn ( with Xopenex due to tachy) daily CXR and ABG, ABG this am stable on current settings, but patient tachycardic and tachypneic thus far did not tolerate weaning continue weaning protocol UA-negative, CXR-negative, blood cx pending started empiric abx ID eval pending no obvious source of infection so far pro BNP and CXR on 11/15 worse as well per cardio : stopped gentle IVF s/p diuresis x 1 on 11/15 may need additional diuresis cardio thinks patient may have MR not picked up on ECHO started on gentle IV Lasix diuresis monitor cardio renal parameters, lytes BP management with BB and optimize further as per cardio recs ECHO with pEF 65-70% and RVSP of 39 initial CXR with pulm edema fup with CXR and BNP in am serial troponin x 4 negative ECG no acute ischemic changes , r/out for acute [place] Venous Duplex BLE negative Renal US no hydro, normal bilateral kidney echogenicity DVT GI prophylaxis if unable to wean, may need trach family can't decide case discussed and evaluated by supervising physician Critical Care - Objective Last 24 Hour Vital Signs Date Time Temp Pulse Resp B/P (MAP) Pulse Ox O2 Delivery O2 Flow Rate FiO2 11/17/17 08:45 98.6 11/17/17 08:16 131 162/89 11/17/17 08:15 98.4 11/17/17 07:36 106 15 100 Mechanical Ventilator 40 11/17/17 07:24 110 37 100 Mechanical Ventilator 40 11/17/17 07:20 110 37 40 11/17/17 07:00 111 31 114/63 100 Mechanical Ventilator 40 11/17/17 06:00 122 28 149/86 100 Mechanical Ventilator 40 11/17/17 05:10 96 32 40 11/17/17 05:00 95 25 144/59 99 Mechanical Ventilator 40 11/17/17 04:00 104 11/17/17 04:00 40 11/17/17 04:00 98.2 109 30 128/74 100 Mechanical Ventilator 40 11/17/17 03:24 103 37 40 2/19/18 03:00 102 30 148/78 100 Mechanical Ventilator 40 2/19/18 02:00 104 31 128/58 100 Mechanical Ventilator 40 2/19/18 01:00 97 35 40 2/19/18 01:00 99.0 103 27 134/38 100 Mechanical Ventilator 40 2/19/18 00:39 99.0 2/19/18 00:09 101.0 2/19/18 00:00 116 2/19/18 00:00 40 2/19/18 00:00 101.0 116 32 160/66 100 Mechanical Ventilator 40 2/18/18 23:45 124 37 40 2/18/18 23:00 117 32 154/33 100 Mechanical Ventilator 40 2/18/18 22:00 117 29 136/68 100 Mechanical Ventilator 40 2/18/18 21:10 112 37 40 2/18/18 21:00 99.0 117 31 160/85 99 Mechanical Ventilator 40 2/18/18 20:34 130 161/81 2/18/18 20:00 121 2/18/18 20:00 40 2/18/18 20:00 99.4 126 33 162/87 98 Mechanical Ventilator 40 2/18/18 19:40 119 33 100 Mechanical Ventilator 40 2/18/18 19:32 96 32 40 2/18/18 19:30 119 31 100 Mechanical Ventilator 40 2/18/18 19:00 109 27 140/55 100 Mechanical Ventilator 40 2/18/18 18:00 110 25 139/59 100 Mechanical Ventilator 40 2/18/18 17:15 96 32 40 2/18/18 17:00 112 26 152/60 99 Mechanical Ventilator 40 2/18/18 16:00 40 2/18/18 16:00 112 2/18/18 16:00 99.9 115 27 144/80 98 Mechanical Ventilator 40 2/18/18 15:58 100.0 2/18/18 15:26 115 31 40 2/18/18 15:00 111 25 125/60 100 Mechanical Ventilator 40 2/18/18 14:00 112 25 122/60 98 Mechanical Ventilator 40 2/18/18 13:36 110 32 100 Mechanical Ventilator 40 2/18/18 13:13 101 26 100 Mechanical Ventilator 40 2/18/18 13:12 104 26 40 2/18/18 13:00 112 25 114/57 98 Mechanical Ventilator 40 2/18/18 12:00 110 11/16/17 12:00 40 11/16/17 12:00 100.0 115 27 139/76 98 Mechanical Ventilator 40 11/16/17 11:00 116 24 101/54 98 Mechanical Ventilator 40 11/16/17 10:40 104 31 40 11/16/17 10:00 119 25 150/60 98 Mechanical Ventilator 40 11/16/17 09:45 130 144/73 11/16/17 09:45 102.0 Objective: Status: somnolent, arousable Condition: critical HEENT: atraumatic, normocephalic, OP with ET in place, intact, OP tube with TF Lungs: few crackles at bases Heart: ST on tele Abdomen: soft, non-tender, active bowel sounds Extremities: no C/C/E Critical Care - Subjective ROS Limited/Unobtainable: Yes Interval Events: fever last night, no leukocytosis, during the day 11/16 up to 102 pancultured and started on abx tachycardic, tachypneic unable to wean Condition: critical IV Access: peripheral EKG Rhythm: Sinus Tachycardia FI02: 40 Vent Support Breath Rate: 12 Vent Support Mode: AC Vent Tidal Volume: 300 Sputum Amount: Small PEEP: 5.0 PIP: 31 Tube Feeding Amount: 35 I&O: Intake and Output 11/16/17 11/17/17 19:00 07:00 Intake Total 585 ml 630 ml Output Total 730 ml 675 ml Balance -145 ml -45 ml IV Total 165 ml 110 ml Tube Feeding 420 ml 420 ml Other 100 ml Output Urine Total 730 ml 675 ml CXR: 11/17 -Bilateral diffuse interstitial and airspace opacities are unchanged. Stable satisfactory positions of endotracheal and nasogastric tubes. Suspect small left pleural effusion. The heart is enlarged. Findings are overall unchanged allowing for differences in degree of inspiration ET-Tube: 6.0 ET Position: 20 Behzad (ManuelAngélica perez NP Nov 17, 2017 09:39
--- NOTE | 2017-11-17 10:26 | Diagnostic Imaging Report ---
Indication: Shortness of breath Technique: One view of the chest Comparison: 11/16/2017 Findings: Bilateral diffuse interstitial and airspace opacities are unchanged. Stable satisfactory positions of endotracheal and nasogastric tubes. Suspect small left pleural effusion. The heart is enlarged. Findings are overall unchanged allowing for differences in degree of inspiration Impression: Unchanged, over one day, findings as above.
--- NOTE | 2017-11-17 13:14 | Consultation ---
Consult Note Consult Note ID DIC # [id number] KUSH ESPINO M.D. Nov 17, 2017 13:14
[2017-11-17 14:13] LABS: ALANINE AMINOTRANSFERASE 24 U/L (12-78); ALBUMIN 2.2 G/DL (3.4-5.0); ALBUMIN/GLOBULIN RATIO 0.5 (1.0-2.7); ALKALINE PHOSPHATASE 64 U/L (46-116); ANION GAP -1 mmol/L (5-15); ASPARTATE AMINO TRANSFERASE 22 U/L (15-37); BILIRUBIN,TOTAL 0.4 MG/DL (0.2-1.0); BLOOD UREA NITROGEN 19 mg/dL (7-18); CALCIUM 8.5 MG/DL (8.5-10.1); CARBON DIOXIDE 39 MMOL/L (21-32); CHLORIDE 95 MMOL/L (98-107); CREATININE 0.7 MG/DL (0.55-1.30); POTASSIUM 4.1 MMOL/L (3.5-5.1); SODIUM 133 MMOL/L (136-145)
[2017-11-17] MEDS: Vancomycin 500 MG in NS 110 ML IVPB SCH (14:38)
--- NOTE | 2017-11-17 15:09 | Consultation ---
History of Present Illness General Date patient seen: Nov 17, 2017 Chief Complaint: Upper Respiratory Illness Reason for Consultation: respiratory insufficiency; prolonged intubation Present Illness HPI 77 year old female with multiple medical comorbidities currently in ICU under care and management of medical team. Please refer to EMR notes for details. Presented with respiratory insufficiency requiring intubation. Has been intubated for some time now without tolerating weaning from ventilatory despite overall improvement. continues to require ventilatory support. surgery called to evaluate for trach. patient seen, chart reviewed, exam performed, case discussed with team and patients family members. Allergies: Coded Allergies: PENICILLINS (Verified Allergy, Mild, Rash, 06/30/14) Medication History Scheduled Alendronate Sodium* (Fosamax*), 35 MG ORAL ONCE A WEEK, (Reported) Amlodipine Besylate (Norvasc), 5 MG ORAL DAILY Aspirin* (Aspir 81*), 81 MG ORAL DAILY, (Reported) Hydrochlorothiazide* (Hydrochlorothiazide*), 25 MG ORAL DAILY Metoprolol Tartrate* (Metoprolol Tartrate*), 25 MG ORAL DAILY, (Reported) Patient History History Provided By: Family Member, Medical Record, PMD Healthcare decision maker Resuscitation status Full Code Advanced Directive on File Past Medical/Surgical History Past Medical/Surgical History: (1) Hypertension (2) Pulmonary edema (3) Respiratory failure (4) Valvular disease (5) Hypertension (6) LVH (left ventricular hypertrophy) due to hypertensive disease (7) Protein-calorie malnutrition, severe (8) Fever Review of Systems ROS Narrative cannot obtain given patients current medical condition Physical Exam General Appearance: lethargic Lines, tubes and drains: central line HEENT: normocephalic, atraumatic Neck: normal inspection Respiratory/Chest: on vent Cardiovascular/Chest: normal peripheral pulses Abdomen: normal bowel sounds, soft, no organomegaly, no mass Extremities: normal inspection Skin Exam: normal pigmentation, warm/dry Neurologic: unresponsiveness, other - uncomfortable with ET tube in place. Last 24 Hour Vital Signs Date Time Temp Pulse Resp B/P (MAP) Pulse Ox O2 Delivery O2 Flow Rate FiO2 11/17/17 14:00 109 23 133/71 100 Mechanical Ventilator 40 11/17/17 13:33 103 16 100 Mechanical Ventilator 40 11/17/17 13:23 105 20 100 Mechanical Ventilator 40 11/17/17 13:20 105 20 40 2/19/18 13:00 103 20 132/69 100 Mechanical Ventilator 40 2/19/18 12:00 98.4 102 22 98/52 100 Mechanical Ventilator 40 2/19/18 12:00 101 2/19/18 12:00 40 2/19/18 11:09 101 25 40 2/19/18 11:00 102 20 101/63 100 Mechanical Ventilator 40 2/19/18 10:00 102 20 91/51 100 Mechanical Ventilator 40 2/19/18 09:36 100 2/19/18 09:02 105 21 40 2/19/18 09:00 104 22 84/49 100 Mechanical Ventilator 40 2/19/18 08:45 98.6 2/19/18 08:16 131 162/89 2/19/18 08:15 98.4 2/19/18 08:00 40 2/19/18 08:00 128 2/19/18 08:00 98.4 131 36 151/78 100 Mechanical Ventilator 40 2/19/18 07:36 106 15 100 Mechanical Ventilator 40 2/19/18 07:24 110 37 100 Mechanical Ventilator 40 2/19/18 07:20 110 37 40 2/19/18 07:00 111 31 114/63 100 Mechanical Ventilator 40 2/19/18 06:00 122 28 149/86 100 Mechanical Ventilator 40 2/19/18 05:10 96 32 40 2/19/18 05:00 95 25 144/59 99 Mechanical Ventilator 40 2/19/18 04:00 104 2/19/18 04:00 40 2/19/18 04:00 98.2 109 30 128/74 100 Mechanical Ventilator 40 2/19/18 03:24 103 37 40 2/19/18 03:00 102 30 148/78 100 Mechanical Ventilator 40 2/19/18 02:00 104 31 128/58 100 Mechanical Ventilator 40 2/19/18 01:00 97 35 40 2/19/18 01:00 99.0 103 27 134/38 100 Mechanical Ventilator 40 2/19/18 00:39 99.0 2/19/18 00:09 101.0 2/19/18 00:00 116 2/19/18 00:00 40 2/19/18 00:00 101.0 116 32 160/66 100 Mechanical Ventilator 40 2/18/18 23:45 124 37 40 2/18/18 23:00 117 32 154/33 100 Mechanical Ventilator 40 11/16/17 22:00 117 29 136/68 100 Mechanical Ventilator 40 18 21:10 112 37 40 18 21:00 99.0 117 31 160/85 99 Mechanical Ventilator 40 1818 20:34 130 161/81 18 20:00 121 18 20:00 40 11/16/17 20:00 99.4 126 33 162/87 98 Mechanical Ventilator 40 11/16/17 19:40 119 33 100 Mechanical Ventilator 40 18 19:32 96 32 40 18 19:30 119 31 100 Mechanical Ventilator 40 11/16/17 19:00 109 27 140/55 100 Mechanical Ventilator 40 11/16/17 18:00 110 25 139/59 100 Mechanical Ventilator 40 18 17:15 96 32 40 11/16/17 17:00 112 26 152/60 99 Mechanical Ventilator 40 11/16/17 16:00 40 11/16/17 16:00 112 11/16/17 16:00 99.9 115 27 144/80 98 Mechanical Ventilator 40 18 15:58 100.0 18 15:26 115 31 40 Intake and Output 11/16/17 11/17/17 19:00 07:00 Intake Total 585 ml 630 ml Output Total 730 ml 675 ml Balance -145 ml -45 ml IV Total 165 ml 110 ml Tube Feeding 420 ml 420 ml Other 100 ml Output Urine Total 730 ml 675 ml Laboratory Tests Test 11/16/17 17:00 11/17/17 03:50 11/17/17 09:11 11/17/17 13:50 Urine Color Yellow Urine Appearance Clear Urine pH 5 (4.5-8.0) Urine Specific [place] 1.015 (1.005-1.035) Urine Protein Negative (NEGATIVE) Urine Glucose (UA) Negative (NEGATIVE) Urine Ketones Negative (NEGATIVE) Urine Occult Blood 1+ (NEGATIVE) H Urine Nitrite Negative (NEGATIVE) Urine Bilirubin Negative (NEGATIVE) Urine Urobilinogen 1 MG/DL (0.0-1.0) H Urine Leukocyte Esterase 1+ (NEGATIVE) H Urine RBC 2-4 /HPF (0 - 2) H Urine WBC 0-2 /HPF (0 - 2) Urine Squamous Epithelial Cells Few /LPF (NONE/OCC) Urine Amorphous Sediment Few /LPF (NONE) H Urine Bacteria Few /HPF (NONE) White Blood Count 9.6 K/UL (4.8-10.8) Red Blood Count 3.31 M/UL (4.20-5.40) L Hemoglobin 8.9 G/DL (12.0-16.0) L Hematocrit 27.7 % (37.0-47.0) L Mean Corpuscular Volume 84 FL (80-99) Mean Corpuscular Hemoglobin 26.9 PG (27.0-31.0) L Mean Corpuscular Hemoglobin Concent 32.1 G/DL (32.0-36.0) Red Cell Distribution Width 11.8 % (11.6-14.8) Platelet Count 230 K/UL (150-450) Mean Platelet Volume 7.3 FL (6.5-10.1) Neutrophils (%) (Auto) 77.8 % (45.0-75.0) H Lymphocytes (%) (Auto) 8.9 % (20.0-45.0) L Monocytes (%) (Auto) 12.4 % (1.0-10.0) H Eosinophils (%) (Auto) 0.2 % (0.0-3.0) Basophils (%) (Auto) 0.6 % (0.0-2.0) Sodium Level 131 MMOL/L (136-145) L 133 MMOL/L (136-145) L Potassium Level 4.0 MMOL/L (3.5-5.1) 4.1 MMOL/L (3.5-5.1) Chloride Level 95 MMOL/L (98-107) L 95 MMOL/L (98-107) L Carbon Dioxide Level 34 MMOL/L (21-32) H 39 MMOL/L (21-32) H Anion Gap 2 mmol/L (5-15) L -1 mmol/L (5-15) L Blood Urea Nitrogen 17 mg/dL (7-18) 19 mg/dL (7-18) H Creatinine 0.7 MG/DL (0.55-1.30) 0.7 MG/DL (0.55-1.30) Estimat Glomerular Filtration Rate mL/min (>60) mL/min (>60) Glucose Level 127 MG/DL (74-106) H 119 MG/DL (74-106) H Calcium Level 8.2 MG/DL (8.5-10.1) L 8.5 MG/DL (8.5-10.1) Arterial Blood pH 7.420 (7.350-7.450) Arterial Blood Partial Pressure CO2 53.3 mmHg (35.0-45.0) H Arterial Blood Partial Pressure O2 99.0 mmHg (75.0-100.0) Arterial Blood HCO3 34.5 mmol/L (22.0-26.0) H Arterial Blood Oxygen Saturation 97.1 % (92.0-98.0) Arterial Blood Base Excess 9.0 Rafy Test Positive Total Bilirubin 0.4 MG/DL (0.2-1.0) Aspartate Amino Transf (AST/SGOT) 22 U/L (15-37) Alanine Aminotransferase (ALT/SGPT) 24 U/L (12-78) Alkaline Phosphatase 64 U/L (46-116) Total Protein 6.4 G/DL (6.4-8.2) Albumin 2.2 G/DL (3.4-5.0) L Globulin 4.2 g/dL Albumin/Globulin Ratio 0.5 (1.0-2.7) L Height (Feet): 4 Height (Inches): 10.00 Weight (Pounds): 63 Medications Current Medications Medications (Trade) Dose Ordered Sig/Puja Route PRN Reason Start Time Stop Time Status Last Admin Dose Admin Acetaminophen (Tylenol) 650 mg Q4H PRN NG T>100.5 11/14/17 19:45 12/14/17 19:44 11/17/17 00:09 Albuterol/ Ipratropium (Albuterol/ Ipratropium) 3 ml Q4HRT PRN HHN Shortness of Breath 11/16/17 09:45 11/21/17 09:44 Aztreonam 0.5 gm/ Sodium Chloride 55 ml @ 110 mls/hr Q8H IVPB 11/16/17 21:00 11/23/17 23:59 11/17/17 13:18 Dextrose (Dextrose 50%) STAT PRN IV Hypoglycemia 11/08/17 14:30 12/08/17 14:29 Furosemide (Lasix) 20 mg DAILY IV 11/16/17 11:00 12/16/17 10:59 11/17/17 08:15 Heparin Sodium (Porcine) (Heparin 5000 units/ml) 5,000 units EVERY 12 HOURS SUBQ 11/08/17 21:00 12/08/17 20:59 11/17/17 08:34 Levalbuterol HCl (Xopenex) 1.25 mg TIDRT HHN 11/15/17 13:00 11/20/17 12:59 11/17/17 13:22 Lorazepam (Ativan 2mg/ml 1ml) 2 mg Q4H PRN IV For Anxiety 11/14/17 12:30 11/21/17 12:29 11/17/17 06:04 Metoprolol Tartrate (Lopressor) 5 mg Q6H PRN IVP HR>130 11/11/17 19:00 12/11/17 18:59 11/15/17 07:26 Metoprolol Tartrate (Lopressor) 50 mg Q12HR NG 11/16/17 21:00 12/16/17 20:59 11/17/17 08:16 Morphine Sulfate (Morphine Sulfate) 2 mg Q4H PRN IVP Moderate Pain (Pain Scale 4-6) 11/17/17 10:30 11/24/17 23:59 Ondansetron HCl (Zofran) 4 mg Q6H PRN IVP Nausea & Vomiting 11/08/17 14:30 12/08/17 14:29 Pantoprazole (Protonix) 40 mg DAILY IV 11/09/17 09:00 12/09/17 08:59 11/17/17 08:15 Polyethylene Glycol (Miralax) 17 gm DAILYPRN PRN ORAL Constipation 11/08/17 14:30 12/08/17 14:29 11/13/17 15:18 Vancomycin HCl (Vanco rx to dose) 1 ea DAILY PRN MISC Per rx protocol 11/16/17 11:30 12/16/17 11:29 Vancomycin HCl 500 mg/Sodium Chloride 110 ml @ 110 mls/hr Q24H IVPB 11/16/17 14:00 11/21/17 23:59 11/17/17 14:38 Assessment/Plan Problem List: (1) Respiratory failure Assessment & Plan: 77F with respiratory insufficiency requiring prolonged ventilation without being able to wean from vent. given above trach indicated and recommended. risks, benefits, and alternatives discussed with family at bedside. they express interest in trach and consent to procedure. will plan for trach Friday consent ICD Codes: J96.90 - Respiratory failure, unspecified, unspecified whether with hypoxia or hypercapnia SNOMED: [id number] Qualifiers: Qualified Codes: J96.01 - Acute respiratory failure with hypoxia; J96.02 - Acute respiratory failure with hypercapnia Status: stable Andrew Krause Nov 17, 2017 15:09
--- NOTE | 2017-11-17 18:30 | Consultation ---
DATE OF CONSULTATION: 11/17/2017 INFECTIOUS DISEASE CONSULTATION CONSULTING PHYSICIAN: Femi Palm M.D. REQUESTING PHYSICIANS: 1. Dylan Pittman M.D. 2. Angélica ChristiansonNyu Langone Orthopedic HospitalVarinder Aburto REASON FOR CONSULTATION: Evaluation of the patient for fever and antibiotic management. HISTORY OF PRESENT ILLNESS: The patient is a 77-year-old female, who came from home for cough and shortness of breath. The patient had to be intubated in the emergency room for respiratory distress and the patient was admitted to the ICU. The patient now has developed fever, started on IV antibiotics, Infectious Disease consultation has been requested for further evaluation of the patient and antibiotic management. PAST MEDICAL HISTORY: 1. Hypertension. 2. Diarrhea at the time of admission that has resolved. MEDICATIONS: IV vancomycin and aztreonam. ALLERGIES: Penicillin. FAMILY HISTORY: The patient lives with the family. There is no history of flu in the family. REVIEW OF SYSTEMS: Unobtainable. PHYSICAL EXAMINATION: VITAL SIGNS: Temperature 98 and blood pressure 98/54. T-max 101.8. HEENT: No pale conjunctivae. No icterus. NECK: No lymphadenopathy. CHEST: Coarse breathing sounds. HEART: S1 and S2. ABDOMEN: Soft and nontender. EXTREMITIES: No cyanosis. NEUROLOGIC: Sedated. SKIN: No rash. No wounds. LABORATORY DATA: White blood cells 9.6, hemoglobin 9.9, and platelets 230. UA, unremarkable. BUN 17 and creatinine 0.3. ALT, AST, and alkaline phosphatase are unremarkable. Chest x-ray, bilateral diffuse interstitial opacity. ASSESSMENT: 1. Fever. 2. Probable ventilator-associated pneumonia. 3. Rule out influenza. 4. Rule out urinary tract infection. PLAN: 1. We will continue the patient on Azactam and vancomycin day #2. 2. Monitor CBC. 3. Monitor BMP. 4. Monitor cultures, blood, urine, and sputum. 5. Rapid influenza test. 6. Monitor chest x-ray. 7. Continue respiratory support. 8. Based on the patient's clinical course and labs, we will do further recommendations. 9. We will check a CMP. Thank you, Dr. Pittman and Ms. Angélica Wen, for allowing me to participate in the care of this patient. I will follow the patient with you during this hospitalization. Femi Palm M.D. DR: SANKET JOB#: [id number] CC:
--- NOTE | 2017-11-17 20:20 | Cardiology Progress Note ---
Assessment/Plan Assessment/Plan 1. Respiratory failure. 2. Hypertension history. 3. Diarrhea at the time of admission. 4. Cachexia. 5. sinus tachy 6. nsvt 7. fever 8. hyptesnion i wonder she may have MR not picked up on the echo view as may be eccentric will d/w with technology architect to take more images on bb via ng with prn iv if needed increase agitation causes her to have more tachy echo images personally reviewed MV sig thickened ant leaf left may be billowing past the post leaflet no new images were performed dc lasix a bp low infact ns boluse d/w fmaily trach planned for tomorrwo Subjective ROS Limited/Unobtainable: Yes Subjective on vent agitation causes tachy Objective Last 24 Hour Vital Signs Date Time Temp Pulse Resp B/P (MAP) Pulse Ox O2 Delivery O2 Flow Rate FiO2 11/17/17 19:00 98 14 100 Mechanical Ventilator 40 11/17/17 19:00 98 20 123/60 100 Mechanical Ventilator 40 11/17/17 18:53 103 24 100 Mechanical Ventilator 40 11/17/17 18:51 104 25 40 11/17/17 18:00 122 27 131/69 100 Mechanical Ventilator 40 18 18:00 99.5 11/17/17 17:36 99.8 11/17/17 17:00 120 21 136/79 100 Mechanical Ventilator 40 11/17/17 16:58 113 24 40 18 16:00 126 18 16:00 99.8 112 22 103/60 100 Mechanical Ventilator 40 11/17/17 16:00 40 11/17/17 15:00 81 21 79/53 99 Mechanical Ventilator 40 11/17/17 14:51 124 35 40 18 14:00 109 23 133/71 100 Mechanical Ventilator 40 18 13:33 103 16 100 Mechanical Ventilator 40 18 13:23 105 20 100 Mechanical Ventilator 40 18 13:20 105 20 40 18 13:00 103 20 132/69 100 Mechanical Ventilator 40 18 12:00 98.4 102 22 98/52 100 Mechanical Ventilator 40 11/17/17 12:00 101 11/17/17 12:00 40 18 11:09 101 25 40 2/19/18 11:00 102 20 101/63 100 Mechanical Ventilator 40 2/19/18 10:00 102 20 91/51 100 Mechanical Ventilator 40 2/19/18 09:36 100 2/19/18 09:02 105 21 40 2/19/18 09:00 104 22 84/49 100 Mechanical Ventilator 40 2/19/18 08:45 98.6 2/19/18 08:16 131 162/89 2/19/18 08:15 98.4 2/19/18 08:00 40 2/19/18 08:00 128 2/19/18 08:00 98.4 131 36 151/78 100 Mechanical Ventilator 40 2/19/18 07:36 106 15 100 Mechanical Ventilator 40 2/19/18 07:24 110 37 100 Mechanical Ventilator 40 2/19/18 07:20 110 37 40 2/19/18 07:00 111 31 114/63 100 Mechanical Ventilator 40 2/19/18 06:00 122 28 149/86 100 Mechanical Ventilator 40 2/19/18 05:10 96 32 40 2/19/18 05:00 95 25 144/59 99 Mechanical Ventilator 40 2/19/18 04:00 104 2/19/18 04:00 40 2/19/18 04:00 98.2 109 30 128/74 100 Mechanical Ventilator 40 2/19/18 03:24 103 37 40 2/19/18 03:00 102 30 148/78 100 Mechanical Ventilator 40 2/19/18 02:00 104 31 128/58 100 Mechanical Ventilator 40 2/19/18 01:00 97 35 40 2/19/18 01:00 99.0 103 27 134/38 100 Mechanical Ventilator 40 2/19/18 00:09 101.0 2/19/18 00:00 116 2/19/18 00:00 40 2/19/18 00:00 101.0 116 32 160/66 100 Mechanical Ventilator 40 2/18/18 23:45 124 37 40 2/18/18 23:00 117 32 154/33 100 Mechanical Ventilator 40 2/18/18 22:00 117 29 136/68 100 Mechanical Ventilator 40 2/18/18 21:10 112 37 40 2/18/18 21:00 99.0 117 31 160/85 99 Mechanical Ventilator 40 2/18/18 20:34 130 161/81 General Appearance: no apparent distress Neck: supple Cardiovascular: normal rate, regular rhythm Respiratory/Chest: lungs clear Abdomen: normal bowel sounds, non tender, soft Extremities: no swelling Intake and Output 11/16/17 11/17/17 19:00 07:00 Intake Total 585 ml 630 ml Output Total 730 ml 675 ml Balance -145 ml -45 ml IV Total 165 ml 110 ml Tube Feeding 420 ml 420 ml Other 100 ml Output Urine Total 730 ml 675 ml Laboratory Tests Test 11/17/17 03:50 11/17/17 09:11 11/17/17 13:50 White Blood Count 9.6 K/UL (4.8-10.8) Red Blood Count 3.31 M/UL (4.20-5.40) L Hemoglobin 8.9 G/DL (12.0-16.0) L Hematocrit 27.7 % (37.0-47.0) L Mean Corpuscular Volume 84 FL (80-99) Mean Corpuscular Hemoglobin 26.9 PG (27.0-31.0) L Mean Corpuscular Hemoglobin Concent 32.1 G/DL (32.0-36.0) Red Cell Distribution Width 11.8 % (11.6-14.8) Platelet Count 230 K/UL (150-450) Mean Platelet Volume 7.3 FL (6.5-10.1) Neutrophils (%) (Auto) 77.8 % (45.0-75.0) H Lymphocytes (%) (Auto) 8.9 % (20.0-45.0) L Monocytes (%) (Auto) 12.4 % (1.0-10.0) H Eosinophils (%) (Auto) 0.2 % (0.0-3.0) Basophils (%) (Auto) 0.6 % (0.0-2.0) Sodium Level 131 MMOL/L (136-145) L 133 MMOL/L (136-145) L Potassium Level 4.0 MMOL/L (3.5-5.1) 4.1 MMOL/L (3.5-5.1) Chloride Level 95 MMOL/L (98-107) L 95 MMOL/L (98-107) L Carbon Dioxide Level 34 MMOL/L (21-32) H 39 MMOL/L (21-32) H Anion Gap 2 mmol/L (5-15) L -1 mmol/L (5-15) L Blood Urea Nitrogen 17 mg/dL (7-18) 19 mg/dL (7-18) H Creatinine 0.7 MG/DL (0.55-1.30) 0.7 MG/DL (0.55-1.30) Estimat Glomerular Filtration Rate mL/min (>60) mL/min (>60) Glucose Level 127 MG/DL (74-106) H 119 MG/DL (74-106) H Calcium Level 8.2 MG/DL (8.5-10.1) L 8.5 MG/DL (8.5-10.1) Arterial Blood pH 7.420 (7.350-7.450) Arterial Blood Partial Pressure CO2 53.3 mmHg (35.0-45.0) H Arterial Blood Partial Pressure O2 99.0 mmHg (75.0-100.0) Arterial Blood HCO3 34.5 mmol/L (22.0-26.0) H Arterial Blood Oxygen Saturation 97.1 % (92.0-98.0) Arterial Blood Base Excess 9.0 Rafy Test Positive Total Bilirubin 0.4 MG/DL (0.2-1.0) Aspartate Amino Transf (AST/SGOT) 22 U/L (15-37) Alanine Aminotransferase (ALT/SGPT) 24 U/L (12-78) Alkaline Phosphatase 64 U/L (46-116) Total Protein 6.4 G/DL (6.4-8.2) Albumin 2.2 G/DL (3.4-5.0) L Globulin 4.2 g/dL Albumin/Globulin Ratio 0.5 (1.0-2.7) L NALINI GIBBONS Nov 17, 2017 20:20
[2017-11-17] MEDS ORDERED: NS 250 ML IVPB ONE (20:30)
[2017-11-18] VITALS (23 sets, daily range): BP systolic 86–169; BP diastolic 8–97
[2017-11-18] MEDS: Aztreonam Inj 0.5 GM in NS 55 ML IVPB SCH ×3 (04:35→20:40)
[2017-11-18] MEDS: Metoprolol 5mg/5ml Inj IVP PRN (04:35)
[2017-11-18 06:09] LABS: HEMATOCRIT 28.4 % (37.0-47.0); HEMOGLOBIN 8.9 G/DL (12.0-16.0); MEAN CORPUSCULAR VOLUME 83 FL (80-99); PLATELET COUNT 216 K/UL (150-450); RED BLOOD COUNT 3.41 M/UL (4.20-5.40); RED CELL DISTRIBUTION WIDTH 11.7 % (11.6-14.8); WHITE BLOOD COUNT 9.7 K/UL (4.8-10.8)
[2017-11-18 06:23] LABS: ANION GAP 2 mmol/L (5-15); BLOOD UREA NITROGEN 20 mg/dL (7-18); CALCIUM 8.4 MG/DL (8.5-10.1); CARBON DIOXIDE 34 MMOL/L (21-32); CHLORIDE 96 MMOL/L (98-107); CREATININE 0.7 MG/DL (0.55-1.30); POTASSIUM 3.8 MMOL/L (3.5-5.1); SODIUM 132 MMOL/L (136-145)
[2017-11-18] MEDS: Levalbuterol Inh UD 1.25mg/0.5ml HHN SCH ×3 (06:51→21:10)
[2017-11-18] MEDS: Heparin 5000 units/ml inj SUBQ SCH ×2 (09:00→20:41)
[2017-11-18] MEDS: Metoprolol Tartrate 50mg tab NG SCH ×2 (09:27→20:40)
[2017-11-18] MEDS: Pantoprazole Inj IV SCH (09:27)
--- NOTE | 2017-11-18 09:41 | Diagnostic Imaging Report ---
Indication: Shortness of breath Technique: One view of the chest Comparison: 11/17/2017 Findings: Stable satisfactory positions of endotracheal and nasogastric tube. Bilateral interstitial and airspace opacities, small left pleural effusion are again demonstrated, unchanged. The heart is enlarged. Impression: Unchanged, over one day, findings as above.
--- NOTE | 2017-11-18 10:57 | Infectious Diseases Prog Note ---
Assessment/Plan Assessment/Plan ASSESSMENT: The patient is a 77-year-old female, w Fever, SP Probable ventilator-associated pneumonia. influenza :neg Rule out urinary tract infection Diarrhea , SP at the time of admission Chest x-ray, bilateral diffuse interstitial opacity Hypertension PLAN: continue the patient on Azactam and vancomycin day # 3 Monitor CBC Monitor BMP, FLT Monitor cultures, blood, urine, and sputum Monitor chest x-ray TRACH : p Subjective Allergies: Coded Allergies: PENICILLINS (Verified Allergy, Mild, Rash, 06/30/14) Subjective on vent Objective Vital Signs Last 24 Hour Vital Signs Date Time Temp Pulse Resp B/P (MAP) Pulse Ox O2 Delivery O2 Flow Rate FiO2 11/18/17 10:32 103 18 40 11/18/17 10:00 107 24 119/67 100 Mechanical Ventilator 40 11/18/17 09:27 124 136/80 11/18/17 09:18 121 20 40 11/18/17 09:00 121 25 136/80 100 Mechanical Ventilator 40 11/18/17 08:00 98.6 126 26 131/64 100 Mechanical Ventilator 40 11/18/17 08:00 124 11/18/17 08:00 40 11/18/17 07:01 104 16 99 Mechanical Ventilator 40 11/18/17 07:00 111 18 98/56 100 Mechanical Ventilator 40 11/18/17 06:50 106 14 40 11/18/17 06:50 106 16 99 Mechanical Ventilator 40 11/18/17 06:00 120 28 148/75 100 Mechanical Ventilator 40 11/18/17 05:27 105 16 40 18 05:00 103 26 114/8 99 Mechanical Ventilator 40 18 04:35 135 161/95 20/18 04:00 103 20/18 04:00 98.3 135 29 161/95 100 Mechanical Ventilator 40 18 04:00 40 18 02:30 95 15 40 18 02:00 118 27 152/97 99 Mechanical Ventilator 40 11/18/17 01:00 104 14 40 11/18/18 01:00 89 19 86/48 100 Mechanical Ventilator 40 18 00:00 95 20/18 00:00 98.1 98 20 105/51 100 Mechanical Ventilator 40 11/18/17 00:00 40 2/19/18 23:04 91 19 40 2/19/18 23:00 103 29 137/88 100 Mechanical Ventilator 40 2/19/18 22:00 91 21 83/48 100 Mechanical Ventilator 40 2/18 21:04 89 22 40 2/19/18 21:00 91 20 99/56 100 Mechanical Ventilator 40 2/19/18 21:00 71 81/41 2/19/18 20:00 98.3 97 21 81/48 100 Mechanical Ventilator 40 2/18 20:00 97 2/19/18 20:00 40 2/18 19:00 98 14 100 Mechanical Ventilator 40 2//18 19:00 98 20 123/60 100 Mechanical Ventilator 40 2/18 18:53 103 24 100 Mechanical Ventilator 40 2/18 18:51 104 25 40 2/18 18:00 122 27 131/69 100 Mechanical Ventilator 40 2//18 18:00 99.5 11/17/18 17:36 99.8 2//18 17:00 120 21 136/79 100 Mechanical Ventilator 40 18 16:58 113 24 40 2/18 16:00 126 2//18 16:00 99.8 112 22 103/60 100 Mechanical Ventilator 40 11/17/18 16:00 40 11/17/18 15:00 81 21 79/53 99 Mechanical Ventilator 40 18 14:51 124 35 40 2/18 14:00 109 23 133/71 100 Mechanical Ventilator 40 11/17/18 13:33 103 16 100 Mechanical Ventilator 40 18 13:23 105 20 100 Mechanical Ventilator 40 18 13:20 105 20 40 2/18 13:00 103 20 132/69 100 Mechanical Ventilator 40 18 12:00 98.4 102 22 98/52 100 Mechanical Ventilator 40 11/17/18 12:00 101 2/18 12:00 40 18 11:09 101 25 40 18 11:00 102 20 101/63 100 Mechanical Ventilator 40 Height (Feet): 4 Height (Inches): 10.00 Weight (Pounds): 64 HEENT: atraumatic Respiratory/Chest: normal breath sounds Cardiovascular: regularly irregular Abdomen: non distended Microbiology Date/Time Source Procedure Growth Status 11/16/17 11:40 Blood Blood Culture - Preliminary NO GROWTH AFTER 24 HOURS Resulted 11/16/17 11:35 Blood Blood Culture - Preliminary NO GROWTH AFTER 24 HOURS Resulted 11/17/17 19:30 Nasopharynx Influenza Types A,B Antigen (RADHA) - Final Complete 11/17/17 19:20 Urine,Clean Catch Urine Culture - Preliminary NO GROWTH Resulted Laboratory Tests Test 11/17/17 13:50 11/18/17 05:40 11/18/17 06:50 Sodium Level 133 MMOL/L (136-145) L 132 MMOL/L (136-145) L Potassium Level 4.1 MMOL/L (3.5-5.1) 3.8 MMOL/L (3.5-5.1) Chloride Level 95 MMOL/L (98-107) L 96 MMOL/L (98-107) L Carbon Dioxide Level 39 MMOL/L (21-32) H 34 MMOL/L (21-32) H Anion Gap -1 mmol/L (5-15) L 2 mmol/L (5-15) L Blood Urea Nitrogen 19 mg/dL (7-18) H 20 mg/dL (7-18) H Creatinine 0.7 MG/DL (0.55-1.30) 0.7 MG/DL (0.55-1.30) Estimat Glomerular Filtration Rate mL/min (>60) mL/min (>60) Glucose Level 119 MG/DL (74-106) H 129 MG/DL (74-106) H Calcium Level 8.5 MG/DL (8.5-10.1) 8.4 MG/DL (8.5-10.1) L Total Bilirubin 0.4 MG/DL (0.2-1.0) Aspartate Amino Transf (AST/SGOT) 22 U/L (15-37) Alanine Aminotransferase (ALT/SGPT) 24 U/L (12-78) Alkaline Phosphatase 64 U/L (46-116) Total Protein 6.4 G/DL (6.4-8.2) Albumin 2.2 G/DL (3.4-5.0) L Globulin 4.2 g/dL Albumin/Globulin Ratio 0.5 (1.0-2.7) L White Blood Count 9.7 K/UL (4.8-10.8) Red Blood Count 3.41 M/UL (4.20-5.40) L Hemoglobin 8.9 G/DL (12.0-16.0) L Hematocrit 28.4 % (37.0-47.0) L Mean Corpuscular Volume 83 FL (80-99) Mean Corpuscular Hemoglobin 26.2 PG (27.0-31.0) L Mean Corpuscular Hemoglobin Concent 31.5 G/DL (32.0-36.0) L Red Cell Distribution Width 11.7 % (11.6-14.8) Platelet Count 216 K/UL (150-450) Mean Platelet Volume 7.1 FL (6.5-10.1) Neutrophils (%) (Auto) % (45.0-75.0) Lymphocytes (%) (Auto) % (20.0-45.0) Monocytes (%) (Auto) % (1.0-10.0) Eosinophils (%) (Auto) % (0.0-3.0) Basophils (%) (Auto) % (0.0-2.0) Differential Total Cells Counted 100 Neutrophils % (Manual) 90 % (45-75) H Lymphocytes % (Manual) 3 % (20-45) L Monocytes % (Manual) 5 % (1-10) Eosinophils % (Manual) 0 % (0-3) Basophils % (Manual) 0 % (0-2) Band Neutrophils 2 % (0-8) Platelet Estimate Adequate Platelet Morphology Normal Hypochromasia 1+ Pro-B-Type Natriuretic Peptide 1764 pg/mL (0-125) H Arterial Blood pH 7.608 (7.350-7.450) Arterial Blood Partial Pressure CO2 30.1 mmHg (35.0-45.0) L Arterial Blood Partial Pressure O2 55.7 mmHg (75.0-100.0) L Arterial Blood HCO3 29.4 mmol/L (22.0-26.0) H Arterial Blood Oxygen Saturation 93.8 % (92.0-98.0) Arterial Blood Base Excess 7.7 Rafy Test Positive Current Medications Medications (Trade) Dose Ordered Sig/Puja Route PRN Reason Start Time Stop Time Status Last Admin Dose Admin Acetaminophen (Tylenol) 650 mg Q4H PRN NG T>100.5 11/14/17 19:45 12/14/17 19:44 11/17/17 17:36 Albuterol/ Ipratropium (Albuterol/ Ipratropium) 3 ml Q4HRT PRN HHN Shortness of Breath 11/16/17 09:45 11/21/17 09:44 Aztreonam 0.5 gm/ Sodium Chloride 55 ml @ 110 mls/hr Q8H IVPB 11/16/17 21:00 11/23/17 23:59 11/18/17 04:35 Dextrose (Dextrose 50%) STAT PRN IV Hypoglycemia 11/08/17 14:30 12/08/17 14:29 Heparin Sodium (Porcine) (Heparin 5000 units/ml) 5,000 units EVERY 12 HOURS SUBQ 11/08/17 21:00 12/08/17 20:59 11/17/17 08:34 Levalbuterol HCl (Xopenex) 1.25 mg TIDRT HHN 11/15/17 13:00 11/20/17 12:59 11/18/17 06:51 Lorazepam (Ativan 2mg/ml 1ml) 2 mg Q4H PRN IV For Anxiety 11/14/17 12:30 11/21/17 12:29 11/17/17 23:22 Metoprolol Tartrate (Lopressor) 5 mg Q6H PRN IVP HR>130 11/11/17 19:00 12/11/17 18:59 11/18/17 04:35 Metoprolol Tartrate (Lopressor) 50 mg Q12HR NG 11/16/17 21:00 12/16/17 20:59 11/18/17 09:27 Morphine Sulfate (Morphine Sulfate) 2 mg Q4H PRN IVP Moderate Pain (Pain Scale 4-6) 11/17/17 10:30 11/24/17 23:59 Ondansetron HCl (Zofran) 4 mg Q6H PRN IVP Nausea & Vomiting 11/08/17 14:30 12/08/17 14:29 Pantoprazole (Protonix) 40 mg DAILY IV 11/09/17 09:00 12/09/17 08:59 11/18/17 09:27 Polyethylene Glycol (Miralax) 17 gm DAILYPRN PRN ORAL Constipation 11/08/17 14:30 12/08/17 14:29 11/13/17 15:18 Vancomycin HCl (Vanco rx to dose) 1 ea DAILY PRN MISC Per rx protocol 11/16/17 11:30 12/16/17 11:29 Vancomycin HCl 500 mg/Sodium Chloride 110 ml @ 110 mls/hr Q24H IVPB 11/16/17 14:00 11/21/17 23:59 11/17/17 14:38 KUSH ESPINO M.D. Nov 18, 2017 10:56
--- NOTE | 2017-11-18 11:54 | Cardiology Progress Note ---
Assessment/Plan Assessment/Plan 1. Respiratory failure. 2. Hypertension history. 3. Diarrhea at the time of admission. 4. Cachexia. 5. sinus tachy 6. nsvt 7. fever 8. hyptesnion i wonder she may have MR not picked up on the echo view as may be eccentric will d/w with radiation control technician to take more images to review once avialbe on bb via ng with prn iv if needed increase agitation causes her to have more tachy echo images personally reviewed MV sig thickened ant leaf left may be billowing past the post leaflet no new images were performed off lasix as of last tnie as was hypotensive 11/17 bp is much improved post bolus of ivf last nite bnp did improve will consider resume once bp stable poost trach await trach tele sinus Subjective ROS Limited/Unobtainable: Yes Subjective seem not agitated at th emoment Objective Last 24 Hour Vital Signs Date Time Temp Pulse Resp B/P (MAP) Pulse Ox O2 Delivery O2 Flow Rate FiO2 11/18/17 11:00 106 25 138/75 100 Mechanical Ventilator 40 18 10:32 103 18 40 220/18 10:00 107 24 119/67 100 Mechanical Ventilator 40 20/18 09:27 124 136/80 2/20/18 09:18 121 20 40 2/20/18 09:00 121 25 136/80 100 Mechanical Ventilator 40 11/18/18 08:00 98.6 126 26 131/64 100 Mechanical Ventilator 40 11/18/18 08:00 124 2/20/18 08:00 40 2/18 07:01 104 16 99 Mechanical Ventilator 40 2/18 07:00 111 18 98/56 100 Mechanical Ventilator 40 2/20/18 06:50 106 14 40 2/20/18 06:50 106 16 99 Mechanical Ventilator 40 220/18 06:00 120 28 148/75 100 Mechanical Ventilator 40 220/18 05:27 105 16 40 2/20/18 05:00 103 26 114/8 99 Mechanical Ventilator 40 220/18 04:35 135 161/95 2/20/18 04:00 103 2/20/18 04:00 98.3 135 29 161/95 100 Mechanical Ventilator 40 220/18 04:00 40 2/18 02:30 95 15 40 2/20/18 02:00 118 27 152/97 99 Mechanical Ventilator 40 2/20/18 01:00 104 14 40 2/20/18 01:00 89 19 86/48 100 Mechanical Ventilator 40 2/20/18 00:00 95 2/20/18 00:00 98.1 98 20 105/51 100 Mechanical Ventilator 40 2/20/18 00:00 40 2/19/18 23:04 91 19 40 2/19/18 23:00 103 29 137/88 100 Mechanical Ventilator 40 2/19/18 22:00 91 21 83/48 100 Mechanical Ventilator 40 2/19/18 21:04 89 22 40 2/19/18 21:00 91 20 99/56 100 Mechanical Ventilator 40 2/19/18 21:00 71 81/41 2/19/18 20:00 98.3 97 21 81/48 100 Mechanical Ventilator 40 2/19/18 20:00 97 2/19/18 20:00 40 2/19/18 19:00 98 14 100 Mechanical Ventilator 40 2/19/18 19:00 98 20 123/60 100 Mechanical Ventilator 40 2/19/18 18:53 103 24 100 Mechanical Ventilator 40 2/19/18 18:51 104 25 40 2/19/18 18:00 122 27 131/69 100 Mechanical Ventilator 40 2/19/18 18:00 99.5 2/19/18 17:36 99.8 2/19/18 17:00 120 21 136/79 100 Mechanical Ventilator 40 2/19/18 16:58 113 24 40 2/19/18 16:00 126 2/19/18 16:00 99.8 112 22 103/60 100 Mechanical Ventilator 40 2/19/18 16:00 40 2/19/18 15:00 81 21 79/53 99 Mechanical Ventilator 40 2/19/18 14:51 124 35 40 2/19/18 14:00 109 23 133/71 100 Mechanical Ventilator 40 2/19/18 13:33 103 16 100 Mechanical Ventilator 40 2/19/18 13:23 105 20 100 Mechanical Ventilator 40 2/19/18 13:20 105 20 40 2/19/18 13:00 103 20 132/69 100 Mechanical Ventilator 40 2/19/18 12:00 98.4 102 22 98/52 100 Mechanical Ventilator 40 2/19/18 12:00 101 2/19/18 12:00 40 General Appearance: no apparent distress, thin, on vent Neck: supple Cardiovascular: normal rate, systolic murmur Respiratory/Chest: rhonchi - bilaterally Abdomen: normal bowel sounds, non tender, soft Extremities: no swelling Intake and Output 11/17/17 11/18/17 18:59 06:59 Intake Total 585 ml 830 ml Output Total 535 ml 310 ml Balance 50 ml 520 ml Intake Free Water 50 ml IV Total 165 ml 360 ml Tube Feeding 420 ml 420 ml Output Urine Total 535 ml 310 ml Laboratory Tests Test 11/17/17 13:50 11/18/17 05:40 11/18/17 06:50 Sodium Level 133 MMOL/L (136-145) L 132 MMOL/L (136-145) L Potassium Level 4.1 MMOL/L (3.5-5.1) 3.8 MMOL/L (3.5-5.1) Chloride Level 95 MMOL/L (98-107) L 96 MMOL/L (98-107) L Carbon Dioxide Level 39 MMOL/L (21-32) H 34 MMOL/L (21-32) H Anion Gap -1 mmol/L (5-15) L 2 mmol/L (5-15) L Blood Urea Nitrogen 19 mg/dL (7-18) H 20 mg/dL (7-18) H Creatinine 0.7 MG/DL (0.55-1.30) 0.7 MG/DL (0.55-1.30) Estimat Glomerular Filtration Rate mL/min (>60) mL/min (>60) Glucose Level 119 MG/DL (74-106) H 129 MG/DL (74-106) H Calcium Level 8.5 MG/DL (8.5-10.1) 8.4 MG/DL (8.5-10.1) L Total Bilirubin 0.4 MG/DL (0.2-1.0) Aspartate Amino Transf (AST/SGOT) 22 U/L (15-37) Alanine Aminotransferase (ALT/SGPT) 24 U/L (12-78) Alkaline Phosphatase 64 U/L (46-116) Total Protein 6.4 G/DL (6.4-8.2) Albumin 2.2 G/DL (3.4-5.0) L Globulin 4.2 g/dL Albumin/Globulin Ratio 0.5 (1.0-2.7) L White Blood Count 9.7 K/UL (4.8-10.8) Red Blood Count 3.41 M/UL (4.20-5.40) L Hemoglobin 8.9 G/DL (12.0-16.0) L Hematocrit 28.4 % (37.0-47.0) L Mean Corpuscular Volume 83 FL (80-99) Mean Corpuscular Hemoglobin 26.2 PG (27.0-31.0) L Mean Corpuscular Hemoglobin Concent 31.5 G/DL (32.0-36.0) L Red Cell Distribution Width 11.7 % (11.6-14.8) Platelet Count 216 K/UL (150-450) Mean Platelet Volume 7.1 FL (6.5-10.1) Neutrophils (%) (Auto) % (45.0-75.0) Lymphocytes (%) (Auto) % (20.0-45.0) Monocytes (%) (Auto) % (1.0-10.0) Eosinophils (%) (Auto) % (0.0-3.0) Basophils (%) (Auto) % (0.0-2.0) Differential Total Cells Counted 100 Neutrophils % (Manual) 90 % (45-75) H Lymphocytes % (Manual) 3 % (20-45) L Monocytes % (Manual) 5 % (1-10) Eosinophils % (Manual) 0 % (0-3) Basophils % (Manual) 0 % (0-2) Band Neutrophils 2 % (0-8) Platelet Estimate Adequate Platelet Morphology Normal Hypochromasia 1+ Pro-B-Type Natriuretic Peptide 1764 pg/mL (0-125) H Arterial Blood pH 7.608 (7.350-7.450) Arterial Blood Partial Pressure CO2 30.1 mmHg (35.0-45.0) L Arterial Blood Partial Pressure O2 55.7 mmHg (75.0-100.0) L Arterial Blood HCO3 29.4 mmol/L (22.0-26.0) H Arterial Blood Oxygen Saturation 93.8 % (92.0-98.0) Arterial Blood Base Excess 7.7 Rafy Test Positive Microbiology Date/Time Source Procedure Growth Status 11/16/17 11:40 Blood Blood Culture - Preliminary NO GROWTH AFTER 24 HOURS Resulted 11/16/17 11:35 Blood Blood Culture - Preliminary NO GROWTH AFTER 24 HOURS Resulted 11/17/17 19:30 Nasopharynx Influenza Types A,B Antigen (RADHA) - Final Complete 11/17/17 19:20 Urine,Clean Catch Urine Culture - Preliminary NO GROWTH Resulted NALINI GIBBONS Nov 18, 2017 11:54
--- NOTE | 2017-11-18 13:01 | Pulmonolgy Critical Care Note ---
Critical Care - Asmt/Plan Assessment/Plan: ASSESSMENT Acute hypoxemic hypercapnic RF requiring intubation pulmonary edema HTN heart disease with LVH Mild pulmonary HTN severe protein calorie malnutrition fevers PLAN OF CARE ICU s/p Nitro gtt, Vent support pulmonary toilet ATC and prn ( with Xopenex due to tachy) daily CXR and ABG, did not tolerate weaning trach placement today UA-negative, CXR-negative, blood cx pending on empiric abx ID follwos probably VAP sputum cx pro BNP and CXR on 11/15 worse as well per cardio : stopped gentle IVF s/p diuresis x 1 on 11/15 started on gentle diuresis pro BNP trending down this am cardio thinks patient may have MR not picked up on ECHO monitor cardio renal parameters, lytes BP management with BB and optimize further as per cardio recs ECHO with pEF 65-70% and RVSP of 39 initial CXR with pulm edema serial troponin x 4 negative ECG no acute ischemic changes , r/out for acute NE Venous Duplex BLE negative Renal US no hydro, normal bilateral kidney echogenicity DVT GI prophylaxis case discussed and evaluated by supervising physician Critical Care - Objective Last 24 Hour Vital Signs Date Time Temp Pulse Resp B/P (MAP) Pulse Ox O2 Delivery O2 Flow Rate FiO2 11/18/17 12:47 105 17 100 Mechanical Ventilator 40 11/18/17 12:47 104 16 40 11/18/17 12:00 99.2 106 23 120/66 100 Mechanical Ventilator 40 11/18/17 12:00 40 11/18/17 12:00 111 11/18/17 11:00 106 25 138/75 100 Mechanical Ventilator 40 11/18/17 10:32 103 18 40 11/18/17 10:00 107 24 119/67 100 Mechanical Ventilator 40 11/18/17 09:27 124 136/80 11/18/17 09:18 121 20 40 11/18/17 09:00 121 25 136/80 100 Mechanical Ventilator 40 11/18/17 08:00 98.6 126 26 131/64 100 Mechanical Ventilator 40 11/18/17 08:00 124 11/18/17 08:00 40 11/18/17 07:01 104 16 99 Mechanical Ventilator 40 11/18/17 07:00 111 18 98/56 100 Mechanical Ventilator 40 11/18/17 06:50 106 14 40 2/20/18 06:50 106 16 99 Mechanical Ventilator 40 2/20/18 06:00 120 28 148/75 100 Mechanical Ventilator 40 2/20/18 05:27 105 16 40 2/20/18 05:00 103 26 114/8 99 Mechanical Ventilator 40 2/20/18 04:35 135 161/95 2/20/18 04:00 103 2/20/18 04:00 98.3 135 29 161/95 100 Mechanical Ventilator 40 2/20/18 04:00 40 2/20/18 02:30 95 15 40 2/20/18 02:00 118 27 152/97 99 Mechanical Ventilator 40 2/20/18 01:00 104 14 40 2/20/18 01:00 89 19 86/48 100 Mechanical Ventilator 40 2/20/18 00:00 95 2/20/18 00:00 98.1 98 20 105/51 100 Mechanical Ventilator 40 2/20/18 00:00 40 2/19/18 23:04 91 19 40 2/19/18 23:00 103 29 137/88 100 Mechanical Ventilator 40 2/19/18 22:00 91 21 83/48 100 Mechanical Ventilator 40 2/19/18 21:04 89 22 40 2/19/18 21:00 91 20 99/56 100 Mechanical Ventilator 40 2/19/18 21:00 71 81/41 2/19/18 20:00 98.3 97 21 81/48 100 Mechanical Ventilator 40 2/19/18 20:00 97 2/19/18 20:00 40 2/19/18 19:00 98 14 100 Mechanical Ventilator 40 2/19/18 19:00 98 20 123/60 100 Mechanical Ventilator 40 2/19/18 18:53 103 24 100 Mechanical Ventilator 40 2/19/18 18:51 104 25 40 2/19/18 18:00 122 27 131/69 100 Mechanical Ventilator 40 2/19/18 18:00 99.5 2/19/18 17:36 99.8 2/19/18 17:00 120 21 136/79 100 Mechanical Ventilator 40 2/19/18 16:58 113 24 40 2/19/18 16:00 126 2/19/18 16:00 99.8 112 22 103/60 100 Mechanical Ventilator 40 2/19/18 16:00 40 2/19/18 15:00 81 21 79/53 99 Mechanical Ventilator 40 2/19/18 14:51 124 35 40 11/17/17 14:00 109 23 133/71 100 Mechanical Ventilator 40 11/17/17 13:33 103 16 100 Mechanical Ventilator 40 11/17/17 13:23 105 20 100 Mechanical Ventilator 40 11/17/17 13:20 105 20 40 11/17/17 13:00 103 20 132/69 100 Mechanical Ventilator 40 Objective: Status: somnolent, arousable Condition: critical HEENT: atraumatic, normocephalic, OP with ET in place, intact, OP tube with TF Lungs: few crackles at bases Heart: ST on tele Abdomen: soft, non-tender, active bowel sounds Extremities: no C/C/E Micro: Microbiology Date/Time Source Procedure Growth Status 11/16/17 11:40 Blood Blood Culture - Preliminary NO GROWTH AFTER 24 HOURS Resulted 11/16/17 11:35 Blood Blood Culture - Preliminary NO GROWTH AFTER 24 HOURS Resulted 11/17/17 19:30 Nasopharynx Influenza Types A,B Antigen (RADHA) - Final Complete 11/17/17 19:20 Urine,Clean Catch Urine Culture - Preliminary NO GROWTH Resulted Critical Care - Subjective ROS Limited/Unobtainable: Yes Interval Events: unable to wean trach placement today family consented afebrile no leukocytosis Condition: critical IV Access: peripheral FI02: 40 Vent Support Breath Rate: 12 Vent Support Mode: AC Vent Tidal Volume: 300 Sputum Amount: Small PEEP: 5.0 PIP: 28 Tube Feeding Amount: 0 I&O: Intake and Output 11/17/17 11/18/17 19:00 07:00 Intake Total 585 ml 830 ml Output Total 535 ml 310 ml Balance 50 ml 520 ml Intake Free Water 50 ml IV Total 165 ml 360 ml Tube Feeding 420 ml 420 ml Output Urine Total 535 ml 310 ml CXR: 11/18 -Stable satisfactory positions of endotracheal and nasogastric tube. Bilateral interstitial and airspace opacities, small left pleural effusion are again demonstrated, unchanged. The heart is enlarged. ET-Tube: 6.0 ET Position: 20 Behzad (Angélica Ramos NP Nov 18, 2017 13:01
--- NOTE | 2017-11-18 13:07 | Cardiology Report ---
APPROVED REPORT EXAM: Two-dimensional and M-mode echocardiogram with Doppler and color Doppler. INDICATION Ejection Fraction M-Mode DIMENSIONS IVSd1.2 (0.7-1.1cm)Left Atrium (MM)2.7 (1.6-4.0cm) LVDd4.0 (3.5-5.6cm)Aortic Root2.7 (2.0-3.7cm) PWd0.9 (0.7-1.1cm)Aortic Cusp Exc.1.5 (1.5-2.0cm) LVDs1.3 (2.5-4.0cm) PWs1.8 cm Technically difficult study due to patients resistance and ventilator. Study quality precludes accurate assessment of regional wall motion. Normal left ventricular chamber size, systolic function and wall motion. Left ventricular ejection fraction estimated to be 65-70 %. Mild left ventricular hypertrophy. No evidence of pericardial effusion. Mild bi-atrial enlargement. Right ventricular chamber sizes is within normal limits. Mild focal aortic valve sclerosis with adequate cusp excursion. Heavy thickened mitral valve leaflets with normal excursion iwth evidence for ruputured chordae with eccentric posteriror directed MR Mild mitral annulus and aortic root calcification. Normal pulmonic valve structure. Normal tricuspid valve structure. IVC is normal in size and non-collapsing with respiration suggestive of increased RA pressure. A color flow and spectral Doppler study was performed and revealed: Trace aortic regurgitation. Two seperate jets of moderate eccentric mitral regurgitation. One jet is posteriorly and one jet is anteriorly. Mitral inflow indicates normal left ventricular diastolic function. Moderate tricuspid regurgitation. Tricuspid systolic velocities suggests peak right ventricular systolic pressure of 60 mmHg, consistent with severe pulmonary hypertension. Trace pulmonic regurgitation present.
[2017-11-18] MEDS: Vancomycin 500 MG in NS 110 ML IVPB SCH ×2 (13:49→15:17)
[2017-11-18] MEDS ORDERED: Lidocaine 1% 10mg/ml/EPI 0.01mg/ml 50ml INJ ONE (14:25)
[2017-11-18] MEDS ORDERED: Zemuron 50mg/5ml Inj IV ONE (14:30)
[2017-11-18] MEDS ORDERED: Metoprolol 5mg/5ml Inj ONE (14:30)
[2017-11-18] MEDS ORDERED: Lidocaine 1% 10mg/ml/Epi 0.005mg/ml 30ml vial INJ ONE (14:52)
--- NOTE | 2017-11-18 14:59 | Anethesia Preoperative Eval ---
Anesthesia Pre-op PMH/ROS General Date of Evaluation: Nov 18, 2017 Time of Evaluation: 14:20 Anesthesiologist: Yumiko ASA Score: ASA 4 Mallampati Score Class I : Soft palate, uvula, fauces, pillars visible Class II: Soft palate, uvula, fauces visible Class III: Soft palate, base of uvula visible Class IV: Only hard plate visible Mallampati Classification: Class III Surgeon: Nelida Diagnosis: Ventilatory Failure Surgical Procedure: Trcheostomy Anesthesia History: none Family History: no anesthesia problems Allergies: Coded Allergies: PENICILLINS (Verified Allergy, Mild, Rash, 06/30/14) Medications: see eMAR Past Medical History Cardiovascular: Reports: HTN Pulmonary: Reports: other - Pulmonary Edema, Ventliatory Failure Hematology/Immune: Reports: anemia Musculoskeletal/Integumentary: Reports: other - Weakness Anesthesia Pre-op Phys. Exam Physician Exam Last Vital Signs Date Time Temp Pulse Resp B/P (MAP) Pulse Ox O2 Delivery O2 Flow Rate FiO2 11/18/17 14:00 112 26 142/68 100 Mechanical Ventilator 40 11/18/17 12:00 99.2 Constitutional: NAD Neurologic: CN 2-12 intact Cardiovascular: RRR Respiratory: CTA Gastrointestinal: S/NT/ND Airway Exam Mallampati Score: Class III MO: limited ROM: limited Teeth: missing, intact Anesthesia Pre-op A/P Labs Hematology Test 11/18/17 05:40 White Blood Count 9.7 K/UL (4.8-10.8) Red Blood Count 3.41 M/UL (4.20-5.40) L Hemoglobin 8.9 G/DL (12.0-16.0) L Hematocrit 28.4 % (37.0-47.0) L Mean Corpuscular Volume 83 FL (80-99) Mean Corpuscular Hemoglobin 26.2 PG (27.0-31.0) L Mean Corpuscular Hemoglobin Concent 31.5 G/DL (32.0-36.0) L Red Cell Distribution Width 11.7 % (11.6-14.8) Platelet Count 216 K/UL (150-450) Mean Platelet Volume 7.1 FL (6.5-10.1) Neutrophils (%) (Auto) % (45.0-75.0) Lymphocytes (%) (Auto) % (20.0-45.0) Monocytes (%) (Auto) % (1.0-10.0) Eosinophils (%) (Auto) % (0.0-3.0) Basophils (%) (Auto) % (0.0-2.0) Differential Total Cells Counted 100 Neutrophils % (Manual) 90 % (45-75) H Lymphocytes % (Manual) 3 % (20-45) L Monocytes % (Manual) 5 % (1-10) Eosinophils % (Manual) 0 % (0-3) Basophils % (Manual) 0 % (0-2) Band Neutrophils 2 % (0-8) Platelet Estimate Adequate Platelet Morphology Normal Hypochromasia 1+ Coagulation Test 11/18/17 10:57 Prothrombin Time 10.2 SEC (9.30-11.50) Prothromb Time International Ratio 1.0 (0.9-1.1) Activated Partial Thromboplast Time 42 SEC (23-33) H Chemistry Test 11/18/17 05:40 Sodium Level 132 MMOL/L (136-145) L Potassium Level 3.8 MMOL/L (3.5-5.1) Chloride Level 96 MMOL/L (98-107) L Carbon Dioxide Level 34 MMOL/L (21-32) H Anion Gap 2 mmol/L (5-15) L Blood Urea Nitrogen 20 mg/dL (7-18) H Creatinine 0.7 MG/DL (0.55-1.30) Estimat Glomerular Filtration Rate mL/min (>60) Glucose Level 129 MG/DL (74-106) H Calcium Level 8.4 MG/DL (8.5-10.1) L Pro-B-Type Natriuretic Peptide 1764 pg/mL (0-125) H Risk Assessment & Plan Assessment: ASA 4 Plan: Ga Status Change Before Surgery: No Pre-Antibiotics Drug: Already ON Anmol Calderon MD Nov 18, 2017 14:59
--- NOTE | 2017-11-18 15:00 | Immediate Post-Op Evaluation ---
Immediate Post-Op Evalulation Immediate Post-Op Evalulation Procedure: Tracheostomy Date of Evaluation: Nov 18, 2017 Time of Evaluation: 15:30 IV Fluids: 200 LR Blood Products: 0 Estimated Blood Loss: 10 Urinary Output: 0 Blood Pressure Systolic: 153 Blood Pressure Diastolic: 101 Pulse Rate: 101 Respiratory Rate: 20 - Mech Vent O2 Sat by Pulse Oximetry: 100 Temperature (Fahrenheit): 98.4 Pain Score (1-10): 0 Nausea: No Vomiting: No Complications 0 Patient Status: no response, patent, ventilated, none Hydration Status: adequate Drug: Already On Anmol Calderon MD Nov 18, 2017 15:00
--- NOTE | 2017-11-18 15:10 | Brief Operative Note ---
Immediate Post Operative Note Operative Note Pre-op Diagnosis: respiratory insufficiency requiring prolonged ventilatory support Procedure: percutaneous tracheostomy Post-op Diagnosis: same as pre-op Surgeon: patricia Anesthesiologist: Rahat Anesthesia: general, local Specimen: none Complications: none Condition: stable Fluids: see records Estimated Blood Loss: minimal Drains: none Implant(s) used?: Yes - 8f Andrew Haile Nov 18, 2017 15:10
--- NOTE | 2017-11-18 15:18 | Pre-Procedure Note/Attestation ---
Pre-Procedure Note/Attestation Complete Prior to Procedure Planned Procedure: not applicable Procedure Narrative: tracheostomy Indications for Procedure Pre-Operative Diagnosis: respiratory insufficiency requiring prolonged ventilatory support Attestation I attest that I discussed the nature of the procedure; its benefits; risks and complications; and alternatives (and the risks and benefits of such alternatives ), prior to the procedure, with the patient (or the patient's legal registered representative). I attest that, if there was a reasonable possibility of needing a blood transfusion, the patient (or the patient's legal registered representative) was given the [facility] standardized written summary, pursuant to the Burak Albert Blood Safety Act ([place] Health and Safety Code # 1645, as amended). I attest that I re-evaluated the patient just prior to the surgery and that there has been no change in the patient's H&P, except as documented below: Andrew Krause Nov 18, 2017 15:18
[2017-11-18] MEDS ORDERED: NS 275ml ONE (16:50)
[2017-11-18] MEDS ORDERED: Tubing IV Secondary IV ONE (16:50)
[2017-11-18] MEDS: Morphine Sulfate 4mg/ml Inj IVP PRN (17:12)
--- NOTE | 2017-11-18 21:30 | Operative Note - Dictated ---
DATE OF OPERATION: 11/18/2017 PREOPERATIVE DIAGNOSES: 1. Respiratory insufficiency, requiring prolonged ventilatory support. 2. Respiratory failure. POSTOPERATIVE DIAGNOSES: 1. Respiratory insufficiency, requiring prolonged ventilatory support. 2. Respiratory failure. OPERATION PERFORMED: Percutaneous tracheostomy. ATTENDING SURGEON: Andrew Krause M.D. PLAIN GOODS HEMMER: None. ANESTHESIOLOGIST: Anmol Calderon M.D. ANESTHESIA: General FLOOD CONTROL ENGINEER. ESTIMATED BLOOD LOSS: Minimal. IV FLUIDS: Please see anesthesia records. COMPLICATIONS: None. WOUND CLASSIFICATION: Class I. ANTIBIOTICS: The patient is on scheduled IV antibiotic for active inflammatory process. SPECIMENS: None. COUNTS: Sponge and needle count correct x2. IMPLANTS: An 8-Macedonian Shiley tracheostomy tube. INDICATIONS FOR PROCEDURE: This is a 69-year-old female, who has been in the intensive care unit under medical care and management by the medical team for sometime now. Unfortunately, during hospitalization, she has required intubation due to acute respiratory failure and has been intubated with ventilator support for some time now. Multiple attempts made to wean the patient off ventilatory support and towards extubation, but unfortunately, the patient has been unable to tolerate on multiple trials. Given these findings, Surgery was called to evaluate for tracheostomy. After evaluation of the patient's history, current condition, physical examination, and weaning trials, tracheostomy was recommended and indicated. Risks, benefits, and alternatives were discussed with the patient's sister, who is also her next of kin decision maker. After doing so, consent was obtained for tracheostomy, which was performed today. OPERATIVE NOTE: The patient was taken to the operating room and made comfortable on the bed. All bony prominences were well padded. Prior to entering the operating room, the patient already had a Heaton catheter and ET tube and NG tube in place. Preoperative time-out was taken identifying the patient, procedure, operative staff, and surgical staff. A shoulder roll was placed. The neck was positioned. The neck was then prepped and draped in standard surgical fashion. General anesthesia was induced. Landmarks were identified and local anesthetic was infiltrated through the proposed skin incision approximately 2 fingerbreadths above the sternal notch. A small skin incision was made using a fresh #15 scalpel. Incision was carried down towards tracheostomy using blunt dissection. There was a superficial skin bleeder, which was unable to be controlled with direct pressure and required electrocautery. Once this was completed, the remaining of the procedure was fairly hemostatic. At this time, with the assistance of the anesthesiologist, a scope was placed through the ET tube into the trachea. The carolynn was identified as well as the right and left branches. The ET tube was slowly withdrawn until the light could be seen from the neck as well as palpation noted through the scope. At this time, a finder needle was inserted under direct visualization and a catheter was entered into the trachea over the finder needle. Finder needle was removed with catheter in place, noted to be directing down towards the carolynn. At this time, a guidewire was then placed through the catheter and noted to be going down towards the craolynn. The catheter was then removed and under direct visualization, the percutaneous tracheostomy site was dilated beginning with the Baby Blue Rhino followed by the Rhino dilator ensuring that all steps were followed appropriately identifying the catheter, dilator, and wire to be guided under direct visualization with the correct markings. Once this was complete, an 8-Macedonian Shiley tracheostomy tube over the guidewire with appropriate dilator was inserted and noted to be in good positioning under direct visualization. At this time, the wire and dilator were removed leaving the tracheostomy tube in place. The balloon was insufflated and the patient placed to the ventilator using the tracheostomy. Good ventilatory volumes were noted without any leaks or complications. The respiratory tract was suctioned and the patient tolerated the procedure well. At this time, 0 Prolene sutures were used to tack the tracheostomy to the skin. A tracheostomy collar was then placed. Wound site was irrigated and cleansed. Dressings were placed. The patient tolerated the procedure well and was returned to the intensive care unit in stable condition. No immediate postoperative complications were identified. Andrew Krause M.D. DR: Tremaine JOB#: [id number] CC:
[2017-11-19] VITALS (24 sets, daily range): BP systolic 89–176; BP diastolic 45–125
[2017-11-19] MEDS: Acetaminophen 650mg/20.3ml NG PRN (04:05)
[2017-11-19] MEDS: Aztreonam Inj 0.5 GM in NS 55 ML IVPB SCH ×3 (04:49→21:19)
[2017-11-19] MEDS: Morphine Sulfate 4mg/ml Inj IVP PRN ×3 (04:56→15:46)
[2017-11-19 05:50] LABS: HEMATOCRIT 25.4 % (37.0-47.0); HEMOGLOBIN 8.2 G/DL (12.0-16.0); MEAN CORPUSCULAR VOLUME 83 FL (80-99); PLATELET COUNT 279 K/UL (150-450); RED BLOOD COUNT 3.05 M/UL (4.20-5.40); RED CELL DISTRIBUTION WIDTH 11.8 % (11.6-14.8); WHITE BLOOD COUNT 10.8 K/UL (4.8-10.8)
[2017-11-19 06:20] LABS: ANION GAP 2 mmol/L (5-15); BLOOD UREA NITROGEN 19 mg/dL (7-18); CALCIUM 8.6 MG/DL (8.5-10.1); CARBON DIOXIDE 35 MMOL/L (21-32); CHLORIDE 97 MMOL/L (98-107); CREATININE 0.7 MG/DL (0.55-1.30); SODIUM 134 MMOL/L (136-145)
[2017-11-19] MEDS: Levalbuterol Inh UD 1.25mg/0.5ml HHN SCH ×3 (07:07→19:06)
--- NOTE | 2017-11-19 08:10 | 48 Hour Post Anesthesia Eval ---
Post Anesthesia Evaluation Procedure: Tracheostomy Date of Evaluation: Nov 19, 2017 Time of Evaluation: 07:00 Blood Pressure Systolic: 124 0: 91 Pulse Rate: 97 Respiratory Rate: 19 O2 Sat by Pulse Oximetry: 98 Airway: other - traach in place, on mechanical ventilation Nausea: No Vomiting: No Pain Intensity: 0 Hydration Status: adequate Cardiopulmonary Status: at baseline Mental Status/LOC: patient returned to baseline Post-Anesthesia Complications: 0 Follow-up care needed: N/A - further care as per primary team CORINE BENÍTEZ M.D. Nov 19, 2017 08:10
[2017-11-19] MEDS: Vancomycin 750mg/NS 250ml IVPB SCH (08:30)
[2017-11-19] MEDS: Metoprolol Tartrate 50mg tab NG SCH ×2 (08:31→21:19)
[2017-11-19] MEDS: Pantoprazole Inj IV SCH (08:31)
[2017-11-19] MEDS: Heparin 5000 units/ml inj SUBQ SCH ×3 (08:37→21:23)
[2017-11-19] MEDS: LORazepam Inj 2mg/ml 1ml IV PRN ×3 (10:35→19:53)
--- NOTE | 2017-11-19 11:07 | Diagnostic Imaging Report ---
Indication: Dyspnea Technique: XRAY Chest 1v Comparison: 11/18/2017 Findings: Interval tracheostomy tube placement. Nasogastric tube unchanged in position. Heart size and mediastinal contours are stable. No significant interval change in bilateral interstitial and airspace opacities. Small left pleural effusion also unchanged. No definite pneumothorax. Osseous structures are stable. Impression: Interval tracheostomy tube placement. Additional findings unchanged.
[2017-11-19] MEDS ORDERED: 1/2 NS 1000ml IV ONE (11:27)
[2017-11-19] MEDS ORDERED: NS 275ml ONE (11:27)
--- NOTE | 2017-11-19 11:28 | Pulmonolgy Critical Care Note ---
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 (4) Protein-calorie malnutrition, severe Respiratory: monitor respiratory rate, adjust FIO2, CXR Cardiac: continue to monitor HR/BP Renal: F/U I&O, keep IV fluid Infectious Disease: check cultures Gastrointestinal: continue feedings/current rate Endocrine: monitor blood sugar, continue sliding scale insulin Hematologic: monitor H/H, transfuse if hgb<8.5 Neurologic: keep patient comfortable Affect: PRN ativan Prophylaxis: Protonix, Heparin Disposition: keep in ICU Notes Reviewed: clam grader, renal Discussed with: nurses, consultants, case investigatormanager car - Objective Last 24 Hour Vital Signs Date Time Temp Pulse Resp B/P (MAP) Pulse Ox O2 Delivery O2 Flow Rate FiO2 11/19/17 11:12 98 18 35 11/19/17 11:00 97 16 89/52 100 Mechanical Ventilator 35 11/19/17 10:00 120 27 156/100 97 Mechanical Ventilator 40 11/19/17 09:12 97.5 11/19/17 09:00 97 25 163/91 98 Mechanical Ventilator 40 11/19/17 08:56 100 30 40 11/19/17 08:31 97 94/48 11/19/17 08:10 97 19 98 11/19/17 08:00 95 11/19/17 08:00 97.5 86 12 94/45 100 Mechanical Ventilator 40 97.5 11/19/17 08:00 40 11/19/17 07:00 97 19 124/91 98 Mechanical Ventilator 40 11/19/17 06:50 99 31 99 Mechanical Ventilator 40 11/19/17 06:50 99 29 40 11/19/17 06:40 101 33 99 Mechanical Ventilator 40 11/19/17 06:00 91 15 94/54 100 Mechanical Ventilator 40 11/19/17 05:07 113 27 40 11/19/17 05:00 98.9 96 16 148/80 100 Mechanical Ventilator 40 98.9 11/19/17 04:35 98.9 11/19/17 04:05 100.4 11/19/17 04:00 120 11/19/17 04:00 40 11/19/17 04:00 100.4 113 36 148/92 100 Mechanical Ventilator 40 100.4 2/21/18 03:30 129 35 40 2/21/18 03:00 128 32 140/74 100 Mechanical Ventilator 40 2/21/18 02:00 122 31 124/52 100 Mechanical Ventilator 40 2/21/18 01:30 127 32 40 2/21/18 01:00 125 34 135/55 100 Mechanical Ventilator 40 2/21/18 00:00 124 2/21/18 00:00 98.3 122 32 144/63 100 Mechanical Ventilator 40 98.3 2/21/18 00:00 40 2/20/18 23:30 124 35 40 2/20/18 23:00 112 27 144/68 100 Mechanical Ventilator 40 2/20/18 22:00 118 30 138/68 100 Mechanical Ventilator 40 2/20/18 21:20 112 28 40 2/20/18 21:00 109 27 147/76 100 Mechanical Ventilator 40 2/20/18 20:40 123 102/58 2/20/18 20:00 109 2/20/18 20:00 98.5 109 27 100/50 100 Mechanical Ventilator 40 98.5 2/20/18 20:00 40 2/20/18 19:45 116 29 100 Mechanical Ventilator 2/20/18 19:30 112 33 40 2/20/18 19:30 113 33 100 Mechanical Ventilator 2/20/18 19:00 104 23 102/58 100 Mechanical Ventilator 40 2/20/18 18:00 105 27 110/63 96 Mechanical Ventilator 40 2/20/18 17:00 118 29 136/76 100 Mechanical Ventilator 40 2/20/18 16:46 109 19 40 2/20/18 16:00 118 2/20/18 16:00 40 2/20/18 16:00 98.9 112 24 169/94 99 Mechanical Ventilator 40 98.9 2/20/18 15:20 105 26 148/86 95 Mechanical Ventilator 40 2/20/18 15:15 104 14 40 2/20/18 15:13 209.1 101 20 100 2/20/18 14:00 112 26 142/68 100 Mechanical Ventilator 40 2/20/18 13:00 103 25 145/76 100 Mechanical Ventilator 40 2/20/18 12:53 107 18 99 Mechanical Ventilator 40 2/20/18 12:47 105 17 100 Mechanical Ventilator 40 2/20/18 12:47 104 16 40 2/20/18 12:00 99.2 106 23 120/66 100 Mechanical Ventilator 40 11/18/17 12:00 40 11/18/17 12:00 111 Status: sedated Condition: critical HEENT: atraumatic Neck: full ROM Lungs: clear Heart: HR/BP stable, HR/BP unstable Abdomen: soft, active bowel sounds, feeding tube Extremities: edema Decubiti: location Micro: Microbiology Date/Time Source Procedure Growth Status 11/16/17 11:40 Blood Blood Culture - Preliminary NO GROWTH AFTER 48 HOURS Resulted 11/16/17 11:35 Blood Blood Culture - Preliminary NO GROWTH AFTER 48 HOURS Resulted 11/17/17 19:30 Sputum Induced Gram Stain - Final Resulted 11/17/17 19:30 Sputum Culture - Preliminary Gram Negative Bacillus 1 Resulted 11/17/17 19:30 Nasopharynx Influenza Types A,B Antigen (RADHA) - Final Complete 11/17/17 19:20 Urine,Clean Catch Urine Culture - Preliminary Mixed Gram Positive Organism Resulted Critical Care - Subjective ROS Limited/Unobtainable: No ICU Day: 11 Intubation Day: 11 Condition: critical EKG Rhythm: Sinus Rhythm FI02: 35 Vent Support Breath Rate: 12 Vent Support Mode: AC Vent Tidal Volume: 300 Sputum Amount: Small PEEP: 5.0 PIP: 23 Tube Feeding Amount: 35 I&O: Intake and Output 11/18/17 11/19/17 19:00 07:00 Intake Total 515 ml 680 ml Output Total 245 ml 375 ml Balance 270 ml 305 ml Intake Free Water 50 ml IV Total 220 ml 110 ml Tube Feeding 245 ml 420 ml Other 150 ml Output Urine Total 245 ml 375 ml # Bowel Movements 2 CXR: bilateral infiltrate ET-Tube: 6.0 ET Position: 20 Labs: Laboratory Tests Test 11/18/17 13:45 11/19/17 03:40 11/19/17 08:40 Vancomycin Level Trough 2.5 ug/mL (5.0-12.0) L White Blood Count 10.8 K/UL (4.8-10.8) Red Blood Count 3.05 M/UL (4.20-5.40) L Hemoglobin 8.2 G/DL (12.0-16.0) L Hematocrit 25.4 % (37.0-47.0) L Mean Corpuscular Volume 83 FL (80-99) Mean Corpuscular Hemoglobin 26.8 PG (27.0-31.0) L Mean Corpuscular Hemoglobin Concent 32.2 G/DL (32.0-36.0) Red Cell Distribution Width 11.8 % (11.6-14.8) Platelet Count 279 K/UL (150-450) Mean Platelet Volume 6.9 FL (6.5-10.1) Neutrophils (%) (Auto) % (45.0-75.0) Lymphocytes (%) (Auto) % (20.0-45.0) Monocytes (%) (Auto) % (1.0-10.0) Eosinophils (%) (Auto) % (0.0-3.0) Basophils (%) (Auto) % (0.0-2.0) Sodium Level 134 MMOL/L (136-145) L Potassium Level 4.0 MMOL/L (3.5-5.1) Chloride Level 97 MMOL/L (98-107) L Carbon Dioxide Level 35 MMOL/L (21-32) H Anion Gap 2 mmol/L (5-15) L Blood Urea Nitrogen 19 mg/dL (7-18) H Creatinine 0.7 MG/DL (0.55-1.30) Estimat Glomerular Filtration Rate mL/min (>60) Glucose Level 134 MG/DL (74-106) H Calcium Level 8.6 MG/DL (8.5-10.1) Arterial Blood pH 7.520 (7.350-7.450) Arterial Blood Partial Pressure CO2 41.0 mmHg (35.0-45.0) Arterial Blood Partial Pressure O2 234.5 mmHg (75.0-100.0) H Arterial Blood HCO3 33.3 mmol/L (22.0-26.0) H Arterial Blood Oxygen Saturation 99.4 % (92.0-98.0) H Arterial Blood Base Excess 9.7 Rafy Test Positive DIANA AGGARWAL Nov 19, 2017 11:28
--- NOTE | 2017-11-19 13:38 | Infectious Diseases Prog Note ---
Assessment/Plan Assessment/Plan ASSESSMENT: The patient is a 77-year-old female, w Fever, post op Probable ventilator-associated pneumonia. Scx : GNR influenza :neg Diarrhea , SP at the time of admission Chest x-ray, bilateral diffuse interstitial opacity TRACH 11/18 Hypertension PLAN: continue the patient on Azactam and vancomycin day # 4 / 7 -10 Monitor CBC Monitor BMP, FLT Monitor cultures, blood, urine, and sputum Monitor chest x-ray Subjective Allergies: Coded Allergies: PENICILLINS (Verified Allergy, Mild, Rash, 06/30/14) Subjective Sp trach , on vent Objective Vital Signs Last 24 Hour Vital Signs Date Time Temp Pulse Resp B/P (MAP) Pulse Ox O2 Delivery O2 Flow Rate FiO2 11/19/17 13:00 88 12 102/57 100 Mechanical Ventilator 35 11/19/17 12:35 90 22 100 Mechanical Ventilator 30 11/19/17 12:35 90 20 30 11/19/17 12:25 87 33 100 Mechanical Ventilator 30 11/19/17 12:00 35 11/19/17 12:00 98 11/19/17 12:00 97.6 97 16 97/57 100 Mechanical Ventilator 35 97.6 11/19/17 11:12 98 18 35 11/19/17 11:00 97 16 89/52 100 Mechanical Ventilator 35 11/19/17 10:00 120 27 156/100 97 Mechanical Ventilator 40 11/19/17 09:12 97.5 11/19/17 09:00 97 25 163/91 98 Mechanical Ventilator 40 11/19/17 08:56 100 30 40 11/19/17 08:31 97 94/48 11/19/17 08:10 97 19 98 11/19/17 08:00 95 11/19/17 08:00 97.5 86 12 94/45 100 Mechanical Ventilator 40 97.5 11/19/17 08:00 40 11/19/17 07:00 97 19 124/91 98 Mechanical Ventilator 40 11/19/17 06:50 99 31 99 Mechanical Ventilator 40 11/19/17 06:50 99 29 40 11/19/17 06:40 101 33 99 Mechanical Ventilator 40 11/19/17 06:00 91 15 94/54 100 Mechanical Ventilator 40 11/19/17 05:07 113 27 40 11/19/17 05:00 98.9 96 16 148/80 100 Mechanical Ventilator 40 98.9 2/21/18 04:35 98.9 2/21/18 04:05 100.4 2/21/18 04:00 120 2/21/18 04:00 40 2/21/18 04:00 100.4 113 36 148/92 100 Mechanical Ventilator 40 100.4 2/21/18 03:30 129 35 40 2/21/18 03:00 128 32 140/74 100 Mechanical Ventilator 40 2/21/18 02:00 122 31 124/52 100 Mechanical Ventilator 40 2/21/18 01:30 127 32 40 2/21/18 01:00 125 34 135/55 100 Mechanical Ventilator 40 2/21/18 00:00 124 2/21/18 00:00 98.3 122 32 144/63 100 Mechanical Ventilator 40 98.3 2/18 00:00 40 2/20/18 23:30 124 35 40 2/20/18 23:00 112 27 144/68 100 Mechanical Ventilator 40 2/20/18 22:00 118 30 138/68 100 Mechanical Ventilator 40 220/18 21:20 112 28 40 2/20/18 21:00 109 27 147/76 100 Mechanical Ventilator 40 2/20/18 20:40 123 102/58 2/20/18 20:00 109 2/20/18 20:00 98.5 109 27 100/50 100 Mechanical Ventilator 40 98.5 2/20/18 20:00 40 2/20/18 19:45 116 29 100 Mechanical Ventilator 2/20/18 19:30 112 33 40 2/20/18 19:30 113 33 100 Mechanical Ventilator 2/20/18 19:00 104 23 102/58 100 Mechanical Ventilator 40 2/20/18 18:00 105 27 110/63 96 Mechanical Ventilator 40 2/20/18 17:00 118 29 136/76 100 Mechanical Ventilator 40 2/20/18 16:46 109 19 40 2/20/18 16:00 118 2/20/18 16:00 40 2/20/18 16:00 98.9 112 24 169/94 99 Mechanical Ventilator 40 98.9 2/20/18 15:20 105 26 148/86 95 Mechanical Ventilator 40 2/20/18 15:15 104 14 40 2/20/18 15:13 209.1 101 20 100 2/20/18 14:00 112 26 142/68 100 Mechanical Ventilator 40 Height (Feet): 4 Height (Inches): 10.00 Weight (Pounds): 65 HEENT: anicteric Respiratory/Chest: lungs clear Cardiovascular: regular rhythm Abdomen: no mass Microbiology Date/Time Source Procedure Growth Status 11/17/17 19:30 Sputum Induced Gram Stain - Final Resulted 11/17/17 19:30 Sputum Culture - Preliminary Gram Negative Bacillus 1 Resulted 11/17/17 19:30 Nasopharynx Influenza Types A,B Antigen (RADHA) - Final Complete 11/17/17 19:20 Urine,Clean Catch Urine Culture - Preliminary Mixed Gram Positive Organism Resulted Laboratory Tests Test 11/18/17 13:45 11/19/17 03:40 11/19/17 08:40 Vancomycin Level Trough 2.5 ug/mL (5.0-12.0) L White Blood Count 10.8 K/UL (4.8-10.8) Red Blood Count 3.05 M/UL (4.20-5.40) L Hemoglobin 8.2 G/DL (12.0-16.0) L Hematocrit 25.4 % (37.0-47.0) L Mean Corpuscular Volume 83 FL (80-99) Mean Corpuscular Hemoglobin 26.8 PG (27.0-31.0) L Mean Corpuscular Hemoglobin Concent 32.2 G/DL (32.0-36.0) Red Cell Distribution Width 11.8 % (11.6-14.8) Platelet Count 279 K/UL (150-450) Mean Platelet Volume 6.9 FL (6.5-10.1) Neutrophils (%) (Auto) % (45.0-75.0) Lymphocytes (%) (Auto) % (20.0-45.0) Monocytes (%) (Auto) % (1.0-10.0) Eosinophils (%) (Auto) % (0.0-3.0) Basophils (%) (Auto) % (0.0-2.0) Sodium Level 134 MMOL/L (136-145) L Potassium Level 4.0 MMOL/L (3.5-5.1) Chloride Level 97 MMOL/L (98-107) L Carbon Dioxide Level 35 MMOL/L (21-32) H Anion Gap 2 mmol/L (5-15) L Blood Urea Nitrogen 19 mg/dL (7-18) H Creatinine 0.7 MG/DL (0.55-1.30) Estimat Glomerular Filtration Rate mL/min (>60) Glucose Level 134 MG/DL (74-106) H Calcium Level 8.6 MG/DL (8.5-10.1) Arterial Blood pH 7.520 (7.350-7.450) Arterial Blood Partial Pressure CO2 41.0 mmHg (35.0-45.0) Arterial Blood Partial Pressure O2 234.5 mmHg (75.0-100.0) H Arterial Blood HCO3 33.3 mmol/L (22.0-26.0) H Arterial Blood Oxygen Saturation 99.4 % (92.0-98.0) H Arterial Blood Base Excess 9.7 Rafy Test Positive Current Medications Medications (Trade) Dose Ordered Sig/Puja Route PRN Reason Start Time Stop Time Status Last Admin Dose Admin Acetaminophen (Tylenol) 650 mg Q4H PRN NG T>100.5 11/14/17 19:45 12/14/17 19:44 11/19/17 04:05 Albuterol/ Ipratropium (Albuterol/ Ipratropium) 3 ml Q4HRT PRN HHN Shortness of Breath 11/16/17 09:45 11/21/17 09:44 Aztreonam 0.5 gm/ Sodium Chloride 55 ml @ 110 mls/hr Q8H IVPB 11/16/17 21:00 11/23/17 23:59 11/19/17 13:22 Dextrose (Dextrose 50%) STAT PRN IV Hypoglycemia 11/08/17 14:30 12/08/17 14:29 Heparin Sodium (Porcine) (Heparin 5000 units/ml) 5,000 units EVERY 12 HOURS SUBQ 11/08/17 21:00 12/08/17 20:59 11/19/17 08:37 Levalbuterol HCl (Xopenex) 1.25 mg TIDRT HHN 11/15/17 13:00 11/20/17 12:59 11/19/17 12:47 Lorazepam (Ativan 2mg/ml 1ml) 2 mg Q4H PRN IV For Anxiety 11/14/17 12:30 11/21/17 12:29 11/19/17 10:35 Metoprolol Tartrate (Lopressor) 5 mg Q6H PRN IVP HR>130 11/11/17 19:00 12/11/17 18:59 11/18/17 04:35 Metoprolol Tartrate (Lopressor) 50 mg Q12HR NG 11/16/17 21:00 12/16/17 20:59 11/19/17 08:31 Morphine Sulfate (Morphine Sulfate) 2 mg Q4H PRN IVP Moderate Pain (Pain Scale 4-6) 11/17/17 10:30 11/24/17 23:59 11/19/17 09:12 Ondansetron HCl (Zofran) 4 mg Q6H PRN IVP Nausea & Vomiting 11/08/17 14:30 12/08/17 14:29 Pantoprazole (Protonix) 40 mg DAILY IV 11/09/17 09:00 12/09/17 08:59 11/19/17 08:31 Polyethylene Glycol (Miralax) 17 gm DAILYPRN PRN ORAL Constipation 11/08/17 14:30 12/08/17 14:29 11/13/17 15:18 Vancomycin HCl (Vanco rx to dose) 1 ea DAILY PRN MISC Per rx protocol 11/16/17 11:30 12/16/17 11:29 Vancomycin/Sodium Chloride 250 ml @ 166.667 mls/hr Q24H IVPB 11/19/17 09:00 11/24/17 08:59 11/19/17 08:30 KUSH ESPINO M.D. Nov 19, 2017 13:37
--- NOTE | 2017-11-19 15:05 | GI Initial Consult Note ---
Janet Weathers N.PRebel 11/19/17 1505: History of Present Illness General Date patient seen: Nov 19, 2017 Time patient seen: 14:59 Reason for Hospitalization: Upper Respiratory Illness Referring physician: DIANA PERKINS Reason for Consultation: Encounter for PEG Present Illness HPI 77 year old female with multiple medical comorbidities currently in ICU under care and management of medical team. Please refer to EMR notes for details. GI consulted for PEG. ROS limited, seen in ICU with sisters at bedside now s/ p tracheostomy. NGTFs noted. Labs, charts reviewed. EGD/PEG explained and acknowledged to family members. Presents today with anemia and electrolyte imbalance. Home Meds Active Scripts Hydrochlorothiazide* (HYDROCHLOROTHIAZIDE*) 25 Mg Tablet, 25 MG ORAL DAILY, #30 TAB Prov:JASON RODRIGUEZ M.D. 05/05/14 Amlodipine Besylate (Norvasc) 5 Mg Tab, 5 MG ORAL DAILY, #30 TAB Prov:JASON RODRIGUEZ M.D. 05/05/14 Reported Medications Aspirin* (ASPIR 81*) 81 Mg Tablet.dr, 81 MG ORAL DAILY 11/08/17 Alendronate Sodium* (FOSAMAX*) 70 Mg Tablet, 35 MG ORAL ONCE A WEEK 11/08/17 Metoprolol Tartrate* (METOPROLOL TARTRATE*) 25 Mg Tablet, 25 MG ORAL DAILY 11/08/17 Med list reviewed/reconciled: Yes Allergies: Coded Allergies: PENICILLINS (Verified Allergy, Mild, Rash, 06/30/14) Patient History Limited by: medical condition History Provided By: Family Member, Medical Record [facility] Narrative History Provided By: Family Member, Medical Record, D Healthcare decision maker Resuscitation status Full Code Advanced Directive on File Past Medical/Surgical History Past Medical/Surgical History: (1) Hypertension (2) Pulmonary edema (3) Respiratory failure (4) Valvular disease (5) Hypertension (6) LVH (left ventricular hypertrophy) due to hypertensive disease (7) Protein-calorie malnutrition, severe (8) Fever Review of Systems All Other Systems: limited Physical Exam Vital Signs Date Time Temp Pulse Resp B/P (MAP) Pulse Ox O2 Delivery O2 Flow Rate FiO2 11/15/17 07:00 127 19 91/53 97 Mechanical Ventilator 50 11/15/17 08:00 99.3 Sp02 EP Interpretation: reviewed Labs Laboratory Tests Test 11/19/17 03:40 11/19/17 08:40 White Blood Count 10.8 K/UL (4.8-10.8) Red Blood Count 3.05 M/UL (4.20-5.40) L Hemoglobin 8.2 G/DL (12.0-16.0) L Hematocrit 25.4 % (37.0-47.0) L Mean Corpuscular Volume 83 FL (80-99) Mean Corpuscular Hemoglobin 26.8 PG (27.0-31.0) L Mean Corpuscular Hemoglobin Concent 32.2 G/DL (32.0-36.0) Red Cell Distribution Width 11.8 % (11.6-14.8) Platelet Count 279 K/UL (150-450) Mean Platelet Volume 6.9 FL (6.5-10.1) Neutrophils (%) (Auto) % (45.0-75.0) Lymphocytes (%) (Auto) % (20.0-45.0) Monocytes (%) (Auto) % (1.0-10.0) Eosinophils (%) (Auto) % (0.0-3.0) Basophils (%) (Auto) % (0.0-2.0) Sodium Level 134 MMOL/L (136-145) L Potassium Level 4.0 MMOL/L (3.5-5.1) Chloride Level 97 MMOL/L (98-107) L Carbon Dioxide Level 35 MMOL/L (21-32) H Anion Gap 2 mmol/L (5-15) L Blood Urea Nitrogen 19 mg/dL (7-18) H Creatinine 0.7 MG/DL (0.55-1.30) Estimat Glomerular Filtration Rate mL/min (>60) Glucose Level 134 MG/DL (74-106) H Calcium Level 8.6 MG/DL (8.5-10.1) Arterial Blood pH 7.520 (7.350-7.450) Arterial Blood Partial Pressure CO2 41.0 mmHg (35.0-45.0) Arterial Blood Partial Pressure O2 234.5 mmHg (75.0-100.0) H Arterial Blood HCO3 33.3 mmol/L (22.0-26.0) H Arterial Blood Oxygen Saturation 99.4 % (92.0-98.0) H Arterial Blood Base Excess 9.7 Rafy Test Positive General Appearance: no apparent distress, thin Head: normocephalic EENT: normal ENT inspection Neck: supple Respiratory: other - trach to vent Cardiovascular: normal rate Gastrointestinal: normal inspection, non tender, soft Rectal: deferred Neurologic: alert Skin: normal inspection, normal color, no rash, warm/dry Lymphatic: normal inspection, no adenopathy Current Medications Current Medications Medications (Trade) Dose Ordered Sig/Puja Route PRN Reason Start Time Stop Time Status Last Admin Dose Admin Acetaminophen (Tylenol) 650 mg Q4H PRN NG T>100.5 11/14/17 19:45 12/14/17 19:44 11/19/17 04:05 Albuterol/ Ipratropium (Albuterol/ Ipratropium) 3 ml Q4HRT PRN HHN Shortness of Breath 11/16/17 09:45 11/21/17 09:44 Aztreonam 0.5 gm/ Sodium Chloride 55 ml @ 110 mls/hr Q8H IVPB 11/16/17 21:00 11/23/17 23:59 11/19/17 13:22 Dextrose (Dextrose 50%) STAT PRN IV Hypoglycemia 11/08/17 14:30 12/08/17 14:29 Heparin Sodium (Porcine) (Heparin 5000 units/ml) 5,000 units EVERY 12 HOURS SUBQ 11/08/17 21:00 12/08/17 20:59 11/19/17 08:37 Levalbuterol HCl (Xopenex) 1.25 mg TIDRT HHN 11/15/17 13:00 11/20/17 12:59 11/19/17 12:47 Lorazepam (Ativan 2mg/ml 1ml) 2 mg Q4H PRN IV For Anxiety 11/14/17 12:30 11/21/17 12:29 11/19/17 10:35 Metoprolol Tartrate (Lopressor) 5 mg Q6H PRN IVP HR>130 11/11/17 19:00 12/11/17 18:59 11/18/17 04:35 Metoprolol Tartrate (Lopressor) 50 mg Q12HR NG 11/16/17 21:00 12/16/17 20:59 11/19/17 08:31 Morphine Sulfate (Morphine Sulfate) 2 mg Q4H PRN IVP Moderate Pain (Pain Scale 4-6) 11/17/17 10:30 11/24/17 23:59 11/19/17 09:12 Ondansetron HCl (Zofran) 4 mg Q6H PRN IVP Nausea & Vomiting 11/08/17 14:30 12/08/17 14:29 Pantoprazole (Protonix) 40 mg DAILY IV 11/09/17 09:00 12/09/17 08:59 11/19/17 08:31 Polyethylene Glycol (Miralax) 17 gm DAILYPRN PRN ORAL Constipation 11/08/17 14:30 12/08/17 14:29 11/13/17 15:18 Vancomycin HCl (Vanco rx to dose) 1 ea DAILY PRN MISC Per rx protocol 11/16/17 11:30 12/16/17 11:29 Vancomycin/Sodium Chloride 250 ml @ 166.667 mls/hr Q24H IVPB 11/19/17 09:00 11/24/17 08:59 11/19/17 08:30 GI: Plan Problems: (1) Encounter for PEG (percutaneous endoscopic gastrostomy) (2) Anemia (3) Protein-calorie malnutrition, severe (4) Respiratory failure Plan PEG scheduled for tomorrow. - NGTFs today, NPO @ [place]. - hold all blood thinners tonight anemia work up OB stool r/o GI bleed monitor H&H, prn transfusions bowel regime ppi fu labs Discussed with Dr. Carlson. Thank you for this patient referral, we will follow. Patient has requested for Dr. Garcia. Dr. Perkins and Dr. Carlson both aware. WILTON CARLSON 11/20/17 3574: History of Present Illness General Reason for Hospitalization: Upper Respiratory Illness Present Illness Home Meds Active Scripts Hydrochlorothiazide* (HYDROCHLOROTHIAZIDE*) 25 Mg Tablet, 25 MG ORAL DAILY, #30 TAB Prov:JASON RODRIGUEZ M.D. 05/05/14 Amlodipine Besylate (Norvasc) 5 Mg Tab, 5 MG ORAL DAILY, #30 TAB Prov:JASON RODRIGUEZ M.D. 05/05/14 Reported Medications Aspirin* (ASPIR 81*) 81 Mg Tablet.dr 81 MG ORAL DAILY 11/08/17 Alendronate Sodium* (FOSAMAX*) 70 Mg Tablet, 35 MG ORAL ONCE A WEEK 11/08/17 Metoprolol Tartrate* (METOPROLOL TARTRATE*) 25 Mg Tablet, 25 MG ORAL DAILY 11/08/17 Allergies: Coded Allergies: PENICILLINS (Verified Allergy, Mild, Rash, 06/30/14) GI: Plan Plan The patient was seen and examined at bedside and all new and available data was reviewed in the patients chart. I agree with the above findings, impression and plan. (Patient seen earlier today. Signature stamp does not reflect patient encounter time.). - [facility] Jose Reeder Nov 19, 2017 15:05 WILTON CARLSON Nov 20, 2017 15:54
--- NOTE | 2017-11-19 15:33 | General Progress Note ---
Progress Note Progress Note POD #1 s/p trach. doing well. tolerating well. no issues. trach in place and functional. dressings removed. trach care and management wean as tolerated Andrew Krause Nov 19, 2017 15:32
--- NOTE | 2017-11-19 20:22 | Cardiology Progress Note ---
Assessment/Plan Assessment/Plan 1. Respiratory failure. 2. Hypertension history. 3. Diarrhea at the time of admission. 4. Cachexia. 5. sinus tachy 6. nsvt 7. fever 8. hyptesnion 9. Eccentric mitral regurgitation on bb via ng with prn iv if needed increase agitation causes her to have more tachy more images on tanja echo were perfomred yest and she indeed does have eccentric MR bp is much improved post bolus of ivf last nite bnp did improve will consider resume once bp stable post trach s/p trach tele sinus cxr bilaterla infiltrate diuretic tonite Subjective ROS Limited/Unobtainable: Yes Subjective seem not agitated at th emoment Objective Last 24 Hour Vital Signs Date Time Temp Pulse Resp B/P (MAP) Pulse Ox O2 Delivery O2 Flow Rate FiO2 11/19/17 19:15 106 20 98 Mechanical Ventilator 35 11/19/17 19:05 110 23 96 Mechanical Ventilator 35 11/19/17 19:02 114 22 35 11/19/17 19:00 110 12 116/66 100 Mechanical Ventilator 35 11/19/17 18:59 110 24 35 11/19/17 18:00 109 24 142/125 96 Mechanical Ventilator 35 11/19/17 17:00 110 24 98/49 95 Mechanical Ventilator 35 11/19/17 16:55 109 25 35 11/19/17 16:00 133 11/19/17 16:00 97.8 114 24 99/51 95 Mechanical Ventilator 35 97.8 11/19/17 16:00 35 11/19/17 15:21 118 26 30 11/19/17 15:00 121 29 176/100 95 Mechanical Ventilator 30 11/19/17 14:00 95 21 119/68 96 Mechanical Ventilator 35 11/19/17 13:00 88 12 102/57 100 Mechanical Ventilator 35 11/19/17 12:35 90 22 100 Mechanical Ventilator 30 11/19/17 12:35 90 20 30 11/19/17 12:25 87 33 100 Mechanical Ventilator 30 11/19/17 12:00 35 11/19/17 12:00 98 11/19/17 12:00 97.6 97 16 97/57 100 Mechanical Ventilator 35 97.6 11/19/17 11:12 98 18 35 11/19/17 11:00 97 16 89/52 100 Mechanical Ventilator 35 2/21/18 10:00 120 27 156/100 97 Mechanical Ventilator 40 11/19/17 09:12 97.5 2 09:00 97 25 163/91 98 Mechanical Ventilator 40 11/19/17 08:56 100 30 40 11/19/17 08:31 97 94/48 18 08:10 97 19 98 11/19/17 08:00 95 11/19/17 08:00 97.5 86 12 94/45 100 Mechanical Ventilator 40 97.5 11/19/17 08:00 40 11/19/17 07:00 97 19 124/91 98 Mechanical Ventilator 40 11/19/17 06:50 99 31 99 Mechanical Ventilator 40 11/19/17 06:50 99 29 40 11/19/17 06:40 101 33 99 Mechanical Ventilator 40 11/19/17 06:00 91 15 94/54 100 Mechanical Ventilator 40 11/19/17 05:07 113 27 40 11/19/17 05:00 98.9 96 16 148/80 100 Mechanical Ventilator 40 98.9 11/19/17 04:35 98.9 11/19/17 04:05 100.4 11/19/17 04:00 120 11/19/17 04:00 40 11/19/17 04:00 100.4 113 36 148/92 100 Mechanical Ventilator 40 100.4 11/19/17 03:30 129 35 40 11/19/17 03:00 128 32 140/74 100 Mechanical Ventilator 40 11/19/17 02:00 122 31 124/52 100 Mechanical Ventilator 40 11/19/17 01:30 127 32 40 2 01:00 125 34 135/55 100 Mechanical Ventilator 40 11/19/17 00:00 124 2 00:00 98.3 122 32 144/63 100 Mechanical Ventilator 40 98.3 11/19/18 00:00 40 11/18/18 23:30 124 35 40 2/18 23:00 112 27 144/68 100 Mechanical Ventilator 40 2/18 22:00 118 30 138/68 100 Mechanical Ventilator 40 2//18 21:20 112 28 40 2/20/18 21:00 109 27 147/76 100 Mechanical Ventilator 40 2/18 20:40 123 102/58 General Appearance: on vent Cardiovascular: normal rate, regular rhythm, tachycardia Respiratory/Chest: crackles/rales Abdomen: normal bowel sounds, non tender, soft Extremities: no swelling Intake and Output 11/18/17 11/19/17 19:00 07:00 Intake Total 515 ml 680 ml Output Total 245 ml 375 ml Balance 270 ml 305 ml Intake Free Water 50 ml IV Total 220 ml 110 ml Tube Feeding 245 ml 420 ml Other 150 ml Output Urine Total 245 ml 375 ml # Bowel Movements 2 Laboratory Tests Test 11/19/17 03:40 11/19/17 08:40 White Blood Count 10.8 K/UL (4.8-10.8) Red Blood Count 3.05 M/UL (4.20-5.40) L Hemoglobin 8.2 G/DL (12.0-16.0) L Hematocrit 25.4 % (37.0-47.0) L Mean Corpuscular Volume 83 FL (80-99) Mean Corpuscular Hemoglobin 26.8 PG (27.0-31.0) L Mean Corpuscular Hemoglobin Concent 32.2 G/DL (32.0-36.0) Red Cell Distribution Width 11.8 % (11.6-14.8) Platelet Count 279 K/UL (150-450) Mean Platelet Volume 6.9 FL (6.5-10.1) Neutrophils (%) (Auto) % (45.0-75.0) Lymphocytes (%) (Auto) % (20.0-45.0) Monocytes (%) (Auto) % (1.0-10.0) Eosinophils (%) (Auto) % (0.0-3.0) Basophils (%) (Auto) % (0.0-2.0) Sodium Level 134 MMOL/L (136-145) L Potassium Level 4.0 MMOL/L (3.5-5.1) Chloride Level 97 MMOL/L (98-107) L Carbon Dioxide Level 35 MMOL/L (21-32) H Anion Gap 2 mmol/L (5-15) L Blood Urea Nitrogen 19 mg/dL (7-18) H Creatinine 0.7 MG/DL (0.55-1.30) Estimat Glomerular Filtration Rate mL/min (>60) Glucose Level 134 MG/DL (74-106) H Calcium Level 8.6 MG/DL (8.5-10.1) Arterial Blood pH 7.520 (7.350-7.450) Arterial Blood Partial Pressure CO2 41.0 mmHg (35.0-45.0) Arterial Blood Partial Pressure O2 234.5 mmHg (75.0-100.0) H Arterial Blood HCO3 33.3 mmol/L (22.0-26.0) H Arterial Blood Oxygen Saturation 99.4 % (92.0-98.0) H Arterial Blood Base Excess 9.7 Rafy Test Positive Microbiology Date/Time Source Procedure Growth Status 11/17/17 19:30 Sputum Induced Gram Stain - Final Resulted 11/17/17 19:30 Sputum Culture - Preliminary Gram Negative Bacillus 1 Resulted 11/17/17 19:30 Nasopharynx Influenza Types A,B Antigen (RADHA) - Final Complete 11/17/17 19:20 Urine,Clean Catch Urine Culture - Preliminary Mixed Gram Positive Organism Resulted NALINI GIBBONS Nov 19, 2017 20:22
[2017-11-20] VITALS (23 sets, daily range): BP systolic 85–171; BP diastolic 48–107
[2017-11-20] MEDS: Metoprolol 5mg/5ml Inj IVP PRN ×2 (04:38→16:15)
[2017-11-20] MEDS: Aztreonam Inj 0.5 GM in NS 55 ML IVPB SCH ×3 (04:38→21:05)
[2017-11-20] MEDS: Morphine Sulfate 4mg/ml Inj IVP PRN ×2 (04:52→16:21)
[2017-11-20 06:04] LABS: HEMOGLOBIN 7.4 G/DL (12.0-16.0); MEAN CORPUSCULAR VOLUME 83 FL (80-99); PLATELET COUNT 300 K/UL (150-450); RED BLOOD COUNT 2.77 M/UL (4.20-5.40); RED CELL DISTRIBUTION WIDTH 11.6 % (11.6-14.8); WHITE BLOOD COUNT 14.2 K/UL (4.8-10.8)
[2017-11-20 06:14] LABS: ALBUMIN 2.1 G/DL (3.4-5.0); ASPARTATE AMINO TRANSFERASE 42 U/L (15-37); BLOOD UREA NITROGEN 21 mg/dL (7-18); CALCIUM 8.3 MG/DL (8.5-10.1); PHOSPHORUS 2.8 MG/DL (2.5-4.9); POTASSIUM 3.8 MMOL/L (3.5-5.1); SODIUM 136 MMOL/L (136-145)
[2017-11-20 06:33] LABS: INR 1.1 (0.9-1.1)
[2017-11-20] MEDS: Levalbuterol Inh UD 1.25mg/0.5ml HHN SCH ×3 (06:48→19:12)
--- NOTE | 2017-11-20 07:06 | Anethesia Preoperative Eval ---
Anesthesia Pre-op PMH/ROS General Date of Evaluation: Nov 20, 2017 Time of Evaluation: 07:00 Anesthesiologist: carolyn ASA Score: ASA 4 Mallampati Score Class I : Soft palate, uvula, fauces, pillars visible Class II: Soft palate, uvula, fauces visible Class III: Soft palate, base of uvula visible Class IV: Only hard plate visible Mallampati Classification: Class III Surgeon: cyril Diagnosis: protein malnutrition Surgical Procedure: egd/peg Anesthesia History: none Social History: smoking - nonsmoker Family History: no anesthesia problems Allergies: Coded Allergies: PENICILLINS (Verified Allergy, Mild, Rash, 06/30/14) Medications: see eMAR Past Medical History Cardiovascular: Reports: HTN, valve dz, other - lvh, heart murmur, Pulmonary: Reports: other - respiratory failure, pulmonary edema Gastrointestinal/Genitourinary: Reports: other - protein malnutrition Neurologic/Psychiatric: Reports: other - generalized weakness Hematology/Immune: Reports: anemia Anesthesia Pre-op Phys. Exam Physician Exam Last Vital Signs Date Time Temp Pulse Resp B/P (MAP) Pulse Ox O2 Delivery O2 Flow Rate FiO2 11/20/17 06:58 120 12 98 Mechanical Ventilator 35 11/20/17 06:00 136/62 11/20/17 05:40 98.5 Constitutional: NAD Neurologic: CN 2-12 intact Cardiovascular: other - tachycardia Respiratory: other - mechanical ventilator Airway Exam Mallampati Score: Class III MO: limited Neck: tracheostomy TMD: 2fb ROM: limited Anesthesia Pre-op A/P Labs Hematology Test 11/20/17 05:35 White Blood Count 14.2 K/UL (4.8-10.8) H Red Blood Count 2.77 M/UL (4.20-5.40) L Hemoglobin 7.4 G/DL (12.0-16.0) L Hematocrit 23.0 % (37.0-47.0) L Mean Corpuscular Volume 83 FL (80-99) Mean Corpuscular Hemoglobin 26.8 PG (27.0-31.0) L Mean Corpuscular Hemoglobin Concent 32.3 G/DL (32.0-36.0) Red Cell Distribution Width 11.6 % (11.6-14.8) Platelet Count 300 K/UL (150-450) Mean Platelet Volume 6.7 FL (6.5-10.1) Neutrophils (%) (Auto) % (45.0-75.0) Lymphocytes (%) (Auto) % (20.0-45.0) Monocytes (%) (Auto) % (1.0-10.0) Eosinophils (%) (Auto) % (0.0-3.0) Basophils (%) (Auto) % (0.0-2.0) Neutrophils % (Manual) Pending Lymphocytes % (Manual) Pending Platelet Estimate Pending Platelet Morphology Pending Coagulation Test 11/20/17 05:35 Prothrombin Time 11.5 SEC (9.30-11.50) Prothromb Time International Ratio 1.1 (0.9-1.1) Activated Partial Thromboplast Time 38 SEC (23-33) H Chemistry Test 11/20/17 05:35 Sodium Level Pending Potassium Level Pending Chloride Level Pending Carbon Dioxide Level Pending Blood Urea Nitrogen Pending Creatinine Pending Estimat Glomerular Filtration Rate Pending Glucose Level Pending Calcium Level Pending Phosphorus Level Pending Magnesium Level Pending Total Bilirubin Pending Aspartate Amino Transf (AST/SGOT) Pending Alanine Aminotransferase (ALT/SGPT) Pending Alkaline Phosphatase Pending Total Protein Pending Albumin Pending Globulin Pending Risk Assessment & Plan Assessment: asa4 Plan: mac Status Change Before Surgery: No Pre-Antibiotics Drug: see JAIR LUONG Nov 20, 2017 07:06
[2017-11-20 07:08] LABS: ALANINE AMINOTRANSFERASE 45 U/L (12-78); ALBUMIN/GLOBULIN RATIO 0.5 (1.0-2.7); ALKALINE PHOSPHATASE 91 U/L (46-116); ANION GAP 6 mmol/L (5-15); BILIRUBIN,TOTAL 0.5 MG/DL (0.2-1.0); CARBON DIOXIDE 35 MMOL/L (21-32); CHLORIDE 96 MMOL/L (98-107); CREATININE 0.6 MG/DL (0.55-1.30)
[2017-11-20] MEDS: Heparin 5000 units/ml inj SUBQ SCH ×2 (09:00→21:00)
[2017-11-20] MEDS: LORazepam Inj 2mg/ml 1ml IV PRN ×2 (09:59→16:05)
[2017-11-20] MEDS: Metoprolol Tartrate 50mg tab NG SCH ×2 (09:59→21:05)
[2017-11-20] MEDS: Vancomycin 750mg/NS 250ml IVPB SCH (09:59)
[2017-11-20] MEDS: Pantoprazole Inj IV SCH (10:00)
[2017-11-20] MEDS: Acetaminophen 650mg/20.3ml NG PRN ×2 (10:07→21:09)
--- NOTE | 2017-11-20 10:41 | Diagnostic Imaging Report ---
Indication: Dyspnea Technique: One view of the chest Comparison: 11/19/2017 Findings: There is slightly increased diffuse bilateral interstitial and airspace disease tracheostomy, nasogastric tube remain. The heart is enlarged. There is probably a pleural effusion on the left Impression: Slightly increased bilateral interstitial and airspace infiltrates versus edema, over one day
--- NOTE | 2017-11-20 11:05 | General Progress Note ---
Assessment/Plan Assessment/Plan Assessment - Resp failure - valvular heart disease - progressive anemia - s/p trach - sinus tach, worsened by agitation - leukocytosis - AMS Recommendations - NPO - IVF - Agree with transfusion - PPI - recheck CBC - Will proceed with PEG today - PRN BDZ for agitation Subjective Allergies: Coded Allergies: PENICILLINS (Verified Allergy, Mild, Rash, 06/30/14) Subjective Asked by family to take over GI care discussed with sister last night re indications and risks of PEG sister agreed vital signs reviewed with anesthesia and with cardiology HR elevation felt to be due to agitation written to get a unit of PRBC today WBC mildly elevated , but pt s/p trach and has infiltrates per discussion with cardiology, patient will not be in a substantially different position / risk category for PEG placement, if procedure deferred Objective Last 24 Hour Vital Signs Date Time Temp Pulse Resp B/P (MAP) Pulse Ox O2 Delivery O2 Flow Rate FiO2 11/20/17 10:56 103 27 35 11/20/17 10:07 100.9 11/20/17 09:59 138 146/71 11/20/17 09:00 132 34 146/71 100 Mechanical Ventilator 35 11/20/17 08:38 124 36 35 11/20/17 08:00 100.3 125 32 148/75 95 Mechanical Ventilator 35 100.3 11/20/17 08:00 35 11/20/17 08:00 135 11/20/17 07:00 130 18 148/72 95 Mechanical Ventilator 35 11/20/17 06:58 120 12 98 Mechanical Ventilator 35 11/20/17 06:48 119 24 93 Mechanical Ventilator 35 11/20/17 06:48 119 24 35 11/20/17 06:00 116 18 136/62 99 Mechanical Ventilator 35 11/20/17 05:40 98.5 11/20/17 05:00 116 35 140/107 99 Mechanical Ventilator 35 11/20/17 04:58 120 25 35 11/20/17 04:52 98.5 11/20/17 04:38 145 184/97 11/20/17 04:00 124 11/20/17 04:00 35 11/20/17 04:00 98.0 142 27 171/88 94 Mechanical Ventilator 35 98.0 11/20/17 03:23 124 26 35 11/20/17 03:00 124 27 143/73 94 Mechanical Ventilator 35 11/20/17 02:00 123 27 143/73 99 Mechanical Ventilator 35 11/20/17 01:00 125 25 143/70 99 Mechanical Ventilator 35 11/20/17 00:47 124 26 35 11/20/17 00:00 35 11/20/17 00:00 98.3 121 26 138/67 100 Mechanical Ventilator 35 98.3 11/20/17 00:00 114 11/19/17 23:00 113 25 118/57 99 Mechanical Ventilator 35 11/19/17 22:54 113 25 35 11/19/17 22:00 109 24 107/59 98 Mechanical Ventilator 35 11/19/17 21:19 120 121/64 11/19/17 21:00 119 25 121/64 97 Mechanical Ventilator 35 11/19/17 20:53 120 26 35 11/19/17 20:00 35 11/19/17 20:00 98.0 119 27 163/74 95 Mechanical Ventilator 35 98.0 11/19/17 20:00 116 11/19/17 19:15 106 20 98 Mechanical Ventilator 35 11/19/17 19:05 110 23 96 Mechanical Ventilator 35 11/19/17 19:02 114 22 35 11/19/17 19:00 110 12 116/66 100 Mechanical Ventilator 35 11/19/17 18:59 110 24 35 11/19/17 18:00 109 24 142/125 96 Mechanical Ventilator 35 11/19/17 17:00 110 24 98/49 95 Mechanical Ventilator 35 11/19/17 16:55 109 25 35 11/19/17 16:00 133 11/19/17 16:00 97.8 114 24 99/51 95 Mechanical Ventilator 35 97.8 11/19/17 16:00 35 18 15:21 118 26 30 11/19/17 15:00 121 29 176/100 95 Mechanical Ventilator 30 11/19/17 14:00 95 21 119/68 96 Mechanical Ventilator 35 11/19/17 13:00 88 12 102/57 100 Mechanical Ventilator 35 11/19/17 12:35 90 22 100 Mechanical Ventilator 30 11/19/17 12:35 90 20 30 11/19/17 12:25 87 33 100 Mechanical Ventilator 30 11/19/17 12:00 35 11/19/17 12:00 98 11/19/17 12:00 97.6 97 16 97/57 100 Mechanical Ventilator 35 97.6 11/19/17 11:12 98 18 35 Intake and Output 11/19/17 11/20/17 19:00 07:00 Intake Total 885.000 ml 350 ml Output Total 295 ml 850 ml Balance 590.000 ml -500 ml Intake Free Water 130 ml 50 ml IV Total 305.000 ml 110 ml Tube Feeding 420 ml 140 ml Other 30 ml 50 ml Output Urine Total 295 ml 850 ml Laboratory Tests 11/20/17 05:35: White Blood Count 14.2H, Red Blood Count 2.77L, Hemoglobin 7.4L, Hematocrit 23.0L, Mean Corpuscular Volume 83, Mean Corpuscular Hemoglobin 26.8L, Mean Corpuscular Hemoglobin Concent 32.3, Red Cell Distribution Width 11.6, Platelet Count 300, Mean Platelet Volume 6.7, Neutrophils (%) (Auto) , Lymphocytes (%) ( Auto) , Monocytes (%) (Auto) , Eosinophils (%) (Auto) , Basophils (%) (Auto) , Differential Total Cells Counted 100, Neutrophils % (Manual) 90H, Lymphocytes % (Manual) 4L, Monocytes % (Manual) 6, Eosinophils % (Manual) 0, Basophils % ( Manual) 0, Band Neutrophils 0, Platelet Estimate Adequate, Platelet Morphology Normal, Hypochromasia 3+, Anisocytosis 1+, Spherocytes 1+, Prothrombin Time 11.5 , Prothromb Time International Ratio 1.1, Activated Partial Thromboplast Time 38H, Sodium Level 136, Potassium Level 3.8, Chloride Level 96L, Carbon Dioxide Level 35H, Anion Gap 6, Blood Urea Nitrogen 21H, Creatinine 0.6, Estimat Glomerular Filtration Rate , Glucose Level 114H, Calcium Level 8.3L, Phosphorus Level 2.8, Magnesium Level 1.9, Total Bilirubin 0.5, Aspartate Amino Transf (AST /SGOT) 42H, Alanine Aminotransferase (ALT/SGPT) 45, Alkaline Phosphatase 91, Total Protein 6.2L, Albumin 2.1L, Globulin 4.1, Albumin/Globulin Ratio 0.5L 11/20/17 09:20: Arterial Blood pH 7.501H, Arterial Blood Partial Pressure CO2 47.7H, Arterial Blood Partial Pressure O2 74.4L, Arterial Blood HCO3 36.4H, Arterial Blood Oxygen Saturation 94.1, Arterial Blood Base Excess 12.1, Rafy Test Positive 11/20/17 10:50: White Blood Count [Pending], Red Blood Count [Pending], Hemoglobin [Pending], Hematocrit [Pending], Mean Corpuscular Volume [Pending], Mean Corpuscular Hemoglobin [Pending], Mean Corpuscular Hemoglobin Concent [Pending], Red Cell Distribution Width [Pending], Platelet Count [Pending], Mean Platelet Volume [ Pending], Neutrophils (%) (Auto) [Pending], Lymphocytes (%) (Auto) [Pending], Monocytes (%) (Auto) [Pending], Eosinophils (%) (Auto) [Pending], Basophils (%) (Auto) [Pending] Height (Feet): 4 Height (Inches): 10.00 Weight (Pounds): 60 Objective Thin AA woman, on vent NCAT neck (+) trach Coarse BS RR / tachy abd soft flat neuro sedated, agitated, restrained no edema MIKE LEWIS Nov 20, 2017 11:05
[2017-11-20 11:10] LABS: MEAN CORPUSCULAR VOLUME 83 FL (80-99); PLATELET COUNT 276 K/UL (150-450); RED BLOOD COUNT 2.52 M/UL (4.20-5.40); RED CELL DISTRIBUTION WIDTH 11.7 % (11.6-14.8); WHITE BLOOD COUNT 12.6 K/UL (4.8-10.8)
--- NOTE | 2017-11-20 11:12 | Pulmonolgy Critical Care Note ---
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 (4) Protein-calorie malnutrition, severe Assessment/Plan: pt getting PEG today Respiratory: monitor respiratory rate, adjust FIO2, CXR Cardiac: continue to monitor HR/BP Renal: F/U I&O, keep IV fluid Infectious Disease: check cultures Gastrointestinal: continue feedings/current rate Endocrine: monitor blood sugar, check TSH, continue sliding scale insulin Hematologic: transfuse if hgb<8.5 Neurologic: PRN Ativan, PRN Morphine, keep patient comfortable Affect: PRN ativan Prophylaxis: Protonix Disposition: transfer to [facility] 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: 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, cardio Discussed with: nurses, consultants, 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 - Objective Last 24 Hour Vital Signs Date Time Temp Pulse Resp B/P (MAP) Pulse Ox O2 Delivery O2 Flow Rate FiO2 11/20/17 10:56 103 27 35 11/20/17 10:07 100.9 11/20/17 09:59 138 146/71 11/20/17 09:00 132 34 146/71 100 Mechanical Ventilator 35 11/20/17 08:38 124 36 35 11/20/17 08:00 100.3 125 32 148/75 95 Mechanical Ventilator 35 100.3 11/20/17 08:00 35 11/20/17 08:00 135 11/20/17 07:00 130 18 148/72 95 Mechanical Ventilator 35 11/20/17 06:58 120 12 98 Mechanical Ventilator 35 11/20/17 06:48 119 24 93 Mechanical Ventilator 35 11/20/17 06:48 119 24 35 11/20/17 06:00 116 18 136/62 99 Mechanical Ventilator 35 11/20/17 05:40 98.5 11/20/17 05:00 116 35 140/107 99 Mechanical Ventilator 35 11/20/17 04:58 120 25 35 11/20/17 04:52 98.5 11/20/17 04:38 145 184/97 11/20/17 04:00 124 11/20/17 04:00 35 11/20/17 04:00 98.0 142 27 171/88 94 Mechanical Ventilator 35 98.0 11/20/17 03:23 124 26 35 11/20/17 03:00 124 27 143/73 94 Mechanical Ventilator 35 11/20/17 02:00 123 27 143/73 99 Mechanical Ventilator 35 11/20/17 01:00 125 25 143/70 99 Mechanical Ventilator 35 11/20/17 00:47 124 26 35 11/20/17 00:00 35 11/20/17 00:00 98.3 121 26 138/67 100 Mechanical Ventilator 35 98.3 11/20/17 00:00 114 11/19/17 23:00 113 25 118/57 99 Mechanical Ventilator 35 11/19/17 22:54 113 25 35 11/19/17 22:00 109 24 107/59 98 Mechanical Ventilator 35 11/19/17 21:19 120 121/64 11/19/17 21:00 119 25 121/64 97 Mechanical Ventilator 35 11/19/17 20:53 120 26 35 11/19/17 20:00 35 11/19/17 20:00 98.0 119 27 163/74 95 Mechanical Ventilator 35 98.0 11/19/17 20:00 116 11/19/17 19:15 106 20 98 Mechanical Ventilator 35 11/19/17 19:05 110 23 96 Mechanical Ventilator 35 11/19/17 19:02 114 22 35 11/19/17 19:00 110 12 116/66 100 Mechanical Ventilator 35 11/19/17 18:59 110 24 35 11/19/17 18:00 109 24 142/125 96 Mechanical Ventilator 35 11/19/17 17:00 110 24 98/49 95 Mechanical Ventilator 35 11/19/17 16:55 109 25 35 11/19/17 16:00 133 11/19/17 16:00 97.8 114 24 99/51 95 Mechanical Ventilator 35 97.8 11/19/17 16:00 35 18 15:21 118 26 30 18 15:00 121 29 176/100 95 Mechanical Ventilator 30 11/19/17 14:00 95 21 119/68 96 Mechanical Ventilator 35 11/19/17 13:00 88 12 102/57 100 Mechanical Ventilator 35 11/19/17 12:35 90 22 100 Mechanical Ventilator 30 18 12:35 90 20 30 11/19/17 12:25 87 33 100 Mechanical Ventilator 30 11/19/17 12:00 35 18 12:00 98 11/19/ 12:00 97.6 97 16 97/57 100 Mechanical Ventilator 35 97.6 11/19/17 11:12 98 18 35 Status: awake Condition: critical HEENT: atraumatic Lungs: clear Heart: HR/BP stable, regular Abdomen: soft, non-tender, feeding tube Extremities: edema Decubiti: location, stage Micro: Microbiology Date/Time Source Procedure Growth Status 11/17/17 19:30 Sputum Induced Gram Stain - Final Resulted 11/17/17 19:30 Sputum Culture - Preliminary Pseudomonas Aeruginosa Usual Respiratory Rebeca Resulted 11/17/17 19:30 Nasopharynx Influenza Types A,B Antigen (RADHA) - Final Complete 11/17/17 19:20 Urine,Clean Catch Urine Culture - Final Mixed Gram Positive Organism Complete Critical Care - Subjective ICU Day: 12 Condition: critical EKG Rhythm: Sinus Rhythm FI02: 35 Vent Support Breath Rate: 12 Vent Support Mode: AC Vent Tidal Volume: 300 Sputum Amount: Small PEEP: 5.0 PIP: 20 Tube Feeding Amount: 0 I&O: Intake and Output 11/19/17 11/20/17 19:00 07:00 Intake Total 885.000 ml 350 ml Output Total 295 ml 850 ml Balance 590.000 ml -500 ml Intake Free Water 130 ml 50 ml IV Total 305.000 ml 110 ml Tube Feeding 420 ml 140 ml Other 30 ml 50 ml Output Urine Total 295 ml 850 ml CXR: worse edema, infiltrate ET-Tube: 6.0 ET Position: 20 Labs: Laboratory Tests Test 11/20/17 05:35 11/20/17 09:20 11/20/17 10:50 White Blood Count 14.2 K/UL (4.8-10.8) H Pending Red Blood Count 2.77 M/UL (4.20-5.40) L Pending Hemoglobin 7.4 G/DL (12.0-16.0) L Pending Hematocrit 23.0 % (37.0-47.0) L Pending Mean Corpuscular Volume 83 FL (80-99) Pending Mean Corpuscular Hemoglobin 26.8 PG (27.0-31.0) L Pending Mean Corpuscular Hemoglobin Concent 32.3 G/DL (32.0-36.0) Pending Red Cell Distribution Width 11.6 % (11.6-14.8) Pending Platelet Count 300 K/UL (150-450) Pending Mean Platelet Volume 6.7 FL (6.5-10.1) Pending Neutrophils (%) (Auto) % (45.0-75.0) Pending Lymphocytes (%) (Auto) % (20.0-45.0) Pending Monocytes (%) (Auto) % (1.0-10.0) Pending Eosinophils (%) (Auto) % (0.0-3.0) Pending Basophils (%) (Auto) % (0.0-2.0) Pending Differential Total Cells Counted 100 Neutrophils % (Manual) 90 % (45-75) H Lymphocytes % (Manual) 4 % (20-45) L Monocytes % (Manual) 6 % (1-10) Eosinophils % (Manual) 0 % (0-3) Basophils % (Manual) 0 % (0-2) Band Neutrophils 0 % (0-8) Platelet Estimate Adequate Platelet Morphology Normal Hypochromasia 3+ Anisocytosis 1+ Spherocytes 1+ Prothrombin Time 11.5 SEC (9.30-11.50) Prothromb Time International Ratio 1.1 (0.9-1.1) Activated Partial Thromboplast Time 38 SEC (23-33) H Sodium Level 136 MMOL/L (136-145) Potassium Level 3.8 MMOL/L (3.5-5.1) Chloride Level 96 MMOL/L (98-107) L Carbon Dioxide Level 35 MMOL/L (21-32) H Anion Gap 6 mmol/L (5-15) Blood Urea Nitrogen 21 mg/dL (7-18) H Creatinine 0.6 MG/DL (0.55-1.30) Estimat Glomerular Filtration Rate mL/min (>60) Glucose Level 114 MG/DL (74-106) H Calcium Level 8.3 MG/DL (8.5-10.1) L Phosphorus Level 2.8 MG/DL (2.5-4.9) Magnesium Level 1.9 MG/DL (1.8-2.4) Total Bilirubin 0.5 MG/DL (0.2-1.0) Aspartate Amino Transf (AST/SGOT) 42 U/L (15-37) H Alanine Aminotransferase (ALT/SGPT) 45 U/L (12-78) Alkaline Phosphatase 91 U/L (46-116) Total Protein 6.2 G/DL (6.4-8.2) L Albumin 2.1 G/DL (3.4-5.0) L Globulin 4.1 g/dL Albumin/Globulin Ratio 0.5 (1.0-2.7) L Arterial Blood pH 7.501 (7.350-7.450) Arterial Blood Partial Pressure CO2 47.7 mmHg (35.0-45.0) H Arterial Blood Partial Pressure O2 74.4 mmHg (75.0-100.0) L Arterial Blood HCO3 36.4 mmol/L (22.0-26.0) H Arterial Blood Oxygen Saturation 94.1 % (92.0-98.0) Arterial Blood Base Excess 12.1 Rafy Test Positive DIANA AGGARWAL Nov 20, 2017 11:11
[2017-11-20 11:16] LABS: HEMOGLOBIN 6.7 G/DL (12.0-16.0)
[2017-11-20] MEDS ORDERED: Lidocaine 1% MPF 10mg/ml 5ml ONE (11:30)
[2017-11-20] MEDS ORDERED: Propofol 200mg/20ml IV ONE (11:30)
[2017-11-20] MEDS ORDERED: Lidocaine 1% MPF 10mg/ml 5ml INJ ONE (11:45)
[2017-11-20] MEDS ORDERED: NS 500ML IV ONE (11:45)
--- NOTE | 2017-11-20 12:33 | Immediate Post-Op Evaluation ---
Immediate Post-Op Evalulation Immediate Post-Op Evalulation Procedure: egd/peg Date of Evaluation: Nov 20, 2017 Time of Evaluation: 12:27 IV Fluids: 30ml 0.9ns Blood Products: none Estimated Blood Loss: negligible Blood Pressure Systolic: 106 Blood Pressure Diastolic: 53 Pulse Rate: 98 Respiratory Rate: 24 O2 Sat by Pulse Oximetry: 100 Pain Score (1-10): 0 Nausea: No Vomiting: No Complications none Patient Status: reacts, patent, ventilated Hydration Status: adequate Drug: see MAR Given Within 1 Hr of Incision: Yes JAIR ARAUZ Nov 20, 2017 12:33
--- NOTE | 2017-11-20 12:34 | 48 Hour Post Anesthesia Eval ---
Post Anesthesia Evaluation Procedure: egd/peg Date of Evaluation: Nov 20, 2017 Time of Evaluation: 12:33 Blood Pressure Systolic: 93 0: 52 Pulse Rate: 89 Respiratory Rate: 22 O2 Sat by Pulse Oximetry: 100 Airway: patent, other - tracheostomy Nausea: No Vomiting: No Pain Intensity: 0 Hydration Status: adequate Cardiopulmonary Status: stable Mental Status/LOC: patient returned to baseline Post-Anesthesia Complications: none Follow-up care needed: N/A JAIR ARAUZ Nov 20, 2017 12:34
[2017-11-20] MEDS ORDERED: fentaNYL 100 mcg/2 mL IV PRN (12:45)
[2017-11-20] MEDS ORDERED: Midazolam 2mg/2ml Inj IVP PRN (12:45)
[2017-11-20] MEDS ORDERED: Atropine Inj 1mg/10ml Syr IV PRN (12:45)
[2017-11-20] MEDS ORDERED: D5 1/2NS 1,000 ML IV SCH (12:45)
[2017-11-20] MEDS ORDERED: DiphenhydrAMINE 50mg/ml Inj IVP PRN (12:45)
--- NOTE | 2017-11-20 14:00 | General Progress Note ---
Progress Note Progress Note Surgery: doing well. had PEG today without issues. trach in place and functional. on vent support. H/H drop. mild bloody tinged sputum with suctioning. no bleeding around trach site. unlikely bleeding in trachea given cxr findings. -trach care and management -wean vent as tolerated Andrew Krause Nov 20, 2017 14:00
--- NOTE | 2017-11-20 14:35 | Infectious Diseases Prog Note ---
Assessment/Plan Assessment/Plan ASSESSMENT: The patient is a 77-year-old female, w Leukocytosis improving Fever, post op low grade Probable ventilator-associated pneumonia. Scx : PSA influenza :neg Diarrhea , SP at the time of admission Chest x-ray, bilateral diffuse interstitial opacity Uxc : mixed growth PEG 11/20 TRACH 11/18 Hypertension Anemia PLAN: continue the patient on Azactam and vancomycin day # 5 / 7 -10 Monitor CBC Monitor BMP, FLT Monitor cultures, blood, urine, and sputum Monitor chest x-ray PRBC Tx Subjective Constitutional: Denies: no symptoms, fever, chills, fatigue, anorexia, drenching sweats, other Allergies: Coded Allergies: PENICILLINS (Verified Allergy, Mild, Rash, 06/30/14) Subjective Sp PEG , on vent low grade fever Objective Vital Signs Last 24 Hour Vital Signs Date Time Temp Pulse Resp B/P (MAP) Pulse Ox O2 Delivery O2 Flow Rate FiO2 11/20/17 14:00 87 33 105/64 100 Mechanical Ventilator 35 11/20/17 13:00 90 24 85/48 100 Mechanical Ventilator 35 11/20/17 12:58 90 25 35 11/20/17 12:34 89 22 100 11/20/17 12:33 98 24 100 11/20/17 12:00 98.1 93 26 106/53 100 Mechanical Ventilator 35 98.1 11/20/17 12:00 35 11/20/17 12:00 77 11/20/17 11:00 116 32 114/60 100 Mechanical Ventilator 35 11/20/17 10:56 103 27 35 11/20/17 10:37 100.9 11/20/17 10:07 100.9 11/20/17 09:59 138 146/71 11/20/17 09:00 132 34 146/71 100 Mechanical Ventilator 35 11/20/17 08:38 124 36 35 11/20/17 08:00 100.3 125 32 148/75 95 Mechanical Ventilator 35 100.3 11/20/17 08:00 35 11/20/17 08:00 135 11/20/17 07:00 130 18 148/72 95 Mechanical Ventilator 35 11/20/17 06:58 120 12 98 Mechanical Ventilator 35 11/20/17 06:48 119 24 93 Mechanical Ventilator 35 11/20/17 06:48 119 24 35 11/20/17 06:00 116 18 136/62 99 Mechanical Ventilator 35 11/20/17 05:40 98.5 11/20/17 05:00 116 35 140/107 99 Mechanical Ventilator 35 11/20/17 04:58 120 25 35 11/20/17 04:52 98.5 11/20/17 04:38 145 184/97 11/20/17 04:00 124 11/20/17 04:00 35 11/20/17 04:00 98.0 142 27 171/88 94 Mechanical Ventilator 35 98.0 11/20/17 03:23 124 26 35 11/20/17 03:00 124 27 143/73 94 Mechanical Ventilator 35 11/20/17 02:00 123 27 143/73 99 Mechanical Ventilator 35 11/20/17 01:00 125 25 143/70 99 Mechanical Ventilator 35 11/20/17 00:47 124 26 35 11/20/17 00:00 35 11/20/17 00:00 98.3 121 26 138/67 100 Mechanical Ventilator 35 98.3 11/20/17 00:00 114 11/19/17 23:00 113 25 118/57 99 Mechanical Ventilator 35 11/19/17 22:54 113 25 35 11/19/17 22:00 109 24 107/59 98 Mechanical Ventilator 35 11/19/17 21:19 120 121/64 11/19/17 21:00 119 25 121/64 97 Mechanical Ventilator 35 11/19/17 20:53 120 26 35 11/19/17 20:00 35 11/19/17 20:00 98.0 119 27 163/74 95 Mechanical Ventilator 35 98.0 11/19/17 20:00 116 11/19/17 19:15 106 20 98 Mechanical Ventilator 35 11/19/17 19:05 110 23 96 Mechanical Ventilator 35 11/19/17 19:02 114 22 35 11/19/17 19:00 110 12 116/66 100 Mechanical Ventilator 35 11/19/17 18:59 110 24 35 11/19/17 18:00 109 24 142/125 96 Mechanical Ventilator 35 11/19/17 17:00 110 24 98/49 95 Mechanical Ventilator 35 11/19/17 16:55 109 25 35 11/19/17 16:00 133 11/19/17 16:00 97.8 114 24 99/51 95 Mechanical Ventilator 35 97.8 11/19/17 16:00 35 11/19/17 15:21 118 26 30 11/19/17 15:00 121 29 176/100 95 Mechanical Ventilator 30 Height (Feet): 4 Height (Inches): 10.00 Weight (Pounds): 60 HEENT: atraumatic Respiratory/Chest: no accessory muscle use Cardiovascular: regular rhythm Abdomen: non distended Microbiology Date/Time Source Procedure Growth Status 11/17/17 19:30 Sputum Induced Gram Stain - Final Resulted 11/17/17 19:30 Sputum Culture - Preliminary Pseudomonas Aeruginosa Usual Respiratory Rebeca Resulted 11/17/17 19:30 Nasopharynx Influenza Types A,B Antigen (RADHA) - Final Complete 11/17/17 19:20 Urine,Clean Catch Urine Culture - Final Mixed Gram Positive Organism Complete Laboratory Tests Test 11/20/17 05:35 11/20/17 09:20 11/20/17 10:50 White Blood Count 14.2 K/UL (4.8-10.8) H 12.6 K/UL (4.8-10.8) H Red Blood Count 2.77 M/UL (4.20-5.40) L 2.52 M/UL (4.20-5.40) L Hemoglobin 7.4 G/DL (12.0-16.0) L 6.7 G/DL (12.0-16.0) *L Hematocrit 23.0 % (37.0-47.0) L 21.0 % (37.0-47.0) L Mean Corpuscular Volume 83 FL (80-99) 83 FL (80-99) Mean Corpuscular Hemoglobin 26.8 PG (27.0-31.0) L 26.7 PG (27.0-31.0) L Mean Corpuscular Hemoglobin Concent 32.3 G/DL (32.0-36.0) 32.1 G/DL (32.0-36.0) Red Cell Distribution Width 11.6 % (11.6-14.8) 11.7 % (11.6-14.8) Platelet Count 300 K/UL (150-450) 276 K/UL (150-450) Mean Platelet Volume 6.7 FL (6.5-10.1) 6.5 FL (6.5-10.1) Neutrophils (%) (Auto) % (45.0-75.0) % (45.0-75.0) Lymphocytes (%) (Auto) % (20.0-45.0) % (20.0-45.0) Monocytes (%) (Auto) % (1.0-10.0) % (1.0-10.0) Eosinophils (%) (Auto) % (0.0-3.0) % (0.0-3.0) Basophils (%) (Auto) % (0.0-2.0) % (0.0-2.0) Differential Total Cells Counted 100 100 Neutrophils % (Manual) 90 % (45-75) H 89 % (45-75) H Lymphocytes % (Manual) 4 % (20-45) L 7 % (20-45) L Monocytes % (Manual) 6 % (1-10) 4 % (1-10) Eosinophils % (Manual) 0 % (0-3) 0 % (0-3) Basophils % (Manual) 0 % (0-2) 0 % (0-2) Band Neutrophils 0 % (0-8) 0 % (0-8) Platelet Estimate Adequate Adequate Platelet Morphology Normal Normal Hypochromasia 3+ 4+ Anisocytosis 1+ 1+ Spherocytes 1+ 2+ Prothrombin Time 11.5 SEC (9.30-11.50) Prothromb Time International Ratio 1.1 (0.9-1.1) Activated Partial Thromboplast Time 38 SEC (23-33) H Sodium Level 136 MMOL/L (136-145) Potassium Level 3.8 MMOL/L (3.5-5.1) Chloride Level 96 MMOL/L (98-107) L Carbon Dioxide Level 35 MMOL/L (21-32) H Anion Gap 6 mmol/L (5-15) Blood Urea Nitrogen 21 mg/dL (7-18) H Creatinine 0.6 MG/DL (0.55-1.30) Estimat Glomerular Filtration Rate mL/min (>60) Glucose Level 114 MG/DL (74-106) H Calcium Level 8.3 MG/DL (8.5-10.1) L Phosphorus Level 2.8 MG/DL (2.5-4.9) Magnesium Level 1.9 MG/DL (1.8-2.4) Total Bilirubin 0.5 MG/DL (0.2-1.0) Aspartate Amino Transf (AST/SGOT) 42 U/L (15-37) H Alanine Aminotransferase (ALT/SGPT) 45 U/L (12-78) Alkaline Phosphatase 91 U/L (46-116) Total Protein 6.2 G/DL (6.4-8.2) L Albumin 2.1 G/DL (3.4-5.0) L Globulin 4.1 g/dL Albumin/Globulin Ratio 0.5 (1.0-2.7) L Triglycerides Level 45 MG/DL (30-150) Arterial Blood pH 7.501 (7.350-7.450) Arterial Blood Partial Pressure CO2 47.7 mmHg (35.0-45.0) H Arterial Blood Partial Pressure O2 74.4 mmHg (75.0-100.0) L Arterial Blood HCO3 36.4 mmol/L (22.0-26.0) H Arterial Blood Oxygen Saturation 94.1 % (92.0-98.0) Arterial Blood Base Excess 12.1 Rafy Test Positive Current Medications Medications (Trade) Dose Ordered Sig/Puja Route PRN Reason Start Time Stop Time Status Last Admin Dose Admin Acetaminophen (Tylenol) 650 mg Q4H PRN NG T>100.5 11/14/17 19:45 12/14/17 19:44 11/20/17 10:07 Al Hydroxide/Mg Hydroxide (Mylanta) 15 ml Q1H PRN ORAL gi upset 11/20/17 12:45 11/20/17 18:00 Albuterol/ Ipratropium (Albuterol/ Ipratropium) 3 ml Q4HRT PRN HHN Shortness of Breath 11/16/17 09:45 11/21/17 09:44 Atropine Sulfate (Atropine) 0.5 mg Q5M PRN IV bpm less than 45 11/20/17 12:45 11/20/17 18:00 Aztreonam 0.5 gm/ Sodium Chloride 55 ml @ 110 mls/hr Q8H IVPB 11/16/17 21:00 11/23/17 23:59 11/20/17 14:03 Dextrose (Dextrose 50%) STAT PRN IV Hypoglycemia 11/08/17 14:30 12/08/17 14:29 Dextrose/Sodium Chloride 1,000 ml @ 60 mls/hr [id number] IV 11/20/17 12:45 12/20/17 12:44 11/20/17 12:30 Diphenhydramine HCl (Benadryl) 25 mg Q15M PRN IVP Itching 11/20/17 12:45 11/20/17 18:00 Fentanyl Citrate (Sublimaze 100 mcg/2 mL) 25 mcg Q10M PRN IV Moderate Pain (Pain Scale 4-6) 11/20/17 12:45 11/20/17 18:00 Heparin Sodium (Porcine) (Heparin 5000 units/ml) 5,000 units EVERY 12 HOURS SUBQ 11/08/17 21:00 12/08/17 20:59 11/19/17 08:37 Hydralazine HCl (Apresoline) 5 mg Q30M PRN IV SBP>160 /DBP>90 11/20/17 12:45 11/20/17 18:00 Levalbuterol HCl (Xopenex) 1.25 mg Q6HRT HHN 11/20/17 19:00 11/25/17 18:59 Lorazepam (Ativan 2mg/ml 1ml) 2 mg Q4H PRN IV For Anxiety 11/14/17 12:30 11/21/17 12:29 11/20/17 09:59 Metoprolol Tartrate (Lopressor) 5 mg Q6H PRN IVP HR>130 11/11/17 19:00 12/11/17 18:59 11/20/17 04:38 Metoprolol Tartrate (Lopressor) 50 mg Q12HR NG 11/16/17 21:00 12/16/17 20:59 11/20/17 09:59 Midazolam HCl (Versed 2mg/2ml vial) 1 mg Q15M PRN IVP For Anxiety 11/20/17 12:45 11/20/17 18:00 Morphine Sulfate (Morphine Sulfate) 2 mg Q4H PRN IVP Moderate Pain (Pain Scale 4-6) 11/17/17 10:30 11/24/17 23:59 11/20/17 04:52 Ondansetron HCl (Zofran) 4 mg Q1H PRN IVP Nausea & Vomiting 11/20/17 12:45 11/20/17 18:00 Ondansetron HCl (Zofran) 4 mg Q6H PRN IVP Nausea & Vomiting 11/08/17 14:30 12/08/17 14:29 Pantoprazole (Protonix) 40 mg DAILY IV 11/09/17 09:00 12/09/17 08:59 11/20/17 10:00 Polyethylene Glycol (Miralax) 17 gm DAILYPRN PRN ORAL Constipation 11/08/17 14:30 12/08/17 14:29 11/13/17 15:18 Sodium Chloride 1,000 ml @ 10 mls/hr Q24H IVLG 11/20/17 12:43 11/20/17 14:42 Vancomycin HCl (Vanco rx to dose) 1 ea DAILY PRN MISC Per rx protocol 11/16/17 11:30 12/16/17 11:29 Vancomycin/Sodium Chloride 250 ml @ 166.667 mls/hr Q24H IVPB 11/19/17 09:00 11/24/17 08:59 11/20/17 09:59 KUSH ESPINO M.D. Nov 20, 2017 14:34
--- NOTE | 2017-11-20 20:45 | Cardiology Progress Note ---
Assessment/Plan Assessment/Plan 1. Respiratory failure. 2. Hypertension history. 3. Diarrhea at the time of admission. 4. Cachexia. 5. sinus tachy 6. nsvt 7. fever 8. hyptesnion 9. Eccentric mitral regurgitation 10. chf on bb via ng with prn iv if needed increase agitation causes her to have more tachy more images on tanja echo were performed yest and she indeed does have eccentric MR bp is fine s/p trach adn peg tele sinus cxr bilateral infiltrate seem worse diuretic to resume heplock iv got prbc 1 unit today Subjective ROS Limited/Unobtainable: Yes [facility]ive [facility] Objective Last 24 Hour Vital Signs Date Time Temp Pulse Resp B/P (MAP) Pulse Ox O2 Delivery O2 Flow Rate FiO2 11/20/17 19:12 104 32 98 Mechanical Ventilator 35 11/20/17 19:09 104 32 35 11/20/17 19:00 104 32 135/67 100 Mechanical Ventilator 35 11/20/17 18:00 107 29 150/90 100 Mechanical Ventilator 35 11/20/17 17:30 109 33 35 11/20/17 17:00 107 29 139/80 100 Mechanical Ventilator 35 11/20/17 16:51 98.2 11/20/17 16:21 100.7 11/20/17 16:15 138 186/86 11/20/17 16:00 138 11/20/17 16:00 35 11/20/17 16:00 98.2 113 29 160/98 100 Mechanical Ventilator 35 98.2 11/20/17 15:02 100 30 35 11/20/17 15:00 105 24 130/79 100 Mechanical Ventilator 35 11/20/17 14:00 87 33 105/64 100 Mechanical Ventilator 35 11/20/17 13:00 Mechanical Ventilator 35 11/20/17 13:00 90 24 85/48 100 Mechanical Ventilator 35 11/20/17 13:00 Mechanical Ventilator 35 11/20/17 12:58 90 25 35 11/20/17 12:34 89 22 100 11/20/17 12:33 98 24 100 11/20/17 12:00 98.1 93 26 106/53 100 Mechanical Ventilator 35 98.1 11/20/17 12:00 35 11/20/17 12:00 77 11/20/17 11:00 116 32 114/60 100 Mechanical Ventilator 35 11/20/17 10:56 103 27 35 11/20/17 10:37 100.9 11/20/17 10:07 100.9 11/20/17 09:59 138 146/71 11/20/17 09:00 132 34 146/71 100 Mechanical Ventilator 35 11/20/17 08:38 124 36 35 11/20/17 08:00 100.3 125 32 148/75 95 Mechanical Ventilator 35 100.3 11/20/17 08:00 35 11/20/17 08:00 135 11/20/17 07:00 130 18 148/72 95 Mechanical Ventilator 35 11/20/17 06:58 120 12 98 Mechanical Ventilator 35 11/20/17 06:48 119 24 93 Mechanical Ventilator 35 11/20/17 06:48 119 24 35 11/20/17 06:00 116 18 136/62 99 Mechanical Ventilator 35 11/20/17 05:00 116 35 140/107 99 Mechanical Ventilator 35 11/20/17 04:58 120 25 35 11/20/17 04:52 98.5 11/20/17 04:38 145 184/97 11/20/17 04:00 124 11/20/17 04:00 35 11/20/17 04:00 98.0 142 27 171/88 94 Mechanical Ventilator 35 98.0 11/20/17 03:23 124 26 35 11/20/17 03:00 124 27 143/73 94 Mechanical Ventilator 35 11/20/17 02:00 123 27 143/73 99 Mechanical Ventilator 35 11/20/17 01:00 125 25 143/70 99 Mechanical Ventilator 35 11/20/17 00:47 124 26 35 11/20/17 00:00 35 11/20/17 00:00 98.3 121 26 138/67 100 Mechanical Ventilator 35 98.3 11/20/17 00:00 114 11/19/17 23:00 113 25 118/57 99 Mechanical Ventilator 35 11/19/17 22:54 113 25 35 11/19/17 22:00 109 24 107/59 98 Mechanical Ventilator 35 11/19/17 21:19 120 121/64 11/19/17 21:00 119 25 121/64 97 Mechanical Ventilator 35 11/19/17 20:53 120 26 35 General Appearance: no apparent distress, on vent, patient on isolation Neck: supple Cardiovascular: normal rate, systolic murmur, irregularly irregular Respiratory/Chest: crackles/rales Abdomen: normal bowel sounds, non tender, soft Extremities: no swelling Intake and Output 11/19/17 11/20/17 19:00 07:00 Intake Total 885.000 ml 350 ml Output Total 295 ml 850 ml Balance 590.000 ml -500 ml Intake Free Water 130 ml 50 ml IV Total 305.000 ml 110 ml Tube Feeding 420 ml 140 ml Other 30 ml 50 ml Output Urine Total 295 ml 850 ml Laboratory Tests Test 11/20/17 05:35 11/20/17 09:20 11/20/17 10:50 White Blood Count 14.2 K/UL (4.8-10.8) H 12.6 K/UL (4.8-10.8) H Red Blood Count 2.77 M/UL (4.20-5.40) L 2.52 M/UL (4.20-5.40) L Hemoglobin 7.4 G/DL (12.0-16.0) L 6.7 G/DL (12.0-16.0) *L Hematocrit 23.0 % (37.0-47.0) L 21.0 % (37.0-47.0) L Mean Corpuscular Volume 83 FL (80-99) 83 FL (80-99) Mean Corpuscular Hemoglobin 26.8 PG (27.0-31.0) L 26.7 PG (27.0-31.0) L Mean Corpuscular Hemoglobin Concent 32.3 G/DL (32.0-36.0) 32.1 G/DL (32.0-36.0) Red Cell Distribution Width 11.6 % (11.6-14.8) 11.7 % (11.6-14.8) Platelet Count 300 K/UL (150-450) 276 K/UL (150-450) Mean Platelet Volume 6.7 FL (6.5-10.1) 6.5 FL (6.5-10.1) Neutrophils (%) (Auto) % (45.0-75.0) % (45.0-75.0) Lymphocytes (%) (Auto) % (20.0-45.0) % (20.0-45.0) Monocytes (%) (Auto) % (1.0-10.0) % (1.0-10.0) Eosinophils (%) (Auto) % (0.0-3.0) % (0.0-3.0) Basophils (%) (Auto) % (0.0-2.0) % (0.0-2.0) Differential Total Cells Counted 100 100 Neutrophils % (Manual) 90 % (45-75) H 89 % (45-75) H Lymphocytes % (Manual) 4 % (20-45) L 7 % (20-45) L Monocytes % (Manual) 6 % (1-10) 4 % (1-10) Eosinophils % (Manual) 0 % (0-3) 0 % (0-3) Basophils % (Manual) 0 % (0-2) 0 % (0-2) Band Neutrophils 0 % (0-8) 0 % (0-8) Platelet Estimate Adequate Adequate Platelet Morphology Normal Normal Hypochromasia 3+ 4+ Anisocytosis 1+ 1+ Spherocytes 1+ 2+ Prothrombin Time 11.5 SEC (9.30-11.50) Prothromb Time International Ratio 1.1 (0.9-1.1) Activated Partial Thromboplast Time 38 SEC (23-33) H Sodium Level 136 MMOL/L (136-145) Potassium Level 3.8 MMOL/L (3.5-5.1) Chloride Level 96 MMOL/L (98-107) L Carbon Dioxide Level 35 MMOL/L (21-32) H Anion Gap 6 mmol/L (5-15) Blood Urea Nitrogen 21 mg/dL (7-18) H Creatinine 0.6 MG/DL (0.55-1.30) Estimat Glomerular Filtration Rate mL/min (>60) Glucose Level 114 MG/DL (74-106) H Calcium Level 8.3 MG/DL (8.5-10.1) L Phosphorus Level 2.8 MG/DL (2.5-4.9) Magnesium Level 1.9 MG/DL (1.8-2.4) Total Bilirubin 0.5 MG/DL (0.2-1.0) Aspartate Amino Transf (AST/SGOT) 42 U/L (15-37) H Alanine Aminotransferase (ALT/SGPT) 45 U/L (12-78) Alkaline Phosphatase 91 U/L (46-116) Total Protein 6.2 G/DL (6.4-8.2) L Albumin 2.1 G/DL (3.4-5.0) L Globulin 4.1 g/dL Albumin/Globulin Ratio 0.5 (1.0-2.7) L Triglycerides Level 45 MG/DL (30-150) Arterial Blood pH 7.501 (7.350-7.450) Arterial Blood Partial Pressure CO2 47.7 mmHg (35.0-45.0) H Arterial Blood Partial Pressure O2 74.4 mmHg (75.0-100.0) L Arterial Blood HCO3 36.4 mmol/L (22.0-26.0) H Arterial Blood Oxygen Saturation 94.1 % (92.0-98.0) Arterial Blood Base Excess 12.1 Rafy Test Positive NALINI GIBBONS Nov 20, 2017 20:45
[2017-11-21] VITALS (13 sets, daily range): BP systolic 103–188; BP diastolic 33–99
--- NOTE | 2017-11-21 00:16 | Operative Note - Dictated ---
DATE OF OPERATION: 11/20/2017 PROCEDURE: Upper gastrointestinal endoscopy with gastrostomy tube placement. SURGEON: Davey Mayer M.D. ANESTHESIA: Please see the separate anesthesiologist notes for details. PRE-ENDOSCOPIC DIAGNOSIS: Dysphagia. POST-ENDOSCOPIC DIAGNOSIS: Status post gastrostomy tube placement. DESCRIPTION OF PROCEDURE: The procedure, its risks, indications, alternatives, and possible complications including, but not limited to bleeding, infection, perforation, , and anesthesia complications were explained to the patient's family and informed consent was obtained. The patient was then sedated in the supine position. A diagnostic upper endoscope was introduced through the oropharynx and advanced to the duodenum without difficulty. The endoscope was then gradually withdrawn and the mucosa was examined carefully. Examination of the upper gastric mucosa revealed no significant abnormalities. The location for placement of gastrostomy tube was identified by palpation and transillumination techniques. The outside skin was sterilely prepared, anesthetized, incised, and the trocar needle was used to place the gastrostomy tube using the standard pull technique. The patient's gastrostomy position was verified endoscopically. The endoscope was removed. The patient was sent to recovery in good condition. COMPLICATIONS: None. RECOMMENDATIONS: 1. Observe overnight. 2. Begin tube feedings tomorrow. Davey Mayer M.D. DR: DELIA JOB#: [id number] CC:
[2017-11-21] MEDS: Levalbuterol Inh UD 1.25mg/0.5ml HHN SCH ×4 (00:48→19:16)
[2017-11-21] MEDS: Morphine Sulfate 4mg/ml Inj IVP PRN ×3 (03:47→21:18)
[2017-11-21] MEDS: Aztreonam Inj 0.5 GM in NS 55 ML IVPB SCH ×3 (05:04→20:19)
[2017-11-21] MEDS: Metoprolol 5mg/5ml Inj IVP PRN (05:11)
[2017-11-21 05:56] LABS: HEMOGLOBIN 9.8 G/DL (12.0-16.0); MEAN CORPUSCULAR VOLUME 83 FL (80-99); PLATELET COUNT 341 K/UL (150-450); RED BLOOD COUNT 3.62 M/UL (4.20-5.40); RED CELL DISTRIBUTION WIDTH 12.4 % (11.6-14.8); WHITE BLOOD COUNT 19.1 K/UL (4.8-10.8)
[2017-11-21 06:02] LABS: ALANINE AMINOTRANSFERASE 37 U/L (12-78); ALBUMIN 2.2 G/DL (3.4-5.0); ALBUMIN/GLOBULIN RATIO 0.5 (1.0-2.7); ALKALINE PHOSPHATASE 91 U/L (46-116); ANION GAP 7 mmol/L (5-15); ASPARTATE AMINO TRANSFERASE 38 U/L (15-37); BLOOD UREA NITROGEN 20 mg/dL (7-18); CALCIUM 8.5 MG/DL (8.5-10.1); CARBON DIOXIDE 32 MMOL/L (21-32); CHLORIDE 96 MMOL/L (98-107); CREATININE 0.7 MG/DL (0.55-1.30); POTASSIUM 3.3 MMOL/L (3.5-5.1); SODIUM 135 MMOL/L (136-145)
--- NOTE | 2017-11-21 08:33 | Diagnostic Imaging Report ---
Indication: Dyspnea Technique: One view of the chest Comparison: 11/20/2017 Findings: Interim nasogastric tube removal. Stable satisfactory appearance of tracheostomy. Bilateral interstitial and airspace opacities persist, unchanged Impression: Unchanged, over one day, findings as above.
[2017-11-21] MEDS: LORazepam Inj 2mg/ml 1ml IV PRN (08:43)
[2017-11-21] MEDS: Metoprolol Tartrate 50mg tab NG SCH ×2 (08:43→20:20)
[2017-11-21] MEDS: Pantoprazole Inj IV SCH (08:44)
[2017-11-21] MEDS: Heparin 5000 units/ml inj SUBQ SCH (08:46)
[2017-11-21] MEDS ORDERED: Miralax 17gm pkt ORAL PRN (10:30)
[2017-11-21] MEDS ORDERED: Vancomycin 750mg/NS 250ml 250 ML IVPB ONE (10:30)
--- NOTE | 2017-11-21 10:50 | Pulmonolgy Critical Care Note ---
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 (4) Protein-calorie malnutrition, severe Assessment/Plan: pt getting PEG today Respiratory: monitor respiratory rate, adjust FIO2, CXR Cardiac: continue to monitor HR/BP Renal: F/U I&O, keep IV fluid, increase IV fluid, check electrolytes - k supplement Infectious Disease: check cultures Gastrointestinal: continue feedings/current rate, adjust feedings Endocrine: monitor blood sugar, check HgA1C, continue sliding scale insulin Hematologic: monitor H/H, transfuse if hgb<8.5 Neurologic: PRN Ativan, keep patient comfortable Affect: PRN ativan Prophylaxis: Protonix Disposition: keep in ICU Notes Reviewed: sticker on, cardio Critical Care - Objective Last 24 Hour Vital Signs Date Time Temp Pulse Resp B/P (MAP) Pulse Ox O2 Delivery O2 Flow Rate FiO2 11/21/17 09:29 94 34 35 11/21/17 08:44 99.8 11/21/17 08:43 139 151/69 11/21/17 08:00 98.0 110 27 153/80 95 Mechanical Ventilator 35 98.0 11/21/17 07:45 122 11/21/17 07:03 95 33 35 11/21/17 07:00 104 24 127/64 98 Mechanical Ventilator 35 11/21/17 06:58 96 30 100 Mechanical Ventilator 35 11/21/17 06:48 94 34 94 Mechanical Ventilator 35 11/21/17 06:00 99 20 110/58 98 Mechanical Ventilator 35 11/21/17 05:24 100 32 35 11/21/17 05:11 135 188/86 11/21/17 05:03 99.2 11/21/17 05:00 118 29 188/86 98 Mechanical Ventilator 35 11/21/17 04:00 97.5 113 29 152/79 96 Mechanical Ventilator 35 97.5 11/21/17 04:00 114 11/21/17 04:00 35 11/21/17 03:47 99.2 11/21/17 03:29 114 41 35 11/21/17 03:00 115 33 146/90 95 Mechanical Ventilator 35 11/21/17 02:00 109 33 119/69 97 Mechanical Ventilator 35 11/21/17 01:00 100 32 112/64 96 Mechanical Ventilator 35 11/21/17 01:00 82 12 100 Mechanical Ventilator 35 11/21/17 00:46 84 23 100 Mechanical Ventilator 35 11/21/17 00:45 84 23 35 11/21/17 00:00 88 11/21/17 00:00 99.2 83 24 103/33 100 Mechanical Ventilator 35 99.2 11/20/17 23:20 84 25 35 11/20/17 23:00 80 27 111/56 99 Mechanical Ventilator 35 11/20/17 22:00 97 32 102/48 99 Mechanical Ventilator 35 11/20/17 21:43 99.1 11/20/17 21:17 123 42 35 11/20/17 21:09 100.4 11/20/17 21:05 118 142/73 11/20/17 21:00 99.4 120 36 139/69 98 Mechanical Ventilator 35 99.4 11/20/17 20:00 35 11/20/17 20:00 108 11/20/17 20:00 100.3 119 35 142/73 95 Mechanical Ventilator 35 100.3 11/20/17 19:12 104 32 98 Mechanical Ventilator 35 11/20/17 19:09 104 32 35 11/20/17 19:00 104 32 135/67 100 Mechanical Ventilator 35 11/20/17 18:00 107 29 150/90 100 Mechanical Ventilator 35 11/20/17 17:30 109 33 35 11/20/17 17:00 107 29 139/80 100 Mechanical Ventilator 35 11/20/17 16:21 100.7 11/20/17 16:15 138 186/86 11/20/17 16:00 138 11/20/17 16:00 35 11/20/17 16:00 98.2 113 29 160/98 100 Mechanical Ventilator 35 98.2 11/20/17 15:02 100 30 35 11/20/17 15:00 105 24 130/79 100 Mechanical Ventilator 35 11/20/17 14:00 87 33 105/64 100 Mechanical Ventilator 35 11/20/17 13:00 Mechanical Ventilator 35 11/20/17 13:00 90 24 85/48 100 Mechanical Ventilator 35 11/20/17 13:00 Mechanical Ventilator 35 18 12:58 90 25 35 11/20/17 12:34 89 22 100 11/20/17 12:33 98 24 100 11/20/17 12:00 98.1 93 26 106/53 100 Mechanical Ventilator 35 98.1 11/20/17 12:00 35 11/20/17 12:00 77 11/20/17 11:00 116 32 114/60 100 Mechanical Ventilator 35 11/20/17 10:56 103 27 35 Status: awake Condition: critical HEENT: atraumatic Neck: full ROM Lungs: chest wall tender Heart: HR/BP stable, HR/BP unstable Abdomen: soft, non-tender, feeding tube Extremities: no C/C/E Critical Care - Subjective ROS Limited/Unobtainable: Yes Condition: critical EKG Rhythm: Sinus Rhythm FI02: 35 Vent Support Breath Rate: 12 Vent Support Mode: AC Vent Tidal Volume: 300 Sputum Amount: Moderate PEEP: 5.0 PIP: 30 Tube Feeding Amount: 0 I&O: Intake and Output 11/20/17 11/21/17 19:00 07:00 Intake Total 778.334 ml 115 ml Output Total 365 ml 780 ml Balance 413.334 ml -665 ml IV Total 778.334 ml 115 ml Tube Feeding 0 ml 0 ml Output Urine Total 365 ml 780 ml # Bowel Movements 1 3 CXR: extensive infiltrate ET-Tube: 6.0 ET Position: 20 Labs: Laboratory Tests Test 11/20/17 10:50 11/21/17 05:15 11/21/17 08:00 11/21/17 09:15 White Blood Count 12.6 K/UL (4.8-10.8) H 19.1 K/UL (4.8-10.8) #H Red Blood Count 2.52 M/UL (4.20-5.40) L 3.62 M/UL (4.20-5.40) L Hemoglobin 6.7 G/DL (12.0-16.0) *L 9.8 G/DL (12.0-16.0) #L Hematocrit 21.0 % (37.0-47.0) L 30.0 % (37.0-47.0) #L Mean Corpuscular Volume 83 FL (80-99) 83 FL (80-99) Mean Corpuscular Hemoglobin 26.7 PG (27.0-31.0) L 27.1 PG (27.0-31.0) Mean Corpuscular Hemoglobin Concent 32.1 G/DL (32.0-36.0) 32.7 G/DL (32.0-36.0) Red Cell Distribution Width 11.7 % (11.6-14.8) 12.4 % (11.6-14.8) Platelet Count 276 K/UL (150-450) 341 K/UL (150-450) Mean Platelet Volume 6.5 FL (6.5-10.1) 6.9 FL (6.5-10.1) Neutrophils (%) (Auto) % (45.0-75.0) % (45.0-75.0) Lymphocytes (%) (Auto) % (20.0-45.0) % (20.0-45.0) Monocytes (%) (Auto) % (1.0-10.0) % (1.0-10.0) Eosinophils (%) (Auto) % (0.0-3.0) % (0.0-3.0) Basophils (%) (Auto) % (0.0-2.0) % (0.0-2.0) Differential Total Cells Counted 100 100 Neutrophils % (Manual) 89 % (45-75) H 89 % (45-75) H Lymphocytes % (Manual) 7 % (20-45) L 8 % (20-45) L Monocytes % (Manual) 4 % (1-10) 3 % (1-10) Eosinophils % (Manual) 0 % (0-3) 0 % (0-3) Basophils % (Manual) 0 % (0-2) 0 % (0-2) Band Neutrophils 0 % (0-8) 0 % (0-8) Platelet Estimate Adequate Adequate Platelet Morphology Normal Normal Hypochromasia 4+ 2+ Anisocytosis 1+ 1+ Spherocytes 2+ 1+ Polychromasia 1+ Poikilocytosis 1+ Sodium Level 135 MMOL/L (136-145) L Potassium Level 3.3 MMOL/L (3.5-5.1) L Chloride Level 96 MMOL/L (98-107) L Carbon Dioxide Level 32 MMOL/L (21-32) Anion Gap 7 mmol/L (5-15) Blood Urea Nitrogen 20 mg/dL (7-18) H Creatinine 0.7 MG/DL (0.55-1.30) Estimat Glomerular Filtration Rate mL/min (>60) Glucose Level 116 MG/DL (74-106) H Calcium Level 8.5 MG/DL (8.5-10.1) Phosphorus Level 3.0 MG/DL (2.5-4.9) Magnesium Level 2.1 MG/DL (1.8-2.4) Total Bilirubin 1.0 MG/DL (0.2-1.0) Aspartate Amino Transf (AST/SGOT) 38 U/L (15-37) H Alanine Aminotransferase (ALT/SGPT) 37 U/L (12-78) Alkaline Phosphatase 91 U/L (46-116) Total Protein 7.0 G/DL (6.4-8.2) Albumin 2.2 G/DL (3.4-5.0) L Globulin 4.8 g/dL Albumin/Globulin Ratio 0.5 (1.0-2.7) L Vancomycin Level Trough 7.0 ug/mL (5.0-12.0) Arterial Blood pH 7.420 (7.350-7.450) Arterial Blood Partial Pressure CO2 56.5 mmHg (35.0-45.0) *H Arterial Blood Partial Pressure O2 61.0 mmHg (75.0-100.0) L Arterial Blood HCO3 36.2 mmol/L (22.0-26.0) H Arterial Blood Oxygen Saturation 90.2 % (92.0-98.0) L Arterial Blood Base Excess 10.4 Rafy Test Positive DIANA AGGARWAL Nov 21, 2017 10:50
[2017-11-21] MEDS ORDERED: Metoprolol 5mg/5ml Inj IVP PRN (11:00)
--- NOTE | 2017-11-21 12:28 | Infectious Diseases Prog Note ---
Assessment/Plan Assessment/Plan ASSESSMENT: The patient is a 77-year-old female, w Leukocytosis worsen ( post PEG ) Fever, post op low grade Probable ventilator-associated pneumonia. Scx : PSA influenza :neg Diarrhea , SP at the time of admission Chest x-ray, bilateral diffuse interstitial opacity Uxc : mixed growth PEG 11/20 TRACH 11/18 Hypertension Anemia PLAN: continue the patient on Azactam day # 6 / and vancomycin day # 6 / 7 ( may add levquin if WBC worsen ) Monitor CBC Monitor BMP, LFT Monitor cultures, blood, urine, and sputum Monitor chest x-ray PRBC Tx Subjective Allergies: Coded Allergies: PENICILLINS (Verified Allergy, Mild, Rash, 06/30/14) Subjective Sp PEG , low grade fever on vent transferred out of ICU Objective Vital Signs Last 24 Hour Vital Signs Date Time Temp Pulse Resp B/P (MAP) Pulse Ox O2 Delivery O2 Flow Rate FiO2 11/21/17 10:51 72 31 35 11/21/17 09:29 94 34 35 11/21/17 08:44 99.8 11/21/17 08:43 139 151/69 11/21/17 08:00 98.0 110 27 153/80 95 Mechanical Ventilator 35 98.0 11/21/17 07:45 122 11/21/17 07:03 95 33 35 11/21/17 07:00 104 24 127/64 98 Mechanical Ventilator 35 11/21/17 06:58 96 30 100 Mechanical Ventilator 35 11/21/17 06:48 94 34 94 Mechanical Ventilator 35 11/21/17 06:00 99 20 110/58 98 Mechanical Ventilator 35 11/21/17 05:24 100 32 35 11/21/17 05:11 135 188/86 11/21/17 05:03 99.2 11/21/17 05:00 118 29 188/86 98 Mechanical Ventilator 35 11/21/17 04:00 97.5 113 29 152/79 96 Mechanical Ventilator 35 97.5 11/21/17 04:00 114 11/21/17 04:00 35 11/21/17 03:47 99.2 11/21/17 03:29 114 41 35 11/21/17 03:00 115 33 146/90 95 Mechanical Ventilator 35 11/21/17 02:00 109 33 119/69 97 Mechanical Ventilator 35 11/21/17 01:00 100 32 112/64 96 Mechanical Ventilator 35 11/21/17 01:00 82 12 100 Mechanical Ventilator 35 11/21/17 00:46 84 23 100 Mechanical Ventilator 35 11/21/17 00:45 84 23 35 11/21/17 00:00 88 18 00:00 99.2 83 24 103/33 100 Mechanical Ventilator 35 99.2 11/20/ 23:20 84 25 35 11/20/ 23:00 80 27 111/56 99 Mechanical Ventilator 35 11/20/17 22:00 97 32 102/48 99 Mechanical Ventilator 35 11/20/17 21:43 99.1 11/20/17 21:17 123 42 35 11/20/17 21:09 100.4 11/20/17 21:05 118 142/73 11/20/17 21:00 99.4 120 36 139/69 98 Mechanical Ventilator 35 99.4 11/20/17 20:00 35 11/20/17 20:00 108 11/20/17 20:00 100.3 119 35 142/73 95 Mechanical Ventilator 35 100.3 11/20/17 19:12 104 32 98 Mechanical Ventilator 35 11/20/17 19:09 104 32 35 11/20/17 19:00 104 32 135/67 100 Mechanical Ventilator 35 11/20/17 18:00 107 29 150/90 100 Mechanical Ventilator 35 11/20/17 17:30 109 33 35 11/20/ 17:00 107 29 139/80 100 Mechanical Ventilator 35 11/20/17 16:21 100.7 11/20/17 16:15 138 186/86 11/20/17 16:00 138 11/20/17 16:00 35 11/20/17 16:00 98.2 113 29 160/98 100 Mechanical Ventilator 35 98.2 11/20/17 15:02 100 30 35 11/20/18 15:00 105 24 130/79 100 Mechanical Ventilator 35 11/20/18 14:00 87 33 105/64 100 Mechanical Ventilator 35 11/20/17 13:00 Mechanical Ventilator 35 11/20/18 13:00 90 24 85/48 100 Mechanical Ventilator 35 11/20/18 13:00 Mechanical Ventilator 35 11/20/18 12:58 90 25 35 11/20/18 12:34 89 22 100 11/20/17 12:33 98 24 100 Height (Feet): 4 Height (Inches): 10.00 Weight (Pounds): 60 HEENT: anicteric Respiratory/Chest: no respiratory distress Cardiovascular: regularly irregular Abdomen: no organomegaly Laboratory Tests Test 11/21/17 05:15 11/21/17 08:00 11/21/17 09:15 White Blood Count 19.1 K/UL (4.8-10.8) #H Red Blood Count 3.62 M/UL (4.20-5.40) L Hemoglobin 9.8 G/DL (12.0-16.0) #L Hematocrit 30.0 % (37.0-47.0) #L Mean Corpuscular Volume 83 FL (80-99) Mean Corpuscular Hemoglobin 27.1 PG (27.0-31.0) Mean Corpuscular Hemoglobin Concent 32.7 G/DL (32.0-36.0) Red Cell Distribution Width 12.4 % (11.6-14.8) Platelet Count 341 K/UL (150-450) Mean Platelet Volume 6.9 FL (6.5-10.1) Neutrophils (%) (Auto) % (45.0-75.0) Lymphocytes (%) (Auto) % (20.0-45.0) Monocytes (%) (Auto) % (1.0-10.0) Eosinophils (%) (Auto) % (0.0-3.0) Basophils (%) (Auto) % (0.0-2.0) Differential Total Cells Counted 100 Neutrophils % (Manual) 89 % (45-75) H Lymphocytes % (Manual) 8 % (20-45) L Monocytes % (Manual) 3 % (1-10) Eosinophils % (Manual) 0 % (0-3) Basophils % (Manual) 0 % (0-2) Band Neutrophils 0 % (0-8) Platelet Estimate Adequate Platelet Morphology Normal Polychromasia 1+ Hypochromasia 2+ Poikilocytosis 1+ Anisocytosis 1+ Spherocytes 1+ Sodium Level 135 MMOL/L (136-145) L Potassium Level 3.3 MMOL/L (3.5-5.1) L Chloride Level 96 MMOL/L (98-107) L Carbon Dioxide Level 32 MMOL/L (21-32) Anion Gap 7 mmol/L (5-15) Blood Urea Nitrogen 20 mg/dL (7-18) H Creatinine 0.7 MG/DL (0.55-1.30) Estimat Glomerular Filtration Rate mL/min (>60) Glucose Level 116 MG/DL (74-106) H Calcium Level 8.5 MG/DL (8.5-10.1) Phosphorus Level 3.0 MG/DL (2.5-4.9) Magnesium Level 2.1 MG/DL (1.8-2.4) Total Bilirubin 1.0 MG/DL (0.2-1.0) Aspartate Amino Transf (AST/SGOT) 38 U/L (15-37) H Alanine Aminotransferase (ALT/SGPT) 37 U/L (12-78) Alkaline Phosphatase 91 U/L (46-116) Total Protein 7.0 G/DL (6.4-8.2) Albumin 2.2 G/DL (3.4-5.0) L Globulin 4.8 g/dL Albumin/Globulin Ratio 0.5 (1.0-2.7) L Vancomycin Level Trough 7.0 ug/mL (5.0-12.0) Arterial Blood pH 7.420 (7.350-7.450) Arterial Blood Partial Pressure CO2 56.5 mmHg (35.0-45.0) *H Arterial Blood Partial Pressure O2 61.0 mmHg (75.0-100.0) L Arterial Blood HCO3 36.2 mmol/L (22.0-26.0) H Arterial Blood Oxygen Saturation 90.2 % (92.0-98.0) L Arterial Blood Base Excess 10.4 Rafy Test Positive Current Medications Medications (Trade) Dose Ordered Sig/Puja Route PRN Reason Start Time Stop Time Status Last Admin Dose Admin Acetaminophen (Tylenol) 650 mg Q4H PRN NG T>100.5 11/21/17 10:30 12/14/17 10:29 Aztreonam 0.5 gm/ Sodium Chloride 55 ml @ 110 mls/hr Q8H IVPB 11/21/17 13:00 11/23/17 23:59 Dextrose (Dextrose 50%) STAT PRN IV Hypoglycemia 11/21/17 10:30 12/08/17 10:29 Furosemide (Lasix) 20 mg DAILY IV 11/22/17 09:00 12/20/17 20:59 Heparin Sodium (Porcine) (Heparin 5000 units/ml) 5,000 units EVERY 12 HOURS SUBQ 11/21/17 21:00 12/08/17 20:59 Levalbuterol HCl (Xopenex) 1.25 mg Q6HRT HHN 11/21/17 13:00 11/25/17 18:59 Lorazepam (Ativan 2mg/ml 1ml) 2 mg Q4H PRN IV For Anxiety 11/21/17 12:30 11/21/17 12:31 Metoprolol Tartrate (Lopressor) 5 mg Q6H PRN IVP HR>130 11/21/17 11:00 12/11/17 10:59 Metoprolol Tartrate (Lopressor) 50 mg Q12HR NG 11/21/17 21:00 12/16/17 20:59 Morphine Sulfate (Morphine Sulfate) 2 mg Q4H PRN IVP Moderate Pain (Pain Scale 4-6) 11/21/17 12:30 11/24/17 12:29 Ondansetron HCl (Zofran) 4 mg Q6H PRN IVP Nausea & Vomiting 11/21/17 10:30 12/08/17 10:29 Pantoprazole (Protonix) 40 mg DAILY IV 11/22/17 09:00 12/09/17 08:59 Polyethylene Glycol (Miralax) 17 gm DAILYPRN PRN ORAL Constipation 11/21/17 10:30 12/08/17 10:29 Vancomycin HCl (Vanco rx to dose) 1 ea DAILY PRN MISC Per rx protocol 11/21/17 10:30 12/21/17 10:29 Vancomycin HCl 500 mg/Sodium Chloride 110 ml @ 110 mls/hr Q12HR@1000,2200 IVPB 11/21/17 22:00 11/26/17 21:59 KUSH ESPINO M.D. Nov 21, 2017 12:28
[2017-11-21] MEDS ORDERED: LORazepam Inj 2mg/ml 1ml IV PRN (12:30)
--- NOTE | 2017-11-21 15:12 | General Progress Note ---
Progress Note Progress Note Surgery: downgraded from ICU. transfused for anemia. doing well otherwise. still difficulty weaning. likely deconditioned and respiratory muscles very weak. will take some time and hopefully now that she will receive tube feeds will improve. h/h low yesterday and responded well to transfusion. noted some blood tinged suctioning. no bleeding around trach. unlikely bleeding into trachea as this would note on cxr. likely friable mucosa and with suctioning some oozing. will follow. thanks Andrew Krause Nov 21, 2017 15:12
[2017-11-21] MEDS ORDERED: Tubing Blood Filter IV ONE (17:57)
[2017-11-21] MEDS ORDERED: D5 1/2NS 1000ml IV ONE (17:57)
[2017-11-21] MEDS ORDERED: Tubing IV Secondary IV ONE (17:57)
[2017-11-21] MEDS ORDERED: NS 275ml ONE (17:57)
--- NOTE | 2017-11-21 18:12 | General Progress Note ---
Assessment/Plan Assessment/Plan Assessment - Resp failure - valvular heart disease - progressive anemia - s/p trach - s/p PEG - sinus tach, worsened by agitation - leukocytosis - AMS Recommendations - PPI - recheck CBC - Begin TF - PRN BDZ for agitation Subjective Allergies: Coded Allergies: PENICILLINS (Verified Allergy, Mild, Rash, 06/30/14) Subjective uneventful night out of ICU d/w RN advised to start TF Objective Last 24 Hour Vital Signs Date Time Temp Pulse Resp B/P (MAP) Pulse Ox O2 Delivery O2 Flow Rate FiO2 11/21/17 17:29 121 37 50 11/21/17 16:02 117 11/21/17 16:00 97.3 114 33 120/71 100 Mechanical Ventilator 35 97.3 11/21/17 16:00 98.0 110 33 120/71 95 Mechanical Ventilator 50 98.0 11/21/17 15:28 120 30 50 11/21/17 13:32 50 11/21/17 13:30 116 17 98 Mechanical Ventilator 50 11/21/17 13:26 128 35 50 11/21/17 13:19 128 35 99 Mechanical Ventilator 35 11/21/17 12:00 98.0 111 46 158/99 94 Mechanical Ventilator 35 98.0 11/21/17 12:00 35 11/21/17 11:46 116 11/21/17 10:51 72 31 35 11/21/17 09:29 94 34 35 11/21/17 08:44 99.8 11/21/17 08:43 139 151/69 11/21/17 08:00 98.0 110 27 153/80 95 Mechanical Ventilator 35 98.0 11/21/17 08:00 35 11/21/17 07:45 122 11/21/17 07:03 95 33 35 11/21/17 07:00 104 24 127/64 98 Mechanical Ventilator 35 11/21/17 06:58 96 30 100 Mechanical Ventilator 35 11/21/17 06:48 94 34 94 Mechanical Ventilator 35 11/21/17 06:00 99 20 110/58 98 Mechanical Ventilator 35 11/21/17 05:24 100 32 35 11/21/17 05:11 135 188/86 11/21/17 05:03 99.2 11/21/17 05:00 118 29 188/86 98 Mechanical Ventilator 35 11/21/17 04:00 97.5 113 29 152/79 96 Mechanical Ventilator 35 97.5 11/21/17 04:00 114 11/21/17 04:00 35 11/21/17 03:47 99.2 11/21/17 03:29 114 41 35 11/21/17 03:00 115 33 146/90 95 Mechanical Ventilator 35 11/21/17 02:00 109 33 119/69 97 Mechanical Ventilator 35 11/21/17 01:00 100 32 112/64 96 Mechanical Ventilator 35 11/21/17 01:00 82 12 100 Mechanical Ventilator 35 11/21/17 00:46 84 23 100 Mechanical Ventilator 35 11/21/17 00:45 84 23 35 11/21/17 00:00 88 11/21/17 00:00 99.2 83 24 103/33 100 Mechanical Ventilator 35 99.2 11/20/17 23:20 84 25 35 11/20/17 23:00 80 27 111/56 99 Mechanical Ventilator 35 11/20/17 22:00 97 32 102/48 99 Mechanical Ventilator 35 11/20/17 21:43 99.1 11/20/17 21:17 123 42 35 11/20/17 21:09 100.4 11/20/17 21:05 118 142/73 11/20/17 21:00 99.4 120 36 139/69 98 Mechanical Ventilator 35 99.4 11/20/17 20:00 35 11/20/17 20:00 108 11/20/17 20:00 100.3 119 35 142/73 95 Mechanical Ventilator 35 100.3 11/20/17 19:12 104 32 98 Mechanical Ventilator 35 11/20/17 19:09 104 32 35 11/20/17 19:00 104 32 135/67 100 Mechanical Ventilator 35 Intake and Output 11/20/17 11/21/17 19:00 07:00 Intake Total 778.334 ml 115 ml Output Total 365 ml 780 ml Balance 413.334 ml -665 ml IV Total 778.334 ml 115 ml Tube Feeding 0 ml 0 ml Output Urine Total 365 ml 780 ml # Bowel Movements 1 3 Laboratory Tests 11/21/17 05:15: White Blood Count 19.1#H, Red Blood Count 3.62L, Hemoglobin 9.8#L, Hematocrit 30.0#L, Mean Corpuscular Volume 83, Mean Corpuscular Hemoglobin 27.1, Mean Corpuscular Hemoglobin Concent 32.7, Red Cell Distribution Width 12.4, Platelet Count 341, Mean Platelet Volume 6.9, Neutrophils (%) (Auto) , Lymphocytes (%) ( Auto) , Monocytes (%) (Auto) , Eosinophils (%) (Auto) , Basophils (%) (Auto) , Differential Total Cells Counted 100, Neutrophils % (Manual) 89H, Lymphocytes % (Manual) 8L, Monocytes % (Manual) 3, Eosinophils % (Manual) 0, Basophils % ( Manual) 0, Band Neutrophils 0, Platelet Estimate Adequate, Platelet Morphology Normal, Polychromasia 1+, Hypochromasia 2+, Poikilocytosis 1+, Anisocytosis 1+, Spherocytes 1+, Sodium Level 135L, Potassium Level 3.3L, Chloride Level 96L, Carbon Dioxide Level 32, Anion Gap 7, Blood Urea Nitrogen 20H, Creatinine 0.7, Estimat Glomerular Filtration Rate , Glucose Level 116H, Calcium Level 8.5, Phosphorus Level 3.0, Magnesium Level 2.1, Total Bilirubin 1.0, Aspartate Amino Transf (AST/SGOT) 38H, Alanine Aminotransferase (ALT/SGPT) 37, Alkaline Phosphatase 91, Total Protein 7.0, Albumin 2.2L, Globulin 4.8, Albumin/Globulin Ratio 0.5L 11/21/17 08:00: Vancomycin Level Trough 7.0 11/21/17 09:15: Arterial Blood pH 7.420, Arterial Blood Partial Pressure CO2 56.5*H, Arterial Blood Partial Pressure O2 61.0L, Arterial Blood HCO3 36.2H, Arterial Blood Oxygen Saturation 90.2L, Arterial Blood Base Excess 10.4, Rafy Test Positive Height (Feet): 4 Height (Inches): 10.00 Weight (Pounds): 60 Objective Thin AA woman, on vent NCAT neck (+) trach Coarse BS RR / tachy abd soft flat neuro sedated, agitated, restrained no edema MIKE LEWIS Nov 21, 2017 18:11
--- NOTE | 2017-11-21 19:13 | Cardiology Progress Note ---
Assessment/Plan Assessment/Plan 1. Respiratory failure. 2. Hypertension history. 3. Diarrhea at the time of admission. 4. Cachexia. 5. sinus tachy 6. nsvt 7. fever 8. hyptesnion 9. Eccentric mitral regurgitation 10. chf on bb via ng with prn iv if needed increase agitation causes her to have more tachy more images on tanja echo were performed and she indeed does have eccentric MR as clinically suspected she really is not a candidate for mv therapy at this time bp is fine s/p trach adn peg tele sinus cxr bilateral infiltrate seem worse diuretic heplock iv she feels febrile Subjective ROS Limited/Unobtainable: Yes Subjective seem not agitated at emoment Objective Last 24 Hour Vital Signs Date Time Temp Pulse Resp B/P (MAP) Pulse Ox O2 Delivery O2 Flow Rate FiO2 11/21/17 17:29 121 37 50 11/21/17 16:02 117 11/21/17 16:00 97.3 114 33 120/71 100 Mechanical Ventilator 35 97.3 11/21/17 16:00 98.0 110 33 120/71 95 Mechanical Ventilator 50 98.0 11/21/17 15:28 120 30 50 11/21/17 13:32 50 11/21/17 13:30 116 17 98 Mechanical Ventilator 50 11/21/17 13:26 128 35 50 11/21/17 13:19 128 35 99 Mechanical Ventilator 35 11/21/17 12:00 98.0 111 46 158/99 94 Mechanical Ventilator 35 98.0 11/21/17 12:00 35 11/21/17 11:46 116 11/21/17 10:51 72 31 35 11/21/17 09:29 94 34 35 11/21/17 08:44 99.8 11/21/17 08:43 139 151/69 11/21/17 08:00 98.0 110 27 153/80 95 Mechanical Ventilator 35 98.0 11/21/17 08:00 35 11/21/17 07:45 122 11/21/17 07:03 95 33 35 11/21/17 07:00 104 24 127/64 98 Mechanical Ventilator 35 11/21/17 06:58 96 30 100 Mechanical Ventilator 35 11/21/17 06:48 94 34 94 Mechanical Ventilator 35 11/21/17 06:00 99 20 110/58 98 Mechanical Ventilator 35 11/21/17 05:24 100 32 35 11/21/17 05:11 135 188/86 11/21/17 05:03 99.2 11/21/17 05:00 118 29 188/86 98 Mechanical Ventilator 35 11/21/17 04:00 97.5 113 29 152/79 96 Mechanical Ventilator 35 97.5 11/21/17 04:00 114 11/21/17 04:00 35 11/21/17 03:47 99.2 11/21/17 03:29 114 41 35 11/21/17 03:00 115 33 146/90 95 Mechanical Ventilator 35 11/21/17 02:00 109 33 119/69 97 Mechanical Ventilator 35 11/21/17 01:00 100 32 112/64 96 Mechanical Ventilator 35 11/21/17 01:00 82 12 100 Mechanical Ventilator 35 11/21/17 00:46 84 23 100 Mechanical Ventilator 35 11/21/17 00:45 84 23 35 11/21/17 00:00 88 11/21/17 00:00 99.2 83 24 103/33 100 Mechanical Ventilator 35 99.2 11/20/17 23:20 84 25 35 11/20/17 23:00 80 27 111/56 99 Mechanical Ventilator 35 11/20/17 22:00 97 32 102/48 99 Mechanical Ventilator 35 11/20/17 21:43 99.1 11/20/17 21:17 123 42 35 11/20/17 21:09 100.4 11/20/17 21:05 118 142/73 11/20/17 21:00 99.4 120 36 139/69 98 Mechanical Ventilator 35 99.4 11/20/17 20:00 35 11/20/17 20:00 108 11/20/17 20:00 100.3 119 35 142/73 95 Mechanical Ventilator 35 100.3 11/20/17 19:12 104 32 98 Mechanical Ventilator 35 General Appearance: no apparent distress, on vent Neck: supple Cardiovascular: normal rate, systolic murmur Respiratory/Chest: crackles/rales Abdomen: normal bowel sounds, non tender, soft Extremities: no swelling Intake and Output 11/20/17 11/21/17 19:00 07:00 Intake Total 778.334 ml 115 ml Output Total 365 ml 780 ml Balance 413.334 ml -665 ml IV Total 778.334 ml 115 ml Tube Feeding 0 ml 0 ml Output Urine Total 365 ml 780 ml # Bowel Movements 1 3 Laboratory Tests Test 11/21/17 05:15 11/21/17 08:00 11/21/17 09:15 White Blood Count 19.1 K/UL (4.8-10.8) #H Red Blood Count 3.62 M/UL (4.20-5.40) L Hemoglobin 9.8 G/DL (12.0-16.0) #L Hematocrit 30.0 % (37.0-47.0) #L Mean Corpuscular Volume 83 FL (80-99) Mean Corpuscular Hemoglobin 27.1 PG (27.0-31.0) Mean Corpuscular Hemoglobin Concent 32.7 G/DL (32.0-36.0) Red Cell Distribution Width 12.4 % (11.6-14.8) Platelet Count 341 K/UL (150-450) Mean Platelet Volume 6.9 FL (6.5-10.1) Neutrophils (%) (Auto) % (45.0-75.0) Lymphocytes (%) (Auto) % (20.0-45.0) Monocytes (%) (Auto) % (1.0-10.0) Eosinophils (%) (Auto) % (0.0-3.0) Basophils (%) (Auto) % (0.0-2.0) Differential Total Cells Counted 100 Neutrophils % (Manual) 89 % (45-75) H Lymphocytes % (Manual) 8 % (20-45) L Monocytes % (Manual) 3 % (1-10) Eosinophils % (Manual) 0 % (0-3) Basophils % (Manual) 0 % (0-2) Band Neutrophils 0 % (0-8) Platelet Estimate Adequate Platelet Morphology Normal Polychromasia 1+ Hypochromasia 2+ Poikilocytosis 1+ Anisocytosis 1+ Spherocytes 1+ Sodium Level 135 MMOL/L (136-145) L Potassium Level 3.3 MMOL/L (3.5-5.1) L Chloride Level 96 MMOL/L (98-107) L Carbon Dioxide Level 32 MMOL/L (21-32) Anion Gap 7 mmol/L (5-15) Blood Urea Nitrogen 20 mg/dL (7-18) H Creatinine 0.7 MG/DL (0.55-1.30) Estimat Glomerular Filtration Rate mL/min (>60) Glucose Level 116 MG/DL (74-106) H Calcium Level 8.5 MG/DL (8.5-10.1) Phosphorus Level 3.0 MG/DL (2.5-4.9) Magnesium Level 2.1 MG/DL (1.8-2.4) Total Bilirubin 1.0 MG/DL (0.2-1.0) Aspartate Amino Transf (AST/SGOT) 38 U/L (15-37) H Alanine Aminotransferase (ALT/SGPT) 37 U/L (12-78) Alkaline Phosphatase 91 U/L (46-116) Total Protein 7.0 G/DL (6.4-8.2) Albumin 2.2 G/DL (3.4-5.0) L Globulin 4.8 g/dL Albumin/Globulin Ratio 0.5 (1.0-2.7) L Vancomycin Level Trough 7.0 ug/mL (5.0-12.0) Arterial Blood pH 7.420 (7.350-7.450) Arterial Blood Partial Pressure CO2 56.5 mmHg (35.0-45.0) *H Arterial Blood Partial Pressure O2 61.0 mmHg (75.0-100.0) L Arterial Blood HCO3 36.2 mmol/L (22.0-26.0) H Arterial Blood Oxygen Saturation 90.2 % (92.0-98.0) L Arterial Blood Base Excess 10.4 Rafy Test Positive NALINI GIBBONS Nov 21, 2017 19:13
[2017-11-21] MEDS ORDERED: Heparin 5000 units/ml inj SUBQ SCH (21:00)
[2017-11-21] MEDS: Vancomycin 500 MG in NS 110 ML IVPB SCH (21:17)
[2017-11-21] MEDS: Acetaminophen 650mg/20.3ml NG PRN (21:18)
[2017-11-22] VITALS: BP 134/65
[2017-11-22] MEDS: Levalbuterol Inh UD 1.25mg/0.5ml HHN SCH ×5 (01:13→19:44)
[2017-11-22] MEDS: Morphine Sulfate 4mg/ml Inj IVP PRN ×3 (01:40→17:44)
[2017-11-22 04:00] VITALS: BP 126/79
[2017-11-22] MEDS: Aztreonam Inj 0.5 GM in NS 55 ML IVPB SCH ×3 (05:00→21:28)
[2017-11-22 05:39] LABS: HEMATOCRIT 21.2 % (37.0-47.0); MEAN CORPUSCULAR VOLUME 84 FL (80-99); PLATELET COUNT 293 K/UL (150-450); RED BLOOD COUNT 2.53 M/UL (4.20-5.40); RED CELL DISTRIBUTION WIDTH 12.2 % (11.6-14.8); WHITE BLOOD COUNT 13.4 K/UL (4.8-10.8)
[2017-11-22 05:56] LABS: ALANINE AMINOTRANSFERASE 34 U/L (12-78); ALBUMIN 1.8 G/DL (3.4-5.0); ALBUMIN/GLOBULIN RATIO 0.5 (1.0-2.7); ALKALINE PHOSPHATASE 74 U/L (46-116); ANION GAP 3 mmol/L (5-15); ASPARTATE AMINO TRANSFERASE 40 U/L (15-37); BILIRUBIN,TOTAL 0.6 MG/DL (0.2-1.0); BLOOD UREA NITROGEN 31 mg/dL (7-18); CALCIUM 8.1 MG/DL (8.5-10.1); CARBON DIOXIDE 35 MMOL/L (21-32); CHLORIDE 102 MMOL/L (98-107); CREATININE 0.8 MG/DL (0.55-1.30); PHOSPHORUS 2.9 MG/DL (2.5-4.9); POTASSIUM 3.9 MMOL/L (3.5-5.1); SODIUM 139 MMOL/L (136-145)
[2017-11-22 06:07] LABS: HEMOGLOBIN 6.9 G/DL (12.0-16.0)
--- NOTE | 2017-11-22 07:27 | Pulmonolgy Critical Care Note ---
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 Respiratory: monitor respiratory rate Cardiac: continue to monitor HR/BP Renal: F/U I&O Infectious Disease: check cultures Gastrointestinal: continue feedings/current rate Endocrine: monitor blood sugar, check TSH, continue sliding scale insulin Hematologic: transfuse if hgb<8.5 Neurologic: PRN Morphine, keep patient comfortable Affect: PRN ativan Prophylaxis: Protonix Disposition: keep in ICU Notes Reviewed: access spec, renal Discussed with: nurses, consultants, porter sample caseemployment evaluator/case manager - Objective Last 24 Hour Vital Signs Date Time Temp Pulse Resp B/P (MAP) Pulse Ox O2 Delivery O2 Flow Rate FiO2 11/22/17 07:21 121 38 100 Mechanical Ventilator 60 11/22/17 07:10 121 25 60 11/22/17 05:17 95 25 60 11/22/17 04:00 50 11/22/17 04:00 93 11/22/17 04:00 98.4 106 24 126/79 98 Mechanical Ventilator 50 98.4 11/22/17 02:58 88 19 60 11/22/17 02:10 98.1 11/22/17 01:40 98.1 11/22/17 01:23 103 28 100 Mechanical Ventilator 60 11/22/17 01:13 114 38 100 Mechanical Ventilator 60 11/22/17 01:13 114 38 60 11/22/17 00:00 97.5 102 28 134/65 98 Mechanical Ventilator 50 97.5 11/22/17 00:00 112 11/22/17 00:00 50 11/21/17 23:25 106 38 40 11/21/17 22:08 98.1 11/21/17 21:48 98.1 110 98.1 11/21/17 21:19 106 26 40 11/21/17 21:18 99.6 114 142/81 99.6 11/21/17 21:18 98.0 11/21/17 21:18 99.6 11/21/17 20:20 118 143/92 11/21/17 20:00 120 11/21/17 20:00 99.5 118 30 143/92 98 Mechanical Ventilator 50 99.5 11/21/17 20:00 50 2/23/18 19:25 105 30 100 Mechanical Ventilator 40 11/21/17 19:16 103 27 40 11/21/17 19:16 103 27 100 Mechanical Ventilator 50 11/21/17 17:29 121 37 50 11/21/17 16:02 117 11/21/17 16:00 97.3 114 33 120/71 100 Mechanical Ventilator 35 97.3 11/21/17 16:00 98.0 110 33 120/71 95 Mechanical Ventilator 50 98.0 11/21/17 15:28 120 30 50 11/21/17 13:32 50 11/21/17 13:30 116 17 98 Mechanical Ventilator 50 11/21/17 13:26 128 35 50 11/21/17 13:19 128 35 99 Mechanical Ventilator 35 11/21/17 12:00 98.0 111 46 158/99 94 Mechanical Ventilator 35 98.0 11/21/17 12:00 35 11/21/17 11:46 116 11/21/17 10:51 72 31 35 11/21/17 09:29 94 34 35 11/21/17 08:44 99.8 11/21/17 08:43 139 151/69 11/21/17 08:00 98.0 110 27 153/80 95 Mechanical Ventilator 35 98.0 11/21/17 08:00 35 11/21/17 07:45 122 Status: sedated Condition: critical HEENT: atraumatic Neck: full ROM Lungs: clear Heart: HR/BP stable Abdomen: soft, non-tender, active bowel sounds Extremities: edema Critical Care - Subjective FI02: 60 Vent Support Breath Rate: 12 Vent Support Mode: AC Vent Tidal Volume: 300 Sputum Amount: Moderate PEEP: 5.0 PIP: 31 Tube Feeding Amount: 35 I&O: Intake and Output 11/21/17 11/22/17 19:00 07:00 Intake Total 125 ml 745 ml Output Total 550 ml 275 ml Balance -425 ml 470 ml Intake Free Water 50 ml IV Total 55 ml 275 ml Tube Feeding 70 ml 420 ml Output Urine Total 550 ml 275 ml # Bowel Movements 1 CXR: extensive infiltrate ET-Tube: 6.0 ET Position: 20 Labs: Laboratory Tests Test 11/21/17 08:00 11/21/17 09:15 11/22/17 03:50 Vancomycin Level Trough 7.0 ug/mL (5.0-12.0) Arterial Blood pH 7.420 (7.350-7.450) Arterial Blood Partial Pressure CO2 56.5 mmHg (35.0-45.0) *H Arterial Blood Partial Pressure O2 61.0 mmHg (75.0-100.0) L Arterial Blood HCO3 36.2 mmol/L (22.0-26.0) H Arterial Blood Oxygen Saturation 90.2 % (92.0-98.0) L Arterial Blood Base Excess 10.4 Rafy Test Positive White Blood Count 13.4 K/UL (4.8-10.8) H Red Blood Count 2.53 M/UL (4.20-5.40) L Hemoglobin 6.9 G/DL (12.0-16.0) *L Hematocrit 21.2 % (37.0-47.0) L Mean Corpuscular Volume 84 FL (80-99) Mean Corpuscular Hemoglobin 27.4 PG (27.0-31.0) Mean Corpuscular Hemoglobin Concent 32.7 G/DL (32.0-36.0) Red Cell Distribution Width 12.2 % (11.6-14.8) Platelet Count 293 K/UL (150-450) Mean Platelet Volume 6.4 FL (6.5-10.1) L Neutrophils (%) (Auto) % (45.0-75.0) Lymphocytes (%) (Auto) % (20.0-45.0) Monocytes (%) (Auto) % (1.0-10.0) Eosinophils (%) (Auto) % (0.0-3.0) Basophils (%) (Auto) % (0.0-2.0) Neutrophils % (Manual) Pending Lymphocytes % (Manual) Pending Platelet Estimate Pending Platelet Morphology Pending Sodium Level 139 MMOL/L (136-145) Potassium Level 3.9 MMOL/L (3.5-5.1) Chloride Level 102 MMOL/L (98-107) Carbon Dioxide Level 35 MMOL/L (21-32) H Anion Gap 3 mmol/L (5-15) L Blood Urea Nitrogen 31 mg/dL (7-18) H Creatinine 0.8 MG/DL (0.55-1.30) Estimat Glomerular Filtration Rate mL/min (>60) Glucose Level 153 MG/DL (74-106) H Calcium Level 8.1 MG/DL (8.5-10.1) L Phosphorus Level 2.9 MG/DL (2.5-4.9) Magnesium Level 2.1 MG/DL (1.8-2.4) Total Bilirubin 0.6 MG/DL (0.2-1.0) Aspartate Amino Transf (AST/SGOT) 40 U/L (15-37) H Alanine Aminotransferase (ALT/SGPT) 34 U/L (12-78) Alkaline Phosphatase 74 U/L (46-116) Total Protein 5.4 G/DL (6.4-8.2) L Albumin 1.8 G/DL (3.4-5.0) L Globulin 3.6 g/dL Albumin/Globulin Ratio 0.5 (1.0-2.7) L DIANA AGGARWAL Nov 22, 2017 07:27
[2017-11-22 08:00] VITALS: BP 148/95
[2017-11-22] MEDS: LORazepam Inj 2mg/ml 1ml IV PRN ×3 (08:02→23:43)
[2017-11-22] MEDS ORDERED: AMINOCAPROIC ACID IV ONE (09:00)
[2017-11-22] MEDS ORDERED: NS IV ONE (09:00)
[2017-11-22] MEDS: Pantoprazole Inj IV SCH (09:29)
[2017-11-22] MEDS: Metoprolol Tartrate 50mg tab NG SCH ×2 (09:29→21:29)
--- NOTE | 2017-11-22 10:19 | Infectious Diseases Prog Note ---
Assessment/Plan Assessment/Plan ASSESSMENT: The patient is a 77-year-old female, w Leukocytosis worsen ( post PEG ) , now improving Fever, post op low grade Probable ventilator-associated pneumonia. Scx : PSA influenza :neg Diarrhea , SP at the time of admission Chest x-ray, bilateral diffuse interstitial opacity Uxc : mixed growth PEG 11/20 TRACH 11/18 Hypertension Anemia PLAN: continue the patient on Azactam day # and vancomycin day # Monitor CBC Monitor BMP, LFT Monitor cultures, blood, urine, and sputum Monitor chest x-ray PRBC Tx Subjective Allergies: Coded Allergies: PENICILLINS (Verified Allergy, Mild, Rash, 06/30/14) Objective Vital Signs Last 24 Hour Vital Signs Date Time Temp Pulse Resp B/P (MAP) Pulse Ox O2 Delivery O2 Flow Rate FiO2 11/22/17 09:29 122 148/95 11/22/17 09:10 107 24 60 11/22/17 08:00 97.0 122 24 148/95 98 Mechanical Ventilator 50 97.0 11/22/17 08:00 50 11/22/17 07:32 93 27 100 Mechanical Ventilator 60 11/22/17 07:21 121 38 100 Mechanical Ventilator 60 11/22/17 07:10 121 25 60 11/22/17 05:17 95 25 60 11/22/17 04:00 50 11/22/17 04:00 93 11/22/17 04:00 98.4 106 24 126/79 98 Mechanical Ventilator 50 98.4 11/22/17 02:58 88 19 60 11/22/17 02:10 98.1 11/22/17 01:40 98.1 11/22/17 01:23 103 28 100 Mechanical Ventilator 60 11/22/17 01:13 114 38 100 Mechanical Ventilator 60 11/22/17 01:13 114 38 60 11/22/17 00:00 97.5 102 28 134/65 98 Mechanical Ventilator 50 97.5 11/22/17 00:00 112 11/22/17 00:00 50 11/21/17 23:25 106 38 40 11/21/17 22:08 98.1 11/21/17 21:48 98.1 110 98.1 11/21/17 21:19 106 26 40 11/21/17 21:18 99.6 114 142/81 99.6 11/21/17 21:18 98.0 11/21/17 21:18 99.6 11/21/17 20:20 118 143/92 11/21/17 20:00 120 11/21/17 20:00 99.5 118 30 143/92 98 Mechanical Ventilator 50 99.5 11/21/17 20:00 50 11/21/17 19:25 105 30 100 Mechanical Ventilator 40 11/21/17 19:16 103 27 40 11/21/17 19:16 103 27 100 Mechanical Ventilator 50 11/21/17 17:29 121 37 50 11/21/17 16:02 117 11/21/17 16:00 97.3 114 33 120/71 100 Mechanical Ventilator 35 97.3 11/21/17 16:00 98.0 110 33 120/71 95 Mechanical Ventilator 50 98.0 11/21/17 15:28 120 30 50 11/21/17 13:32 50 11/21/17 13:30 116 17 98 Mechanical Ventilator 50 11/21/17 13:26 128 35 50 11/21/17 13:19 128 35 99 Mechanical Ventilator 35 11/21/17 12:00 98.0 111 46 158/99 94 Mechanical Ventilator 35 98.0 11/21/17 12:00 35 11/21/17 11:46 116 11/21/17 10:51 72 31 35 Height (Feet): 4 Height (Inches): 10.00 Weight (Pounds): 60 Objective HEENT: anicteric Respiratory/Chest: no respiratory distress Cardiovascular: regularly irregular Abdomen: no organomegaly Laboratory Tests Test 11/22/17 03:50 White Blood Count 13.4 K/UL (4.8-10.8) H Red Blood Count 2.53 M/UL (4.20-5.40) L Hemoglobin 6.9 G/DL (12.0-16.0) *L Hematocrit 21.2 % (37.0-47.0) L Mean Corpuscular Volume 84 FL (80-99) Mean Corpuscular Hemoglobin 27.4 PG (27.0-31.0) Mean Corpuscular Hemoglobin Concent 32.7 G/DL (32.0-36.0) Red Cell Distribution Width 12.2 % (11.6-14.8) Platelet Count 293 K/UL (150-450) Mean Platelet Volume 6.4 FL (6.5-10.1) L Neutrophils (%) (Auto) % (45.0-75.0) Lymphocytes (%) (Auto) % (20.0-45.0) Monocytes (%) (Auto) % (1.0-10.0) Eosinophils (%) (Auto) % (0.0-3.0) Basophils (%) (Auto) % (0.0-2.0) Differential Total Cells Counted 100 Neutrophils % (Manual) 93 % (45-75) H Lymphocytes % (Manual) 6 % (20-45) L Monocytes % (Manual) 1 % (1-10) Eosinophils % (Manual) 0 % (0-3) Basophils % (Manual) 0 % (0-2) Band Neutrophils 0 % (0-8) Platelet Estimate Adequate Platelet Morphology Normal Polychromasia 1+ Hypochromasia 1+ Anisocytosis 1+ Sodium Level 139 MMOL/L (136-145) Potassium Level 3.9 MMOL/L (3.5-5.1) Chloride Level 102 MMOL/L (98-107) Carbon Dioxide Level 35 MMOL/L (21-32) H Anion Gap 3 mmol/L (5-15) L Blood Urea Nitrogen 31 mg/dL (7-18) H Creatinine 0.8 MG/DL (0.55-1.30) Estimat Glomerular Filtration Rate mL/min (>60) Glucose Level 153 MG/DL (74-106) H Calcium Level 8.1 MG/DL (8.5-10.1) L Phosphorus Level 2.9 MG/DL (2.5-4.9) Magnesium Level 2.1 MG/DL (1.8-2.4) Total Bilirubin 0.6 MG/DL (0.2-1.0) Aspartate Amino Transf (AST/SGOT) 40 U/L (15-37) H Alanine Aminotransferase (ALT/SGPT) 34 U/L (12-78) Alkaline Phosphatase 74 U/L (46-116) Total Protein 5.4 G/DL (6.4-8.2) L Albumin 1.8 G/DL (3.4-5.0) L Globulin 3.6 g/dL Albumin/Globulin Ratio 0.5 (1.0-2.7) L Current Medications Medications (Trade) Dose Ordered Sig/Puja Route PRN Reason Start Time Stop Time Status Last Admin Dose Admin Acetaminophen (Tylenol) 650 mg Q4H PRN NG T>100.5 11/21/17 10:30 12/14/17 10:29 11/21/17 21:18 Aztreonam 0.5 gm/ Sodium Chloride 55 ml @ 110 mls/hr Q8H IVPB 11/21/17 13:00 11/23/17 23:59 11/22/17 05:00 Dextrose (Dextrose 50%) STAT PRN IV Hypoglycemia 11/21/17 10:30 12/08/17 10:29 Furosemide (Lasix) 20 mg DAILY IV 11/22/17 09:00 12/20/17 20:59 11/22/17 09:28 Levalbuterol HCl (Xopenex) 1.25 mg Q6HRT HHN 11/21/17 13:00 11/25/17 18:59 11/22/17 07:21 Lorazepam (Ativan 2mg/ml 1ml) 2 mg Q4H PRN IV For Anxiety 11/22/17 07:30 11/29/17 07:29 11/22/17 08:02 Metoprolol Tartrate (Lopressor) 5 mg Q6H PRN IVP HR>130 11/21/17 11:00 12/11/17 10:59 Metoprolol Tartrate (Lopressor) 50 mg Q12HR NG 11/21/17 21:00 12/16/17 20:59 11/22/17 09:29 Morphine Sulfate (Morphine Sulfate) 2 mg Q4H PRN IVP Moderate Pain (Pain Scale 4-6) 11/22/17 08:30 11/29/17 08:29 Ondansetron HCl (Zofran) 4 mg Q6H PRN IVP Nausea & Vomiting 11/21/17 10:30 12/08/17 10:29 Pantoprazole (Protonix) 40 mg DAILY IV 11/22/17 09:00 12/09/17 08:59 11/22/17 09:29 Polyethylene Glycol (Miralax) 17 gm DAILYPRN PRN ORAL Constipation 11/21/17 10:30 12/08/17 10:29 Vancomycin HCl (Vanco rx to dose) 1 ea DAILY PRN MISC Per rx protocol 11/21/17 10:30 12/21/17 10:29 Vancomycin HCl 500 mg/Sodium Chloride 110 ml @ 110 mls/hr Q12HR@1000,2200 IVPB 11/21/17 22:00 11/26/17 21:59 11/21/17 21:17 Brandi Perea M.D. Nov 22, 2017 10:18
[2017-11-22] MEDS: Vancomycin 500 MG in NS 110 ML IVPB SCH ×2 (10:54→23:30)
[2017-11-22 12:00] VITALS: BP 104/70
[2017-11-22] MEDS ORDERED: NS 275ml ONE (15:33)
[2017-11-22] MEDS ORDERED: Sterile Water Irrig 1000ml IRRIG ONE (15:33)
[2017-11-22] MEDS ORDERED: Tubing IV Secondary IV ONE (15:33)
[2017-11-22] MEDS ORDERED: Tubing IV Blood Pump IV ONE (15:33)
[2017-11-22 16:00] VITALS: BP 152/73
--- NOTE | 2017-11-22 16:14 | Cardiology Progress Note ---
Assessment/Plan Assessment/Plan cardiacwise no change noted low Hb, post G tube management by PCP and GI Subjective Subjective the patient is unresponsive and agitated family at the bedside Objective Last 24 Hour Vital Signs Date Time Temp Pulse Resp B/P (MAP) Pulse Ox O2 Delivery O2 Flow Rate FiO2 11/22/17 14:56 95 27 40 11/22/17 13:24 95 23 100 Mechanical Ventilator 60 11/22/17 13:23 95 23 60 11/22/17 12:54 103 38 99 Mechanical Ventilator 60 11/22/17 12:00 101 11/22/17 12:00 50 11/22/17 12:00 98.2 104 26 104/70 98 Mechanical Ventilator 50 98.2 11/22/17 11:10 104 30 60 11/22/17 09:29 122 148/95 11/22/17 09:10 107 24 60 11/22/17 08:00 126 11/22/17 08:00 97.0 122 24 148/95 98 Mechanical Ventilator 50 97.0 11/22/17 08:00 50 11/22/17 07:56 203 11/22/17 07:32 93 27 100 Mechanical Ventilator 60 11/22/17 07:21 121 38 100 Mechanical Ventilator 60 11/22/17 07:10 121 25 60 11/22/17 05:17 95 25 60 11/22/17 04:00 50 11/22/17 04:00 93 11/22/17 04:00 98.4 106 24 126/79 98 Mechanical Ventilator 50 98.4 11/22/17 02:58 88 19 60 11/22/17 02:10 98.1 11/22/17 01:40 98.1 11/22/17 01:23 103 28 100 Mechanical Ventilator 60 11/22/17 01:13 114 38 100 Mechanical Ventilator 60 11/22/17 01:13 114 38 60 11/22/17 00:00 97.5 102 28 134/65 98 Mechanical Ventilator 50 97.5 11/22/17 00:00 112 11/22/17 00:00 50 11/21/17 23:25 106 38 40 11/21/17 22:08 98.1 11/21/17 21:48 98.1 110 98.1 11/21/17 21:19 106 26 40 11/21/17 21:18 99.6 114 142/81 99.6 11/21/17 21:18 98.0 11/21/17 21:18 99.6 11/21/17 20:20 118 143/92 11/21/17 20:00 120 11/21/17 20:00 99.5 118 30 143/92 98 Mechanical Ventilator 50 99.5 11/21/17 20:00 50 11/21/17 19:25 105 30 100 Mechanical Ventilator 40 11/21/17 19:16 103 27 40 11/21/17 19:16 103 27 100 Mechanical Ventilator 50 11/21/17 17:29 121 37 50 General Appearance: on vent Neck: other - tracheostomy Rhythm: ST, PACs Cardiovascular: tachycardia Respiratory/Chest: crackles/rales, rhonchi - bilaterally Abdomen: other - g tube in place Intake and Output 11/21/17 11/22/17 19:00 07:00 Intake Total 125 ml 745 ml Output Total 550 ml 275 ml Balance -425 ml 470 ml Intake Free Water 50 ml IV Total 55 ml 275 ml Tube Feeding 70 ml 420 ml Output Urine Total 550 ml 275 ml # Bowel Movements 1 Laboratory Tests Test 11/22/17 03:50 White Blood Count 13.4 K/UL (4.8-10.8) H Red Blood Count 2.53 M/UL (4.20-5.40) L Hemoglobin 6.9 G/DL (12.0-16.0) *L Hematocrit 21.2 % (37.0-47.0) L Mean Corpuscular Volume 84 FL (80-99) Mean Corpuscular Hemoglobin 27.4 PG (27.0-31.0) Mean Corpuscular Hemoglobin Concent 32.7 G/DL (32.0-36.0) Red Cell Distribution Width 12.2 % (11.6-14.8) Platelet Count 293 K/UL (150-450) Mean Platelet Volume 6.4 FL (6.5-10.1) L Neutrophils (%) (Auto) % (45.0-75.0) Lymphocytes (%) (Auto) % (20.0-45.0) Monocytes (%) (Auto) % (1.0-10.0) Eosinophils (%) (Auto) % (0.0-3.0) Basophils (%) (Auto) % (0.0-2.0) Differential Total Cells Counted 100 Neutrophils % (Manual) 93 % (45-75) H Lymphocytes % (Manual) 6 % (20-45) L Monocytes % (Manual) 1 % (1-10) Eosinophils % (Manual) 0 % (0-3) Basophils % (Manual) 0 % (0-2) Band Neutrophils 0 % (0-8) Platelet Estimate Adequate Platelet Morphology Normal Polychromasia 1+ Hypochromasia 1+ Anisocytosis 1+ Sodium Level 139 MMOL/L (136-145) Potassium Level 3.9 MMOL/L (3.5-5.1) Chloride Level 102 MMOL/L (98-107) Carbon Dioxide Level 35 MMOL/L (21-32) H Anion Gap 3 mmol/L (5-15) L Blood Urea Nitrogen 31 mg/dL (7-18) H Creatinine 0.8 MG/DL (0.55-1.30) Estimat Glomerular Filtration Rate mL/min (>60) Glucose Level 153 MG/DL (74-106) H Calcium Level 8.1 MG/DL (8.5-10.1) L Phosphorus Level 2.9 MG/DL (2.5-4.9) Magnesium Level 2.1 MG/DL (1.8-2.4) Total Bilirubin 0.6 MG/DL (0.2-1.0) Aspartate Amino Transf (AST/SGOT) 40 U/L (15-37) H Alanine Aminotransferase (ALT/SGPT) 34 U/L (12-78) Alkaline Phosphatase 74 U/L (46-116) Total Protein 5.4 G/DL (6.4-8.2) L Albumin 1.8 G/DL (3.4-5.0) L Globulin 3.6 g/dL Albumin/Globulin Ratio 0.5 (1.0-2.7) L PELON BOURNE Nov 22, 2017 16:14
--- NOTE | 2017-11-22 17:54 | General Progress Note ---
Assessment/Plan Assessment/Plan Assessment - Resp failure - valvular heart disease - progressive anemia - s/p trach - s/p PEG - sinus tach, worsened by agitation - leukocytosis - AMS - anemia, ? etiology Recommendations - PPI - transfuse - Continue TF - PRN BDZ for agitation - Elevated HOB Subjective Allergies: Coded Allergies: PENICILLINS (Verified Allergy, Mild, Rash, 06/30/14) Subjective Tolerating TF unresponsive getting RBC transfusion Objective Last 24 Hour Vital Signs Date Time Temp Pulse Resp B/P (MAP) Pulse Ox O2 Delivery O2 Flow Rate FiO2 11/22/17 17:22 95 36 40 11/22/17 16:00 40 11/22/17 16:00 98.4 119 28 152/73 98 Mechanical Ventilator 50 98.4 11/22/17 14:56 95 27 40 11/22/17 13:24 95 23 100 Mechanical Ventilator 60 11/22/17 13:23 95 23 60 11/22/17 12:54 103 38 99 Mechanical Ventilator 60 11/22/17 12:00 101 11/22/17 12:00 40 11/22/17 12:00 98.2 104 26 104/70 98 Mechanical Ventilator 50 98.2 11/22/17 11:10 104 30 60 11/22/17 09:29 122 148/95 11/22/17 09:10 107 24 60 11/22/17 08:00 126 11/22/17 08:00 97.0 122 24 148/95 98 Mechanical Ventilator 50 97.0 11/22/17 08:00 50 11/22/17 07:56 203 11/22/17 07:32 93 27 100 Mechanical Ventilator 60 11/22/17 07:21 121 38 100 Mechanical Ventilator 60 11/22/17 07:10 121 25 60 11/22/17 05:17 95 25 60 11/22/17 04:00 50 11/22/17 04:00 93 11/22/17 04:00 98.4 106 24 126/79 98 Mechanical Ventilator 50 98.4 11/22/17 02:58 88 19 60 11/22/17 02:10 98.1 11/22/17 01:40 98.1 11/22/17 01:23 103 28 100 Mechanical Ventilator 60 11/22/17 01:13 114 38 100 Mechanical Ventilator 60 11/22/17 01:13 114 38 60 11/22/17 00:00 97.5 102 28 134/65 98 Mechanical Ventilator 50 97.5 11/22/17 00:00 112 11/22/17 00:00 50 11/21/17 23:25 106 38 40 11/21/17 22:08 98.1 11/21/17 21:48 98.1 110 98.1 11/21/17 21:19 106 26 40 11/21/17 21:18 99.6 114 142/81 99.6 11/21/17 21:18 98.0 11/21/17 21:18 99.6 11/21/17 20:20 118 143/92 11/21/17 20:00 120 11/21/17 20:00 99.5 118 30 143/92 98 Mechanical Ventilator 50 99.5 11/21/17 20:00 50 11/21/17 19:25 105 30 100 Mechanical Ventilator 40 11/21/17 19:16 103 27 40 11/21/17 19:16 103 27 100 Mechanical Ventilator 50 Intake and Output 11/21/17 11/22/17 19:00 07:00 Intake Total 125 ml 745 ml Output Total 550 ml 275 ml Balance -425 ml 470 ml Intake Free Water 50 ml IV Total 55 ml 275 ml Tube Feeding 70 ml 420 ml Output Urine Total 550 ml 275 ml # Bowel Movements 1 Laboratory Tests 11/22/17 03:50: White Blood Count 13.4H, Red Blood Count 2.53L, Hemoglobin 6.9*L, Hematocrit 21.2L, Mean Corpuscular Volume 84, Mean Corpuscular Hemoglobin 27.4, Mean Corpuscular Hemoglobin Concent 32.7, Red Cell Distribution Width 12.2, Platelet Count 293, Mean Platelet Volume 6.4L, Neutrophils (%) (Auto) , Lymphocytes (%) ( Auto) , Monocytes (%) (Auto) , Eosinophils (%) (Auto) , Basophils (%) (Auto) , Differential Total Cells Counted 100, Neutrophils % (Manual) 93H, Lymphocytes % (Manual) 6L, Monocytes % (Manual) 1, Eosinophils % (Manual) 0, Basophils % ( Manual) 0, Band Neutrophils 0, Platelet Estimate Adequate, Platelet Morphology Normal, Polychromasia 1+, Hypochromasia 1+, Anisocytosis 1+, Sodium Level 139, Potassium Level 3.9, Chloride Level 102, Carbon Dioxide Level 35H, Anion Gap 3L , Blood Urea Nitrogen 31H, Creatinine 0.8, Estimat Glomerular Filtration Rate , Glucose Level 153H, Calcium Level 8.1L, Phosphorus Level 2.9, Magnesium Level 2.1, Total Bilirubin 0.6, Aspartate Amino Transf (AST/SGOT) 40H, Alanine Aminotransferase (ALT/SGPT) 34, Alkaline Phosphatase 74, Total Protein 5.4L, Albumin 1.8L, Globulin 3.6, Albumin/Globulin Ratio 0.5L Height (Feet): 4 Height (Inches): 10.00 Weight (Pounds): 60 Objective Thin AA woman, on vent NCAT neck (+) trach Coarse BS RR / tachy abd soft flat neuro sedated, agitated, restrained no edema MIKE LEWIS Nov 22, 2017 17:54
[2017-11-22 20:00] VITALS: BP 118/72
[2017-11-23] VITALS: BP 165/97
[2017-11-23] MEDS: Levalbuterol Inh UD 1.25mg/0.5ml HHN SCH (01:22)
[2017-11-23] MEDS ORDERED: Levalbuterol Inh UD 1.25mg/0.5ml HHN PRN (02:15)
[2017-11-23] MEDS: Acetaminophen 650mg/20.3ml NG PRN ×2 (03:32→17:09)
[2017-11-23 04:00] VITALS: BP 158/96
[2017-11-23] MEDS: Aztreonam Inj 0.5 GM in NS 55 ML IVPB SCH ×3 (04:52→21:27)
[2017-11-23] MEDS: Morphine Sulfate 4mg/ml Inj IVP PRN ×3 (04:53→21:28)
[2017-11-23 05:08] LABS: HEMATOCRIT 31.1 % (37.0-47.0); HEMOGLOBIN 10.3 G/DL (12.0-16.0); MEAN CORPUSCULAR VOLUME 86 FL (80-99); PLATELET COUNT 315 K/UL (150-450); RED BLOOD COUNT 3.62 M/UL (4.20-5.40); RED CELL DISTRIBUTION WIDTH 12.9 % (11.6-14.8); WHITE BLOOD COUNT 12.9 K/UL (4.8-10.8)
[2017-11-23 05:29] LABS: ALANINE AMINOTRANSFERASE 40 U/L (12-78); ALBUMIN 1.9 G/DL (3.4-5.0); ALBUMIN/GLOBULIN RATIO 0.5 (1.0-2.7); ALKALINE PHOSPHATASE 81 U/L (46-116); ANION GAP 4 mmol/L (5-15); ASPARTATE AMINO TRANSFERASE 44 U/L (15-37); BILIRUBIN,TOTAL 0.6 MG/DL (0.2-1.0); BLOOD UREA NITROGEN 22 mg/dL (7-18); CALCIUM 8.2 MG/DL (8.5-10.1); CARBON DIOXIDE 34 MMOL/L (21-32); CHLORIDE 102 MMOL/L (98-107); CREATININE 0.8 MG/DL (0.55-1.30); PHOSPHORUS 1.2 MG/DL (2.5-4.9); POTASSIUM 3.6 MMOL/L (3.5-5.1); SODIUM 140 MMOL/L (136-145)
[2017-11-23 08:00] VITALS: BP 106/60
[2017-11-23] MEDS: Metoprolol Tartrate 50mg tab NG SCH ×2 (09:05→21:28)
[2017-11-23] MEDS: Pantoprazole Inj IV SCH (09:05)
--- NOTE | 2017-11-23 11:43 | Pulmonolgy Critical Care Note ---
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 Respiratory: monitor respiratory rate Cardiac: continue to monitor HR/BP Renal: F/U I&O Infectious Disease: check cultures Gastrointestinal: hold feedings Endocrine: monitor blood sugar, check HgA1C, continue sliding scale insulin Hematologic: monitor H/H, transfuse if hgb<8.5 Neurologic: PRN Morphine, keep patient comfortable Prophylaxis: Heparin Notes Reviewed: beverage steward, cardio Discussed with: nurses, consultants, disease case manager rnquality assurance test program manager - Objective Last 24 Hour Vital Signs Date Time Temp Pulse Resp B/P (MAP) Pulse Ox O2 Delivery O2 Flow Rate FiO2 11/23/17 10:51 70 11/23/17 10:45 119 28 70 11/23/17 09:10 92 29 40 11/23/17 09:05 92 106/60 11/23/17 08:06 91 11/23/17 08:00 98.1 92 24 106/60 96 Mechanical Ventilator 40 98.1 11/23/17 08:00 40 11/23/17 07:13 94 21 40 11/23/17 04:58 126 33 40 11/23/17 04:48 99.1 11/23/17 04:00 40 11/23/17 04:00 133 11/23/17 04:00 100.1 92 20 158/96 94 Mechanical Ventilator 40 100.1 11/23/17 03:32 99.6 11/23/17 03:16 126 33 40 11/23/17 01:17 126 33 97 Mechanical Ventilator 40 11/23/17 00:56 40 11/23/17 00:50 120 33 97 Mechanical Ventilator 40 11/23/17 00:48 120 33 40 11/23/17 00:00 116 11/23/17 00:00 118 11/23/17 00:00 99.6 85 20 165/97 97 Mechanical Ventilator 40 99.6 11/23/17 00:00 99.6 116 18 165/97 98 Mechanical Ventilator 50 99.6 11/23/17 00:00 40 11/23/17 00:00 40 11/22/17 22:48 106 28 40 11/22/17 21:29 104 118/72 11/22/17 21:24 103 19 40 11/22/17 20:00 98.0 104 18 118/72 98 Mechanical Ventilator 50 98.0 11/22/17 20:00 40 11/22/17 20:00 99 11/22/17 19:56 103 19 100 Mechanical Ventilator 40 11/22/17 19:44 40 11/22/17 19:42 100 19 98 Mechanical Ventilator 40 11/22/17 19:37 95 36 40 11/22/17 17:22 95 36 40 11/22/17 16:00 113 11/22/17 16:00 40 11/22/17 16:00 98.4 119 28 152/73 98 Mechanical Ventilator 50 98.4 11/22/17 15:00 40 11/22/17 14:56 95 27 40 11/22/17 13:24 95 23 100 Mechanical Ventilator 60 11/22/17 13:23 95 23 60 11/22/17 12:54 103 38 99 Mechanical Ventilator 60 11/22/17 12:00 101 11/22/17 12:00 50 11/22/17 12:00 98.2 104 26 104/70 98 Mechanical Ventilator 50 98.2 Status: awake Condition: critical HEENT: atraumatic Lungs: clear Heart: HR/BP stable, HR/BP unstable Abdomen: soft, active bowel sounds, feeding tube Extremities: no C/C/E Decubiti: location Critical Care - Subjective ROS Limited/Unobtainable: No ICU Day: 15 EKG Rhythm: Sinus Rhythm FI02: 70 Vent Support Breath Rate: 12 Vent Support Mode: AC Vent Tidal Volume: 300 Sputum Amount: Small PEEP: 5.0 PIP: 29 Secretions: small Tube Feeding Amount: 35 I&O: Intake and Output 11/22/17 11/23/17 19:00 07:00 Intake Total 450 ml 595 ml Output Total 1300 ml 550 ml Balance -850 ml 45 ml Intake Free Water 50 ml 100 ml IV Total 330 ml 110 ml Tube Feeding 70 ml 385 ml Output Urine Total 1300 ml 550 ml CXR: pending ET-Tube: 6.0 ET Position: 20 Labs: Laboratory Tests Test 11/22/17 21:21 11/23/17 04:00 Vancomycin Level Trough 15.6 ug/mL (5.0-12.0) H White Blood Count 12.9 K/UL (4.8-10.8) H Red Blood Count 3.62 M/UL (4.20-5.40) L Hemoglobin 10.3 G/DL (12.0-16.0) #L Hematocrit 31.1 % (37.0-47.0) #L Mean Corpuscular Volume 86 FL (80-99) Mean Corpuscular Hemoglobin 28.3 PG (27.0-31.0) Mean Corpuscular Hemoglobin Concent 33.0 G/DL (32.0-36.0) Red Cell Distribution Width 12.9 % (11.6-14.8) Platelet Count 315 K/UL (150-450) Mean Platelet Volume 6.4 FL (6.5-10.1) L Neutrophils (%) (Auto) % (45.0-75.0) Lymphocytes (%) (Auto) % (20.0-45.0) Monocytes (%) (Auto) % (1.0-10.0) Eosinophils (%) (Auto) % (0.0-3.0) Basophils (%) (Auto) % (0.0-2.0) Differential Total Cells Counted 100 Neutrophils % (Manual) 95 % (45-75) H Lymphocytes % (Manual) 4 % (20-45) L Monocytes % (Manual) 1 % (1-10) Eosinophils % (Manual) 0 % (0-3) Basophils % (Manual) 0 % (0-2) Band Neutrophils 0 % (0-8) Platelet Estimate Adequate Platelet Morphology Normal Polychromasia 1+ Hypochromasia 1+ Sodium Level 140 MMOL/L (136-145) Potassium Level 3.6 MMOL/L (3.5-5.1) Chloride Level 102 MMOL/L (98-107) Carbon Dioxide Level 34 MMOL/L (21-32) H Anion Gap 4 mmol/L (5-15) L Blood Urea Nitrogen 22 mg/dL (7-18) H Creatinine 0.8 MG/DL (0.55-1.30) Estimat Glomerular Filtration Rate mL/min (>60) Glucose Level 207 MG/DL (74-106) H Calcium Level 8.2 MG/DL (8.5-10.1) L Phosphorus Level 1.2 MG/DL (2.5-4.9) L Magnesium Level 2.0 MG/DL (1.8-2.4) Total Bilirubin 0.6 MG/DL (0.2-1.0) Aspartate Amino Transf (AST/SGOT) 44 U/L (15-37) H Alanine Aminotransferase (ALT/SGPT) 40 U/L (12-78) Alkaline Phosphatase 81 U/L (46-116) Total Protein 6.0 G/DL (6.4-8.2) L Albumin 1.9 G/DL (3.4-5.0) L Globulin 4.1 g/dL Albumin/Globulin Ratio 0.5 (1.0-2.7) L DIANA AGGARWAL Nov 23, 2017 11:43
--- NOTE | 2017-11-23 11:55 | Diagnostic Imaging Report ---
Indication: Reason For Exam: SOB Technique: XRAY Chest 1v Comparison:11/21/2017 Findings: Compared to previous study, there is increasing or space disease in the upper lobes bilaterally. These areas are now more consolidated. Air space infiltrates elsewhere are essentially unchanged. Heart remains enlarged. Tracheostomy remains. Impression: Increasing bilateral airspace disease consistent with increasing pneumonia, pulmonary edema or ARDS.
[2017-11-23 12:00] VITALS: BP 151/86
[2017-11-23] MEDS ORDERED: Sodium Phosphate 20 MM in NS 275 ML IV ONE (12:45)
--- NOTE | 2017-11-23 13:53 | Cardiology Progress Note ---
Assessment/Plan Assessment/Plan bloody discharge from trachea ?bleeding into her lungs? d/w nurse Dr Pittman aware Subjective Subjective tunresponsive and agitated, Objective Last 24 Hour Vital Signs Date Time Temp Pulse Resp B/P (MAP) Pulse Ox O2 Delivery O2 Flow Rate FiO2 11/23/17 13:20 60 11/23/17 13:20 127 38 60 11/23/17 12:00 98.2 104 36 151/86 100 Mechanical Ventilator 70 98.2 11/23/17 11:45 107 11/23/17 10:51 70 11/23/17 10:45 119 28 70 11/23/17 09:10 92 29 40 11/23/17 09:05 92 106/60 11/23/17 08:06 91 11/23/17 08:00 98.1 92 24 106/60 96 Mechanical Ventilator 40 98.1 11/23/17 08:00 40 11/23/17 07:13 94 21 40 11/23/17 04:58 126 33 40 11/23/17 04:48 99.1 11/23/17 04:00 40 11/23/17 04:00 133 11/23/17 04:00 100.1 92 20 158/96 94 Mechanical Ventilator 40 100.1 11/23/17 03:32 99.6 11/23/17 03:16 126 33 40 11/23/17 01:17 126 33 97 Mechanical Ventilator 40 11/23/17 00:56 40 11/23/17 00:50 120 33 97 Mechanical Ventilator 40 11/23/17 00:48 120 33 40 11/23/17 00:00 116 11/23/17 00:00 118 11/23/17 00:00 99.6 85 20 165/97 97 Mechanical Ventilator 40 99.6 11/23/17 00:00 99.6 116 18 165/97 98 Mechanical Ventilator 50 99.6 11/23/17 00:00 40 11/23/17 00:00 40 11/22/17 22:48 106 28 40 11/22/17 21:29 104 118/72 11/22/17 21:24 103 19 40 11/22/17 20:00 98.0 104 18 118/72 98 Mechanical Ventilator 50 98.0 11/22/17 20:00 40 11/22/17 20:00 99 11/22/17 19:56 103 19 100 Mechanical Ventilator 40 11/22/17 19:44 40 11/22/17 19:42 100 19 98 Mechanical Ventilator 40 11/22/17 19:37 95 36 40 11/22/17 17:22 95 36 40 11/22/17 16:00 113 11/22/17 16:00 40 11/22/17 16:00 98.4 119 28 152/73 98 Mechanical Ventilator 50 98.4 11/22/17 15:00 40 11/22/17 14:56 95 27 40 General Appearance: other - unresponsive on vent EENT: other - eyes closed Neck: other - tracheostomy, a lot og blood Rhythm: SB Cardiovascular: tachycardia Respiratory/Chest: crackles/rales Abdomen: non tender Intake and Output 11/22/17 11/23/17 19:00 07:00 Intake Total 450 ml 595 ml Output Total 1300 ml 550 ml Balance -850 ml 45 ml Intake Free Water 50 ml 100 ml IV Total 330 ml 110 ml Tube Feeding 70 ml 385 ml Output Urine Total 1300 ml 550 ml Laboratory Tests Test 11/22/17 21:21 11/23/17 04:00 Vancomycin Level Trough 15.6 ug/mL (5.0-12.0) H White Blood Count 12.9 K/UL (4.8-10.8) H Red Blood Count 3.62 M/UL (4.20-5.40) L Hemoglobin 10.3 G/DL (12.0-16.0) #L Hematocrit 31.1 % (37.0-47.0) #L Mean Corpuscular Volume 86 FL (80-99) Mean Corpuscular Hemoglobin 28.3 PG (27.0-31.0) Mean Corpuscular Hemoglobin Concent 33.0 G/DL (32.0-36.0) Red Cell Distribution Width 12.9 % (11.6-14.8) Platelet Count 315 K/UL (150-450) Mean Platelet Volume 6.4 FL (6.5-10.1) L Neutrophils (%) (Auto) % (45.0-75.0) Lymphocytes (%) (Auto) % (20.0-45.0) Monocytes (%) (Auto) % (1.0-10.0) Eosinophils (%) (Auto) % (0.0-3.0) Basophils (%) (Auto) % (0.0-2.0) Differential Total Cells Counted 100 Neutrophils % (Manual) 95 % (45-75) H Lymphocytes % (Manual) 4 % (20-45) L Monocytes % (Manual) 1 % (1-10) Eosinophils % (Manual) 0 % (0-3) Basophils % (Manual) 0 % (0-2) Band Neutrophils 0 % (0-8) Platelet Estimate Adequate Platelet Morphology Normal Polychromasia 1+ Hypochromasia 1+ Sodium Level 140 MMOL/L (136-145) Potassium Level 3.6 MMOL/L (3.5-5.1) Chloride Level 102 MMOL/L (98-107) Carbon Dioxide Level 34 MMOL/L (21-32) H Anion Gap 4 mmol/L (5-15) L Blood Urea Nitrogen 22 mg/dL (7-18) H Creatinine 0.8 MG/DL (0.55-1.30) Estimat Glomerular Filtration Rate mL/min (>60) Glucose Level 207 MG/DL (74-106) H Calcium Level 8.2 MG/DL (8.5-10.1) L Phosphorus Level 1.2 MG/DL (2.5-4.9) L Magnesium Level 2.0 MG/DL (1.8-2.4) Total Bilirubin 0.6 MG/DL (0.2-1.0) Aspartate Amino Transf (AST/SGOT) 44 U/L (15-37) H Alanine Aminotransferase (ALT/SGPT) 40 U/L (12-78) Alkaline Phosphatase 81 U/L (46-116) Total Protein 6.0 G/DL (6.4-8.2) L Albumin 1.9 G/DL (3.4-5.0) L Globulin 4.1 g/dL Albumin/Globulin Ratio 0.5 (1.0-2.7) PELON BOLTON Nov 23, 2017 13:53
--- NOTE | 2017-11-23 15:02 | General Progress Note ---
Assessment/Plan Assessment/Plan Assessment - Resp failure - valvular heart disease - progressive anemia - s/p trach - s/p PEG - sinus tach, worsened by agitation - leukocytosis - AMS - anemia, ? etiology Recommendations - PPI - transfuse - Advance TF - PRN BDZ for agitation - Elevated HOB Subjective Allergies: Coded Allergies: PENICILLINS (Verified Allergy, Mild, Rash, 06/30/14) Subjective Tolerating TF unresponsive s/p transfusion d/w RN re TF rate Objective Last 24 Hour Vital Signs Date Time Temp Pulse Resp B/P (MAP) Pulse Ox O2 Delivery O2 Flow Rate FiO2 11/23/17 13:20 60 11/23/17 13:20 127 38 60 11/23/17 12:00 98.2 104 36 151/86 100 Mechanical Ventilator 70 98.2 11/23/17 11:45 107 11/23/17 10:51 70 11/23/17 10:45 119 28 70 11/23/17 09:10 92 29 40 11/23/17 09:05 92 106/60 11/23/17 08:06 91 11/23/17 08:00 98.1 92 24 106/60 96 Mechanical Ventilator 40 98.1 11/23/17 08:00 40 11/23/17 07:13 94 21 40 11/23/17 04:58 126 33 40 11/23/17 04:48 99.1 11/23/17 04:00 40 11/23/17 04:00 133 11/23/17 04:00 100.1 92 20 158/96 94 Mechanical Ventilator 40 100.1 11/23/17 03:32 99.6 11/23/17 03:16 126 33 40 11/23/17 01:17 126 33 97 Mechanical Ventilator 40 11/23/17 00:56 40 11/23/17 00:50 120 33 97 Mechanical Ventilator 40 11/23/17 00:48 120 33 40 11/23/17 00:00 116 11/23/17 00:00 118 11/23/17 00:00 99.6 85 20 165/97 97 Mechanical Ventilator 40 99.6 11/23/17 00:00 99.6 116 18 165/97 98 Mechanical Ventilator 50 99.6 11/23/17 00:00 40 11/23/17 00:00 40 11/22/17 22:48 106 28 40 11/22/17 21:29 104 118/72 11/22/17 21:24 103 19 40 11/22/17 20:00 98.0 104 18 118/72 98 Mechanical Ventilator 50 98.0 11/22/17 20:00 40 11/22/17 20:00 99 11/22/17 19:56 103 19 100 Mechanical Ventilator 40 11/22/17 19:44 40 11/22/17 19:42 100 19 98 Mechanical Ventilator 40 11/22/17 19:37 95 36 40 11/22/17 17:22 95 36 40 11/22/17 16:00 113 11/22/17 16:00 40 11/22/17 16:00 98.4 119 28 152/73 98 Mechanical Ventilator 50 98.4 Intake and Output 11/22/17 11/23/17 19:00 07:00 Intake Total 450 ml 595 ml Output Total 1300 ml 550 ml Balance -850 ml 45 ml Intake Free Water 50 ml 100 ml IV Total 330 ml 110 ml Tube Feeding 70 ml 385 ml Output Urine Total 1300 ml 550 ml Laboratory Tests 11/22/17 21:21: Vancomycin Level Trough 15.6H 11/23/17 04:00: White Blood Count 12.9H, Red Blood Count 3.62L, Hemoglobin 10.3#L, Hematocrit 31.1#L, Mean Corpuscular Volume 86, Mean Corpuscular Hemoglobin 28.3, Mean Corpuscular Hemoglobin Concent 33.0, Red Cell Distribution Width 12.9, Platelet Count 315, Mean Platelet Volume 6.4L, Neutrophils (%) (Auto) , Lymphocytes (%) ( Auto) , Monocytes (%) (Auto) , Eosinophils (%) (Auto) , Basophils (%) (Auto) , Differential Total Cells Counted 100, Neutrophils % (Manual) 95H, Lymphocytes % (Manual) 4L, Monocytes % (Manual) 1, Eosinophils % (Manual) 0, Basophils % ( Manual) 0, Band Neutrophils 0, Platelet Estimate Adequate, Platelet Morphology Normal, Polychromasia 1+, Hypochromasia 1+, Sodium Level 140, Potassium Level 3.6, Chloride Level 102, Carbon Dioxide Level 34H, Anion Gap 4L, Blood Urea Nitrogen 22H, Creatinine 0.8, Estimat Glomerular Filtration Rate , Glucose Level 207H, Calcium Level 8.2L, Phosphorus Level 1.2L, Magnesium Level 2.0, Total Bilirubin 0.6, Aspartate Amino Transf (AST/SGOT) 44H, Alanine Aminotransferase (ALT/SGPT) 40, Alkaline Phosphatase 81, Total Protein 6.0L, Albumin 1.9L, Globulin 4.1, Albumin/Globulin Ratio 0.5L Height (Feet): 4 Height (Inches): 10.00 Weight (Pounds): 74 Objective Thin AA woman, on vent NCAT neck (+) trach Coarse BS RR / tachy abd soft flat, (+) GT neuro sedated, agitated, restrained no edema MIKE LEWIS Nov 23, 2017 15:02
--- NOTE | 2017-11-23 15:35 | Cardiology Report ---
APPROVED REPORT EKG Measurement Heart [id number] [place] [id number] Poor data quality, interpretation may be adversely affected Sinus tachycardia with frequent, and consecutive premature ventricular complexes and fusion complexes Rightward axis Nonspecific T wave abnormality Abnormal ECG
--- NOTE | 2017-11-23 15:57 | General Surgery Progress Note ---
General Surgery-Progress Note Subjective Procedure Performed percutaneous tracheostomy Additional Comments h/h low again yesterday. transfused 1 unit prbc. trach site with blood tinged mucus. no bleeding around trach. no gross blood in stool. no signs of active bleeding. Objective Last 24 Hour Vital Signs Date Time Temp Pulse Resp B/P (MAP) Pulse Ox O2 Delivery O2 Flow Rate FiO2 11/23/17 15:30 50 11/23/17 15:28 110 24 50 11/23/17 13:20 60 11/23/17 13:20 127 38 60 11/23/17 12:00 98.2 104 36 151/86 100 Mechanical Ventilator 70 98.2 11/23/17 11:45 107 11/23/17 10:51 70 11/23/17 10:45 119 28 70 11/23/17 09:10 92 29 40 11/23/17 09:05 92 106/60 11/23/17 08:06 91 11/23/17 08:00 98.1 92 24 106/60 96 Mechanical Ventilator 40 98.1 11/23/17 08:00 40 11/23/17 07:13 94 21 40 11/23/17 04:58 126 33 40 11/23/17 04:48 99.1 11/23/17 04:00 40 11/23/17 04:00 133 11/23/17 04:00 100.1 92 20 158/96 94 Mechanical Ventilator 40 100.1 11/23/17 03:32 99.6 11/23/17 03:16 126 33 40 11/23/17 01:17 126 33 97 Mechanical Ventilator 40 11/23/17 00:56 40 11/23/17 00:50 120 33 97 Mechanical Ventilator 40 11/23/17 00:48 120 33 40 11/23/17 00:00 116 11/23/17 00:00 118 11/23/17 00:00 99.6 85 20 165/97 97 Mechanical Ventilator 40 99.6 11/23/17 00:00 99.6 116 18 165/97 98 Mechanical Ventilator 50 99.6 11/23/17 00:00 40 11/23/17 00:00 40 11/22/17 22:48 106 28 40 11/22/17 21:29 104 118/72 11/22/17 21:24 103 19 40 11/22/17 20:00 98.0 104 18 118/72 98 Mechanical Ventilator 50 98.0 11/22/17 20:00 40 11/22/17 20:00 99 11/22/17 19:56 103 19 100 Mechanical Ventilator 40 11/22/17 19:44 40 11/22/17 19:42 100 19 98 Mechanical Ventilator 40 11/22/17 19:37 95 36 40 11/22/17 17:22 95 36 40 11/22/17 16:00 113 11/22/17 16:00 40 11/22/17 16:00 98.4 119 28 152/73 98 Mechanical Ventilator 50 98.4 I&O Intake and Output 11/22/17 11/23/17 19:00 07:00 Intake Total 450 ml 595 ml Output Total 1300 ml 550 ml Balance -850 ml 45 ml Intake Free Water 50 ml 100 ml IV Total 330 ml 110 ml Tube Feeding 70 ml 385 ml Output Urine Total 1300 ml 550 ml Cardiovascular: RSR Respiratory: clear Abdomen: soft, flat, non-tender, present bowel sounds Extremities: no tenderness, no cyanosis Laboratory Tests Test 11/22/17 21:21 11/23/17 04:00 Vancomycin Level Trough 15.6 ug/mL (5.0-12.0) H White Blood Count 12.9 K/UL (4.8-10.8) H Red Blood Count 3.62 M/UL (4.20-5.40) L Hemoglobin 10.3 G/DL (12.0-16.0) #L Hematocrit 31.1 % (37.0-47.0) #L Mean Corpuscular Volume 86 FL (80-99) Mean Corpuscular Hemoglobin 28.3 PG (27.0-31.0) Mean Corpuscular Hemoglobin Concent 33.0 G/DL (32.0-36.0) Red Cell Distribution Width 12.9 % (11.6-14.8) Platelet Count 315 K/UL (150-450) Mean Platelet Volume 6.4 FL (6.5-10.1) L Neutrophils (%) (Auto) % (45.0-75.0) Lymphocytes (%) (Auto) % (20.0-45.0) Monocytes (%) (Auto) % (1.0-10.0) Eosinophils (%) (Auto) % (0.0-3.0) Basophils (%) (Auto) % (0.0-2.0) Differential Total Cells Counted 100 Neutrophils % (Manual) 95 % (45-75) H Lymphocytes % (Manual) 4 % (20-45) L Monocytes % (Manual) 1 % (1-10) Eosinophils % (Manual) 0 % (0-3) Basophils % (Manual) 0 % (0-2) Band Neutrophils 0 % (0-8) Platelet Estimate Adequate Platelet Morphology Normal Polychromasia 1+ Hypochromasia 1+ Sodium Level 140 MMOL/L (136-145) Potassium Level 3.6 MMOL/L (3.5-5.1) Chloride Level 102 MMOL/L (98-107) Carbon Dioxide Level 34 MMOL/L (21-32) H Anion Gap 4 mmol/L (5-15) L Blood Urea Nitrogen 22 mg/dL (7-18) H Creatinine 0.8 MG/DL (0.55-1.30) Estimat Glomerular Filtration Rate mL/min (>60) Glucose Level 207 MG/DL (74-106) H Calcium Level 8.2 MG/DL (8.5-10.1) L Phosphorus Level 1.2 MG/DL (2.5-4.9) L Magnesium Level 2.0 MG/DL (1.8-2.4) Total Bilirubin 0.6 MG/DL (0.2-1.0) Aspartate Amino Transf (AST/SGOT) 44 U/L (15-37) H Alanine Aminotransferase (ALT/SGPT) 40 U/L (12-78) Alkaline Phosphatase 81 U/L (46-116) Total Protein 6.0 G/DL (6.4-8.2) L Albumin 1.9 G/DL (3.4-5.0) L Globulin 4.1 g/dL Albumin/Globulin Ratio 0.5 (1.0-2.7) L Plan Problems: (1) Respiratory failure Assessment & Plan: s/p trach earlier this week. h/h low intermittently requiring transfusion. blood tinged mucus with suctioning. CXR without signs of bleeding into lungs. does have pneumonia on cxr. no bleeding from trach. blood tinged mucus can be anticipated as she does have friable tissues. cut back on suctioning unless necessary. no gross gi bleed or other site of bleeding noted. of note, patient only received 1 unit prbc. hemoglobin went from 7 to 10 with 1 unit. prior to yesterday labs hemoglobin was 9. i anticipate that yesterday' s lab draw was an error as it makes more sense that after 1 unit prbc she went from a hb of 9 to 10, rather than from 7 to 10 with 1 unit. will monitor. trend labs. wean vent as tolerated. Andrew Krause Nov 23, 2017 15:57
[2017-11-23 16:20] VITALS: BP 168/104
[2017-11-23] MEDS ORDERED: NS 275ml ONE (16:22)
[2017-11-23] MEDS ORDERED: Tubing IV Secondary IV ONE (16:22)
[2017-11-23] MEDS: LORazepam Inj 2mg/ml 1ml IV PRN ×2 (17:14→23:24)
[2017-11-23 20:00] VITALS: BP 121/63
[2017-11-24] VITALS: BP 156/67
[2017-11-24] MEDS: Morphine Sulfate 4mg/ml Inj IVP PRN ×3 (01:15→18:50)
[2017-11-24] MEDS: LORazepam Inj 2mg/ml 1ml IV PRN ×2 (03:55→20:23)
[2017-11-24 04:00] VITALS: BP 138/79
[2017-11-24 04:08] LABS: HEMATOCRIT 29.6 % (37.0-47.0); HEMOGLOBIN 9.6 G/DL (12.0-16.0); MEAN CORPUSCULAR VOLUME 86 FL (80-99); PLATELET COUNT 300 K/UL (150-450); RED BLOOD COUNT 3.45 M/UL (4.20-5.40); RED CELL DISTRIBUTION WIDTH 13.7 % (11.6-14.8); WHITE BLOOD COUNT 11.3 K/UL (4.8-10.8)
[2017-11-24 04:29] LABS: ALANINE AMINOTRANSFERASE 40 U/L (12-78); ALBUMIN 1.7 G/DL (3.4-5.0); ALBUMIN/GLOBULIN RATIO 0.4 (1.0-2.7); ALKALINE PHOSPHATASE 72 U/L (46-116); ANION GAP 0 mmol/L (5-15); ASPARTATE AMINO TRANSFERASE 42 U/L (15-37); BILIRUBIN,TOTAL 0.6 MG/DL (0.2-1.0); BLOOD UREA NITROGEN 22 mg/dL (7-18); CARBON DIOXIDE 38 MMOL/L (21-32); CHLORIDE 104 MMOL/L (98-107); CREATININE 0.7 MG/DL (0.55-1.30); POTASSIUM 2.9 MMOL/L (3.5-5.1); SODIUM 145 MMOL/L (136-145)
[2017-11-24 08:00] VITALS: BP 163/116
[2017-11-24] MEDS: Metoprolol Tartrate 50mg tab NG SCH ×2 (10:11→20:22)
[2017-11-24] MEDS: Pantoprazole Inj IV SCH (10:16)
--- NOTE | 2017-11-24 11:32 | Infectious Diseases Prog Note ---
Assessment/Plan Assessment/Plan ASSESSMENT: The patient is a 77-year-old female, w Leukocytosis improving Fever, SP Probable ventilator-associated pneumonia. Scx : PSA influenza :neg Diarrhea , SP at the time of admission Chest x-ray, bilateral diffuse interstitial opacity Uxc : mixed growth PEG 11/20 TRACH 11/18 Hypertension Anemia PLAN: continue the patient on Azactam day # a 11/22 SP vancomycin day # Monitor CBC Monitor BMP, LFT Monitor cultures, blood, urine, and sputum Monitor chest x-ray PRBC Tx Subjective Allergies: Coded Allergies: PENICILLINS (Verified Allergy, Mild, Rash, 06/30/14) Subjective Fever improving Objective Vital Signs Last 24 Hour Vital Signs Date Time Temp Pulse Resp B/P (MAP) Pulse Ox O2 Delivery O2 Flow Rate FiO2 11/24/17 11:15 101 25 60 11/24/17 10:11 120 163/116 11/24/17 09:15 93 26 60 11/24/17 08:00 99.5 120 30 163/116 94 Mechanical Ventilator 60 99.5 11/24/17 06:45 99 22 60 11/24/17 05:21 99 38 60 11/24/17 04:00 98.5 97 29 138/79 99 Mechanical Ventilator 60 98.5 11/24/17 04:00 60 11/24/17 04:00 91 11/24/17 03:21 101 36 60 11/24/17 00:50 104 38 60 11/24/17 00:00 102 11/24/17 00:00 60 11/24/17 00:00 98.8 101 28 156/67 99 Mechanical Ventilator 60 98.8 11/23/17 23:12 98 36 60 11/23/17 21:28 98 121/63 11/23/17 21:20 105 38 60 11/23/17 20:00 94 11/23/17 20:00 99.4 98 39 121/63 99 Mechanical Ventilator 60 99.4 11/23/17 19:09 106 40 60 11/23/17 17:39 99.0 11/23/17 17:09 102.2 11/23/17 16:45 138 36 60 11/23/17 16:20 102.2 140 40 168/104 95 Mechanical Ventilator 60 102.2 11/23/17 16:00 106 11/23/17 16:00 60 11/23/17 15:51 60 11/23/17 15:30 50 11/23/17 15:28 110 24 50 11/23/17 13:20 60 11/23/17 13:20 127 38 60 11/23/17 12:00 98.2 104 36 151/86 100 Mechanical Ventilator 70 98.2 11/23/17 11:45 107 Height (Feet): 4 Height (Inches): 10.00 Weight (Pounds): 76 HEENT: mucous membranes moist Respiratory/Chest: no accessory muscle use Abdomen: soft, non tender Laboratory Tests Test 11/24/17 03:10 11/24/17 08:27 White Blood Count 11.3 K/UL (4.8-10.8) H Red Blood Count 3.45 M/UL (4.20-5.40) L Hemoglobin 9.6 G/DL (12.0-16.0) L Hematocrit 29.6 % (37.0-47.0) L Mean Corpuscular Volume 86 FL (80-99) Mean Corpuscular Hemoglobin 27.9 PG (27.0-31.0) Mean Corpuscular Hemoglobin Concent 32.6 G/DL (32.0-36.0) Red Cell Distribution Width 13.7 % (11.6-14.8) Platelet Count 300 K/UL (150-450) Mean Platelet Volume 6.3 FL (6.5-10.1) L Neutrophils (%) (Auto) % (45.0-75.0) Lymphocytes (%) (Auto) % (20.0-45.0) Monocytes (%) (Auto) % (1.0-10.0) Eosinophils (%) (Auto) % (0.0-3.0) Basophils (%) (Auto) % (0.0-2.0) Sodium Level 145 MMOL/L (136-145) Potassium Level 2.9 MMOL/L (3.5-5.1) L Chloride Level 104 MMOL/L (98-107) Carbon Dioxide Level 38 MMOL/L (21-32) H Anion Gap 0 mmol/L (5-15) L Blood Urea Nitrogen 22 mg/dL (7-18) H Creatinine 0.7 MG/DL (0.55-1.30) Estimat Glomerular Filtration Rate mL/min (>60) Glucose Level 160 MG/DL (74-106) H Calcium Level 8.0 MG/DL (8.5-10.1) L Phosphorus Level 3.0 MG/DL (2.5-4.9) Magnesium Level 1.9 MG/DL (1.8-2.4) Total Bilirubin 0.6 MG/DL (0.2-1.0) Aspartate Amino Transf (AST/SGOT) 42 U/L (15-37) H Alanine Aminotransferase (ALT/SGPT) 40 U/L (12-78) Alkaline Phosphatase 72 U/L (46-116) Total Protein 5.5 G/DL (6.4-8.2) L Albumin 1.7 G/DL (3.4-5.0) L Globulin 3.8 g/dL Albumin/Globulin Ratio 0.4 (1.0-2.7) L Arterial Blood pH 7.490 (7.350-7.450) Arterial Blood Partial Pressure CO2 45.6 mmHg (35.0-45.0) H Arterial Blood Partial Pressure O2 61.5 mmHg (75.0-100.0) L Arterial Blood HCO3 34.5 mmol/L (22.0-26.0) H Arterial Blood Oxygen Saturation 91.5 % (92.0-98.0) L Arterial Blood Base Excess 10.1 Rafy Test Positive Current Medications Medications (Trade) Dose Ordered Sig/Puja Route PRN Reason Start Time Stop Time Status Last Admin Dose Admin Acetaminophen (Tylenol) 650 mg Q4H PRN NG T>100.5 11/21/17 10:30 12/14/17 10:29 11/23/17 17:09 Aztreonam 0.5 gm/ Sodium Chloride 55 ml @ 110 mls/hr Q8HR IVPB 11/24/17 14:00 11/29/17 23:59 Dextrose (Dextrose 50%) STAT PRN IV Hypoglycemia 11/21/17 10:30 12/08/17 10:29 Furosemide (Lasix) 20 mg DAILY IV 11/22/17 09:00 12/20/17 20:59 11/24/17 10:07 Levalbuterol HCl (Xopenex) 1.25 mg Q6H PRN HHN Shortness of Breath 11/23/17 02:15 11/28/17 02:14 Lorazepam (Ativan 2mg/ml 1ml) 2 mg Q4H PRN IV For Anxiety 11/22/17 07:30 11/29/17 07:29 11/24/17 03:55 Metoprolol Tartrate (Lopressor) 5 mg Q6H PRN IVP HR>130 11/21/17 11:00 12/11/17 10:59 Metoprolol Tartrate (Lopressor) 50 mg Q12HR NG 11/21/17 21:00 12/16/17 20:59 11/24/17 10:11 Morphine Sulfate (Morphine Sulfate) 2 mg Q4H PRN IVP Moderate Pain (Pain Scale 4-6) 11/22/17 08:30 11/29/17 08:29 11/24/17 01:15 Ondansetron HCl (Zofran) 4 mg Q6H PRN IVP Nausea & Vomiting 11/21/17 10:30 12/08/17 10:29 Pantoprazole (Protonix) 40 mg DAILY IV 11/22/17 09:00 12/09/17 08:59 11/24/17 10:16 Polyethylene Glycol (Miralax) 17 gm DAILYPRN PRN ORAL Constipation 11/21/17 10:30 12/08/17 10:29 11/23/17 21:28 KUSH ESPINO M.D. Nov 24, 2017 11:32
--- NOTE | 2017-11-24 11:39 | Pulmonolgy Critical Care Note ---
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 Respiratory: monitor respiratory rate, adjust FIO2, CXR Cardiac: continue to monitor HR/BP Renal: F/U I&O, keep IV fluid, check electrolytes Infectious Disease: check cultures Gastrointestinal: continue feedings/current rate Endocrine: monitor blood sugar, continue sliding scale insulin Hematologic: monitor H/H Neurologic: keep patient comfortable Prophylaxis: Protonix Time Spent (Minutes): 40 Notes Reviewed: cardio, renal Critical Care - Objective Last 24 Hour Vital Signs Date Time Temp Pulse Resp B/P (MAP) Pulse Ox O2 Delivery O2 Flow Rate FiO2 11/24/17 11:15 101 25 60 11/24/17 10:11 120 163/116 11/24/17 09:15 93 26 60 11/24/17 08:00 60 11/24/17 08:00 99.5 120 30 163/116 94 Mechanical Ventilator 60 99.5 11/24/17 06:45 99 22 60 11/24/17 05:21 99 38 60 11/24/17 04:00 98.5 97 29 138/79 99 Mechanical Ventilator 60 98.5 11/24/17 04:00 60 11/24/17 04:00 91 11/24/17 03:21 101 36 60 11/24/17 00:50 104 38 60 11/24/17 00:00 102 11/24/17 00:00 60 11/24/17 00:00 98.8 101 28 156/67 99 Mechanical Ventilator 60 98.8 11/23/17 23:12 98 36 60 11/23/17 21:28 98 121/63 11/23/17 21:20 105 38 60 11/23/17 20:00 94 11/23/17 20:00 99.4 98 39 121/63 99 Mechanical Ventilator 60 99.4 11/23/17 19:09 106 40 60 11/23/17 17:39 99.0 11/23/17 17:09 102.2 11/23/17 16:45 138 36 60 11/23/17 16:20 102.2 140 40 168/104 95 Mechanical Ventilator 60 102.2 11/23/17 16:00 106 11/23/17 16:00 60 11/23/17 15:51 60 11/23/17 15:30 50 11/23/17 15:28 110 24 50 11/23/17 13:20 60 11/23/17 13:20 127 38 60 11/23/17 12:00 98.2 104 36 151/86 100 Mechanical Ventilator 70 98.2 11/23/17 11:45 107 Status: awake Condition: critical HEENT: atraumatic Neck: full ROM Lungs: clear Heart: HR/BP stable, HR/BP unstable Abdomen: soft, non-tender, feeding tube Extremities: edema Decubiti: location Critical Care - Subjective ROS Limited/Unobtainable: Yes Condition: critical EKG Rhythm: Sinus Rhythm FI02: 60 Vent Support Breath Rate: 12 Vent Support Mode: AC Vent Tidal Volume: 300 Sputum Amount: Moderate PEEP: 5.0 PIP: 24 Tube Feeding Amount: 45 I&O: Intake and Output 11/23/17 11/24/17 19:00 07:00 Intake Total 949.5 ml 728.8 ml Output Total 1200 ml 250 ml Balance -250.5 ml 478.8 ml IV Total 289.5 ml 203.8 ml Tube Feeding 480 ml 495 ml Other 180 ml 30 ml Output Urine Total 1200 ml 250 ml CXR: no change, extensive infiltrate ET-Tube: 6.0 ET Position: 20 Labs: Laboratory Tests Test 11/24/17 03:10 11/24/17 08:27 White Blood Count 11.3 K/UL (4.8-10.8) H Red Blood Count 3.45 M/UL (4.20-5.40) L Hemoglobin 9.6 G/DL (12.0-16.0) L Hematocrit 29.6 % (37.0-47.0) L Mean Corpuscular Volume 86 FL (80-99) Mean Corpuscular Hemoglobin 27.9 PG (27.0-31.0) Mean Corpuscular Hemoglobin Concent 32.6 G/DL (32.0-36.0) Red Cell Distribution Width 13.7 % (11.6-14.8) Platelet Count 300 K/UL (150-450) Mean Platelet Volume 6.3 FL (6.5-10.1) L Neutrophils (%) (Auto) % (45.0-75.0) Lymphocytes (%) (Auto) % (20.0-45.0) Monocytes (%) (Auto) % (1.0-10.0) Eosinophils (%) (Auto) % (0.0-3.0) Basophils (%) (Auto) % (0.0-2.0) Sodium Level 145 MMOL/L (136-145) Potassium Level 2.9 MMOL/L (3.5-5.1) L Chloride Level 104 MMOL/L (98-107) Carbon Dioxide Level 38 MMOL/L (21-32) H Anion Gap 0 mmol/L (5-15) L Blood Urea Nitrogen 22 mg/dL (7-18) H Creatinine 0.7 MG/DL (0.55-1.30) Estimat Glomerular Filtration Rate mL/min (>60) Glucose Level 160 MG/DL (74-106) H Calcium Level 8.0 MG/DL (8.5-10.1) L Phosphorus Level 3.0 MG/DL (2.5-4.9) Magnesium Level 1.9 MG/DL (1.8-2.4) Total Bilirubin 0.6 MG/DL (0.2-1.0) Aspartate Amino Transf (AST/SGOT) 42 U/L (15-37) H Alanine Aminotransferase (ALT/SGPT) 40 U/L (12-78) Alkaline Phosphatase 72 U/L (46-116) Total Protein 5.5 G/DL (6.4-8.2) L Albumin 1.7 G/DL (3.4-5.0) L Globulin 3.8 g/dL Albumin/Globulin Ratio 0.4 (1.0-2.7) L Arterial Blood pH 7.490 (7.350-7.450) Arterial Blood Partial Pressure CO2 45.6 mmHg (35.0-45.0) H Arterial Blood Partial Pressure O2 61.5 mmHg (75.0-100.0) L Arterial Blood HCO3 34.5 mmol/L (22.0-26.0) H Arterial Blood Oxygen Saturation 91.5 % (92.0-98.0) L Arterial Blood Base Excess 10.1 Rafy Test Positive DIANA AGGARWAL Nov 24, 2017 11:39
[2017-11-24 12:00] VITALS: BP 159/88
--- NOTE | 2017-11-24 12:51 | Diagnostic Imaging Report ---
Indication: Dyspnea Comparison: 11/23/2017 A single view chest radiograph was obtained. Findings: Extensive mixed alveolar and interstitial changes present within the lungs bilaterally. Heart is enlarged. Tracheostomy noted. Findings are unchanged IMPRESSION: No change from one day earlier
--- NOTE | 2017-11-24 13:07 | General Surgery Progress Note ---
General Surgery-Progress Note Subjective Procedure Performed percutaneous tracheostomy Additional Comments stable. no acute events. h/h stable. no active bleeding Objective Last 24 Hour Vital Signs Date Time Temp Pulse Resp B/P (MAP) Pulse Ox O2 Delivery O2 Flow Rate FiO2 11/24/17 12:40 107 25 60 11/24/17 11:15 101 25 60 11/24/17 10:11 120 163/116 11/24/17 09:15 93 26 60 11/24/17 08:00 107 11/24/17 08:00 60 11/24/17 08:00 99.5 120 30 163/116 94 Mechanical Ventilator 60 99.5 11/24/17 06:45 99 22 60 11/24/17 05:21 99 38 60 11/24/17 04:00 98.5 97 29 138/79 99 Mechanical Ventilator 60 98.5 11/24/17 04:00 60 11/24/17 04:00 91 11/24/17 03:21 101 36 60 11/24/17 00:50 104 38 60 11/24/17 00:00 102 11/24/17 00:00 60 11/24/17 00:00 98.8 101 28 156/67 99 Mechanical Ventilator 60 98.8 11/23/17 23:12 98 36 60 11/23/17 21:28 98 121/63 11/23/17 21:20 105 38 60 11/23/17 20:00 94 11/23/17 20:00 99.4 98 39 121/63 99 Mechanical Ventilator 60 99.4 11/23/17 19:09 106 40 60 11/23/17 17:39 99.0 11/23/17 17:09 102.2 11/23/17 16:45 138 36 60 11/23/17 16:20 102.2 140 40 168/104 95 Mechanical Ventilator 60 102.2 11/23/17 16:00 106 11/23/17 16:00 60 11/23/17 15:51 60 11/23/17 15:30 50 11/23/17 15:28 110 24 50 11/23/17 13:20 60 11/23/17 13:20 127 38 60 I&O Intake and Output 11/23/17 11/24/17 19:00 07:00 Intake Total 949.5 ml 728.8 ml Output Total 1200 ml 250 ml Balance -250.5 ml 478.8 ml IV Total 289.5 ml 203.8 ml Tube Feeding 480 ml 495 ml Other 180 ml 30 ml Output Urine Total 1200 ml 250 ml Wound: clean, dry Cardiovascular: RSR Respiratory: clear Abdomen: soft, flat, non-tender, present bowel sounds Extremities: no cyanosis Laboratory Tests Test 11/24/17 03:10 11/24/17 08:27 White Blood Count 11.3 K/UL (4.8-10.8) H Red Blood Count 3.45 M/UL (4.20-5.40) L Hemoglobin 9.6 G/DL (12.0-16.0) L Hematocrit 29.6 % (37.0-47.0) L Mean Corpuscular Volume 86 FL (80-99) Mean Corpuscular Hemoglobin 27.9 PG (27.0-31.0) Mean Corpuscular Hemoglobin Concent 32.6 G/DL (32.0-36.0) Red Cell Distribution Width 13.7 % (11.6-14.8) Platelet Count 300 K/UL (150-450) Mean Platelet Volume 6.3 FL (6.5-10.1) L Neutrophils (%) (Auto) % (45.0-75.0) Lymphocytes (%) (Auto) % (20.0-45.0) Monocytes (%) (Auto) % (1.0-10.0) Eosinophils (%) (Auto) % (0.0-3.0) Basophils (%) (Auto) % (0.0-2.0) Sodium Level 145 MMOL/L (136-145) Potassium Level 2.9 MMOL/L (3.5-5.1) L Chloride Level 104 MMOL/L (98-107) Carbon Dioxide Level 38 MMOL/L (21-32) H Anion Gap 0 mmol/L (5-15) L Blood Urea Nitrogen 22 mg/dL (7-18) H Creatinine 0.7 MG/DL (0.55-1.30) Estimat Glomerular Filtration Rate mL/min (>60) Glucose Level 160 MG/DL (74-106) H Calcium Level 8.0 MG/DL (8.5-10.1) L Phosphorus Level 3.0 MG/DL (2.5-4.9) Magnesium Level 1.9 MG/DL (1.8-2.4) Total Bilirubin 0.6 MG/DL (0.2-1.0) Aspartate Amino Transf (AST/SGOT) 42 U/L (15-37) H Alanine Aminotransferase (ALT/SGPT) 40 U/L (12-78) Alkaline Phosphatase 72 U/L (46-116) Pro-B-Type Natriuretic Peptide 7333 pg/mL (0-125) H Total Protein 5.5 G/DL (6.4-8.2) L Albumin 1.7 G/DL (3.4-5.0) L Globulin 3.8 g/dL Albumin/Globulin Ratio 0.4 (1.0-2.7) L Arterial Blood pH 7.490 (7.350-7.450) Arterial Blood Partial Pressure CO2 45.6 mmHg (35.0-45.0) H Arterial Blood Partial Pressure O2 61.5 mmHg (75.0-100.0) L Arterial Blood HCO3 34.5 mmol/L (22.0-26.0) H Arterial Blood Oxygen Saturation 91.5 % (92.0-98.0) L Arterial Blood Base Excess 10.1 Rafy Test Positive Plan Problems: (1) Respiratory failure Assessment & Plan: s/p trach earlier this week. h/h low intermittently requiring transfusion. blood tinged mucus with suctioning. CXR without signs of bleeding into lungs. does have pneumonia on cxr. no bleeding from trach. blood tinged mucus can be anticipated as she does have friable tissues. cut back on suctioning unless necessary. no gross gi bleed or other site of bleeding noted. h/h stable. no active bleeding. trach clean. with trach care there is respiratory secretions that are blood tinged. will monitor. trend labs. wean vent as tolerated. Andrew Krause Nov 24, 2017 13:07
[2017-11-24] MEDS: Aztreonam Inj 0.5 GM in NS 55 ML IVPB SCH ×2 (14:06→20:23)
[2017-11-24 16:00] VITALS: BP 146/79
[2017-11-24 20:00] VITALS: BP 154/77
--- NOTE | 2017-11-24 20:42 | Cardiology Progress Note ---
Assessment/Plan Assessment/Plan 1. Respiratory failure. 2. Hypertension history. 3. Diarrhea at the time of admission. 4. Cachexia. 5. sinus tachy 6. nsvt 7. fever 8. hyptesnion 9. Eccentric mitral regurgitation 10. chf on bb via ng with prn iv if needed increase agitation causes her to have more tachy more images on tanja echo were performed and she indeed does have eccentric MR as clinically suspected she really is not a candidate for mv therapy at this time bp is fine s/p trach adn peg tele sinus cxr bilateral infiltrate seem worse diureticwill increase to bid heplock iv has sig secretion cxr reviweed tele reviewed Subjective ROS Limited/Unobtainable: Yes Subjective seem agitated at the moment , family thin k some response Objective Last 24 Hour Vital Signs Date Time Temp Pulse Resp B/P (MAP) Pulse Ox O2 Delivery O2 Flow Rate FiO2 11/24/17 20:22 109 133/96 11/24/17 19:20 99.0 11/24/17 19:00 102 28 60 11/24/17 18:50 99.0 11/24/17 17:08 109 19 60 11/24/17 16:00 102 11/24/17 16:00 99.0 105 20 146/79 99 Mechanical Ventilator 60 99.0 11/24/17 16:00 60 11/24/17 14:36 92 19 60 11/24/17 14:19 99.5 11/24/17 12:40 107 25 60 11/24/17 12:00 60 11/24/17 12:00 99.9 111 28 159/88 100 Mechanical Ventilator 60 99.9 11/24/17 12:00 105 11/24/17 11:15 101 25 60 11/24/17 10:11 120 163/116 11/24/17 09:15 93 26 60 11/24/17 08:00 107 11/24/17 08:00 60 11/24/17 08:00 99.5 120 30 163/116 94 Mechanical Ventilator 60 99.5 11/24/17 06:45 99 22 60 11/24/17 05:21 99 38 60 11/24/17 04:00 98.5 97 29 138/79 99 Mechanical Ventilator 60 98.5 11/24/17 04:00 60 11/24/17 04:00 91 11/24/17 03:21 101 36 60 11/24/17 00:50 104 38 60 11/24/17 00:00 102 11/24/17 00:00 60 11/24/17 00:00 98.8 101 28 156/67 99 Mechanical Ventilator 60 98.8 11/23/17 23:12 98 36 60 11/23/17 21:28 98 121/63 11/23/17 21:20 105 38 60 General Appearance: no apparent distress, on vent Neck: supple Cardiovascular: tachycardia, systolic murmur Respiratory/Chest: crackles/rales, rhonchi - bilaterally Abdomen: normal bowel sounds, non tender, soft Extremities: no swelling Intake and Output 11/23/17 11/24/17 19:00 07:00 Intake Total 949.5 ml 773.8 ml Output Total 1200 ml 250 ml Balance -250.5 ml 523.8 ml IV Total 289.5 ml 203.8 ml Tube Feeding 480 ml 540 ml Other 180 ml 30 ml Output Urine Total 1200 ml 250 ml Laboratory Tests Test 11/24/17 03:10 11/24/17 08:27 White Blood Count 11.3 K/UL (4.8-10.8) H Red Blood Count 3.45 M/UL (4.20-5.40) L Hemoglobin 9.6 G/DL (12.0-16.0) L Hematocrit 29.6 % (37.0-47.0) L Mean Corpuscular Volume 86 FL (80-99) Mean Corpuscular Hemoglobin 27.9 PG (27.0-31.0) Mean Corpuscular Hemoglobin Concent 32.6 G/DL (32.0-36.0) Red Cell Distribution Width 13.7 % (11.6-14.8) Platelet Count 300 K/UL (150-450) Mean Platelet Volume 6.3 FL (6.5-10.1) L Neutrophils (%) (Auto) % (45.0-75.0) Lymphocytes (%) (Auto) % (20.0-45.0) Monocytes (%) (Auto) % (1.0-10.0) Eosinophils (%) (Auto) % (0.0-3.0) Basophils (%) (Auto) % (0.0-2.0) Sodium Level 145 MMOL/L (136-145) Potassium Level 2.9 MMOL/L (3.5-5.1) L Chloride Level 104 MMOL/L (98-107) Carbon Dioxide Level 38 MMOL/L (21-32) H Anion Gap 0 mmol/L (5-15) L Blood Urea Nitrogen 22 mg/dL (7-18) H Creatinine 0.7 MG/DL (0.55-1.30) Estimat Glomerular Filtration Rate mL/min (>60) Glucose Level 160 MG/DL (74-106) H Calcium Level 8.0 MG/DL (8.5-10.1) L Phosphorus Level 3.0 MG/DL (2.5-4.9) Magnesium Level 1.9 MG/DL (1.8-2.4) Total Bilirubin 0.6 MG/DL (0.2-1.0) Aspartate Amino Transf (AST/SGOT) 42 U/L (15-37) H Alanine Aminotransferase (ALT/SGPT) 40 U/L (12-78) Alkaline Phosphatase 72 U/L (46-116) Pro-B-Type Natriuretic Peptide 7333 pg/mL (0-125) H Total Protein 5.5 G/DL (6.4-8.2) L Albumin 1.7 G/DL (3.4-5.0) L Globulin 3.8 g/dL Albumin/Globulin Ratio 0.4 (1.0-2.7) L Arterial Blood pH 7.490 (7.350-7.450) Arterial Blood Partial Pressure CO2 45.6 mmHg (35.0-45.0) H Arterial Blood Partial Pressure O2 61.5 mmHg (75.0-100.0) L Arterial Blood HCO3 34.5 mmol/L (22.0-26.0) H Arterial Blood Oxygen Saturation 91.5 % (92.0-98.0) L Arterial Blood Base Excess 10.1 Rafy Test Positive NALINI GIBBONS Nov 24, 2017 20:41
--- NOTE | 2017-11-24 22:04 | General Progress Note ---
Assessment/Plan Assessment/Plan Assessment - Resp failure - valvular heart disease - progressive anemia - s/p trach - s/p PEG - sinus tach, worsened by agitation - leukocytosis - AMS - anemia Recommendations - PPI - monitor CBC - Continue TF - PRN BDZ for agitation - Elevated HOB Subjective Allergies: Coded Allergies: PENICILLINS (Verified Allergy, Mild, Rash, 06/30/14) Subjective Tolerating TF unresponsive H&H now stable Objective Last 24 Hour Vital Signs Date Time Temp Pulse Resp B/P (MAP) Pulse Ox O2 Delivery O2 Flow Rate FiO2 11/24/17 21:09 100 25 60 11/24/17 20:22 109 133/96 11/24/17 19:20 99.0 11/24/17 19:00 102 28 60 11/24/17 18:50 99.0 11/24/17 17:08 109 19 60 11/24/17 16:00 102 11/24/17 16:00 99.0 105 20 146/79 99 Mechanical Ventilator 60 99.0 11/24/17 16:00 60 11/24/17 14:36 92 19 60 11/24/17 14:19 99.5 11/24/17 12:40 107 25 60 11/24/17 12:00 60 11/24/17 12:00 99.9 111 28 159/88 100 Mechanical Ventilator 60 99.9 11/24/17 12:00 105 11/24/17 11:15 101 25 60 11/24/17 10:11 120 163/116 11/24/17 09:15 93 26 60 11/24/17 08:00 107 11/24/17 08:00 60 11/24/17 08:00 99.5 120 30 163/116 94 Mechanical Ventilator 60 99.5 11/24/17 06:45 99 22 60 11/24/17 05:21 99 38 60 11/24/17 04:00 98.5 97 29 138/79 99 Mechanical Ventilator 60 98.5 11/24/17 04:00 60 11/24/17 04:00 91 11/24/17 03:21 101 36 60 11/24/17 00:50 104 38 60 11/24/17 00:00 102 11/24/17 00:00 60 11/24/17 00:00 98.8 101 28 156/67 99 Mechanical Ventilator 60 98.8 11/23/17 23:12 98 36 60 Intake and Output 11/23/17 11/24/17 19:00 07:00 Intake Total 949.5 ml 773.8 ml Output Total 1200 ml 250 ml Balance -250.5 ml 523.8 ml IV Total 289.5 ml 203.8 ml Tube Feeding 480 ml 540 ml Other 180 ml 30 ml Output Urine Total 1200 ml 250 ml Laboratory Tests 11/24/17 03:10: White Blood Count 11.3H, Red Blood Count 3.45L, Hemoglobin 9.6L, Hematocrit 29.6L, Mean Corpuscular Volume 86, Mean Corpuscular Hemoglobin 27.9, Mean Corpuscular Hemoglobin Concent 32.6, Red Cell Distribution Width 13.7, Platelet Count 300, Mean Platelet Volume 6.3L, Neutrophils (%) (Auto) , Lymphocytes (%) ( Auto) , Monocytes (%) (Auto) , Eosinophils (%) (Auto) , Basophils (%) (Auto) , Sodium Level 145, Potassium Level 2.9L, Chloride Level 104, Carbon Dioxide Level 38H, Anion Gap 0L, Blood Urea Nitrogen 22H, Creatinine 0.7, Estimat Glomerular Filtration Rate , Glucose Level 160H, Calcium Level 8.0L, Phosphorus Level 3.0, Magnesium Level 1.9, Total Bilirubin 0.6, Aspartate Amino Transf (AST /SGOT) 42H, Alanine Aminotransferase (ALT/SGPT) 40, Alkaline Phosphatase 72, Pro -B-Type Natriuretic Peptide 7333H, Total Protein 5.5L, Albumin 1.7L, Globulin 3.8, Albumin/Globulin Ratio 0.4L 11/24/17 08:27: Arterial Blood pH 7.490H, Arterial Blood Partial Pressure CO2 45.6H, Arterial Blood Partial Pressure O2 61.5L, Arterial Blood HCO3 34.5H, Arterial Blood Oxygen Saturation 91.5L, Arterial Blood Base Excess 10.1, Rafy Test Positive Height (Feet): 4 Height (Inches): 10.00 Weight (Pounds): 76 Objective Thin AA woman, on vent NCAT neck (+) trach Coarse BS RR / tachy abd soft flat, (+) GT neuro sedated, agitated, restrained no edema MIKE LEWIS Nov 24, 2017 22:04
[2017-11-25] VITALS: BP 156/84
[2017-11-25] MEDS: Morphine Sulfate 4mg/ml Inj IVP PRN ×2 (01:37→09:49)
[2017-11-25 04:00] VITALS: BP 152/69
[2017-11-25 04:49] LABS: HEMATOCRIT 30.7 % (37.0-47.0); HEMOGLOBIN 9.9 G/DL (12.0-16.0); MEAN CORPUSCULAR VOLUME 86 FL (80-99); PLATELET COUNT 294 K/UL (150-450); RED BLOOD COUNT 3.59 M/UL (4.20-5.40); RED CELL DISTRIBUTION WIDTH 13.7 % (11.6-14.8); WHITE BLOOD COUNT 11.9 K/UL (4.8-10.8)
[2017-11-25 05:01] LABS: ALANINE AMINOTRANSFERASE 39 U/L (12-78); ALBUMIN 1.8 G/DL (3.4-5.0); ALBUMIN/GLOBULIN RATIO 0.5 (1.0-2.7); ALKALINE PHOSPHATASE 70 U/L (46-116); ANION GAP 1 mmol/L (5-15); ASPARTATE AMINO TRANSFERASE 40 U/L (15-37); BILIRUBIN,TOTAL 0.5 MG/DL (0.2-1.0); BLOOD UREA NITROGEN 21 mg/dL (7-18); CALCIUM 8.3 MG/DL (8.5-10.1); CHLORIDE 101 MMOL/L (98-107); CREATININE 0.7 MG/DL (0.55-1.30); PHOSPHORUS 2.3 MG/DL (2.5-4.9); SODIUM 142 MMOL/L (136-145)
[2017-11-25 05:02] LABS: CARBON DIOXIDE 40 MMOL/L (21-32)
[2017-11-25] MEDS: Aztreonam Inj 0.5 GM in NS 55 ML IVPB SCH ×3 (05:34→22:31)
[2017-11-25] MEDS: LORazepam Inj 2mg/ml 1ml IV PRN ×2 (05:41→17:03)
[2017-11-25 08:00] VITALS: BP 157/65
[2017-11-25] MEDS: Pantoprazole Inj IV SCH (08:12)
[2017-11-25] MEDS: Metoprolol Tartrate 50mg tab NG SCH ×2 (08:15→20:41)
--- NOTE | 2017-11-25 08:48 | Infectious Diseases Prog Note ---
Assessment/Plan Assessment/Plan ASSESSMENT: The patient is a 77-year-old female, w Leukocytosis improving Fever, SP Probable ventilator-associated pneumonia. Scx : PSA influenza :neg Diarrhea , SP at the time of admission Chest x-ray, bilateral diffuse interstitial opacity Uxc : mixed growth PEG 11/20 TRACH 11/18 Hypertension Anemia PLAN: continue the patient on Azactam day # 2 SP vancomycin day # Monitor CBC Monitor BMP, LFT Monitor chest x-ray PRBC Tx Subjective Allergies: Coded Allergies: PENICILLINS (Verified Allergy, Mild, Rash, 06/30/14) Subjective febrile , on vent Objective Vital Signs Last 24 Hour Vital Signs Date Time Temp Pulse Resp B/P (MAP) Pulse Ox O2 Delivery O2 Flow Rate FiO2 11/25/17 08:15 113 157/63 11/25/17 06:31 109 22 60 11/25/17 05:03 114 14 60 11/25/17 04:00 98.0 107 28 152/69 99 Mechanical Ventilator 60 98.0 11/25/17 04:00 60 11/25/17 04:00 96 11/25/17 02:32 111 16 60 11/25/17 00:42 113 28 60 11/25/17 00:00 119 11/25/17 00:00 60 11/25/17 00:00 99.0 110 28 156/84 96 Mechanical Ventilator 60 99.0 11/24/17 23:19 108 23 60 11/24/17 21:09 100 25 60 11/24/17 20:22 109 133/96 11/24/17 20:00 101 11/24/17 20:00 60 11/24/17 20:00 98.8 101 28 154/77 99 Mechanical Ventilator 60 98.8 11/24/17 19:20 99.0 11/24/17 19:00 102 28 60 11/24/17 18:50 99.0 11/24/17 17:08 109 19 60 11/24/17 16:00 102 11/24/17 16:00 99.0 105 20 146/79 99 Mechanical Ventilator 60 99.0 11/24/17 16:00 60 11/24/17 14:36 92 19 60 11/24/17 14:19 99.5 11/24/17 12:40 107 25 60 11/24/17 12:00 60 11/24/17 12:00 99.9 111 28 159/88 100 Mechanical Ventilator 60 99.9 11/24/17 12:00 105 11/24/17 11:15 101 25 60 11/24/17 10:11 120 163/116 11/24/17 09:15 93 26 60 Height (Feet): 4 Height (Inches): 10.00 Weight (Pounds): 76 Respiratory/Chest: no respiratory distress Cardiovascular: regularly irregular Abdomen: non distended Laboratory Tests Test 11/25/17 03:45 White Blood Count 11.9 K/UL (4.8-10.8) H Red Blood Count 3.59 M/UL (4.20-5.40) L Hemoglobin 9.9 G/DL (12.0-16.0) L Hematocrit 30.7 % (37.0-47.0) L Mean Corpuscular Volume 86 FL (80-99) Mean Corpuscular Hemoglobin 27.5 PG (27.0-31.0) Mean Corpuscular Hemoglobin Concent 32.2 G/DL (32.0-36.0) Red Cell Distribution Width 13.7 % (11.6-14.8) Platelet Count 294 K/UL (150-450) Mean Platelet Volume 6.5 FL (6.5-10.1) Neutrophils (%) (Auto) % (45.0-75.0) Lymphocytes (%) (Auto) % (20.0-45.0) Monocytes (%) (Auto) % (1.0-10.0) Eosinophils (%) (Auto) % (0.0-3.0) Basophils (%) (Auto) % (0.0-2.0) Erythrocyte Sedimentation Rate 90 MM/HR (0-30) H Sodium Level 142 MMOL/L (136-145) Potassium Level 4.0 MMOL/L (3.5-5.1) Chloride Level 101 MMOL/L (98-107) Carbon Dioxide Level 40 MMOL/L (21-32) H Anion Gap 1 mmol/L (5-15) L Blood Urea Nitrogen 21 mg/dL (7-18) H Creatinine 0.7 MG/DL (0.55-1.30) Estimat Glomerular Filtration Rate mL/min (>60) Glucose Level 141 MG/DL (74-106) H Calcium Level 8.3 MG/DL (8.5-10.1) L Phosphorus Level 2.3 MG/DL (2.5-4.9) L Magnesium Level 1.9 MG/DL (1.8-2.4) Total Bilirubin 0.5 MG/DL (0.2-1.0) Aspartate Amino Transf (AST/SGOT) 40 U/L (15-37) H Alanine Aminotransferase (ALT/SGPT) 39 U/L (12-78) Alkaline Phosphatase 70 U/L (46-116) Total Protein 5.5 G/DL (6.4-8.2) L Albumin 1.8 G/DL (3.4-5.0) L Globulin 3.7 g/dL Albumin/Globulin Ratio 0.5 (1.0-2.7) L Current Medications Medications (Trade) Dose Ordered Sig/Puja Route PRN Reason Start Time Stop Time Status Last Admin Dose Admin Acetaminophen (Tylenol) 650 mg Q4H PRN NG T>100.5 11/21/17 10:30 12/14/17 10:29 11/23/17 17:09 Aztreonam 0.5 gm/ Sodium Chloride 55 ml @ 110 mls/hr Q8HR IVPB 11/24/17 14:00 11/29/17 23:59 11/25/17 05:34 Dextrose (Dextrose 50%) STAT PRN IV Hypoglycemia 11/21/17 10:30 12/08/17 10:29 Furosemide (Lasix) 20 mg BID IV 11/24/17 22:00 12/20/17 20:59 11/25/17 08:12 Levalbuterol HCl (Xopenex) 1.25 mg Q6H PRN HHN Shortness of Breath 11/23/17 02:15 11/28/17 02:14 Lorazepam (Ativan 2mg/ml 1ml) 2 mg Q4H PRN IV For Anxiety 11/22/17 07:30 11/29/17 07:29 11/25/17 05:41 Metoprolol Tartrate (Lopressor) 5 mg Q6H PRN IVP HR>130 11/21/17 11:00 12/11/17 10:59 Metoprolol Tartrate (Lopressor) 50 mg Q12HR NG 11/21/17 21:00 12/16/17 20:59 11/25/17 08:15 Morphine Sulfate (Morphine Sulfate) 2 mg Q4H PRN IVP Moderate Pain (Pain Scale 4-6) 11/22/17 08:30 11/29/17 08:29 11/25/17 01:37 Ondansetron HCl (Zofran) 4 mg Q6H PRN IVP Nausea & Vomiting 11/21/17 10:30 12/08/17 10:29 Pantoprazole (Protonix) 40 mg DAILY IV 11/22/17 09:00 12/09/17 08:59 11/25/17 08:12 Polyethylene Glycol (Miralax) 17 gm DAILYPRN PRN ORAL Constipation 11/21/17 10:30 12/08/17 10:29 11/23/17 21:28 KUSH ESPINO M.D. Nov 25, 2017 08:48
--- NOTE | 2017-11-25 10:13 | Pulmonolgy Critical Care Note ---
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 (4) Protein-calorie malnutrition, severe Assessment/Plan: improving, no more bleeding Respiratory: monitor respiratory rate, CXR Cardiac: continue to monitor HR/BP Renal: F/U I&O, keep IV fluid Infectious Disease: check cultures Gastrointestinal: continue feedings/current rate Endocrine: monitor blood sugar, check TSH, continue sliding scale insulin Hematologic: monitor H/H, transfuse if hgb<8.5 Neurologic: PRN Ativan, PRN Morphine, keep patient comfortable Prophylaxis: Protonix, Heparin Notes Reviewed: pay per click strategist, cardio, renal Discussed with: nurses, consultants, comp field case managerglobal account manager - Objective Last 24 Hour Vital Signs Date Time Temp Pulse Resp B/P (MAP) Pulse Ox O2 Delivery O2 Flow Rate FiO2 11/25/17 09:14 100 22 60 11/25/17 08:15 113 157/63 11/25/17 08:00 99.7 113 26 157/65 99 Mechanical Ventilator 60 99.7 11/25/17 06:31 109 22 60 11/25/17 05:03 114 14 60 11/25/17 04:00 98.0 107 28 152/69 99 Mechanical Ventilator 60 98.0 11/25/17 04:00 60 11/25/17 04:00 96 11/25/17 02:32 111 16 60 11/25/17 00:42 113 28 60 11/25/17 00:00 119 11/25/17 00:00 60 11/25/17 00:00 99.0 110 28 156/84 96 Mechanical Ventilator 60 99.0 11/24/17 23:19 108 23 60 11/24/17 21:09 100 25 60 11/24/17 20:22 109 133/96 11/24/17 20:00 101 11/24/17 20:00 60 11/24/17 20:00 98.8 101 28 154/77 99 Mechanical Ventilator 60 98.8 11/24/17 19:20 99.0 11/24/17 19:00 102 28 60 11/24/17 18:50 99.0 11/24/17 17:08 109 19 60 11/24/17 16:00 102 11/24/17 16:00 99.0 105 20 146/79 99 Mechanical Ventilator 60 99.0 11/24/17 16:00 60 11/24/17 14:36 92 19 60 11/24/17 14:19 99.5 11/24/17 12:40 107 25 60 11/24/17 12:00 60 11/24/17 12:00 99.9 111 28 159/88 100 Mechanical Ventilator 60 99.9 11/24/17 12:00 105 11/24/17 11:15 101 25 60 Status: awake Condition: critical HEENT: atraumatic Neck: full ROM Lungs: chest wall tender Heart: HR/BP stable, regular Abdomen: non-tender, feeding tube Extremities: no C/C/E, edema Critical Care - Subjective ROS Limited/Unobtainable: Yes Condition: critical EKG Rhythm: Sinus Rhythm FI02: 60 Vent Support Breath Rate: 12 Vent Support Mode: AC Vent Tidal Volume: 300 Sputum Amount: Large PEEP: 5.0 PIP: 28 Tube Feeding Amount: 45 I&O: Intake and Output 11/24/17 11/25/17 19:00 07:00 Intake Total 795 ml 700 ml Output Total 1000 ml 900 ml Balance -205 ml -200 ml Intake Free Water 200 ml IV Total 55 ml 110 ml Tube Feeding 540 ml 540 ml Other 50 ml Output Urine Total 1000 ml 900 ml # Bowel Movements 1 4 CXR: pulmonary edema ET-Tube: 6.0 ET Position: 20 Labs: Laboratory Tests Test 11/25/17 03:45 White Blood Count 11.9 K/UL (4.8-10.8) H Red Blood Count 3.59 M/UL (4.20-5.40) L Hemoglobin 9.9 G/DL (12.0-16.0) L Hematocrit 30.7 % (37.0-47.0) L Mean Corpuscular Volume 86 FL (80-99) Mean Corpuscular Hemoglobin 27.5 PG (27.0-31.0) Mean Corpuscular Hemoglobin Concent 32.2 G/DL (32.0-36.0) Red Cell Distribution Width 13.7 % (11.6-14.8) Platelet Count 294 K/UL (150-450) Mean Platelet Volume 6.5 FL (6.5-10.1) Neutrophils (%) (Auto) % (45.0-75.0) Lymphocytes (%) (Auto) % (20.0-45.0) Monocytes (%) (Auto) % (1.0-10.0) Eosinophils (%) (Auto) % (0.0-3.0) Basophils (%) (Auto) % (0.0-2.0) Erythrocyte Sedimentation Rate 90 MM/HR (0-30) H Sodium Level 142 MMOL/L (136-145) Potassium Level 4.0 MMOL/L (3.5-5.1) Chloride Level 101 MMOL/L (98-107) Carbon Dioxide Level 40 MMOL/L (21-32) H Anion Gap 1 mmol/L (5-15) L Blood Urea Nitrogen 21 mg/dL (7-18) H Creatinine 0.7 MG/DL (0.55-1.30) Estimat Glomerular Filtration Rate mL/min (>60) Glucose Level 141 MG/DL (74-106) H Calcium Level 8.3 MG/DL (8.5-10.1) L Phosphorus Level 2.3 MG/DL (2.5-4.9) L Magnesium Level 1.9 MG/DL (1.8-2.4) Total Bilirubin 0.5 MG/DL (0.2-1.0) Aspartate Amino Transf (AST/SGOT) 40 U/L (15-37) H Alanine Aminotransferase (ALT/SGPT) 39 U/L (12-78) Alkaline Phosphatase 70 U/L (46-116) Total Protein 5.5 G/DL (6.4-8.2) L Albumin 1.8 G/DL (3.4-5.0) L Globulin 3.7 g/dL Albumin/Globulin Ratio 0.5 (1.0-2.7) L DIANA AGGARWAL Nov 25, 2017 10:13
[2017-11-25] MEDS ORDERED: Sodium Phosphate 20 MM in NS 275 ML IV ONE (11:30)
[2017-11-25 12:00] VITALS: BP 129/83
--- NOTE | 2017-11-25 14:48 | Cardiology Progress Note ---
Assessment/Plan Assessment/Plan 1. Respiratory failure. 2. Hypertension history. 3. Diarrhea at the time of admission. 4. Cachexia. 5. sinus tachy 6. nsvt 7. fever 8. hyptesnion 9. Eccentric mitral regurgitation 10. chf on bb via ng with prn iv if needed increase agitation causes her to have more tachy more images on tanja echo were performed and she indeed does have eccentric MR as clinically suspected she really is not a candidate for mv therapy at this time bp is fine s/p trach adn peg tele sinus cxr bilateral infiltrate seem worse diureticwill increase to q8hr has some secretion cxr reviweed tele reviewed d/w sister Subjective ROS Limited/Unobtainable: Yes Subjective seem agitated at the moment , family thin k some response Objective Last 24 Hour Vital Signs Date Time Temp Pulse Resp B/P (MAP) Pulse Ox O2 Delivery O2 Flow Rate FiO2 11/25/17 13:09 101 19 60 11/25/17 12:02 108 11/25/17 12:00 97.6 101 25 129/83 100 Mechanical Ventilator 60 97.6 11/25/17 12:00 60 11/25/17 10:53 99 20 60 11/25/17 09:14 100 22 60 11/25/17 08:15 113 157/63 11/25/17 08:00 99.7 113 26 157/65 99 Mechanical Ventilator 60 99.7 11/25/17 08:00 60 11/25/17 07:49 103 11/25/17 06:31 109 22 60 11/25/17 05:03 114 14 60 11/25/17 04:00 98.0 107 28 152/69 99 Mechanical Ventilator 60 98.0 11/25/17 04:00 60 11/25/17 04:00 96 11/25/17 02:32 111 16 60 11/25/17 00:42 113 28 60 11/25/17 00:00 119 11/25/17 00:00 60 11/25/17 00:00 99.0 110 28 156/84 96 Mechanical Ventilator 60 99.0 11/24/17 23:19 108 23 60 11/24/17 21:09 100 25 60 11/24/17 20:22 109 133/96 11/24/17 20:00 101 11/24/17 20:00 60 11/24/17 20:00 98.8 101 28 154/77 99 Mechanical Ventilator 60 98.8 11/24/17 19:20 99.0 11/24/17 19:00 102 28 60 11/24/17 18:50 99.0 11/24/17 17:08 109 19 60 11/24/17 16:00 102 11/24/17 16:00 99.0 105 20 146/79 99 Mechanical Ventilator 60 99.0 11/24/17 16:00 60 General Appearance: on vent Neck: supple Cardiovascular: regular rhythm, tachycardia, systolic murmur Respiratory/Chest: crackles/rales Abdomen: normal bowel sounds, non tender, soft Extremities: no swelling Intake and Output 11/24/17 11/25/17 19:00 07:00 Intake Total 795 ml 700 ml Output Total 1000 ml 900 ml Balance -205 ml -200 ml Intake Free Water 200 ml IV Total 55 ml 110 ml Tube Feeding 540 ml 540 ml Other 50 ml Output Urine Total 1000 ml 900 ml # Bowel Movements 1 4 Laboratory Tests Test 11/25/17 03:45 White Blood Count 11.9 K/UL (4.8-10.8) H Red Blood Count 3.59 M/UL (4.20-5.40) L Hemoglobin 9.9 G/DL (12.0-16.0) L Hematocrit 30.7 % (37.0-47.0) L Mean Corpuscular Volume 86 FL (80-99) Mean Corpuscular Hemoglobin 27.5 PG (27.0-31.0) Mean Corpuscular Hemoglobin Concent 32.2 G/DL (32.0-36.0) Red Cell Distribution Width 13.7 % (11.6-14.8) Platelet Count 294 K/UL (150-450) Mean Platelet Volume 6.5 FL (6.5-10.1) Neutrophils (%) (Auto) % (45.0-75.0) Lymphocytes (%) (Auto) % (20.0-45.0) Monocytes (%) (Auto) % (1.0-10.0) Eosinophils (%) (Auto) % (0.0-3.0) Basophils (%) (Auto) % (0.0-2.0) Erythrocyte Sedimentation Rate 90 MM/HR (0-30) H Sodium Level 142 MMOL/L (136-145) Potassium Level 4.0 MMOL/L (3.5-5.1) Chloride Level 101 MMOL/L (98-107) Carbon Dioxide Level 40 MMOL/L (21-32) H Anion Gap 1 mmol/L (5-15) L Blood Urea Nitrogen 21 mg/dL (7-18) H Creatinine 0.7 MG/DL (0.55-1.30) Estimat Glomerular Filtration Rate mL/min (>60) Glucose Level 141 MG/DL (74-106) H Calcium Level 8.3 MG/DL (8.5-10.1) L Phosphorus Level 2.3 MG/DL (2.5-4.9) L Magnesium Level 1.9 MG/DL (1.8-2.4) Total Bilirubin 0.5 MG/DL (0.2-1.0) Aspartate Amino Transf (AST/SGOT) 40 U/L (15-37) H Alanine Aminotransferase (ALT/SGPT) 39 U/L (12-78) Alkaline Phosphatase 70 U/L (46-116) Total Protein 5.5 G/DL (6.4-8.2) L Albumin 1.8 G/DL (3.4-5.0) L Globulin 3.7 g/dL Albumin/Globulin Ratio 0.5 (1.0-2.7) L NALINI GIBBONS Nov 25, 2017 14:48
--- NOTE | 2017-11-25 14:51 | Cardiology Report ---
APPROVED REPORT EKG Measurement Heart [id number] Normal sinus rhythm Biatrial enlargement Rightward axis Left ventricular hypertrophy Anteroseptal infarct, age undetermined Prolonged QT Abnormal ECG
[2017-11-25 16:00] VITALS: BP 145/91
--- NOTE | 2017-11-25 16:24 | General Surgery Progress Note ---
General Surgery-Progress Note Subjective Procedure Performed percutaneous tracheostomy Symptoms: improved Additional Comments h/h stable. no bleeding noted. Objective Last 24 Hour Vital Signs Date Time Temp Pulse Resp B/P (MAP) Pulse Ox O2 Delivery O2 Flow Rate FiO2 11/25/17 16:00 60 11/25/17 13:09 101 19 60 11/25/17 12:02 108 11/25/17 12:00 97.6 101 25 129/83 100 Mechanical Ventilator 60 97.6 11/25/17 12:00 60 11/25/17 10:53 99 20 60 11/25/17 09:14 100 22 60 11/25/17 08:15 113 157/63 11/25/17 08:00 99.7 113 26 157/65 99 Mechanical Ventilator 60 99.7 11/25/17 08:00 60 11/25/17 07:49 103 11/25/17 06:31 109 22 60 11/25/17 05:03 114 14 60 11/25/17 04:00 98.0 107 28 152/69 99 Mechanical Ventilator 60 98.0 11/25/17 04:00 60 11/25/17 04:00 96 11/25/17 02:32 111 16 60 11/25/17 00:42 113 28 60 11/25/17 00:00 119 11/25/17 00:00 60 11/25/17 00:00 99.0 110 28 156/84 96 Mechanical Ventilator 60 99.0 11/24/17 23:19 108 23 60 11/24/17 21:09 100 25 60 11/24/17 20:22 109 133/96 11/24/17 20:00 101 11/24/17 20:00 60 11/24/17 20:00 98.8 101 28 154/77 99 Mechanical Ventilator 60 98.8 11/24/17 19:20 99.0 11/24/17 19:00 102 28 60 11/24/17 18:50 99.0 11/24/17 17:08 109 19 60 I&O Intake and Output 11/24/17 11/25/17 19:00 07:00 Intake Total 795 ml 700 ml Output Total 1000 ml 900 ml Balance -205 ml -200 ml Intake Free Water 200 ml IV Total 55 ml 110 ml Tube Feeding 540 ml 540 ml Other 50 ml Output Urine Total 1000 ml 900 ml # Bowel Movements 1 4 Cardiovascular: RSR Respiratory: clear Abdomen: soft, flat, non-tender, present bowel sounds Extremities: no cyanosis Laboratory Tests Test 11/25/17 03:45 White Blood Count 11.9 K/UL (4.8-10.8) H Red Blood Count 3.59 M/UL (4.20-5.40) L Hemoglobin 9.9 G/DL (12.0-16.0) L Hematocrit 30.7 % (37.0-47.0) L Mean Corpuscular Volume 86 FL (80-99) Mean Corpuscular Hemoglobin 27.5 PG (27.0-31.0) Mean Corpuscular Hemoglobin Concent 32.2 G/DL (32.0-36.0) Red Cell Distribution Width 13.7 % (11.6-14.8) Platelet Count 294 K/UL (150-450) Mean Platelet Volume 6.5 FL (6.5-10.1) Neutrophils (%) (Auto) % (45.0-75.0) Lymphocytes (%) (Auto) % (20.0-45.0) Monocytes (%) (Auto) % (1.0-10.0) Eosinophils (%) (Auto) % (0.0-3.0) Basophils (%) (Auto) % (0.0-2.0) Erythrocyte Sedimentation Rate 90 MM/HR (0-30) H Sodium Level 142 MMOL/L (136-145) Potassium Level 4.0 MMOL/L (3.5-5.1) Chloride Level 101 MMOL/L (98-107) Carbon Dioxide Level 40 MMOL/L (21-32) H Anion Gap 1 mmol/L (5-15) L Blood Urea Nitrogen 21 mg/dL (7-18) H Creatinine 0.7 MG/DL (0.55-1.30) Estimat Glomerular Filtration Rate mL/min (>60) Glucose Level 141 MG/DL (74-106) H Calcium Level 8.3 MG/DL (8.5-10.1) L Phosphorus Level 2.3 MG/DL (2.5-4.9) L Magnesium Level 1.9 MG/DL (1.8-2.4) Total Bilirubin 0.5 MG/DL (0.2-1.0) Aspartate Amino Transf (AST/SGOT) 40 U/L (15-37) H Alanine Aminotransferase (ALT/SGPT) 39 U/L (12-78) Alkaline Phosphatase 70 U/L (46-116) Total Protein 5.5 G/DL (6.4-8.2) L Albumin 1.8 G/DL (3.4-5.0) L Globulin 3.7 g/dL Albumin/Globulin Ratio 0.5 (1.0-2.7) L Plan Problems: (1) Respiratory failure Assessment & Plan: s/p trac. h/h low intermittently requiring transfusion prior. blood tinged mucus with suctioning. CXR without signs of bleeding into lungs. no bleeding from trach. blood tinged mucus can be anticipated as she does have friable tissues. cut back on suctioning unless necessary. no gross gi bleed or other site of bleeding noted. h/h stable. no active bleeding. trach clean. with trach care there is respiratory secretions that are blood tinged. will monitor. trend labs. wean vent as tolerated. Andrew Krause Nov 25, 2017 16:24
[2017-11-25 20:00] VITALS: BP 130/81
--- NOTE | 2017-11-25 20:20 | General Progress Note ---
Assessment/Plan Assessment/Plan Assessment - Resp failure - valvular heart disease - progressive anemia - s/p trach - s/p PEG - sinus tach, worsened by agitation - leukocytosis - AMS - anemia Recommendations - PPI - Continue TF - PRN BDZ for agitation - Elevated HOB Subjective Allergies: Coded Allergies: PENICILLINS (Verified Allergy, Mild, Rash, 06/30/14) Subjective Tolerating TF more responsive, per family H&H stable Objective Last 24 Hour Vital Signs Date Time Temp Pulse Resp B/P (MAP) Pulse Ox O2 Delivery O2 Flow Rate FiO2 11/25/17 19:27 114 28 60 11/25/17 16:31 109 22 60 11/25/17 16:00 60 11/25/17 16:00 98.2 108 23 145/91 100 Mechanical Ventilator 60 98.2 11/25/17 15:59 109 11/25/17 15:23 102 21 60 11/25/17 14:31 110 22 60 11/25/17 13:09 101 19 60 11/25/17 12:02 108 11/25/17 12:00 97.6 101 25 129/83 100 Mechanical Ventilator 60 97.6 11/25/17 12:00 60 11/25/17 10:53 99 20 60 11/25/17 09:14 100 22 60 11/25/17 08:15 113 157/63 11/25/17 08:00 99.7 113 26 157/65 99 Mechanical Ventilator 60 99.7 11/25/17 08:00 60 11/25/17 07:49 103 11/25/17 06:31 109 22 60 11/25/17 05:03 114 14 60 11/25/17 04:00 98.0 107 28 152/69 99 Mechanical Ventilator 60 98.0 11/25/17 04:00 60 11/25/17 04:00 96 11/25/17 02:32 111 16 60 11/25/17 00:42 113 28 60 11/25/17 00:00 119 11/25/17 00:00 60 11/25/17 00:00 99.0 110 28 156/84 96 Mechanical Ventilator 60 99.0 11/24/17 23:19 108 23 60 11/24/17 21:09 100 25 60 11/24/17 20:22 109 133/96 Intake and Output 11/24/17 11/25/17 19:00 07:00 Intake Total 795 ml 700 ml Output Total 1000 ml 900 ml Balance -205 ml -200 ml Intake Free Water 200 ml IV Total 55 ml 110 ml Tube Feeding 540 ml 540 ml Other 50 ml Output Urine Total 1000 ml 900 ml # Bowel Movements 1 4 Laboratory Tests 11/25/17 03:45: White Blood Count 11.9H, Red Blood Count 3.59L, Hemoglobin 9.9L, Hematocrit 30.7L, Mean Corpuscular Volume 86, Mean Corpuscular Hemoglobin 27.5, Mean Corpuscular Hemoglobin Concent 32.2, Red Cell Distribution Width 13.7, Platelet Count 294, Mean Platelet Volume 6.5, Neutrophils (%) (Auto) , Lymphocytes (%) ( Auto) , Monocytes (%) (Auto) , Eosinophils (%) (Auto) , Basophils (%) (Auto) , Erythrocyte Sedimentation Rate 90H, Sodium Level 142, Potassium Level 4.0, Chloride Level 101, Carbon Dioxide Level 40H, Anion Gap 1L, Blood Urea Nitrogen 21H, Creatinine 0.7, Estimat Glomerular Filtration Rate , Glucose Level 141H, Calcium Level 8.3L, Phosphorus Level 2.3L, Magnesium Level 1.9, Total Bilirubin 0.5, Aspartate Amino Transf (AST/SGOT) 40H, Alanine Aminotransferase (ALT/SGPT) 39, Alkaline Phosphatase 70, Total Protein 5.5L, Albumin 1.8L, Globulin 3.7, Albumin/Globulin Ratio 0.5L Height (Feet): 4 Height (Inches): 10.00 Weight (Pounds): 76 Objective Thin AA woman, on vent NCAT neck (+) trach Coarse BS RR / tachy abd soft flat, (+) GT neuro sedated, agitated, restrained no edema MIKE LEWIS Nov 25, 2017 20:20
[2017-11-26] VITALS: BP 146/74
[2017-11-26 04:00] VITALS: BP 128/81
[2017-11-26 04:54] LABS: HEMATOCRIT 31.6 % (37.0-47.0); HEMOGLOBIN 10.5 G/DL (12.0-16.0); MEAN CORPUSCULAR VOLUME 86 FL (80-99); PLATELET COUNT 322 K/UL (150-450); RED BLOOD COUNT 3.69 M/UL (4.20-5.40); RED CELL DISTRIBUTION WIDTH 13.7 % (11.6-14.8); WHITE BLOOD COUNT 12.9 K/UL (4.8-10.8)
[2017-11-26] MEDS: Aztreonam Inj 0.5 GM in NS 55 ML IVPB SCH ×3 (05:07→22:37)
[2017-11-26 05:09] LABS: ALANINE AMINOTRANSFERASE 67 U/L (12-78); ALBUMIN 2.1 G/DL (3.4-5.0); ALBUMIN/GLOBULIN RATIO 0.5 (1.0-2.7); ALKALINE PHOSPHATASE 79 U/L (46-116); ANION GAP 1 mmol/L (5-15); ASPARTATE AMINO TRANSFERASE 82 U/L (15-37); BILIRUBIN,TOTAL 0.7 MG/DL (0.2-1.0); BLOOD UREA NITROGEN 23 mg/dL (7-18); CALCIUM 8.7 MG/DL (8.5-10.1); CARBON DIOXIDE 39 MMOL/L (21-32); CHLORIDE 98 MMOL/L (98-107); CREATININE 0.6 MG/DL (0.55-1.30); POTASSIUM 3.4 MMOL/L (3.5-5.1); SODIUM 140 MMOL/L (136-145)
[2017-11-26 08:00] VITALS: BP 133/76
[2017-11-26] MEDS: Metoprolol Tartrate 50mg tab NG SCH ×2 (09:00→20:18)
[2017-11-26] MEDS: Pantoprazole Inj IV SCH (09:00)
--- NOTE | 2017-11-26 09:35 | Diagnostic Imaging Report ---
Indication: Dyspnea Technique: One view of the chest Comparison: 11/24/2017 Findings: The heart is enlarged. There is again demonstrated extensive diffuse bilateral interstitial and airspace opacities. This may be slightly improved. Pleural spaces remain clear. Tracheostomy again demonstrated Impression: Stable or perhaps slightly improved diffuse parenchymal disease, as described Other stable findings as noted
--- NOTE | 2017-11-26 10:44 | Infectious Diseases Prog Note ---
Assessment/Plan Assessment/Plan ASSESSMENT: The patient is a 77-year-old female, w Leukocytosis , mild Fever, SP Probable ventilator-associated pneumonia. Scx : PSA influenza :neg Diarrhea , SP at the time of admission Chest x-ray, bilateral diffuse interstitial opacity Uxc : mixed growth PEG 11/20 TRACH 11/18 Hypertension Anemia PLAN: continue the patient on Azactam day # 2 SP vancomycin day # Monitor CBC Monitor BMP, LFT Monitor chest x-ray PRBC Tx Subjective Allergies: Coded Allergies: PENICILLINS (Verified Allergy, Mild, Rash, 06/30/14) Subjective afebrile Objective Vital Signs Last 24 Hour Vital Signs Date Time Temp Pulse Resp B/P (MAP) Pulse Ox O2 Delivery O2 Flow Rate FiO2 11/26/17 09:00 101 133/76 11/26/17 08:44 90 19 60 11/26/17 06:49 108 23 60 11/26/17 05:51 95 20 60 11/26/17 04:00 107 11/26/17 04:00 98.6 104 22 128/81 100 Mechanical Ventilator 60 98.6 11/26/17 04:00 60 11/26/17 03:05 98 20 60 11/26/17 01:30 104 23 60 11/26/17 00:00 107 11/26/17 00:00 60 11/26/17 00:00 98.6 107 22 146/74 97 Mechanical Ventilator 60 98.6 11/25/17 23:17 107 26 60 11/25/17 21:03 104 25 60 11/25/17 20:41 107 134/84 11/25/17 20:00 98.9 119 22 130/81 100 Mechanical Ventilator 60 98.9 11/25/17 20:00 60 11/25/17 20:00 119 11/25/17 19:27 114 28 60 11/25/17 16:31 109 22 60 11/25/17 16:00 60 11/25/17 16:00 98.2 108 23 145/91 100 Mechanical Ventilator 60 98.2 11/25/17 15:59 109 11/25/17 15:23 102 21 60 11/25/17 14:31 110 22 60 11/25/17 13:09 101 19 60 11/25/17 12:02 108 2/27/18 12:00 97.6 101 25 129/83 100 Mechanical Ventilator 60 97.6 11/25/17 12:00 60 11/25/17 10:53 99 20 60 Height (Feet): 4 Height (Inches): 10.00 Weight (Pounds): 76 HEENT: anicteric Respiratory/Chest: respiratory distress Cardiovascular: regularly irregular Abdomen: no organomegaly Laboratory Tests Test 11/26/17 03:55 White Blood Count 12.9 K/UL (4.8-10.8) H Red Blood Count 3.69 M/UL (4.20-5.40) L Hemoglobin 10.5 G/DL (12.0-16.0) L Hematocrit 31.6 % (37.0-47.0) L Mean Corpuscular Volume 86 FL (80-99) Mean Corpuscular Hemoglobin 28.5 PG (27.0-31.0) Mean Corpuscular Hemoglobin Concent 33.2 G/DL (32.0-36.0) Red Cell Distribution Width 13.7 % (11.6-14.8) Platelet Count 322 K/UL (150-450) Mean Platelet Volume 6.4 FL (6.5-10.1) L Neutrophils (%) (Auto) % (45.0-75.0) Lymphocytes (%) (Auto) % (20.0-45.0) Monocytes (%) (Auto) % (1.0-10.0) Eosinophils (%) (Auto) % (0.0-3.0) Basophils (%) (Auto) % (0.0-2.0) Sodium Level 140 MMOL/L (136-145) Potassium Level 3.4 MMOL/L (3.5-5.1) L Chloride Level 98 MMOL/L (98-107) Carbon Dioxide Level 39 MMOL/L (21-32) H Anion Gap 1 mmol/L (5-15) L Blood Urea Nitrogen 23 mg/dL (7-18) H Creatinine 0.6 MG/DL (0.55-1.30) Estimat Glomerular Filtration Rate mL/min (>60) Glucose Level 134 MG/DL (74-106) H Calcium Level 8.7 MG/DL (8.5-10.1) Total Bilirubin 0.7 MG/DL (0.2-1.0) Aspartate Amino Transf (AST/SGOT) 82 U/L (15-37) H Alanine Aminotransferase (ALT/SGPT) 67 U/L (12-78) Alkaline Phosphatase 79 U/L (46-116) Pro-B-Type Natriuretic Peptide 3182 pg/mL (0-125) H Total Protein 6.2 G/DL (6.4-8.2) L Albumin 2.1 G/DL (3.4-5.0) L Globulin 4.1 g/dL Albumin/Globulin Ratio 0.5 (1.0-2.7) L Current Medications Medications (Trade) Dose Ordered Sig/Puja Route PRN Reason Start Time Stop Time Status Last Admin Dose Admin Acetaminophen (Tylenol) 650 mg Q4H PRN NG T>100.5 11/21/17 10:30 12/14/17 10:29 11/23/17 17:09 Aztreonam 0.5 gm/ Sodium Chloride 55 ml @ 110 mls/hr Q8HR IVPB 11/24/17 14:00 11/29/17 23:59 11/26/17 05:07 Dextrose (Dextrose 50%) STAT PRN IV Hypoglycemia 11/21/17 10:30 12/08/17 10:29 Furosemide (Lasix) 20 mg Q8H IV 11/25/17 17:00 12/20/17 20:59 11/26/17 09:00 Levalbuterol HCl (Xopenex) 1.25 mg Q6H PRN HHN Shortness of Breath 11/23/17 02:15 11/28/17 02:14 Lorazepam (Ativan 2mg/ml 1ml) 2 mg Q4H PRN IV For Anxiety 11/22/17 07:30 11/29/17 07:29 11/25/17 17:03 Metoprolol Tartrate (Lopressor) 5 mg Q6H PRN IVP HR>130 11/21/17 11:00 12/11/17 10:59 Metoprolol Tartrate (Lopressor) 50 mg Q12HR NG 11/21/17 21:00 12/16/17 20:59 11/26/17 09:00 Morphine Sulfate (Morphine Sulfate) 2 mg Q4H PRN IVP Moderate Pain (Pain Scale 4-6) 11/22/17 08:30 11/29/17 08:29 11/25/17 09:49 Ondansetron HCl (Zofran) 4 mg Q6H PRN IVP Nausea & Vomiting 11/21/17 10:30 12/08/17 10:29 Pantoprazole (Protonix) 40 mg DAILY IV 11/22/17 09:00 12/09/17 08:59 11/26/17 09:00 Polyethylene Glycol (Miralax) 17 gm DAILYPRN PRN ORAL Constipation 11/21/17 10:30 12/08/17 10:29 11/23/17 21:28 KUSH ESPINO M.D. Nov 26, 2017 10:44
[2017-11-26 12:00] VITALS: BP 93/57
--- NOTE | 2017-11-26 12:25 | Pulmonology Progress Note ---
Assessment/Plan Assessment/Plan ASSESSMENT Acute hypoxemic hypercapnic RF requiring intubation failure to wean s/p trach pulmonary edema HTN heart disease with LVH severe pulmonary HTN severe protein calorie malnutrition s/p PEG anemia, requiring blood transfusion CHF PLAN OF CARE HONORIO s/p Nitro gtt, Vent support ,trach care pulmonary toilet daily CXR and ABG, UA-negative, CXR-negative, blood cx pending on abx ID follows sputum cx pro BNP trending down diuresis with IV Lasix q 8 replace K cardio thinks patient may have MR not picked up on ECHO monitor cardio renal parameters, lytes BP management with BB and optimize further as per cardio recs repeated ECHO with pEF 65-70% , showed indeed eccentric MR and severe pulm HTN serial troponin x 4 negative ECG no acute ischemic changes , r/out for acute OR Venous Duplex BLE negative Renal US no hydro, normal bilateral kidney echogenicity DVT GI prophylaxis monitor counts, transfuse prn case discussed and evaluated by supervising physician Subjective Allergies: Coded Allergies: PENICILLINS (Verified Allergy, Mild, Rash, 06/30/14) Subjective mild leukocytosis no signs of resp distress on current settings ABG stable K-3.4 Objective Last 24 Hour Vital Signs Date Time Temp Pulse Resp B/P (MAP) Pulse Ox O2 Delivery O2 Flow Rate FiO2 11/26/17 10:50 113 25 60 11/26/17 09:00 101 133/76 11/26/17 08:44 90 19 60 11/26/17 08:00 60 11/26/17 08:00 99.0 101 22 133/76 100 Mechanical Ventilator 60 99.0 11/26/17 06:49 108 23 60 11/26/17 05:51 95 20 60 11/26/17 04:00 107 11/26/17 04:00 98.6 104 22 128/81 100 Mechanical Ventilator 60 98.6 11/26/17 04:00 60 11/26/17 03:05 98 20 60 11/26/17 01:30 104 23 60 11/26/17 00:00 107 11/26/17 00:00 60 11/26/17 00:00 98.6 107 22 146/74 97 Mechanical Ventilator 60 98.6 11/25/17 23:17 107 26 60 11/25/17 21:03 104 25 60 11/25/17 20:41 107 134/84 11/25/17 20:00 98.9 119 22 130/81 100 Mechanical Ventilator 60 98.9 11/25/17 20:00 60 11/25/17 20:00 119 11/25/17 19:27 114 28 60 11/25/17 16:31 109 22 60 11/25/17 16:00 60 11/25/17 16:00 98.2 108 23 145/91 100 Mechanical Ventilator 60 98.2 11/25/17 15:59 109 11/25/17 15:23 102 21 60 11/25/17 14:31 110 22 60 11/25/17 13:09 101 19 60 Intake and Output 11/25/17 11/26/17 19:00 07:00 Intake Total 926.6667 ml 700 ml Output Total 1200 ml 900 ml Balance -273.3333 ml -200 ml Intake Free Water 50 ml 50 ml IV Total 336.6667 ml 110 ml Tube Feeding 540 ml 540 ml Output Urine Total 1200 ml 900 ml Objective General: poorly responsive, bedridden AA female on vent AC 300-60% -12 PEEP- 5 HEENT: atraumatic, normocephalic, Neck: trach Shiley #8,secretons small, white, thick Lungs: few crackles at bases Heart: SR on tele Abdomen: soft, non-tender, active bowel sounds, G tube with TF Extremities: no C/C/E Laboratory Tests 11/26/17 03:55: White Blood Count 12.9H, Red Blood Count 3.69L, Hemoglobin 10.5L, Hematocrit 31.6L, Mean Corpuscular Volume 86, Mean Corpuscular Hemoglobin 28.5, Mean Corpuscular Hemoglobin Concent 33.2, Red Cell Distribution Width 13.7, Platelet Count 322, Mean Platelet Volume 6.4L, Neutrophils (%) (Auto) , Lymphocytes (%) ( Auto) , Monocytes (%) (Auto) , Eosinophils (%) (Auto) , Basophils (%) (Auto) , Sodium Level 140, Potassium Level 3.4L, Chloride Level 98, Carbon Dioxide Level 39H, Anion Gap 1L, Blood Urea Nitrogen 23H, Creatinine 0.6, Estimat Glomerular Filtration Rate , Glucose Level 134H, Calcium Level 8.7, Total Bilirubin 0.7, Aspartate Amino Transf (AST/SGOT) 82H, Alanine Aminotransferase (ALT/SGPT) 67, Alkaline Phosphatase 79, Pro-B-Type Natriuretic Peptide 3182H, Total Protein 6.2L, Albumin 2.1L, Globulin 4.1, Albumin/Globulin Ratio 0.5L Current Medications Medications (Trade) Dose Ordered Sig/Puja Route PRN Reason Start Time Stop Time Status Last Admin Dose Admin Acetaminophen (Tylenol) 650 mg Q4H PRN NG T>100.5 11/21/17 10:30 12/14/17 10:29 11/23/17 17:09 Aztreonam 0.5 gm/ Sodium Chloride 55 ml @ 110 mls/hr Q8HR IVPB 11/24/17 14:00 11/29/17 23:59 11/26/17 05:07 Dextrose (Dextrose 50%) STAT PRN IV Hypoglycemia 11/21/17 10:30 12/08/17 10:29 Furosemide (Lasix) 20 mg Q8H IV 11/25/17 17:00 12/20/17 20:59 11/26/17 09:00 Levalbuterol HCl (Xopenex) 1.25 mg Q6H PRN HHN Shortness of Breath 11/23/17 02:15 11/28/17 02:14 Lorazepam (Ativan 2mg/ml 1ml) 2 mg Q4H PRN IV For Anxiety 11/22/17 07:30 11/29/17 07:29 11/25/17 17:03 Metoprolol Tartrate (Lopressor) 5 mg Q6H PRN IVP HR>130 11/21/17 11:00 12/11/17 10:59 Metoprolol Tartrate (Lopressor) 50 mg Q12HR NG 11/21/17 21:00 12/16/17 20:59 11/26/17 09:00 Morphine Sulfate (Morphine Sulfate) 2 mg Q4H PRN IVP Moderate Pain (Pain Scale 4-6) 11/22/17 08:30 11/29/17 08:29 11/25/17 09:49 Ondansetron HCl (Zofran) 4 mg Q6H PRN IVP Nausea & Vomiting 11/21/17 10:30 12/08/17 10:29 Pantoprazole (Protonix) 40 mg DAILY IV 11/22/17 09:00 12/09/17 08:59 11/26/17 09:00 Polyethylene Glycol (Miralax) 17 gm DAILYPRN PRN ORAL Constipation 11/21/17 10:30 12/08/17 10:29 11/23/17 21:28 Behzad ([facility])Angélica NP Nov 26, 2017 12:24
[2017-11-26] MEDS ORDERED: Levalbuterol Inh UD 1.25mg/0.5ml HHN PRN (14:15)
[2017-11-26] MEDS ORDERED: Potassium Chloride 20 MEQ in NS 275 ML IVPB ONE (14:30)
[2017-11-26 16:00] VITALS: BP 109/61
[2017-11-26] MEDS: LORazepam Inj 2mg/ml 1ml IV PRN (18:44)
[2017-11-26 20:00] VITALS: BP 152/54
--- NOTE | 2017-11-26 20:08 | Cardiology Progress Note ---
Assessment/Plan Assessment/Plan 1. Respiratory failure. 2. Hypertension history. 3. Diarrhea at the time of admission. 4. Cachexia. 5. sinus tachy 6. nsvt 7. fever 8. hyptesnion 9. Eccentric mitral regurgitation 10. chf on bb via ng with prn iv if needed increase agitation causes her to have more tachy more images on tanja echo were performed and she indeed does have eccentric MR as clinically suspected she really is not a candidate for mv therapy at this time bp is at tiem lower s/p trach adn peg tele sinus cxr bilateral infiltrate reprot indicated radiologist feel better , my reviwe righ upper infiltrate mroe than than other areas diuretic q8hr hold if bp less than 92 has some secretion cxr reviweed tele reviewed d/w sister Subjective ROS Limited/Unobtainable: Yes Subjective sister at bedise feel pt more responsive to day Objective Last 24 Hour Vital Signs Date Time Temp Pulse Resp B/P (MAP) Pulse Ox O2 Delivery O2 Flow Rate FiO2 11/26/17 16:41 96 19 60 11/26/17 16:00 60 11/26/17 16:00 100 11/26/17 16:00 98.2 95 22 109/61 100 Mechanical Ventilator 60 98.2 11/26/17 15:53 85 24 60 11/26/17 12:41 108 29 60 11/26/17 12:12 107 11/26/17 12:00 98.0 95 22 93/57 100 Mechanical Ventilator 60 98.0 11/26/17 12:00 60 11/26/17 10:50 113 25 60 11/26/17 09:00 101 133/76 11/26/17 08:44 90 19 60 11/26/17 08:00 60 11/26/17 08:00 99.0 101 22 133/76 100 Mechanical Ventilator 60 99.0 11/26/17 07:34 98 11/26/17 06:49 108 23 60 11/26/17 05:51 95 20 60 11/26/17 04:00 107 11/26/17 04:00 98.6 104 22 128/81 100 Mechanical Ventilator 60 98.6 11/26/17 04:00 60 11/26/17 03:05 98 20 60 11/26/17 01:30 104 23 60 11/26/17 00:00 107 11/26/17 00:00 60 11/26/17 00:00 98.6 107 22 146/74 97 Mechanical Ventilator 60 98.6 11/25/17 23:17 107 26 60 11/25/17 21:03 104 25 60 11/25/17 20:41 107 134/84 General Appearance: on vent Neck: supple Cardiovascular: normal rate, tachycardia, systolic murmur Respiratory/Chest: crackles/rales, rhonchi - bilaterally Abdomen: normal bowel sounds, non tender, soft Extremities: no swelling Intake and Output 11/25/17 11/26/17 19:00 07:00 Intake Total 926.6667 ml 700 ml Output Total 1200 ml 900 ml Balance -273.3333 ml -200 ml Intake Free Water 50 ml 50 ml IV Total 336.6667 ml 110 ml Tube Feeding 540 ml 540 ml Output Urine Total 1200 ml 900 ml Laboratory Tests Test 11/26/17 03:55 White Blood Count 12.9 K/UL (4.8-10.8) H Red Blood Count 3.69 M/UL (4.20-5.40) L Hemoglobin 10.5 G/DL (12.0-16.0) L Hematocrit 31.6 % (37.0-47.0) L Mean Corpuscular Volume 86 FL (80-99) Mean Corpuscular Hemoglobin 28.5 PG (27.0-31.0) Mean Corpuscular Hemoglobin Concent 33.2 G/DL (32.0-36.0) Red Cell Distribution Width 13.7 % (11.6-14.8) Platelet Count 322 K/UL (150-450) Mean Platelet Volume 6.4 FL (6.5-10.1) L Neutrophils (%) (Auto) % (45.0-75.0) Lymphocytes (%) (Auto) % (20.0-45.0) Monocytes (%) (Auto) % (1.0-10.0) Eosinophils (%) (Auto) % (0.0-3.0) Basophils (%) (Auto) % (0.0-2.0) Sodium Level 140 MMOL/L (136-145) Potassium Level 3.4 MMOL/L (3.5-5.1) L Chloride Level 98 MMOL/L (98-107) Carbon Dioxide Level 39 MMOL/L (21-32) H Anion Gap 1 mmol/L (5-15) L Blood Urea Nitrogen 23 mg/dL (7-18) H Creatinine 0.6 MG/DL (0.55-1.30) Estimat Glomerular Filtration Rate mL/min (>60) Glucose Level 134 MG/DL (74-106) H Calcium Level 8.7 MG/DL (8.5-10.1) Total Bilirubin 0.7 MG/DL (0.2-1.0) Aspartate Amino Transf (AST/SGOT) 82 U/L (15-37) H Alanine Aminotransferase (ALT/SGPT) 67 U/L (12-78) Alkaline Phosphatase 79 U/L (46-116) Pro-B-Type Natriuretic Peptide 3182 pg/mL (0-125) H Total Protein 6.2 G/DL (6.4-8.2) L Albumin 2.1 G/DL (3.4-5.0) L Globulin 4.1 g/dL Albumin/Globulin Ratio 0.5 (1.0-2.7) L NALINI GIBBONS Nov 26, 2017 20:08
--- NOTE | 2017-11-26 20:52 | General Progress Note ---
Assessment/Plan Assessment/Plan Assessment - Resp failure - valvular heart disease - anemia - s/p trach - s/p PEG - leukocytosis - AMS Recommendations - PPI - Continue TF - wean off sedation as tolerated - Elevated HOB Subjective Allergies: Coded Allergies: PENICILLINS (Verified Allergy, Mild, Rash, 06/30/14) Subjective Tolerating TF more responsive and arousable today H&H stable Objective Last 24 Hour Vital Signs Date Time Temp Pulse Resp B/P (MAP) Pulse Ox O2 Delivery O2 Flow Rate FiO2 11/26/17 20:18 88 152/54 11/26/17 16:41 96 19 60 11/26/17 16:00 60 11/26/17 16:00 100 11/26/17 16:00 98.2 95 22 109/61 100 Mechanical Ventilator 60 98.2 11/26/17 15:53 85 24 60 11/26/17 12:41 108 29 60 11/26/17 12:12 107 11/26/17 12:00 98.0 95 22 93/57 100 Mechanical Ventilator 60 98.0 11/26/17 12:00 60 11/26/17 10:50 113 25 60 11/26/17 09:00 101 133/76 11/26/17 08:44 90 19 60 11/26/17 08:00 60 11/26/17 08:00 99.0 101 22 133/76 100 Mechanical Ventilator 60 99.0 11/26/17 07:34 98 11/26/17 06:49 108 23 60 11/26/17 05:51 95 20 60 11/26/17 04:00 107 11/26/17 04:00 98.6 104 22 128/81 100 Mechanical Ventilator 60 98.6 11/26/17 04:00 60 11/26/17 03:05 98 20 60 11/26/17 01:30 104 23 60 11/26/17 00:00 107 11/26/17 00:00 60 11/26/17 00:00 98.6 107 22 146/74 97 Mechanical Ventilator 60 98.6 11/25/17 23:17 107 26 60 11/25/17 21:03 104 25 60 Intake and Output 11/25/17 11/26/17 19:00 07:00 Intake Total 926.6667 ml 700 ml Output Total 1200 ml 900 ml Balance -273.3333 ml -200 ml Intake Free Water 50 ml 50 ml IV Total 336.6667 ml 110 ml Tube Feeding 540 ml 540 ml Output Urine Total 1200 ml 900 ml Laboratory Tests 11/26/17 03:55: White Blood Count 12.9H, Red Blood Count 3.69L, Hemoglobin 10.5L, Hematocrit 31.6L, Mean Corpuscular Volume 86, Mean Corpuscular Hemoglobin 28.5, Mean Corpuscular Hemoglobin Concent 33.2, Red Cell Distribution Width 13.7, Platelet Count 322, Mean Platelet Volume 6.4L, Neutrophils (%) (Auto) , Lymphocytes (%) ( Auto) , Monocytes (%) (Auto) , Eosinophils (%) (Auto) , Basophils (%) (Auto) , Sodium Level 140, Potassium Level 3.4L, Chloride Level 98, Carbon Dioxide Level 39H, Anion Gap 1L, Blood Urea Nitrogen 23H, Creatinine 0.6, Estimat Glomerular Filtration Rate , Glucose Level 134H, Calcium Level 8.7, Total Bilirubin 0.7, Aspartate Amino Transf (AST/SGOT) 82H, Alanine Aminotransferase (ALT/SGPT) 67, Alkaline Phosphatase 79, Pro-B-Type Natriuretic Peptide 3182H, Total Protein 6.2L, Albumin 2.1L, Globulin 4.1, Albumin/Globulin Ratio 0.5L Height (Feet): 4 Height (Inches): 10.00 Weight (Pounds): 76 Objective Thin AA woman, on vent NCAT neck (+) trach Coarse BS RR / tachy abd soft flat, (+) GT neuro sedated, agitated, restrained no edema MIKE LEWIS Nov 26, 2017 20:52
[2017-11-27] VITALS (7 sets, daily range): BP systolic 93–122; BP diastolic 59–72
[2017-11-27] MEDS: Aztreonam Inj 0.5 GM in NS 55 ML IVPB SCH ×3 (05:05→23:12)
[2017-11-27 05:32] LABS: HEMOGLOBIN 10.5 G/DL (12.0-16.0); MEAN CORPUSCULAR VOLUME 86 FL (80-99); PLATELET COUNT 332 K/UL (150-450); RED BLOOD COUNT 3.73 M/UL (4.20-5.40); RED CELL DISTRIBUTION WIDTH 14.4 % (11.6-14.8); WHITE BLOOD COUNT 12.7 K/UL (4.8-10.8)
[2017-11-27 05:47] LABS: ANION GAP 3 mmol/L (5-15); BLOOD UREA NITROGEN 28 mg/dL (7-18); CARBON DIOXIDE 38 MMOL/L (21-32); CHLORIDE 98 MMOL/L (98-107); CREATININE 0.6 MG/DL (0.55-1.30); POTASSIUM 3.2 MMOL/L (3.5-5.1); SODIUM 139 MMOL/L (136-145)
--- NOTE | 2017-11-27 08:05 | Pulmonolgy Critical Care Note ---
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 (4) Protein-calorie malnutrition, severe Assessment/Plan: improving, no more bleeding Respiratory: monitor respiratory rate, adjust FIO2, CXR Renal: F/U I&O Infectious Disease: check cultures Gastrointestinal: continue feedings/current rate, hold feedings Endocrine: monitor blood sugar, check HgA1C Hematologic: monitor H/H Neurologic: PRN Ativan Notes Reviewed: corpsman, cardio, renal Critical Care - Objective Last 24 Hour Vital Signs Date Time Temp Pulse Resp B/P (MAP) Pulse Ox O2 Delivery O2 Flow Rate FiO2 11/27/17 07:00 105 23 50 11/27/17 05:25 101 26 50 11/27/17 04:00 103 11/27/17 04:00 60 11/27/17 04:00 98.2 94 19 100/67 100 Mechanical Ventilator 60 98.2 11/27/17 03:26 90 16 50 11/27/17 00:00 98.4 93 18 112/67 100 Mechanical Ventilator 60 98.4 11/27/17 00:00 60 11/27/17 00:00 88 11/26/17 22:59 88 14 50 11/26/17 21:25 87 24 50 11/26/17 20:18 88 152/54 11/26/17 20:00 60 11/26/17 20:00 102 11/26/17 20:00 98.2 97 24 152/54 100 Mechanical Ventilator 60 98.2 11/26/17 19:30 91 28 60 11/26/17 16:41 96 19 60 11/26/17 16:00 60 11/26/17 16:00 100 11/26/17 16:00 98.2 95 22 109/61 100 Mechanical Ventilator 60 98.2 11/26/17 15:53 85 24 60 11/26/17 12:41 108 29 60 11/26/17 12:12 107 11/26/17 12:00 98.0 95 22 93/57 100 Mechanical Ventilator 60 98.0 11/26/17 12:00 60 11/26/17 10:50 113 25 60 11/26/17 09:00 101 133/76 11/26/17 08:44 90 19 60 Status: awake Condition: critical HEENT: atraumatic Neck: full ROM Lungs: clear, chest wall tender Heart: HR/BP stable, regular Abdomen: soft, active bowel sounds, feeding tube Extremities: no C/C/E Critical Care - Subjective ROS Limited/Unobtainable: No Condition: critical EKG Rhythm: Sinus Rhythm FI02: 50 Vent Support Breath Rate: 12 Vent Support Mode: AC Vent Tidal Volume: 300 Sputum Amount: Small PEEP: 5.0 PIP: 25 Tube Feeding Amount: 45 I&O: Intake and Output 11/26/17 11/27/17 19:00 07:00 Intake Total 90 ml 755 ml Output Total 700 ml 1100 ml Balance -610 ml -345 ml Intake Free Water 50 ml IV Total 165 ml Tube Feeding 90 ml 540 ml Output Urine Total 700 ml 1100 ml # Bowel Movements 2 1 CXR: improving slightly ET-Tube: 6.0 ET Position: 20 Labs: Laboratory Tests Test 11/27/17 04:05 White Blood Count 12.7 K/UL (4.8-10.8) H Red Blood Count 3.73 M/UL (4.20-5.40) L Hemoglobin 10.5 G/DL (12.0-16.0) L Hematocrit 32.0 % (37.0-47.0) L Mean Corpuscular Volume 86 FL (80-99) Mean Corpuscular Hemoglobin 28.2 PG (27.0-31.0) Mean Corpuscular Hemoglobin Concent 32.9 G/DL (32.0-36.0) Red Cell Distribution Width 14.4 % (11.6-14.8) Platelet Count 332 K/UL (150-450) Mean Platelet Volume 6.6 FL (6.5-10.1) Neutrophils (%) (Auto) % (45.0-75.0) Lymphocytes (%) (Auto) % (20.0-45.0) Monocytes (%) (Auto) % (1.0-10.0) Eosinophils (%) (Auto) % (0.0-3.0) Basophils (%) (Auto) % (0.0-2.0) Sodium Level 139 MMOL/L (136-145) Potassium Level 3.2 MMOL/L (3.5-5.1) L Chloride Level 98 MMOL/L (98-107) Carbon Dioxide Level 38 MMOL/L (21-32) H Anion Gap 3 mmol/L (5-15) L Blood Urea Nitrogen 28 mg/dL (7-18) H Creatinine 0.6 MG/DL (0.55-1.30) Estimat Glomerular Filtration Rate mL/min (>60) Glucose Level 140 MG/DL (74-106) H Calcium Level 9.0 MG/DL (8.5-10.1) DIANA AGGARWAL Nov 27, 2017 08:05
[2017-11-27] MEDS: Pantoprazole Inj IV SCH (09:19)
[2017-11-27] MEDS: Metoprolol Tartrate 50mg tab NG SCH ×2 (09:20→20:17)
[2017-11-27] MEDS ORDERED: Potassium Phosphate 20 MM in NS 275 ML IV ONE (10:00)
--- NOTE | 2017-11-27 11:37 | General Surgery Progress Note ---
General Surgery-Progress Note Subjective Procedure Performed percutaneous tracheostomy Additional Comments no acute events. h/h stable. still difficulty with weaning from vent. Objective Last 24 Hour Vital Signs Date Time Temp Pulse Resp B/P (MAP) Pulse Ox O2 Delivery O2 Flow Rate FiO2 11/27/17 09:43 101 23 50 11/27/17 09:20 106 122/72 11/27/17 08:00 97.9 106 26 122/72 100 Mechanical Ventilator 60 97.9 11/27/17 08:00 50 11/27/17 08:00 101 11/27/17 07:00 105 23 50 11/27/17 05:25 101 26 50 11/27/17 04:00 103 11/27/17 04:00 60 11/27/17 04:00 98.2 94 19 100/67 100 Mechanical Ventilator 60 98.2 11/27/17 03:26 90 16 50 11/27/17 00:00 98.4 93 18 112/67 100 Mechanical Ventilator 60 98.4 11/27/17 00:00 60 11/27/17 00:00 88 11/26/17 22:59 88 14 50 11/26/17 21:25 87 24 50 11/26/17 20:18 88 152/54 11/26/17 20:00 60 11/26/17 20:00 102 11/26/17 20:00 98.2 97 24 152/54 100 Mechanical Ventilator 60 98.2 11/26/17 19:30 91 28 60 11/26/17 16:41 96 19 60 11/26/17 16:00 60 11/26/17 16:00 100 11/26/17 16:00 98.2 95 22 109/61 100 Mechanical Ventilator 60 98.2 11/26/17 15:53 85 24 60 11/26/17 12:41 108 29 60 11/26/17 12:12 107 11/26/17 12:00 98.0 95 22 93/57 100 Mechanical Ventilator 60 98.0 11/26/17 12:00 60 I&O Intake and Output 11/26/17 11/27/17 19:00 07:00 Intake Total 90 ml 755 ml Output Total 700 ml 1100 ml Balance -610 ml -345 ml Intake Free Water 50 ml IV Total 165 ml Tube Feeding 90 ml 540 ml Output Urine Total 700 ml 1100 ml # Bowel Movements 2 1 Cardiovascular: RSR Respiratory: clear Abdomen: soft, flat, non-tender, present bowel sounds Extremities: no cyanosis Laboratory Tests Test 11/27/17 04:05 White Blood Count 12.7 K/UL (4.8-10.8) H Red Blood Count 3.73 M/UL (4.20-5.40) L Hemoglobin 10.5 G/DL (12.0-16.0) L Hematocrit 32.0 % (37.0-47.0) L Mean Corpuscular Volume 86 FL (80-99) Mean Corpuscular Hemoglobin 28.2 PG (27.0-31.0) Mean Corpuscular Hemoglobin Concent 32.9 G/DL (32.0-36.0) Red Cell Distribution Width 14.4 % (11.6-14.8) Platelet Count 332 K/UL (150-450) Mean Platelet Volume 6.6 FL (6.5-10.1) Neutrophils (%) (Auto) % (45.0-75.0) Lymphocytes (%) (Auto) % (20.0-45.0) Monocytes (%) (Auto) % (1.0-10.0) Eosinophils (%) (Auto) % (0.0-3.0) Basophils (%) (Auto) % (0.0-2.0) Sodium Level 139 MMOL/L (136-145) Potassium Level 3.2 MMOL/L (3.5-5.1) L Chloride Level 98 MMOL/L (98-107) Carbon Dioxide Level 38 MMOL/L (21-32) H Anion Gap 3 mmol/L (5-15) L Blood Urea Nitrogen 28 mg/dL (7-18) H Creatinine 0.6 MG/DL (0.55-1.30) Estimat Glomerular Filtration Rate mL/min (>60) Glucose Level 140 MG/DL (74-106) H Calcium Level 9.0 MG/DL (8.5-10.1) Plan Problems: (1) Respiratory failure Assessment & Plan: s/p trac. h/h low intermittently requiring transfusion prior. blood tinged mucus with suctioning. CXR without signs of bleeding into lungs. no bleeding from trach. blood tinged mucus can be anticipated as she does have friable tissues. cut back on suctioning unless necessary. no gross gi bleed or other site of bleeding noted. h/h stable. no active bleeding. trach clean. secretions improved. wean vent as tolerated. nAdrew Krause Nov 27, 2017 11:37
--- NOTE | 2017-11-27 12:26 | General Progress Note ---
Assessment/Plan Assessment/Plan Assessment - Resp failure - valvular heart disease - anemia - s/p trach - s/p PEG - leukocytosis - AMS Recommendations - PPI - Continue TF - wean off sedation as tolerated - Elevated HOB Subjective Allergies: Coded Allergies: PENICILLINS (Verified Allergy, Mild, Rash, 06/30/14) Subjective Tolerating TF responsive and arousable today H&H stable Objective Last 24 Hour Vital Signs Date Time Temp Pulse Resp B/P (MAP) Pulse Ox O2 Delivery O2 Flow Rate FiO2 11/27/17 10:40 97 24 50 11/27/17 09:43 101 23 50 11/27/17 09:20 106 122/72 11/27/17 08:00 97.9 106 26 122/72 100 Mechanical Ventilator 60 97.9 11/27/17 08:00 50 11/27/17 08:00 101 11/27/17 07:00 105 23 50 11/27/17 05:25 101 26 50 11/27/17 04:00 103 11/27/17 04:00 60 11/27/17 04:00 98.2 94 19 100/67 100 Mechanical Ventilator 60 98.2 11/27/17 03:26 90 16 50 11/27/17 00:00 98.4 93 18 112/67 100 Mechanical Ventilator 60 98.4 11/27/17 00:00 60 11/27/17 00:00 88 11/26/17 22:59 88 14 50 11/26/17 21:25 87 24 50 11/26/17 20:18 88 152/54 11/26/17 20:00 60 11/26/17 20:00 102 11/26/17 20:00 98.2 97 24 152/54 100 Mechanical Ventilator 60 98.2 11/26/17 19:30 91 28 60 11/26/17 16:41 96 19 60 11/26/17 16:00 60 11/26/17 16:00 100 11/26/17 16:00 98.2 95 22 109/61 100 Mechanical Ventilator 60 98.2 11/26/17 15:53 85 24 60 11/26/17 12:41 108 29 60 Intake and Output 11/26/17 11/27/17 19:00 07:00 Intake Total 90 ml 755 ml Output Total 700 ml 1100 ml Balance -610 ml -345 ml Intake Free Water 50 ml IV Total 165 ml Tube Feeding 90 ml 540 ml Output Urine Total 700 ml 1100 ml # Bowel Movements 2 1 Laboratory Tests 11/27/17 04:05: White Blood Count 12.7H, Red Blood Count 3.73L, Hemoglobin 10.5L, Hematocrit 32.0L, Mean Corpuscular Volume 86, Mean Corpuscular Hemoglobin 28.2, Mean Corpuscular Hemoglobin Concent 32.9, Red Cell Distribution Width 14.4, Platelet Count 332, Mean Platelet Volume 6.6, Neutrophils (%) (Auto) , Lymphocytes (%) ( Auto) , Monocytes (%) (Auto) , Eosinophils (%) (Auto) , Basophils (%) (Auto) , Sodium Level 139, Potassium Level 3.2L, Chloride Level 98, Carbon Dioxide Level 38H, Anion Gap 3L, Blood Urea Nitrogen 28H, Creatinine 0.6, Estimat Glomerular Filtration Rate , Glucose Level 140H, Calcium Level 9.0 Height (Feet): 4 Height (Inches): 10.00 Weight (Pounds): 75 Objective Thin AA woman, on vent NCAT neck (+) trach Coarse BS RR / tachy abd soft flat, (+) GT neuro sedated, agitated, restrained no edema MIKE LEWIS Nov 27, 2017 12:26
--- NOTE | 2017-11-27 14:00 | Infectious Diseases Prog Note ---
Assessment/Plan Assessment/Plan ASSESSMENT: The patient is a 77-year-old female, w Leukocytosis , mild Fever, SP Probable ventilator-associated pneumonia. Scx : PSA influenza :neg Diarrhea , SP at the time of admission Chest x-ray, bilateral diffuse interstitial opacity Uxc : mixed growth PEG 11/20 TRACH 11/18 Hypertension Anemia PLAN: continue the patient on Azactam day # 2 SP vancomycin day # Monitor CBC Monitor BMP, LFT Monitor chest x-ray PRBC Tx Subjective Allergies: Coded Allergies: PENICILLINS (Verified Allergy, Mild, Rash, 06/30/14) Subjective afebrile Objective Vital Signs Last 24 Hour Vital Signs Date Time Temp Pulse Resp B/P (MAP) Pulse Ox O2 Delivery O2 Flow Rate FiO2 11/27/17 13:00 103 24 50 11/27/17 12:00 97.5 89 16 96/60 100 Mechanical Ventilator 60 97.5 11/27/17 12:00 96 11/27/17 12:00 50 11/27/17 10:40 97 24 50 11/27/17 09:43 101 23 50 11/27/17 09:20 106 122/72 11/27/17 08:00 97.9 106 26 122/72 100 Mechanical Ventilator 60 97.9 11/27/17 08:00 50 11/27/17 08:00 101 11/27/17 07:00 105 23 50 11/27/17 05:25 101 26 50 11/27/17 04:00 103 11/27/17 04:00 60 11/27/17 04:00 98.2 94 19 100/67 100 Mechanical Ventilator 60 98.2 11/27/17 03:26 90 16 50 11/27/17 00:00 98.4 93 18 112/67 100 Mechanical Ventilator 60 98.4 11/27/17 00:00 60 11/27/17 00:00 88 11/26/17 22:59 88 14 50 11/26/17 21:25 87 24 50 11/26/17 20:18 88 152/54 11/26/17 20:00 60 11/26/17 20:00 102 11/26/17 20:00 98.2 97 24 152/54 100 Mechanical Ventilator 60 98.2 11/26/17 19:30 91 28 60 11/26/17 16:41 96 19 60 11/26/17 16:00 60 11/26/17 16:00 100 11/26/17 16:00 98.2 95 22 109/61 100 Mechanical Ventilator 60 98.2 11/26/17 15:53 85 24 60 Height (Feet): 4 Height (Inches): 10.00 Weight (Pounds): 75 HEENT: atraumatic Respiratory/Chest: no accessory muscle use Cardiovascular: no JVD Abdomen: no mass Laboratory Tests Test 11/27/17 04:05 White Blood Count 12.7 K/UL (4.8-10.8) H Red Blood Count 3.73 M/UL (4.20-5.40) L Hemoglobin 10.5 G/DL (12.0-16.0) L Hematocrit 32.0 % (37.0-47.0) L Mean Corpuscular Volume 86 FL (80-99) Mean Corpuscular Hemoglobin 28.2 PG (27.0-31.0) Mean Corpuscular Hemoglobin Concent 32.9 G/DL (32.0-36.0) Red Cell Distribution Width 14.4 % (11.6-14.8) Platelet Count 332 K/UL (150-450) Mean Platelet Volume 6.6 FL (6.5-10.1) Neutrophils (%) (Auto) % (45.0-75.0) Lymphocytes (%) (Auto) % (20.0-45.0) Monocytes (%) (Auto) % (1.0-10.0) Eosinophils (%) (Auto) % (0.0-3.0) Basophils (%) (Auto) % (0.0-2.0) Sodium Level 139 MMOL/L (136-145) Potassium Level 3.2 MMOL/L (3.5-5.1) L Chloride Level 98 MMOL/L (98-107) Carbon Dioxide Level 38 MMOL/L (21-32) H Anion Gap 3 mmol/L (5-15) L Blood Urea Nitrogen 28 mg/dL (7-18) H Creatinine 0.6 MG/DL (0.55-1.30) Estimat Glomerular Filtration Rate mL/min (>60) Glucose Level 140 MG/DL (74-106) H Calcium Level 9.0 MG/DL (8.5-10.1) Current Medications Medications (Trade) Dose Ordered Sig/Puja Route PRN Reason Start Time Stop Time Status Last Admin Dose Admin Acetaminophen (Tylenol) 650 mg Q4H PRN NG T>100.5 11/21/17 10:30 12/14/17 10:29 11/23/17 17:09 Aztreonam 0.5 gm/ Sodium Chloride 55 ml @ 110 mls/hr Q8HR IVPB 11/24/17 14:00 11/29/17 23:59 11/27/17 05:05 Dextrose (Dextrose 50%) STAT PRN IV Hypoglycemia 11/21/17 10:30 12/08/17 10:29 Furosemide (Lasix) 20 mg Q8H IV 11/27/17 01:00 12/27/17 00:59 11/27/17 09:18 Levalbuterol HCl (Xopenex) 1.25 mg Q6H PRN HHN Shortness of Breath 11/26/17 14:15 12/01/17 14:14 Lorazepam (Ativan 2mg/ml 1ml) 2 mg Q4H PRN IV For Anxiety 11/22/17 07:30 11/29/17 07:29 11/26/17 18:44 Metoprolol Tartrate (Lopressor) 5 mg Q6H PRN IVP HR>130 11/21/17 11:00 12/11/17 10:59 Metoprolol Tartrate (Lopressor) 50 mg Q12HR NG 11/21/17 21:00 12/16/17 20:59 11/27/17 09:20 Morphine Sulfate (Morphine Sulfate) 2 mg Q4H PRN IVP Moderate Pain (Pain Scale 4-6) 11/22/17 08:30 11/29/17 08:29 11/25/17 09:49 Ondansetron HCl (Zofran) 4 mg Q6H PRN IVP Nausea & Vomiting 11/21/17 10:30 12/08/17 10:29 Pantoprazole (Protonix) 40 mg DAILY IV 11/22/17 09:00 12/09/17 08:59 11/27/17 09:19 Polyethylene Glycol (Miralax) 17 gm DAILYPRN PRN ORAL Constipation 11/21/17 10:30 12/08/17 10:29 11/23/17 21:28 Potassium Phosphate 20 mm/ Sodium Chloride 281.6667 ml @ 46.944 m... ONCE ONCE IV 11/27/17 10:00 11/27/17 15:59 11/27/17 09:30 KUSH ESPINO M.D. Nov 27, 2017 14:00
[2017-11-27] MEDS ORDERED: NS 275ml ONE (15:43)
--- NOTE | 2017-11-27 18:35 | Cardiology Progress Note ---
Assessment/Plan Assessment/Plan 1. Respiratory failure. 2. Hypertension history. 3. Diarrhea at the time of admission. 4. Cachexia. 5. sinus tachy 6. nsvt 7. fever 8. hyptesnion 9. Eccentric mitral regurgitation 10. chf on bb via ng with prn iv if needed increase agitation causes her to have more tachy more images on tanja echo were performed and she indeed does have eccentric MR as clinically suspected she really is not a candidate for mv therapy at this time bp lower s/p trach adn peg tele sinus cxr in am looks better more awake diuretic q8hr hold if bp less than 92 has some secretion tele reviewed d/w sister Subjective ROS Limited/Unobtainable: Yes Subjective sister at bedside is more awake Objective Last 24 Hour Vital Signs Date Time Temp Pulse Resp B/P (MAP) Pulse Ox O2 Delivery O2 Flow Rate FiO2 11/27/17 17:21 98 22 40 11/27/17 16:00 40 11/27/17 16:00 97.7 96 18 93/61 100 Mechanical Ventilator 40 97.7 11/27/17 16:00 102 11/27/17 14:45 103 24 40 11/27/17 13:00 103 24 50 11/27/17 12:00 97.5 89 16 96/60 100 Mechanical Ventilator 60 97.5 11/27/17 12:00 96 11/27/17 12:00 40 11/27/17 10:40 97 24 50 11/27/17 09:43 101 23 50 11/27/17 09:20 106 122/72 11/27/17 08:00 97.9 106 26 122/72 100 Mechanical Ventilator 60 97.9 11/27/17 08:00 50 11/27/17 08:00 101 11/27/17 07:00 105 23 50 11/27/17 05:25 101 26 50 11/27/17 04:00 103 11/27/17 04:00 60 11/27/17 04:00 98.2 94 19 100/67 100 Mechanical Ventilator 60 98.2 11/27/17 03:26 90 16 50 11/27/17 00:00 98.4 93 18 112/67 100 Mechanical Ventilator 60 98.4 11/27/17 00:00 60 11/27/17 00:00 88 11/26/17 22:59 88 14 50 11/26/17 21:25 87 24 50 11/26/17 20:18 88 152/54 11/26/17 20:00 60 11/26/17 20:00 102 11/26/17 20:00 98.2 97 24 152/54 100 Mechanical Ventilator 60 98.2 11/26/17 19:30 91 28 60 General Appearance: no apparent distress, alert, patient on isolation Cardiovascular: normal rate, systolic murmur Respiratory/Chest: crackles/rales Abdomen: normal bowel sounds, non tender, soft Extremities: no swelling Intake and Output 11/26/17 11/27/17 19:00 07:00 Intake Total 90 ml 755 ml Output Total 700 ml 1100 ml Balance -610 ml -345 ml Intake Free Water 50 ml IV Total 165 ml Tube Feeding 90 ml 540 ml Output Urine Total 700 ml 1100 ml # Bowel Movements 2 1 Laboratory Tests Test 11/27/17 04:05 White Blood Count 12.7 K/UL (4.8-10.8) H Red Blood Count 3.73 M/UL (4.20-5.40) L Hemoglobin 10.5 G/DL (12.0-16.0) L Hematocrit 32.0 % (37.0-47.0) L Mean Corpuscular Volume 86 FL (80-99) Mean Corpuscular Hemoglobin 28.2 PG (27.0-31.0) Mean Corpuscular Hemoglobin Concent 32.9 G/DL (32.0-36.0) Red Cell Distribution Width 14.4 % (11.6-14.8) Platelet Count 332 K/UL (150-450) Mean Platelet Volume 6.6 FL (6.5-10.1) Neutrophils (%) (Auto) % (45.0-75.0) Lymphocytes (%) (Auto) % (20.0-45.0) Monocytes (%) (Auto) % (1.0-10.0) Eosinophils (%) (Auto) % (0.0-3.0) Basophils (%) (Auto) % (0.0-2.0) Sodium Level 139 MMOL/L (136-145) Potassium Level 3.2 MMOL/L (3.5-5.1) L Chloride Level 98 MMOL/L (98-107) Carbon Dioxide Level 38 MMOL/L (21-32) H Anion Gap 3 mmol/L (5-15) L Blood Urea Nitrogen 28 mg/dL (7-18) H Creatinine 0.6 MG/DL (0.55-1.30) Estimat Glomerular Filtration Rate mL/min (>60) Glucose Level 140 MG/DL (74-106) H Calcium Level 9.0 MG/DL (8.5-10.1) NALINI GIBBONS Nov 27, 2017 18:35
--- NOTE | 2017-11-27 22:22 | Pre-Procedure Note/Attestation ---
Pre-Procedure Note/Attestation Complete Prior to Procedure Planned Procedure: not applicable Procedure Narrative: PEG Indications for Procedure Pre-Operative Diagnosis: dysphagia Attestation I attest that I discussed the nature of the procedure; its benefits; risks and complications; and alternatives (and the risks and benefits of such alternatives ), prior to the procedure, with the patient (or the patient's legal eligibility services representative). I attest that, if there was a reasonable possibility of needing a blood transfusion, the patient (or the patient's legal eligibility services representative) was given the [facility] standardized written summary, pursuant to the [place] Blood Safety Act ([place] Health and Safety Code # 1645, as amended). I attest that I re-evaluated the patient just prior to the surgery and that there has been no change in the patient's H&P, except as documented below: This is a delayed entry note MIKE LEWIS Nov 27, 2017 22:22
--- NOTE | 2017-11-27 22:22 | Endoscopy Procedure Note ---
Endoscopy Procedure Note General Indication for Procedure: dysphagia Procedures Performed: PEG Operative Findings/Diagnosis: PEG placed Specimen: none Pt Tolerated Procedure Well: Yes Estimated Blood Loss: none Anesthesia Anesthesiologist: see report Anesthesia: moderate sedation Medications Medication Given: see anesthesia record Inserted Devices Implant(s) used?: No GI Core Measures 50 yrs or older w/o bx or poly: Not Applicable 10yrs. F/U not recommended: Not Applicable If not recommended, why?: MIKE LEWIS Nov 27, 2017 22:22
--- NOTE | 2017-11-27 22:24 | Brief Operative Note ---
Immediate Post Operative Note Operative Note Chief Complaint: dysphagia Pre-op Diagnosis: dysphagia Procedure: EGD, PEG Post-op Diagnosis: s/p PEG Surgeon: cyril Anesthesiologist: mendez [place] Anesthesia: MAC Specimen: none Complications: none Condition: stable Fluids: reported Estimated Blood Loss: none Drains: none Implant(s) used?: No MIKE LEWIS Nov 27, 2017 22:24
[2017-11-28] VITALS: BP 128/58
[2017-11-28 04:00] VITALS: BP 105/51
[2017-11-28] MEDS: Aztreonam Inj 0.5 GM in NS 55 ML IVPB SCH ×3 (05:11→22:30)
[2017-11-28 05:26] LABS: HEMATOCRIT 29.4 % (37.0-47.0); HEMOGLOBIN 9.7 G/DL (12.0-16.0); MEAN CORPUSCULAR VOLUME 86 FL (80-99); PLATELET COUNT 336 K/UL (150-450); RED BLOOD COUNT 3.42 M/UL (4.20-5.40); RED CELL DISTRIBUTION WIDTH 14.2 % (11.6-14.8); WHITE BLOOD COUNT 10.5 K/UL (4.8-10.8)
[2017-11-28 06:02] LABS: ALANINE AMINOTRANSFERASE 120 U/L (12-78); ALBUMIN 2.1 G/DL (3.4-5.0); ALBUMIN/GLOBULIN RATIO 0.5 (1.0-2.7); ALKALINE PHOSPHATASE 86 U/L (46-116); ANION GAP 6 mmol/L (5-15); ASPARTATE AMINO TRANSFERASE 84 U/L (15-37); BILIRUBIN,TOTAL 0.6 MG/DL (0.2-1.0); BLOOD UREA NITROGEN 30 mg/dL (7-18); CALCIUM 8.5 MG/DL (8.5-10.1); CARBON DIOXIDE 35 MMOL/L (21-32); CHLORIDE 99 MMOL/L (98-107); CREATININE 0.7 MG/DL (0.55-1.30); PHOSPHORUS 4.1 MG/DL (2.5-4.9); POTASSIUM 3.5 MMOL/L (3.5-5.1); SODIUM 140 MMOL/L (136-145)
[2017-11-28 08:00] VITALS: BP 129/67
[2017-11-28] MEDS: Metoprolol Tartrate 50mg tab NG SCH ×2 (09:00→21:02)
[2017-11-28] MEDS: Pantoprazole Inj IV SCH (09:11)
--- NOTE | 2017-11-28 11:45 | Diagnostic Imaging Report ---
Indication: Dyspnea Comparison: 11/26/2017 A single view chest radiograph was obtained. Findings: Interstitial opacities noted diffusely and some airspace disease in the right upper lobe noted. Overall appearance is improved since the last examination. The heart remains enlarged. Tracheostomy again noted. Lungs are hyperexpanded. IMPRESSION: Evidence of interstitial edema/CHF with some minimal improvement. Superimposed pneumonia in the right upper lobe not excluded
[2017-11-28 12:00] VITALS: BP 117/71
--- NOTE | 2017-11-28 12:19 | Pulmonolgy Critical Care Note ---
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 (4) Protein-calorie malnutrition, severe Assessment/Plan: improving, no more bleeding Respiratory: monitor respiratory rate, adjust FIO2, CXR Cardiac: continue to monitor HR/BP Renal: F/U I&O, check electrolytes Infectious Disease: check cultures Gastrointestinal: continue feedings/current rate Endocrine: monitor blood sugar, continue sliding scale insulin Hematologic: transfuse if hgb<8.5 Neurologic: PRN Ativan, PRN Morphine, keep patient comfortable Prophylaxis: Protonix Notes Reviewed: automotive sales manager, cardio, renal Discussed with: nurses, consultants, shelter case managermanager pe - Objective Last 24 Hour Vital Signs Date Time Temp Pulse Resp B/P (MAP) Pulse Ox O2 Delivery O2 Flow Rate FiO2 11/28/17 10:45 100 23 40 11/28/17 09:10 100 25 40 11/28/17 09:00 98 90/56 11/28/17 08:00 40 11/28/17 08:00 94 11/28/17 08:00 97.7 68 20 129/67 98 Mechanical Ventilator 40 97.7 11/28/17 07:10 90 20 40 11/28/17 05:22 101 21 40 11/28/17 04:00 98.2 95 20 105/51 100 Mechanical Ventilator 40 98.2 11/28/17 04:00 40 11/28/17 04:00 93 11/28/17 03:21 107 21 40 11/28/17 01:19 113 28 40 11/28/17 00:00 104 11/28/17 00:00 40 11/28/17 00:00 97.7 93 18 128/58 100 Mechanical Ventilator 40 97.7 11/27/17 23:08 106 27 40 11/27/17 21:16 103 21 40 11/27/17 20:17 89 106/59 11/27/17 20:00 102 11/27/17 20:00 40 11/27/17 20:00 98.2 107 22 106/59 100 Mechanical Ventilator 40 98.2 11/27/17 19:29 101 22 40 11/27/17 17:21 98 22 40 11/27/17 16:00 40 11/27/17 16:00 97.7 96 18 93/61 100 Mechanical Ventilator 40 97.7 11/27/17 16:00 102 11/27/17 14:45 103 24 40 11/27/17 13:00 103 24 50 Status: awake Condition: critical, grave HEENT: atraumatic Lungs: chest wall tender Heart: HR/BP stable, regular Abdomen: soft, non-tender, feeding tube Extremities: no C/C/E, edema Critical Care - Subjective ROS Limited/Unobtainable: No Condition: critical EKG Rhythm: Sinus Rhythm FI02: 40 Vent Support Breath Rate: 12 Vent Support Mode: AC Vent Tidal Volume: 300 Sputum Amount: Small PEEP: 5.0 PIP: 19 Tube Feeding Amount: 45 I&O: Intake and Output 11/27/17 11/28/17 19:00 07:00 Intake Total 842.776 ml 755 ml Output Total 800 ml 675 ml Balance 42.776 ml 80 ml Intake Free Water 30 ml 50 ml IV Total 242.776 ml 165 ml Tube Feeding 540 ml 540 ml Other 30 ml Output Urine Total 800 ml 675 ml # Bowel Movements 4 4 CXR: getting better ET-Tube: 6.0 ET Position: 20 Labs: Laboratory Tests Test 11/28/17 03:55 White Blood Count 10.5 K/UL (4.8-10.8) Red Blood Count 3.42 M/UL (4.20-5.40) L Hemoglobin 9.7 G/DL (12.0-16.0) L Hematocrit 29.4 % (37.0-47.0) L Mean Corpuscular Volume 86 FL (80-99) Mean Corpuscular Hemoglobin 28.5 PG (27.0-31.0) Mean Corpuscular Hemoglobin Concent 33.1 G/DL (32.0-36.0) Red Cell Distribution Width 14.2 % (11.6-14.8) Platelet Count 336 K/UL (150-450) Mean Platelet Volume 6.5 FL (6.5-10.1) Neutrophils (%) (Auto) % (45.0-75.0) Lymphocytes (%) (Auto) % (20.0-45.0) Monocytes (%) (Auto) % (1.0-10.0) Eosinophils (%) (Auto) % (0.0-3.0) Basophils (%) (Auto) % (0.0-2.0) Sodium Level 140 MMOL/L (136-145) Potassium Level 3.5 MMOL/L (3.5-5.1) Chloride Level 99 MMOL/L (98-107) Carbon Dioxide Level 35 MMOL/L (21-32) H Anion Gap 6 mmol/L (5-15) Blood Urea Nitrogen 30 mg/dL (7-18) H Creatinine 0.7 MG/DL (0.55-1.30) Estimat Glomerular Filtration Rate mL/min (>60) Glucose Level 127 MG/DL (74-106) H Calcium Level 8.5 MG/DL (8.5-10.1) Phosphorus Level 4.1 MG/DL (2.5-4.9) Magnesium Level 2.0 MG/DL (1.8-2.4) Total Bilirubin 0.6 MG/DL (0.2-1.0) Aspartate Amino Transf (AST/SGOT) 84 U/L (15-37) H Alanine Aminotransferase (ALT/SGPT) 120 U/L (12-78) H Alkaline Phosphatase 86 U/L (46-116) Total Protein 6.1 G/DL (6.4-8.2) L Albumin 2.1 G/DL (3.4-5.0) L Globulin 4.0 g/dL Albumin/Globulin Ratio 0.5 (1.0-2.7) L DIANA AGGARWAL Nov 28, 2017 12:19
[2017-11-28 16:00] VITALS: BP 125/64
[2017-11-28] MEDS ORDERED: Flu Vaccine Quadrivalent 0.5ml IM ONE (16:00)
[2017-11-28] MEDS ORDERED: Pneumococcal Vaccine 25mcg/0.5ml IM ONE (17:00)
--- NOTE | 2017-11-28 17:05 | Infectious Diseases Prog Note ---
Assessment/Plan Assessment/Plan ASSESSMENT: The patient is a 77-year-old female, w Leukocytosis, SP Fever, SP Probable ventilator-associated pneumonia. Scx : PSA influenza :neg Diarrhea , SP at the time of admission Chest x-ray, bilateral diffuse interstitial opacity Uxc : mixed growth PEG 11/20 TRACH 11/18 Hypertension Anemia PLAN: continue the patient on Azactam day # 13 / 14 11/22 SP vancomycin day # Monitor CBC Monitor BMP, LFT Monitor chest x-ray PRBC Tx Subjective Allergies: Coded Allergies: PENICILLINS (Verified Allergy, Mild, Rash, 06/30/14) Subjective ON VENT afebrile Objective Vital Signs Last 24 Hour Vital Signs Date Time Temp Pulse Resp B/P (MAP) Pulse Ox O2 Delivery O2 Flow Rate FiO2 11/28/17 16:32 89 20 40 11/28/17 16:00 40 11/28/17 16:00 94 11/28/17 16:00 97.7 89 20 125/64 100 Mechanical Ventilator 30 97.7 11/28/17 15:09 90 22 40 11/28/17 13:09 100 22 40 11/28/17 12:00 98 11/28/17 12:00 40 11/28/17 12:00 97.5 103 20 117/71 100 Mechanical Ventilator 40 97.5 11/28/17 10:45 100 23 40 11/28/17 09:10 100 25 40 11/28/17 09:00 98 90/56 11/28/17 08:00 40 11/28/17 08:00 94 11/28/17 08:00 97.7 68 20 129/67 98 Mechanical Ventilator 40 97.7 11/28/17 07:10 90 20 40 11/28/17 05:22 101 21 40 11/28/17 04:00 98.2 95 20 105/51 100 Mechanical Ventilator 40 98.2 11/28/17 04:00 40 11/28/17 04:00 93 11/28/17 03:21 107 21 40 11/28/17 01:19 113 28 40 11/28/17 00:00 104 11/28/17 00:00 40 11/28/17 00:00 97.7 93 18 128/58 100 Mechanical Ventilator 40 97.7 11/27/17 23:08 106 27 40 3/1/18 21:16 103 21 40 11/27/17 20:17 89 106/59 11/27/17 20:00 102 11/27/17 20:00 40 11/27/17 20:00 98.2 107 22 106/59 100 Mechanical Ventilator 40 98.2 11/27/17 19:29 101 22 40 11/27/17 17:21 98 22 40 Height (Feet): 4 Height (Inches): 10.00 Weight (Pounds): 69 HEENT: anicteric Respiratory/Chest: no accessory muscle use Cardiovascular: no gallop/murmur Abdomen: no organomegaly Laboratory Tests Test 11/28/17 03:55 White Blood Count 10.5 K/UL (4.8-10.8) Red Blood Count 3.42 M/UL (4.20-5.40) L Hemoglobin 9.7 G/DL (12.0-16.0) L Hematocrit 29.4 % (37.0-47.0) L Mean Corpuscular Volume 86 FL (80-99) Mean Corpuscular Hemoglobin 28.5 PG (27.0-31.0) Mean Corpuscular Hemoglobin Concent 33.1 G/DL (32.0-36.0) Red Cell Distribution Width 14.2 % (11.6-14.8) Platelet Count 336 K/UL (150-450) Mean Platelet Volume 6.5 FL (6.5-10.1) Neutrophils (%) (Auto) % (45.0-75.0) Lymphocytes (%) (Auto) % (20.0-45.0) Monocytes (%) (Auto) % (1.0-10.0) Eosinophils (%) (Auto) % (0.0-3.0) Basophils (%) (Auto) % (0.0-2.0) Sodium Level 140 MMOL/L (136-145) Potassium Level 3.5 MMOL/L (3.5-5.1) Chloride Level 99 MMOL/L (98-107) Carbon Dioxide Level 35 MMOL/L (21-32) H Anion Gap 6 mmol/L (5-15) Blood Urea Nitrogen 30 mg/dL (7-18) H Creatinine 0.7 MG/DL (0.55-1.30) Estimat Glomerular Filtration Rate mL/min (>60) Glucose Level 127 MG/DL (74-106) H Calcium Level 8.5 MG/DL (8.5-10.1) Phosphorus Level 4.1 MG/DL (2.5-4.9) Magnesium Level 2.0 MG/DL (1.8-2.4) Total Bilirubin 0.6 MG/DL (0.2-1.0) Aspartate Amino Transf (AST/SGOT) 84 U/L (15-37) H Alanine Aminotransferase (ALT/SGPT) 120 U/L (12-78) H Alkaline Phosphatase 86 U/L (46-116) Total Protein 6.1 G/DL (6.4-8.2) L Albumin 2.1 G/DL (3.4-5.0) L Globulin 4.0 g/dL Albumin/Globulin Ratio 0.5 (1.0-2.7) L Current Medications Medications (Trade) Dose Ordered Sig/Puja Route PRN Reason Start Time Stop Time Status Last Admin Dose Admin Acetaminophen (Tylenol) 650 mg Q4H PRN NG T>100.5 11/21/17 10:30 12/14/17 10:29 11/23/17 17:09 Aztreonam 0.5 gm/ Sodium Chloride 55 ml @ 110 mls/hr Q8HR IVPB 11/24/17 14:00 11/29/17 23:59 11/28/17 14:10 Dextrose (Dextrose 50%) STAT PRN IV Hypoglycemia 11/21/17 10:30 12/08/17 10:29 Furosemide (Lasix) 20 mg Q8H IV 11/27/17 01:00 12/27/17 00:59 11/28/17 00:15 Levalbuterol HCl (Xopenex) 1.25 mg Q6H PRN HHN Shortness of Breath 11/26/17 14:15 12/01/17 14:14 Lorazepam (Ativan 2mg/ml 1ml) 2 mg Q4H PRN IV For Anxiety 11/22/17 07:30 11/29/17 07:29 11/26/17 18:44 Metoprolol Tartrate (Lopressor) 5 mg Q6H PRN IVP HR>130 11/21/17 11:00 12/11/17 10:59 Metoprolol Tartrate (Lopressor) 50 mg Q12HR NG 11/21/17 21:00 12/16/17 20:59 11/27/17 09:20 Morphine Sulfate (Morphine Sulfate) 2 mg Q4H PRN IVP Moderate Pain (Pain Scale 4-6) 11/22/17 08:30 11/29/17 08:29 11/25/17 09:49 Ondansetron HCl (Zofran) 4 mg Q6H PRN IVP Nausea & Vomiting 11/21/17 10:30 12/08/17 10:29 Pantoprazole (Protonix) 40 mg DAILY IV 11/22/17 09:00 12/09/17 08:59 11/28/17 09:11 Polyethylene Glycol (Miralax) 17 gm DAILYPRN PRN ORAL Constipation 11/21/17 10:30 12/08/17 10:29 11/23/17 21:28 KUSH ESPINO M.D. Nov 28, 2017 17:05
--- NOTE | 2017-11-28 18:08 | General Progress Note ---
Assessment/Plan Assessment/Plan Assessment - Resp failure - valvular heart disease - anemia - s/p trach - s/p PEG - leukocytosis - AMS Recommendations - PPI - Continue TF - wean off sedation as tolerated - Elevated HOB Subjective Allergies: Coded Allergies: PENICILLINS (Verified Allergy, Mild, Rash, 06/30/14) Subjective Tolerating TF responsive and arousable today H&H stable Objective Last 24 Hour Vital Signs Date Time Temp Pulse Resp B/P (MAP) Pulse Ox O2 Delivery O2 Flow Rate FiO2 11/28/17 16:32 89 20 40 11/28/17 16:00 40 11/28/17 16:00 94 11/28/17 16:00 97.7 89 20 125/64 100 Mechanical Ventilator 30 97.7 11/28/17 15:09 90 22 40 11/28/17 13:09 100 22 40 11/28/17 12:00 98 11/28/17 12:00 40 11/28/17 12:00 97.5 103 20 117/71 100 Mechanical Ventilator 40 97.5 11/28/17 10:45 100 23 40 11/28/17 09:10 100 25 40 11/28/17 09:00 98 90/56 11/28/17 08:00 40 11/28/17 08:00 94 11/28/17 08:00 97.7 68 20 129/67 98 Mechanical Ventilator 40 97.7 11/28/17 07:10 90 20 40 11/28/17 05:22 101 21 40 11/28/17 04:00 98.2 95 20 105/51 100 Mechanical Ventilator 40 98.2 11/28/17 04:00 40 11/28/17 04:00 93 11/28/17 03:21 107 21 40 11/28/17 01:19 113 28 40 11/28/17 00:00 104 11/28/17 00:00 40 11/28/17 00:00 97.7 93 18 128/58 100 Mechanical Ventilator 40 97.7 11/27/17 23:08 106 27 40 11/27/17 21:16 103 21 40 11/27/17 20:17 89 106/59 11/27/17 20:00 102 11/27/17 20:00 40 11/27/17 20:00 98.2 107 22 106/59 100 Mechanical Ventilator 40 98.2 11/27/17 19:29 101 22 40 Intake and Output 11/27/17 11/28/17 19:00 07:00 Intake Total 842.776 ml 755 ml Output Total 800 ml 675 ml Balance 42.776 ml 80 ml Intake Free Water 30 ml 50 ml IV Total 242.776 ml 165 ml Tube Feeding 540 ml 540 ml Other 30 ml Output Urine Total 800 ml 675 ml # Bowel Movements 4 4 Laboratory Tests 11/28/17 03:55: White Blood Count 10.5, Red Blood Count 3.42L, Hemoglobin 9.7L, Hematocrit 29.4L , Mean Corpuscular Volume 86, Mean Corpuscular Hemoglobin 28.5, Mean Corpuscular Hemoglobin Concent 33.1, Red Cell Distribution Width 14.2, Platelet Count 336, Mean Platelet Volume 6.5, Neutrophils (%) (Auto) , Lymphocytes (%) ( Auto) , Monocytes (%) (Auto) , Eosinophils (%) (Auto) , Basophils (%) (Auto) , Sodium Level 140, Potassium Level 3.5, Chloride Level 99, Carbon Dioxide Level 35H, Anion Gap 6, Blood Urea Nitrogen 30H, Creatinine 0.7, Estimat Glomerular Filtration Rate , Glucose Level 127H, Calcium Level 8.5, Phosphorus Level 4.1, Magnesium Level 2.0, Total Bilirubin 0.6, Aspartate Amino Transf (AST/SGOT) 84H , Alanine Aminotransferase (ALT/SGPT) 120H, Alkaline Phosphatase 86, Total Protein 6.1L, Albumin 2.1L, Globulin 4.0, Albumin/Globulin Ratio 0.5L Height (Feet): 4 Height (Inches): 10.00 Weight (Pounds): 69 Objective Thin AA woman, on vent NCAT neck (+) trach Coarse BS RR / tachy abd soft flat, (+) GT neuro sedated, agitated, restrained no edema MIKE LEWIS Nov 28, 2017 18:08
--- NOTE | 2017-11-28 19:22 | Cardiology Progress Note ---
Assessment/Plan Assessment/Plan 1. Respiratory failure. 2. Hypertension history. 3. Diarrhea at the time of admission. 4. Cachexia. 5. sinus tachy 6. nsvt 7. fever 8. hyptesnion 9. Eccentric mitral regurgitation 10. chf on bb via ng with prn iv if needed increase more images on tanja echo were performed and she indeed does have eccentric MR as clinically suspected she really is not a candidate for mv therapy at this time bpstable s/p trach adn peg tele sinus more awake diuretic q8hr hold if bp less than 92 tele reviewed d/w sister overall much improved Subjective ROS Limited/Unobtainable: Yes Cardiovascular: Denies: chest pain, lightheadedness Subjective sister at bedside is more awake Objective Last 24 Hour Vital Signs Date Time Temp Pulse Resp B/P (MAP) Pulse Ox O2 Delivery O2 Flow Rate FiO2 11/28/17 16:32 89 20 40 11/28/17 16:00 40 11/28/17 16:00 94 11/28/17 16:00 97.7 89 20 125/64 100 Mechanical Ventilator 30 97.7 11/28/17 15:09 90 22 40 11/28/17 13:09 100 22 40 11/28/17 12:00 98 11/28/17 12:00 40 11/28/17 12:00 97.5 103 20 117/71 100 Mechanical Ventilator 40 97.5 11/28/17 10:45 100 23 40 11/28/17 09:10 100 25 40 11/28/17 09:00 98 90/56 11/28/17 08:00 40 11/28/17 08:00 94 11/28/17 08:00 97.7 68 20 129/67 98 Mechanical Ventilator 40 97.7 11/28/17 07:10 90 20 40 11/28/17 05:22 101 21 40 11/28/17 04:00 98.2 95 20 105/51 100 Mechanical Ventilator 40 98.2 11/28/17 04:00 40 11/28/17 04:00 93 11/28/17 03:21 107 21 40 11/28/17 01:19 113 28 40 11/28/17 00:00 104 11/28/17 00:00 40 11/28/17 00:00 97.7 93 18 128/58 100 Mechanical Ventilator 40 97.7 11/27/17 23:08 106 27 40 11/27/17 21:16 103 21 40 11/27/17 20:17 89 106/59 11/27/17 20:00 102 11/27/17 20:00 40 11/27/17 20:00 98.2 107 22 106/59 100 Mechanical Ventilator 40 98.2 11/27/17 19:29 101 22 40 General Appearance: alert, on vent, patient on isolation Neck: no JVD Cardiovascular: tachycardia, systolic murmur Respiratory/Chest: crackles/rales, rhonchi - bilaterally Abdomen: normal bowel sounds, non tender, soft Extremities: no swelling Intake and Output 11/27/17 11/28/17 19:00 07:00 Intake Total 842.776 ml 755 ml Output Total 800 ml 675 ml Balance 42.776 ml 80 ml Intake Free Water 30 ml 50 ml IV Total 242.776 ml 165 ml Tube Feeding 540 ml 540 ml Other 30 ml Output Urine Total 800 ml 675 ml # Bowel Movements 4 4 Laboratory Tests Test 11/28/17 03:55 White Blood Count 10.5 K/UL (4.8-10.8) Red Blood Count 3.42 M/UL (4.20-5.40) L Hemoglobin 9.7 G/DL (12.0-16.0) L Hematocrit 29.4 % (37.0-47.0) L Mean Corpuscular Volume 86 FL (80-99) Mean Corpuscular Hemoglobin 28.5 PG (27.0-31.0) Mean Corpuscular Hemoglobin Concent 33.1 G/DL (32.0-36.0) Red Cell Distribution Width 14.2 % (11.6-14.8) Platelet Count 336 K/UL (150-450) Mean Platelet Volume 6.5 FL (6.5-10.1) Neutrophils (%) (Auto) % (45.0-75.0) Lymphocytes (%) (Auto) % (20.0-45.0) Monocytes (%) (Auto) % (1.0-10.0) Eosinophils (%) (Auto) % (0.0-3.0) Basophils (%) (Auto) % (0.0-2.0) Sodium Level 140 MMOL/L (136-145) Potassium Level 3.5 MMOL/L (3.5-5.1) Chloride Level 99 MMOL/L (98-107) Carbon Dioxide Level 35 MMOL/L (21-32) H Anion Gap 6 mmol/L (5-15) Blood Urea Nitrogen 30 mg/dL (7-18) H Creatinine 0.7 MG/DL (0.55-1.30) Estimat Glomerular Filtration Rate mL/min (>60) Glucose Level 127 MG/DL (74-106) H Calcium Level 8.5 MG/DL (8.5-10.1) Phosphorus Level 4.1 MG/DL (2.5-4.9) Magnesium Level 2.0 MG/DL (1.8-2.4) Total Bilirubin 0.6 MG/DL (0.2-1.0) Aspartate Amino Transf (AST/SGOT) 84 U/L (15-37) H Alanine Aminotransferase (ALT/SGPT) 120 U/L (12-78) H Alkaline Phosphatase 86 U/L (46-116) Total Protein 6.1 G/DL (6.4-8.2) L Albumin 2.1 G/DL (3.4-5.0) L Globulin 4.0 g/dL Albumin/Globulin Ratio 0.5 (1.0-2.7) L NALINI GIBBONS Nov 28, 2017 19:22
[2017-11-28 20:00] VITALS: BP 128/80
[2017-11-29] VITALS: BP 114/60
[2017-11-29 04:00] VITALS: BP 100/58
[2017-11-29] MEDS: Aztreonam Inj 0.5 GM in NS 55 ML IVPB SCH ×3 (05:49→22:02)
--- NOTE | 2017-11-29 07:27 | Pulmonology Progress Note ---
Assessment/Plan Assessment/Plan ASSESSMENT Acute hypoxemic hypercapnic RF requiring intubation failure to wean s/p trach pulmonary edema HTN heart disease with LVH Mild pulmonary HTN severe protein calorie malnutrition s/p PEG anemia, requiring blood transfusion PLAN OF CARE HONORIO s/p Nitro gtt, Vent support ,trach care pulmonary toilet daily CXR and ABG, UA-negative, CXR-negative, blood cx pending on abx ID follows sputum cx + Pseudomonas pro BNP trending down diuresis with IV Lasix q 8 correct lytes as needed cardio thinks patient may have MR not picked up on ECHO monitor cardio renal parameters, lytes BP management with BB and optimize further as per cardio recs ECHO with pEF 65-70% and RVSP of 39 serial troponin x 4 negative ECG no acute ischemic changes , r/out for acute [place] Venous Duplex BLE negative Renal US no hydro, normal bilateral kidney echogenicity DVT GI prophylaxis monitor counts, transfuse prn dc plan to subacute case discussed and evaluated by supervising physician Subjective Allergies: Coded Allergies: PENICILLINS (Verified Allergy, Mild, Rash, 06/30/14) Subjective mild leukocytosis resolved, afebrile no signs of resp distress on current settings Objective Last 24 Hour Vital Signs Date Time Temp Pulse Resp B/P (MAP) Pulse Ox O2 Delivery O2 Flow Rate FiO2 11/29/17 06:53 99 26 30 11/29/17 05:19 93 22 40 11/29/17 04:00 30 11/29/17 04:00 98.1 85 20 100/58 100 Mechanical Ventilator 30 98.1 11/29/17 04:00 85 11/29/17 03:34 89 25 40 11/29/17 01:30 86 22 40 11/29/17 00:00 87 11/29/17 00:00 30 11/29/17 00:00 97.7 87 22 114/60 100 Mechanical Ventilator 30 97.7 11/28/17 23:50 89 21 40 11/28/17 23:35 93 23 40 11/28/17 21:02 102 128/64 11/28/17 20:38 101 27 40 11/28/17 20:00 107 11/28/17 20:00 97.7 102 20 128/80 100 Mechanical Ventilator 30 97.7 11/28/17 20:00 30 11/28/17 20:00 99 3/2/18 19:22 107 27 40 11/28/17 16:32 89 20 40 11/28/17 16:00 40 11/28/17 16:00 94 11/28/17 16:00 97.7 89 20 125/64 100 Mechanical Ventilator 30 97.7 11/28/17 15:09 90 22 40 11/28/17 13:09 100 22 40 11/28/17 12:00 98 11/28/17 12:00 40 11/28/17 12:00 97.5 103 20 117/71 100 Mechanical Ventilator 40 97.5 11/28/17 10:45 100 23 40 11/28/17 09:10 100 25 40 11/28/17 09:00 98 90/56 11/28/17 08:00 40 11/28/17 08:00 94 11/28/17 08:00 97.7 68 20 129/67 98 Mechanical Ventilator 40 97.7 Intake and Output 11/28/17 11/29/17 19:00 07:00 Intake Total 625 ml 765 ml Output Total 650 ml 800 ml Balance -25 ml -35 ml Intake Free Water 30 ml 100 ml IV Total 55 ml 110 ml Tube Feeding 540 ml 495 ml Other 60 ml Output Urine Total 650 ml 800 ml # Bowel Movements 2 Objective General: poorly responsive, bedridden AA female on vent AC 300-60% -12 PEEP- 5 HEENT: atraumatic, normocephalic, Neck: trach Shiley #8,secretons small, white, thick Lungs: few crackles at bases Heart: SR on tele Abdomen: soft, non-tender, active bowel sounds, G tube with TF Extremities: no C/C/E Current Medications Medications (Trade) Dose Ordered Sig/Puja Route PRN Reason Start Time Stop Time Status Last Admin Dose Admin Acetaminophen (Tylenol) 650 mg Q4H PRN NG T>100.5 11/21/17 10:30 12/14/17 10:29 11/23/17 17:09 Aztreonam 0.5 gm/ Sodium Chloride 55 ml @ 110 mls/hr Q8HR IVPB 11/24/17 14:00 11/29/17 23:59 11/29/17 05:49 Dextrose (Dextrose 50%) STAT PRN IV Hypoglycemia 11/21/17 10:30 12/08/17 10:29 Furosemide (Lasix) 20 mg Q8H IV 11/27/17 01:00 12/27/17 00:59 11/29/17 00:35 Levalbuterol HCl (Xopenex) 1.25 mg Q6H PRN HHN Shortness of Breath 11/26/17 14:15 12/01/17 14:14 Lorazepam (Ativan 2mg/ml 1ml) 2 mg Q4H PRN IV For Anxiety 11/22/17 07:30 11/29/17 07:29 11/26/17 18:44 Metoprolol Tartrate (Lopressor) 5 mg Q6H PRN IVP HR>130 11/21/17 11:00 12/11/17 10:59 Metoprolol Tartrate (Lopressor) 50 mg Q12HR NG 11/21/17 21:00 12/16/17 20:59 11/28/17 21:02 Morphine Sulfate (Morphine Sulfate) 2 mg Q4H PRN IVP Moderate Pain (Pain Scale 4-6) 11/22/17 08:30 11/29/17 08:29 11/25/17 09:49 Ondansetron HCl (Zofran) 4 mg Q6H PRN IVP Nausea & Vomiting 11/21/17 10:30 12/08/17 10:29 Pantoprazole (Protonix) 40 mg DAILY IV 11/22/17 09:00 12/09/17 08:59 11/28/17 09:11 Polyethylene Glycol (Miralax) 17 gm DAILYPRN PRN ORAL Constipation 11/21/17 10:30 12/08/17 10:29 11/23/17 21:28 Behzad ChristiansonZucker Hillside HospitalAngélica Aburto NP Nov 29, 2017 07:27
[2017-11-29 08:00] VITALS: BP 85/47
[2017-11-29] MEDS: Metoprolol Tartrate 50mg tab NG SCH ×2 (09:00→22:01)
[2017-11-29] MEDS: Pantoprazole Inj IV SCH (09:25)
[2017-11-29 12:00] VITALS: BP 94/62
--- NOTE | 2017-11-29 12:55 | Cardiology Progress Note ---
Assessment/Plan Assessment/Plan 1. Respiratory failure. 2. Hypertension history. 3. Diarrhea at the time of admission. 4. Cachexia. 5. sinus tachy 6. nsvt 7. fever 8. hyptesnion 9. Eccentric mitral regurgitation 10. chf on bb via ng more images on tanja echo were performed and she indeed does have eccentric MR as clinically suspected she really is not a candidate for mv therapy at this time bp low today hodl paremater fo diurtic s/p trach adn peg tele sinus awake diureticdecrease to q 12h hold if bp less than 92 tele reviewed Subjective ROS Limited/Unobtainable: Yes Subjective no one at beside this am but she is awke and responsive Objective Last 24 Hour Vital Signs Date Time Temp Pulse Resp B/P (MAP) Pulse Ox O2 Delivery O2 Flow Rate FiO2 11/29/17 12:00 30 11/29/17 12:00 98.1 91 18 94/62 100 Mechanical Ventilator 30 98.1 11/29/17 11:23 103 29 30 11/29/17 09:20 96 24 30 11/29/17 09:00 96 85/47 11/29/17 08:00 100 11/29/17 08:00 30 11/29/17 08:00 97.1 88 20 85/47 100 Mechanical Ventilator 30 97.1 11/29/17 06:53 99 26 30 11/29/17 05:19 93 22 40 11/29/17 04:00 30 11/29/17 04:00 98.1 85 20 100/58 100 Mechanical Ventilator 30 98.1 11/29/17 04:00 85 11/29/17 03:34 89 25 40 11/29/17 01:30 86 22 40 11/29/17 00:00 87 11/29/17 00:00 30 11/29/17 00:00 97.7 87 22 114/60 100 Mechanical Ventilator 30 97.7 11/28/17 23:50 89 21 40 11/28/17 23:35 93 23 40 11/28/17 21:02 102 128/64 11/28/17 20:38 101 27 40 11/28/17 20:00 107 11/28/17 20:00 97.7 102 20 128/80 100 Mechanical Ventilator 30 97.7 11/28/17 20:00 30 3/2/18 20:00 99 11/28/17 19:22 107 27 40 11/28/17 16:32 89 20 40 11/28/17 16:00 40 11/28/17 16:00 94 11/28/17 16:00 97.7 89 20 125/64 100 Mechanical Ventilator 30 97.7 11/28/17 15:09 90 22 40 11/28/17 13:09 100 22 40 General Appearance: no apparent distress, alert, on vent Neck: supple Cardiovascular: normal rate, systolic murmur Respiratory/Chest: lungs clear Abdomen: normal bowel sounds, non tender, soft Extremities: no swelling Intake and Output 11/28/17 11/29/17 19:00 07:00 Intake Total 625 ml 765 ml Output Total 650 ml 800 ml Balance -25 ml -35 ml Intake Free Water 30 ml 100 ml IV Total 55 ml 110 ml Tube Feeding 540 ml 495 ml Other 60 ml Output Urine Total 650 ml 800 ml # Bowel Movements 2 NALINI GIBBONS Nov 29, 2017 12:55
--- NOTE | 2017-11-29 14:28 | Pulmonology Progress Note ---
Assessment/Plan Assessment/Plan ASSESSMENT Acute hypoxemic hypercapnic RF requiring intubation failure to wean s/p trach pulmonary edema HTN heart disease with LVH severe pulmonary HTN Eccentric mitral regurgitation severe protein calorie malnutrition s/p PEG anemia, requiring blood transfusion CHF PLAN OF CARE HONORIO s/p Nitro gtt, Vent support ,trach care pulmonary toilet UA-negative, CXR-negative, blood cx negative sputum cx + Pseudomonas on abx ID follows cardio thought patient may have MR not picked up on ECHO more images were performed and she does have eccentric mitral regurgitation pro BNP trending down diuresis with IV Lasix correct lytes as needed monitor cardio renal parameters, lytes BP management with BB and optimize further as per cardio recs repeated ECHO with pEF 65-70% showed indeed eccentric MR and severe pulm HTN serial troponin x 4 negative ECG no acute ischemic changes , r/out for acute [place] Venous Duplex BLE negative Renal US no hydro, normal bilateral kidney echogenicity DVT GI prophylaxis monitor counts, transfuse prn dc plan to subacute case discussed and evaluated by supervising physician Subjective Allergies: Coded Allergies: PENICILLINS (Verified Allergy, Mild, Rash, 06/30/14) Subjective mild leukocytosis resolved, afebrile no signs of resp distress on current settings Objective Last 24 Hour Vital Signs Date Time Temp Pulse Resp B/P (MAP) Pulse Ox O2 Delivery O2 Flow Rate FiO2 11/29/17 12:59 93 27 30 11/29/17 12:00 30 11/29/17 12:00 98.1 91 18 94/62 100 Mechanical Ventilator 30 98.1 11/29/17 12:00 90 11/29/17 11:23 103 29 30 11/29/17 09:20 96 24 30 11/29/17 09:00 96 85/47 11/29/17 08:00 100 11/29/17 08:00 30 11/29/17 08:00 97.1 88 20 85/47 100 Mechanical Ventilator 30 97.1 11/29/17 06:53 99 26 30 11/29/17 05:19 93 22 40 11/29/17 04:00 30 11/29/17 04:00 98.1 85 20 100/58 100 Mechanical Ventilator 30 98.1 11/29/17 04:00 85 11/29/17 03:34 89 25 40 11/29/17 01:30 86 22 40 3/3/18 00:00 87 11/29/17 00:00 30 11/29/17 00:00 97.7 87 22 114/60 100 Mechanical Ventilator 30 97.7 11/28/17 23:50 89 21 40 11/28/17 23:35 93 23 40 11/28/17 21:02 102 128/64 11/28/17 20:38 101 27 40 11/28/17 20:00 107 11/28/17 20:00 97.7 102 20 128/80 100 Mechanical Ventilator 30 97.7 11/28/17 20:00 30 11/28/17 20:00 99 11/28/17 19:22 107 27 40 11/28/17 16:32 89 20 40 11/28/17 16:00 40 11/28/17 16:00 94 11/28/17 16:00 97.7 89 20 125/64 100 Mechanical Ventilator 30 97.7 11/28/17 15:09 90 22 40 Intake and Output 11/28/17 11/29/17 19:00 07:00 Intake Total 625 ml 810 ml Output Total 650 ml 800 ml Balance -25 ml 10 ml Intake Free Water 30 ml 100 ml IV Total 55 ml 110 ml Tube Feeding 540 ml 540 ml Other 60 ml Output Urine Total 650 ml 800 ml # Bowel Movements 2 Objective General: awake , responsive, bedridden AA female on vent AC 300-30% -12 PEEP -5 HEENT: atraumatic, normocephalic, Neck: trach Shiley #8,secretions scant, white, thin Lungs: few crackles at bases Heart: SR on tele Abdomen: soft, non-tender, active bowel sounds, G tube with TF Extremities: no C/C/E Current Medications Medications (Trade) Dose Ordered Sig/Puja Route PRN Reason Start Time Stop Time Status Last Admin Dose Admin Acetaminophen (Tylenol) 650 mg Q4H PRN NG T>100.5 11/21/17 10:30 12/14/17 10:29 11/23/17 17:09 Aztreonam 0.5 gm/ Sodium Chloride 55 ml @ 110 mls/hr Q8HR IVPB 11/24/17 14:00 11/29/17 23:59 11/29/17 05:49 Dextrose (Dextrose 50%) STAT PRN IV Hypoglycemia 11/21/17 10:30 12/08/17 10:29 Furosemide (Lasix) 20 mg BID IV 11/29/17 18:00 12/27/17 00:59 Levalbuterol HCl (Xopenex) 1.25 mg Q6H PRN HHN Shortness of Breath 11/26/17 14:15 12/01/17 14:14 Metoprolol Tartrate (Lopressor) 5 mg Q6H PRN IVP HR>130 11/21/17 11:00 12/11/17 10:59 Metoprolol Tartrate (Lopressor) 50 mg Q12HR NG 11/21/17 21:00 12/16/17 20:59 11/28/17 21:02 Ondansetron HCl (Zofran) 4 mg Q6H PRN IVP Nausea & Vomiting 11/21/17 10:30 12/08/17 10:29 Pantoprazole (Protonix) 40 mg DAILY IV 11/22/17 09:00 12/09/17 08:59 11/29/17 09:25 Polyethylene Glycol (Miralax) 17 gm DAILYPRN PRN ORAL Constipation 11/21/17 10:30 12/08/17 10:29 11/23/17 21:28 Behzad (Fabian)Angélica NP Nov 29, 2017 14:27
[2017-11-29 16:00] VITALS: BP 101/55
[2017-11-29 20:00] VITALS: BP 130/66
[2017-11-29] MEDS ORDERED: Levalbuterol Inh UD 1.25mg/0.5ml HHN PRN (20:15)
[2017-11-30] VITALS: BP 116/55
[2017-11-30 04:00] VITALS: BP 109/59
[2017-11-30 07:10] LABS: HEMATOCRIT 35.3 % (37.0-47.0); HEMOGLOBIN 11.5 G/DL (12.0-16.0); MEAN CORPUSCULAR VOLUME 86 FL (80-99); PLATELET COUNT 397 K/UL (150-450); RED BLOOD COUNT 4.09 M/UL (4.20-5.40); RED CELL DISTRIBUTION WIDTH 14.7 % (11.6-14.8); WHITE BLOOD COUNT 9.3 K/UL (4.8-10.8)
[2017-11-30 07:17] LABS: ANION GAP 5 mmol/L (5-15); BLOOD UREA NITROGEN 32 mg/dL (7-18); CALCIUM 8.8 MG/DL (8.5-10.1); CARBON DIOXIDE 34 MMOL/L (21-32); CHLORIDE 99 MMOL/L (98-107); CREATININE 0.6 MG/DL (0.55-1.30); POTASSIUM 3.9 MMOL/L (3.5-5.1); SODIUM 138 MMOL/L (136-145)
[2017-11-30 08:45] VITALS: BP 119/58
[2017-11-30] MEDS: Metoprolol Tartrate 50mg tab NG SCH ×2 (09:03→21:00)
[2017-11-30] MEDS: Pantoprazole Inj IV SCH (09:04)
[2017-11-30 12:51] VITALS: BP 119/58
--- NOTE | 2017-11-30 13:07 | Cardiology Progress Note ---
Assessment/Plan Assessment/Plan 1. Respiratory failure. 2. Hypertension history. 3. Diarrhea at the time of admission. 4. Cachexia. 5. sinus tachy 6. nsvt 7. fever 8. hyptesnion 9. Eccentric mitral regurgitation 10. chf on bb via ng more images on tanja echo were performed and she indeed does have eccentric MR as clinically suspected she really is not a candidate for mv therapy at this time diuretic with hodl parameter for low bp s/p trach adn peg tele sinus awake diureticdecrease to q 12h hold if bp less than 92 tele reviewed d/w family Subjective ROS Limited/Unobtainable: Yes Subjective on vent in cardiac dano looks good cousin at bedside denies cp Objective Last 24 Hour Vital Signs Date Time Temp Pulse Resp B/P (MAP) Pulse Ox O2 Delivery O2 Flow Rate FiO2 11/30/17 12:58 99 11/30/17 12:54 30 11/30/17 12:51 97.3 91 27 119/58 100 30 97.3 11/30/17 10:33 92 22 30 11/30/17 09:03 91 119/58 11/30/17 08:54 94 21 30 11/30/17 08:45 97.3 91 25 119/58 100 Mechanical Ventilator 30 97.3 11/30/17 08:00 102 11/30/17 08:00 30 11/30/17 06:44 91 24 30 11/30/17 05:09 95 25 30 11/30/17 04:00 30 11/30/17 04:00 98.2 92 19 109/59 100 Mechanical Ventilator 30 98.2 11/30/17 04:00 92 11/30/17 03:10 106 28 30 11/30/17 00:45 105 27 30 11/30/17 00:00 97.9 89 24 116/55 100 Mechanical Ventilator 30 97.9 11/30/17 00:00 30 11/30/17 00:00 88 11/29/17 22:37 98 23 30 11/29/17 22:01 101 110/55 11/29/17 21:29 101 32 30 11/29/17 20:00 30 11/29/17 20:00 90 11/29/17 20:00 98.0 100 24 130/66 100 Mechanical Ventilator 30 98.0 11/29/17 19:32 96 31 30 11/29/17 16:55 91 27 30 11/29/17 16:00 87 11/29/17 16:00 97.8 92 24 101/55 100 Mechanical Ventilator 30 97.8 11/29/17 16:00 30 11/29/17 14:35 96 22 30 General Appearance: no apparent distress, alert, on vent Neck: supple Cardiovascular: normal rate, regular rhythm, systolic murmur Respiratory/Chest: lungs clear Abdomen: normal bowel sounds, non tender, soft Extremities: no swelling Intake and Output 11/29/17 11/30/17 19:00 07:00 Intake Total 640 ml 620 ml Output Total 750 ml Balance -110 ml 620 ml Intake Free Water 100 ml IV Total 55 ml 55 ml Tube Feeding 585 ml 405 ml Other 60 ml Output Urine Total 750 ml Laboratory Tests Test 11/30/17 05:50 White Blood Count 9.3 K/UL (4.8-10.8) Red Blood Count 4.09 M/UL (4.20-5.40) L Hemoglobin 11.5 G/DL (12.0-16.0) L Hematocrit 35.3 % (37.0-47.0) L Mean Corpuscular Volume 86 FL (80-99) Mean Corpuscular Hemoglobin 28.2 PG (27.0-31.0) Mean Corpuscular Hemoglobin Concent 32.6 G/DL (32.0-36.0) Red Cell Distribution Width 14.7 % (11.6-14.8) Platelet Count 397 K/UL (150-450) Mean Platelet Volume 7.0 FL (6.5-10.1) Neutrophils (%) (Auto) % (45.0-75.0) Lymphocytes (%) (Auto) % (20.0-45.0) Monocytes (%) (Auto) % (1.0-10.0) Eosinophils (%) (Auto) % (0.0-3.0) Basophils (%) (Auto) % (0.0-2.0) Differential Total Cells Counted 100 Neutrophils % (Manual) 87 % (45-75) H Lymphocytes % (Manual) 9 % (20-45) L Monocytes % (Manual) 4 % (1-10) Eosinophils % (Manual) 0 % (0-3) Basophils % (Manual) 0 % (0-2) Band Neutrophils 0 % (0-8) Platelet Estimate Adequate Platelet Morphology Normal Anisocytosis 1+ Sodium Level 138 MMOL/L (136-145) Potassium Level 3.9 MMOL/L (3.5-5.1) Chloride Level 99 MMOL/L (98-107) Carbon Dioxide Level 34 MMOL/L (21-32) H Anion Gap 5 mmol/L (5-15) Blood Urea Nitrogen 32 mg/dL (7-18) H Creatinine 0.6 MG/DL (0.55-1.30) Estimat Glomerular Filtration Rate mL/min (>60) Glucose Level 111 MG/DL (74-106) H Calcium Level 8.8 MG/DL (8.5-10.1) Magnesium Level 2.5 MG/DL (1.8-2.4) H Pro-B-Type Natriuretic Peptide 461 pg/mL (0-125) H NALINI GIBBONS Nov 30, 2017 13:07
--- NOTE | 2017-11-30 13:13 | Pulmonology Progress Note ---
Assessment/Plan Assessment/Plan ASSESSMENT Acute hypoxemic hypercapnic RF requiring intubation failure to wean s/p trach pulmonary edema HTN heart disease with LVH severe pulmonary HTN Eccentric mitral regurgitation severe protein calorie malnutrition s/p PEG anemia, requiring blood transfusion CHF PLAN OF CARE HONORIO s/p Nitro gtt, Vent support ,trach care pulmonary toilet UA-negative, CXR-negative, blood cx negative sputum cx + Pseudomonas on abx ID follows cardio thought patient may have MR not picked up on ECHO more images were performed and she does have eccentric mitral regurgitation pro BNP trending down diuresis with IV Lasix correct lytes as needed monitor cardio renal parameters, lytes BP management with BB and optimize further as per cardio recs ECHO with pEF 65-70% , repeated showed indeed eccentric MR and severe pulm HTN serial troponin x 4 negative ECG no acute ischemic changes , r/out for acute GA Venous Duplex BLE negative Renal US no hydro, normal bilateral kidney echogenicity DVT GI prophylaxis monitor counts, transfuse prn dc plan to subacute , patient is ready for discharge , placement case discussed and evaluated by supervising physician Subjective Allergies: Coded Allergies: PENICILLINS (Verified Allergy, Mild, Rash, 06/30/14) Subjective mild leukocytosis resolved, afebrile no signs of resp distress on current settings stable ABG Objective Last 24 Hour Vital Signs Date Time Temp Pulse Resp B/P (MAP) Pulse Ox O2 Delivery O2 Flow Rate FiO2 11/30/17 12:58 99 11/30/17 12:54 30 11/30/17 12:51 97.3 91 27 119/58 100 30 97.3 11/30/17 10:33 92 22 30 11/30/17 09:03 91 119/58 11/30/17 08:54 94 21 30 11/30/17 08:45 97.3 91 25 119/58 100 Mechanical Ventilator 30 97.3 11/30/17 08:00 102 11/30/17 08:00 30 11/30/17 06:44 91 24 30 11/30/17 05:09 95 25 30 11/30/17 04:00 30 11/30/17 04:00 98.2 92 19 109/59 100 Mechanical Ventilator 30 98.2 11/30/17 04:00 92 11/30/17 03:10 106 28 30 11/30/17 00:45 105 27 30 11/30/17 00:00 97.9 89 24 116/55 100 Mechanical Ventilator 30 97.9 11/30/17 00:00 30 11/30/17 00:00 88 11/29/17 22:37 98 23 30 11/29/17 22:01 101 110/55 11/29/17 21:29 101 32 30 11/29/17 20:00 30 11/29/17 20:00 90 11/29/17 20:00 98.0 100 24 130/66 100 Mechanical Ventilator 30 98.0 11/29/17 19:32 96 31 30 11/29/17 16:55 91 27 30 11/29/17 16:00 87 11/29/17 16:00 97.8 92 24 101/55 100 Mechanical Ventilator 30 97.8 11/29/17 16:00 30 11/29/17 14:35 96 22 30 Intake and Output 11/29/17 11/30/17 19:00 07:00 Intake Total 640 ml 620 ml Output Total 750 ml Balance -110 ml 620 ml Intake Free Water 100 ml IV Total 55 ml 55 ml Tube Feeding 585 ml 405 ml Other 60 ml Output Urine Total 750 ml Objective General: awake , responsive, bedridden AA female on vent AC 300-30% -12 PEEP -5 HEENT: atraumatic, normocephalic, Neck: trach Shiley #8,secretions scant, white, thin Lungs: few crackles at bases Heart: SR on tele Abdomen: soft, non-tender, active bowel sounds, G tube with TF Extremities: no C/C/E Laboratory Tests 11/30/17 05:50: White Blood Count 9.3, Red Blood Count 4.09L, Hemoglobin 11.5L, Hematocrit 35.3L , Mean Corpuscular Volume 86, Mean Corpuscular Hemoglobin 28.2, Mean Corpuscular Hemoglobin Concent 32.6, Red Cell Distribution Width 14.7, Platelet Count 397, Mean Platelet Volume 7.0, Neutrophils (%) (Auto) , Lymphocytes (%) ( Auto) , Monocytes (%) (Auto) , Eosinophils (%) (Auto) , Basophils (%) (Auto) , Differential Total Cells Counted 100, Neutrophils % (Manual) 87H, Lymphocytes % (Manual) 9L, Monocytes % (Manual) 4, Eosinophils % (Manual) 0, Basophils % ( Manual) 0, Band Neutrophils 0, Platelet Estimate Adequate, Platelet Morphology Normal, Anisocytosis 1+, Sodium Level 138, Potassium Level 3.9, Chloride Level 99, Carbon Dioxide Level 34H, Anion Gap 5, Blood Urea Nitrogen 32H, Creatinine 0.6, Estimat Glomerular Filtration Rate , Glucose Level 111H, Calcium Level 8.8 , Magnesium Level 2.5H, Pro-B-Type Natriuretic Peptide 461H Current Medications Medications (Trade) Dose Ordered Sig/Puja Route PRN Reason Start Time Stop Time Status Last Admin Dose Admin Acetaminophen (Tylenol) 650 mg Q4H PRN NG T>100.5 11/21/17 10:30 12/14/17 10:29 11/23/17 17:09 Dextrose (Dextrose 50%) STAT PRN IV Hypoglycemia 11/21/17 10:30 12/08/17 10:29 Furosemide (Lasix) 20 mg BID IV 11/29/17 18:00 12/27/17 00:59 11/30/17 09:03 Levalbuterol HCl (Xopenex) 1.25 mg Q6H PRN HHN Shortness of Breath 11/29/17 20:15 12/04/17 23:59 Metoprolol Tartrate (Lopressor) 5 mg Q6H PRN IVP HR>130 11/21/17 11:00 12/11/17 10:59 Metoprolol Tartrate (Lopressor) 50 mg Q12HR NG 11/21/17 21:00 12/16/17 20:59 11/30/17 09:03 Ondansetron HCl (Zofran) 4 mg Q6H PRN IVP Nausea & Vomiting 11/21/17 10:30 12/08/17 10:29 Pantoprazole (Protonix) 40 mg DAILY IV 11/22/17 09:00 12/09/17 08:59 11/30/17 09:04 Polyethylene Glycol (Miralax) 17 gm DAILYPRN PRN ORAL Constipation 11/21/17 10:30 12/08/17 10:29 11/23/17 21:28 Angélica Wen NP (Vanchtein) Nov 30, 2017 13:13
[2017-11-30 16:00] VITALS: BP 95/58
--- NOTE | 2017-11-30 16:17 | Infectious Diseases Prog Note ---
Assessment/Plan Assessment/Plan ASSESSMENT: The patient is a 77-year-old female, w Leukocytosis, SP Fever, SP Probable ventilator-associated pneumonia. Scx : PSA influenza :neg Diarrhea , SP at the time of admission Chest x-ray, bilateral diffuse interstitial opacity Uxc : mixed growth transaminitis and Seney Alk ph ro Biliary dis PEG 11/20 TRACH 11/18 Hypertension Anemia PLAN: DC Azactam day # 11/22 SP vancomycin day # Monitor CBC Monitor BMP, LFT Monitor chest x-ray PRBC Tx US of Abd Subjective Allergies: Coded Allergies: PENICILLINS (Verified Allergy, Mild, Rash, 06/30/14) Subjective ON VENT afebrile Objective Vital Signs Last 24 Hour Vital Signs Date Time Temp Pulse Resp B/P (MAP) Pulse Ox O2 Delivery O2 Flow Rate FiO2 11/30/17 14:41 102 21 30 11/30/17 12:58 99 11/30/17 12:54 30 11/30/17 12:51 97.3 91 27 119/58 100 30 97.3 11/30/17 12:51 89 22 30 11/30/17 10:33 92 22 30 11/30/17 09:03 91 119/58 11/30/17 08:54 94 21 30 11/30/17 08:45 97.3 91 25 119/58 100 Mechanical Ventilator 30 97.3 11/30/17 08:00 102 11/30/17 08:00 30 11/30/17 06:44 91 24 30 11/30/17 05:09 95 25 30 11/30/17 04:00 30 11/30/17 04:00 98.2 92 19 109/59 100 Mechanical Ventilator 30 98.2 11/30/17 04:00 92 11/30/17 03:10 106 28 30 11/30/17 00:45 105 27 30 11/30/17 00:00 97.9 89 24 116/55 100 Mechanical Ventilator 30 97.9 11/30/17 00:00 30 11/30/17 00:00 88 11/29/17 22:37 98 23 30 11/29/17 22:01 101 110/55 11/29/17 21:29 101 32 30 11/29/17 20:00 30 11/29/17 20:00 90 11/29/17 20:00 98.0 100 24 130/66 100 Mechanical Ventilator 30 98.0 11/29/17 19:32 96 31 30 11/29/17 16:55 91 27 30 Height (Feet): 4 Height (Inches): 10.00 Weight (Pounds): 66 HEENT: mucous membranes moist Respiratory/Chest: no respiratory distress Cardiovascular: regularly irregular Laboratory Tests Test 11/30/17 05:50 White Blood Count 9.3 K/UL (4.8-10.8) Red Blood Count 4.09 M/UL (4.20-5.40) L Hemoglobin 11.5 G/DL (12.0-16.0) L Hematocrit 35.3 % (37.0-47.0) L Mean Corpuscular Volume 86 FL (80-99) Mean Corpuscular Hemoglobin 28.2 PG (27.0-31.0) Mean Corpuscular Hemoglobin Concent 32.6 G/DL (32.0-36.0) Red Cell Distribution Width 14.7 % (11.6-14.8) Platelet Count 397 K/UL (150-450) Mean Platelet Volume 7.0 FL (6.5-10.1) Neutrophils (%) (Auto) % (45.0-75.0) Lymphocytes (%) (Auto) % (20.0-45.0) Monocytes (%) (Auto) % (1.0-10.0) Eosinophils (%) (Auto) % (0.0-3.0) Basophils (%) (Auto) % (0.0-2.0) Differential Total Cells Counted 100 Neutrophils % (Manual) 87 % (45-75) H Lymphocytes % (Manual) 9 % (20-45) L Monocytes % (Manual) 4 % (1-10) Eosinophils % (Manual) 0 % (0-3) Basophils % (Manual) 0 % (0-2) Band Neutrophils 0 % (0-8) Platelet Estimate Adequate Platelet Morphology Normal Anisocytosis 1+ Sodium Level 138 MMOL/L (136-145) Potassium Level 3.9 MMOL/L (3.5-5.1) Chloride Level 99 MMOL/L (98-107) Carbon Dioxide Level 34 MMOL/L (21-32) H Anion Gap 5 mmol/L (5-15) Blood Urea Nitrogen 32 mg/dL (7-18) H Creatinine 0.6 MG/DL (0.55-1.30) Estimat Glomerular Filtration Rate mL/min (>60) Glucose Level 111 MG/DL (74-106) H Calcium Level 8.8 MG/DL (8.5-10.1) Magnesium Level 2.5 MG/DL (1.8-2.4) H Pro-B-Type Natriuretic Peptide 461 pg/mL (0-125) H Current Medications Medications (Trade) Dose Ordered Sig/Puja Route PRN Reason Start Time Stop Time Status Last Admin Dose Admin Acetaminophen (Tylenol) 650 mg Q4H PRN NG T>100.5 11/21/17 10:30 12/14/17 10:29 11/23/17 17:09 Dextrose (Dextrose 50%) STAT PRN IV Hypoglycemia 11/21/17 10:30 12/08/17 10:29 Furosemide (Lasix) 20 mg BID IV 11/29/17 18:00 12/27/17 00:59 11/30/17 09:03 Levalbuterol HCl (Xopenex) 1.25 mg Q6H PRN HHN Shortness of Breath 11/29/17 20:15 12/04/17 23:59 Metoprolol Tartrate (Lopressor) 5 mg Q6H PRN IVP HR>130 11/21/17 11:00 12/11/17 10:59 Metoprolol Tartrate (Lopressor) 50 mg Q12HR NG 11/21/17 21:00 12/16/17 20:59 11/30/17 09:03 Ondansetron HCl (Zofran) 4 mg Q6H PRN IVP Nausea & Vomiting 11/21/17 10:30 12/08/17 10:29 Pantoprazole (Protonix) 40 mg DAILY IV 11/22/17 09:00 12/09/17 08:59 11/30/17 09:04 Polyethylene Glycol (Miralax) 17 gm DAILYPRN PRN ORAL Constipation 11/21/17 10:30 12/08/17 10:29 11/23/17 21:28 KUSH ESPINO M.D. Nov 30, 2017 16:17
[2017-11-30] MEDS ORDERED: Tubing IV Secondary IV ONE (17:24)
[2017-11-30] MEDS ORDERED: NS 275ml ONE (17:24)
[2017-11-30 20:00] VITALS: BP 116/61
[2017-12-01] VITALS: BP 107/53
[2017-12-01 04:00] VITALS: BP 101/63
[2017-12-01 07:28] LABS: HEMATOCRIT 31.3 % (37.0-47.0); HEMOGLOBIN 10.1 G/DL (12.0-16.0); MEAN CORPUSCULAR VOLUME 86 FL (80-99); PLATELET COUNT 401 K/UL (150-450); RED BLOOD COUNT 3.63 M/UL (4.20-5.40); RED CELL DISTRIBUTION WIDTH 14.8 % (11.6-14.8); WHITE BLOOD COUNT 9.4 K/UL (4.8-10.8)
[2017-12-01 07:56] LABS: ANION GAP 3 mmol/L (5-15); BLOOD UREA NITROGEN 37 mg/dL (7-18); CALCIUM 8.7 MG/DL (8.5-10.1); CARBON DIOXIDE 35 MMOL/L (21-32); CHLORIDE 99 MMOL/L (98-107); CREATININE 0.7 MG/DL (0.55-1.30); POTASSIUM 3.8 MMOL/L (3.5-5.1); SODIUM 137 MMOL/L (136-145)
[2017-12-01 08:00] VITALS: BP 108/66
[2017-12-01] MEDS: Metoprolol Tartrate 50mg tab NG SCH (08:34)
[2017-12-01] MEDS: Pantoprazole Inj IV SCH (08:34)
--- NOTE | 2017-12-01 11:40 | Diagnostic Imaging Report ---
Indication: Shortness of breath Technique: One view of the chest Comparison: 11/28/2017 Findings: The lungs are hyperinflated. Diffuse bilateral interstitial disease, predominantly in the upper lobes, is unchanged. Tracheostomy remains. No new infiltrates. The heart is mildly enlarged. Gastrostomy again demonstrated Impression: Unchanged, over 3 days, findings as above.
--- NOTE | 2017-12-01 12:17 | Pulmonolgy Critical Care Note ---
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 (4) Protein-calorie malnutrition, severe Assessment/Plan: improving, no more bleeding Respiratory: monitor respiratory rate, adjust FIO2 Cardiac: continue pressors Renal: keep IV fluid Infectious Disease: check cultures Gastrointestinal: continue feedings/current rate, hold feedings, adjust feedings Endocrine: check HgA1C, start insulin drip Hematologic: monitor H/H, transfuse if hgb<8.5 Neurologic: PRN Morphine, keep patient comfortable Affect: PRN ativan Prophylaxis: Heparin Time Spent (Minutes): 40 Notes 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, 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 Critical Care - Objective Last 24 Hour Vital Signs Date Time Temp Pulse Resp B/P (MAP) Pulse Ox O2 Delivery O2 Flow Rate FiO2 12/01/17 11:29 100 29 30 12/01/17 09:29 107 34 30 12/01/17 08:34 106 101/63 12/01/17 08:00 98 12/01/17 08:00 97.4 91 19 108/66 100 Mechanical Ventilator 30 97.4 12/01/17 08:00 30 12/01/17 07:24 106 20 30 12/01/17 05:13 95 23 30 12/01/17 04:00 98.8 90 26 101/63 100 Mechanical Ventilator 30 98.8 12/01/17 04:00 30 12/01/17 03:42 79 22 30 12/01/17 03:37 99 12/01/17 01:08 89 28 30 12/01/17 00:00 30 12/01/17 00:00 95 12/01/17 00:00 98.6 85 28 107/53 100 Mechanical Ventilator 30 98.6 11/30/17 23:15 102 20 30 11/30/17 21:09 104 20 30 11/30/17 21:00 104 116/61 11/30/17 20:08 95 11/30/17 20:00 30 11/30/17 20:00 98.6 95 24 116/61 100 Mechanical Ventilator 30 98.6 11/30/17 19:15 102 20 30 11/30/17 16:32 93 20 30 11/30/17 16:00 98.7 97 20 95/58 100 Mechanical Ventilator 30 98.7 11/30/17 16:00 100 11/30/17 16:00 30 11/30/17 14:41 102 21 30 11/30/17 12:58 99 11/30/17 12:54 30 11/30/17 12:51 97.3 91 27 119/58 100 30 97.3 11/30/17 12:51 89 22 30 Status: awake Condition: critical Neck: full ROM Lungs: clear Heart: HR/BP stable, HR/BP unstable, regular Abdomen: non-tender, active bowel sounds Extremities: no C/C/E, edema Decubiti: location Critical Care - Subjective ROS Limited/Unobtainable: No EKG Rhythm: Sinus Rhythm FI02: 30 Vent Support Breath Rate: 12 Vent Support Mode: AC Vent Tidal Volume: 300 Sputum Amount: Moderate PEEP: 5.0 PIP: 20 Tube Feeding Amount: 45 I&O: Intake and Output 11/30/17 12/01/17 19:00 07:00 Intake Total 690 ml 225 ml Output Total 800 ml 500 ml Balance -110 ml -275 ml Intake Free Water 150 ml Tube Feeding 540 ml 225 ml Output Urine Total 800 ml 500 ml CXR: JOSE ET-Tube: 6.0 ET Position: 20 Labs: Laboratory Tests Test 12/01/17 06:50 White Blood Count 9.4 K/UL (4.8-10.8) Red Blood Count 3.63 M/UL (4.20-5.40) L Hemoglobin 10.1 G/DL (12.0-16.0) L Hematocrit 31.3 % (37.0-47.0) L Mean Corpuscular Volume 86 FL (80-99) Mean Corpuscular Hemoglobin 27.9 PG (27.0-31.0) Mean Corpuscular Hemoglobin Concent 32.4 G/DL (32.0-36.0) Red Cell Distribution Width 14.8 % (11.6-14.8) Platelet Count 401 K/UL (150-450) Mean Platelet Volume 7.2 FL (6.5-10.1) Neutrophils (%) (Auto) % (45.0-75.0) Lymphocytes (%) (Auto) % (20.0-45.0) Monocytes (%) (Auto) % (1.0-10.0) Eosinophils (%) (Auto) % (0.0-3.0) Basophils (%) (Auto) % (0.0-2.0) Differential Total Cells Counted 100 Neutrophils % (Manual) 87 % (45-75) H Lymphocytes % (Manual) 6 % (20-45) L Monocytes % (Manual) 6 % (1-10) Eosinophils % (Manual) 1 % (0-3) Basophils % (Manual) 0 % (0-2) Band Neutrophils 0 % (0-8) Platelet Estimate Adequate Platelet Morphology Normal Anisocytosis 1+ Sodium Level 137 MMOL/L (136-145) Potassium Level 3.8 MMOL/L (3.5-5.1) Chloride Level 99 MMOL/L (98-107) Carbon Dioxide Level 35 MMOL/L (21-32) H Anion Gap 3 mmol/L (5-15) L Blood Urea Nitrogen 37 mg/dL (7-18) H Creatinine 0.7 MG/DL (0.55-1.30) Estimat Glomerular Filtration Rate mL/min (>60) Glucose Level 91 MG/DL (74-106) Calcium Level 8.7 MG/DL (8.5-10.1) DIANA AGGARWAL Dec 01, 2017 12:17
[2017-12-01 12:43] VITALS: BP 95/52
[2017-12-01] MEDS ORDERED: FUROSEMIDE20 M1 ORAL (14:18)
[2017-12-01] MEDS ORDERED: METOPROLOL TART50 MG NG (14:18)
[2017-12-01] MEDS ORDERED: NS 275ml ONE (16:29)
[2017-12-01] MEDS ORDERED: Tubing IV Secondary IV ONE (16:29)
--- NOTE | 2017-12-01 21:26 | General Progress Note ---
Assessment/Plan Assessment/Plan Assessment - Resp failure - valvular heart disease - anemia - s/p trach - s/p PEG - leukocytosis - AMS Recommendations - PPI - Continue TF - wean off sedation as tolerated - Elevated HOB - d/c planning Subjective Allergies: Coded Allergies: PENICILLINS (Verified Allergy, Mild, Rash, 06/30/14) Subjective Tolerating TF responsive and arousable today H&H stable for d/c Objective Last 24 Hour Vital Signs Date Time Temp Pulse Resp B/P (MAP) Pulse Ox O2 Delivery O2 Flow Rate FiO2 12/01/17 15:25 100 22 30 12/01/17 13:29 110 26 30 12/01/17 12:45 30 12/01/17 12:44 86 12/01/17 12:43 98.6 89 19 95/52 100 Mechanical Ventilator 30 98.6 12/01/17 11:29 100 29 30 12/01/17 09:29 107 34 30 12/01/17 08:34 106 101/63 12/01/17 08:00 98 12/01/17 08:00 97.4 91 19 108/66 100 Mechanical Ventilator 30 97.4 12/01/17 08:00 30 12/01/17 07:24 106 20 30 12/01/17 05:13 95 23 30 12/01/17 04:00 98.8 90 26 101/63 100 Mechanical Ventilator 30 98.8 12/01/17 04:00 30 12/01/17 03:42 79 22 30 12/01/17 03:37 99 12/01/17 01:08 89 28 30 12/01/17 00:00 30 12/01/17 00:00 95 12/01/17 00:00 98.6 85 28 107/53 100 Mechanical Ventilator 30 98.6 11/30/17 23:15 102 20 30 Intake and Output 11/30/17 12/01/17 19:00 07:00 Intake Total 690 ml 225 ml Output Total 800 ml 500 ml Balance -110 ml -275 ml Intake Free Water 150 ml Tube Feeding 540 ml 225 ml Output Urine Total 800 ml 500 ml Laboratory Tests 12/01/17 06:50: White Blood Count 9.4, Red Blood Count 3.63L, Hemoglobin 10.1L, Hematocrit 31.3L , Mean Corpuscular Volume 86, Mean Corpuscular Hemoglobin 27.9, Mean Corpuscular Hemoglobin Concent 32.4, Red Cell Distribution Width 14.8, Platelet Count 401, Mean Platelet Volume 7.2, Neutrophils (%) (Auto) , Lymphocytes (%) ( Auto) , Monocytes (%) (Auto) , Eosinophils (%) (Auto) , Basophils (%) (Auto) , Differential Total Cells Counted 100, Neutrophils % (Manual) 87H, Lymphocytes % (Manual) 6L, Monocytes % (Manual) 6, Eosinophils % (Manual) 1, Basophils % ( Manual) 0, Band Neutrophils 0, Platelet Estimate Adequate, Platelet Morphology Normal, Anisocytosis 1+, Sodium Level 137, Potassium Level 3.8, Chloride Level 99, Carbon Dioxide Level 35H, Anion Gap 3L, Blood Urea Nitrogen 37H, Creatinine 0.7, Estimat Glomerular Filtration Rate , Glucose Level 91, Calcium Level 8.7 Height (Feet): 4 Height (Inches): 10.00 Weight (Pounds): 62 Objective Thin AA woman, on vent NCAT neck (+) trach Coarse BS RR / tachy abd soft flat, (+) GT neuro sedated, agitated, restrained no edema MIKE LEWIS Dec 01, 2017 21:26
--- NOTE | 2017-12-04 09:23 | Discharge Summary ---
Discharge Summary Hospital Course Date of Admission Nov 08, 2017 at 12:56 Date of Discharge Dec 01, 2017 at 16:30 Admitting Diagnosis generalized weakness, cardiac murmur HPI Wilma Raymond is a 77 year old female who was admitted on Nov 08, 2017 at 12 :56 for Generalized Weakness,Cardiac Murmur Hospital Course dc summary #[id number] Discharge Medications New Medications: Furosemide* (Lasix*) 20 Mg Tablet 20 MG ORAL DAILY for 30 Days, TAB Metoprolol Tartrate* (Metoprolol Tartrate*) 50 Mg Tablet 50 MG NG Q12HR for 30 Days, TAB Continued Medications: Amlodipine Besylate (Norvasc) 5 Mg Tab 5 MG ORAL DAILY, #30 TAB Hydrochlorothiazide* (Hydrochlorothiazide*) 25 Mg Tablet 25 MG ORAL DAILY, #30 TAB Discharge Condition Upon Discharge: stable Discharge Disposition Patient was discharged to SNF/Subacute Facility(03) Discharge Diagnoses: Behzad (Fabian),Angélica BURDICK Dec 04, 2017 09:23
--- NOTE | 2017-12-05 13:00 | Discharge Summary 2 SIG ---
DATE OF ADMISSION: 11/08/2017 DATE OF DISCHARGE: 12/01/2017 REASON FOR ADMISSION: 77-year-old female with past medical history of hypertension and heart murmur, initially presented to the emergency department with diarrhea and headache. The patient reported brown stool, watery diarrhea, intermittent headaches, and history of cardiac murmur. She denied fever or chills. She denied pain. However, she was in respiratory distress and developed respiratory failure and was intubated in the emergency department. Initial ABG showed hypoxemia and hypercapnia, which was done right after intubation, with pH of 7.18 and pCO2 of 70. Settings were adjusted. Upon presentation, afebrile, elevated blood pressure- 168/110. No leukocytosis. Chest x-ray with evidence of pulmonary edema. Troponin negative. The patient admitted to ICU with diagnoses of acute hypoxemic respiratory failure requiring intubation, pulmonary edema, severe protein-calorie malnutrition, and hypertension. HOSPITAL STAY: The patient admitted to ICU. Cardiology, Infectious Diseases specialist, and GI consults were requested. Ventilator support provided. Pulmonary toilet provided. The patient was followed up with daily chest x-ray and ABG. The patient was diuresed . Volume status and cardiorenal parameters were closely monitored. ProBNP was trending down. Initial echocardiogram revealed preserved ejection fraction of 65% to 70% and right ventricular systolic pressure of 39. Marina Manager felt that the patient may have a mitral regurgitation, which was not picked up on echocardiogram. Images were repeated. Echocardiogram was reread with additional imaging taken and it showed right ventricular systolic pressure of 60 consistent with severe pulmonary hypertension. Heavy thickening mitral valve leaflet showed evidence for rupture chordae with eccentric posterior directed MR. Marina Manager closely followed. The patient had eccentric MR as was clinically suspected, but she was not a candidate for any mitral valve therapy at that time. Serial troponin x4 were negative. EKG showed no acute ischemic changes. Venous duplex of bilateral lower extremities was negative for acute DVT. The patient was on empiric antibiotics for probable ventilator-associated pneumonia. Sputum culture revealed Pseudomonas aeruginosa. Influenza screen test was negative. Urine culture showed mixed gram-positive organisms. Blood cultures were negative. The patient status post treatment with antibiotics. Hemoglobin was trending down. The patient received two units of packed red blood cells for hemoglobin 6.7.. Prior to discharge, hemoglobin up to 10.1. GI closely followed. The patient was on nitroglycerin drip for hypertension. The patient had hypertensive heart disease as well as left ventricular hypertrophy. Renal ultrasound revealed no hydronephrosis, normal bilateral kidney echogenicity. DVT and GI prophylaxes were provided. The patient was started on weaning protocol aj blood pressure stabilized but was unable to be weaned and subsequently required placement of tracheostomy. Surgery consult was requested. The patient subsequently undergone tracheostomy placement on 11/18/2017. Surgeon closely followed afterwards. Tracheostomy care provided. Blood pressure stabilized. ABG was stable on current settings. Chest x-ray showed improvement in pulmonary edema. The patient was on gentle diuresis with holding parameters for low blood pressure. She demonstrated sinus rhythm on telemetry. The patient also undergone G-tube placement on 11/20/2017. GI closely followed. The patient was on PPI . Strict aspiration/reflux precautions were maintained. Patient was able to tolerate tube feeding. Wildlife Ecology Professor recommendations were implemented. Counts were closely monitored, status post two units as mentioned above. No further transfusion. The patient was stable for discharge to subacute residential facility when place was found. FINAL DIAGNOSES: 1. Acute hypoxemic hypercapnic respiratory failure requiring intubation, 2. Failure to wean. 2. Status post tracheostomy. 3. Pulmonary edema. 4. Hypertensive heart disease with left ventricular hypertrophy. 5. Probably ventilator associated pneumonia iwth Pseudomonas aeruginosa 6. Severe pulmonary hypertension. 7. Eccentric mitral regurgitation. 8. Valvular heart disease. 9. CHF 10.Non sustained ventricular tachycardia 11.. Severe protein-calorie malnutrition. 12. Status post percutaneous endoscopic gastrostomy. 13. Anemia requiring blood transfusion. DISCHARGE MEDICATIONS: See medication reconciliation list. DISCHARGE INSTRUCTIONS: The patient discharged to subacute residential facility. Follow up with medical doctor and cheese wrapper at the facility. Dylan Pittman M.D. Angélica ChristiansonBayley Seton HospitalCriselda N.PRebel DR: Martinez JOB#: [id number] CC: THERESE
== END 2017-12-01 16:30 | DRG 4 ==
LOC: EMR 11:06 → EDBEDREQSVC 12:54 → ICU 12:56 → EDBEDREQ 12:58 → 2W 11-21 07:26
PROC: 5A1955Z Respiratory Ventilation, Greater than 96 Consecutive Hours (ICD-10-PCS; 2017-11-08)
PROC: 0BH17EZ Insertion of Endotracheal Airway into Trachea, Via Natural or Artificial Opening (ICD-10-PCS; 2017-11-08)
PROC: 05HN33Z Insertion of Infusion Device into Left Internal Jugular Vein, Percutaneous Approach (ICD-10-PCS; 2017-11-08)
PROC: 0B110F4 Bypass Trachea to Cutaneous with Tracheostomy Device, Open Approach (ICD-10-PCS; principal; 2017-11-18 14:00)
PROC: 0DH68UZ Insertion of Feeding Device into Stomach, Via Natural or Artificial Opening Endoscopic (ICD-10-PCS; 2017-11-20)
DX: J96.01 Acute respiratory failure with hypoxia (principal); E43 Unspecified severe protein-calorie malnutrition; J81.0 Acute pulmonary edema; I47.2 Ventricular tachycardia; I11.0 Hypertensive heart disease with heart failure; I27.20 Pulmonary hypertension, unspecified; J95.851 Ventilator associated pneumonia; I50.9 Heart failure, unspecified; R13.10 Dysphagia, unspecified; D64.9 Anemia, unspecified; Z68.1 Body mass index [BMI] 19.9 or less, adult; J96.02 Acute respiratory failure with hypercapnia; R19.7 Diarrhea, unspecified; R51 Headache; Z99.11 Dependence on respirator [ventilator] status; I34.0 Nonrheumatic mitral (valve) insufficiency
CPT/HCPCS: 31500; 36415; 36600; 71045; 74177; 76775; 80048; 80053; 80069; 80202; 81001; 81003; 82803; 83690; 83735; 83880; 84100; 84478; 84484; 85007; 85025; 85610; 85651; 85730; 86710; 86850; 86900; 86901; 86920; 87040; 87070; 87081; 87086; 87181; 87205; 90630; 90732; 93005; 93306; 93970; 94002; 94003; 94150; 94640; 94664; C9399; J2405; J7620; J8499

== ENCOUNTER 2017-12-21 10:54 | Inpatient (IN) | payer MEDICAID ==
[~2017-12-21] VITALS: Ht 142.2 cm; Wt 34.9 kg
[~2017-12-21 10:54] MED LIST changes: +ASPIR 8181 MG ORAL; +ATENOLOL25 MG ORAL; +FOSAMAX70 MG ORAL; +FUROSEMIDE20 M1 ORAL; +METOPROLOL TART25 MG ORAL; +METOPROLOL TART50 MG NG
[2017-12-21] MEDS ORDERED: ACETAMINOPHEN325 M1 GT (11:05)
[2017-12-21] MEDS ORDERED: HEPARIN SO5000 UNIT2 SUBQ (11:05)
[2017-12-21] MEDS ORDERED: PROTONIX40 MG GT (11:05)
[2017-12-21] MEDS ORDERED: OSMOLITE 1.21500 ML GT (11:07)
[2017-12-21] MEDS ORDERED: MILK OF MA400 MG/51 GT (11:10)
[2017-12-21] MEDS ORDERED: DULCOLAX10 MG RC (11:10)
[2017-12-21] MEDS ORDERED: COLACE100 MG GT (11:10)
[2017-12-21] MEDS ORDERED: Albuterol/Ipratropium 3ml neb HHN ONE ×2 (11:15→14:30)
[2017-12-21] MEDS ORDERED: CRANBERRY425 MG GT (11:15)
[2017-12-21] MEDS ORDERED: UTI-STAT L3875 MG/31 PO (11:15)
[2017-12-21 11:20] VITALS: BP 160/80
[2017-12-21 11:37] LABS: HEMATOCRIT 28.8 % (37.0-47.0); HEMOGLOBIN 9.5 G/DL (12.0-16.0); MEAN CORPUSCULAR VOLUME 87 FL (80-99); PLATELET COUNT 408 K/UL (150-450); RED BLOOD COUNT 3.31 M/UL (4.20-5.40); RED CELL DISTRIBUTION WIDTH 14.9 % (11.6-14.8)
[2017-12-21 11:39] LABS: WHITE BLOOD COUNT 22.6 K/UL (4.8-10.8)
[2017-12-21] MEDS ORDERED: Vancomycin 1 GM in NS 275 ML IVPB ONE (11:45)
[2017-12-21] MEDS ORDERED: Vancomycin 1gm inj IVPB ONE (11:51)
[2017-12-21 11:55] LABS: ANION GAP 9 mmol/L (5-15); BLOOD UREA NITROGEN 17 mg/dL (7-18); CALCIUM 8.4 MG/DL (8.5-10.1); CARBON DIOXIDE 33 MMOL/L (21-32); CHLORIDE 91 MMOL/L (98-107); CREATININE 0.7 MG/DL (0.55-1.30); POTASSIUM 3.9 MMOL/L (3.5-5.1); SODIUM 133 MMOL/L (136-145)
--- NOTE | 2017-12-21 12:05 | Emergency Room Report ---
History of Present Illness General Chief Complaint: Dyspnea/Respdistress Source: Patient Present Illness HPI Patient is a 77-year-old female brought in by EMS after diminished oxygen saturation. Patient had recently been hospitalized after increased difficulty breathing. She was noted to have prior history of interstitial lung disease. The patient had recent tracheostomy placement. She was noted to have decreased oxygen saturation at her nursing facility. Patient is from [facility]. She is followed by Dr. seymour. The patient had subjective fever she is ventilator dependent. Allergies: Coded Allergies: PENICILLINS (Verified Allergy, Mild, Rash, 06/30/14) Patient History Past Medical History: see triage record Reviewed Nursing Documentation: PMH: Agreed; PSxH: Agreed Nursing Documentation-PMH Hx Cardiac Problems: Yes - chf Hx Hypertension: Yes Hx COPD: Yes - trach vent dependant Hx Cancer: No Hx Gastrointestinal Problems: No - anemia,gerd Hx Neurological Problems: No - osteoporosis Review of Systems All Other Systems: negative except mentioned in HPI Physical Exam Vital Signs Date Time Temp Pulse Resp B/P (MAP) Pulse Ox O2 Delivery O2 Flow Rate FiO2 12/21/17 10:54 130 26 160/80 97 Ambu-Bag 12/21/17 10:55 80 Sp02 EP Interpretation: reviewed, normal General Appearance: normal inspection, well appearing, no apparent distress, alert, GCS 15 Head: atraumatic ENT: normal ENT inspection, hearing grossly normal, normal voice Neck: normal inspection, full range of motion, supple, no bony tend Respiratory: normal inspection, lungs clear, normal breath sounds, no respiratory distress, no retraction, no wheezing Cardiovascular #1: regular rate, rhythm, no edema Gastrointestinal: normal inspection, normal bowel sounds, non tender, soft, no guarding, no hernia Genitourinary: no CVA tenderness Musculoskeletal: normal inspection, back normal, normal range of motion Neurologic: normal inspection, alert, oriented x3, responsive, rod puller III-XII nml as tested, speech normal Psychiatric: normal inspection, judgement/insight normal, mood/affect normal Skin: normal inspection, normal color, no rash Medical Decision Making Diagnostic Impression: Primary Impression: Severe sepsis Additional Impression: Interstitial lung disease ER Course Patient is a 69-year-old female who presented for increased difficulty breathing.Because of complexity of patient's case laboratory testing and imaging studies were ordered. Chest x-ray one view interpreted by me showed interstitial lung disease with cardiomegaly tracheostomy appeared to be the within the trachea. The blood cultures are obtained and sepsis workup was obtained due to patient's hypotension and the fever. Patient was given IV antibiotics.She was started on IV fluids.Dr. Dior was contacted for inpatient management due to need for inpatient monitoring and treatment and covering for Dr. seymour. Labs Test 12/21/17 10:20 White Blood Count 22.6 K/UL (4.8-10.8) Red Blood Count 3.31 M/UL (4.20-5.40) Hemoglobin 9.5 G/DL (12.0-16.0) Hematocrit 28.8 % (37.0-47.0) Mean Corpuscular Volume 87 FL (80-99) Mean Corpuscular Hemoglobin 28.7 PG (27.0-31.0) Mean Corpuscular Hemoglobin Concent 32.9 G/DL (32.0-36.0) Red Cell Distribution Width 14.9 % (11.6-14.8) Platelet Count 408 K/UL (150-450) Mean Platelet Volume 5.9 FL (6.5-10.1) Neutrophils (%) (Auto) % (45.0-75.0) Lymphocytes (%) (Auto) % (20.0-45.0) Monocytes (%) (Auto) % (1.0-10.0) Eosinophils (%) (Auto) % (0.0-3.0) Basophils (%) (Auto) % (0.0-2.0) Sodium Level 133 MMOL/L (136-145) Potassium Level 3.9 MMOL/L (3.5-5.1) Chloride Level 91 MMOL/L (98-107) Carbon Dioxide Level 33 MMOL/L (21-32) Anion Gap 9 mmol/L (5-15) Blood Urea Nitrogen 17 mg/dL (7-18) Creatinine 0.7 MG/DL (0.55-1.30) Estimat Glomerular Filtration Rate mL/min (>60) Glucose Level 144 MG/DL (74-106) Calcium Level 8.4 MG/DL (8.5-10.1) Last Vital Signs Date Time Temp Pulse Resp B/P (MAP) Pulse Ox O2 Delivery O2 Flow Rate FiO2 12/21/17 10:55 133 42 80 12/21/17 10:54 160/80 97 Ambu-Bag Status: unchanged Disposition: ADMITTED INPATIENT Condition: Critical Referrals: Dylan Seymour MD (PCP) Peter Mancia Dec 21, 2017 12:05
[2017-12-21 12:08] LABS: ALANINE AMINOTRANSFERASE 34 U/L (12-78); ALBUMIN 2.5 G/DL (3.4-5.0); ALBUMIN/GLOBULIN RATIO 0.5 (1.0-2.7); ALKALINE PHOSPHATASE 104 U/L (46-116); ASPARTATE AMINO TRANSFERASE 36 U/L (15-37); BILIRUBIN,TOTAL 0.4 MG/DL (0.2-1.0); CREATINE KINASE 50 U/L (26-308); PHOSPHORUS 4.2 MG/DL (2.5-4.9)
[2017-12-21 12:17] VITALS: BP 91/43
[2017-12-21] MEDS ORDERED: Acetaminophen 500mg (ES) tab ORAL ONE (12:30)
[2017-12-21] MEDS ORDERED: Acetaminophen 650mg/20.3ml GT ONE (13:45)
[2017-12-21] MEDS ORDERED: Solu-MEDROL 125mg Inj IVP ONE (14:30)
[2017-12-21 15:18] VITALS: BP 131/72
[2017-12-21 15:40] LABS: APPEARANCE,URINE CLEAR; BILIRUBIN, URINE NEGATIVE (NEGATIVE); COLOR,URINE PALE YELLOW; GLUCOSE, URINE (UA) NEGATIVE (NEGATIVE); KETONES,URINE NEGATIVE (NEGATIVE); LEUKOCYTE ESTERASE ,URINE 1+ (NEGATIVE); NITRITE,URINE NEGATIVE (NEGATIVE); PH,URINE 6 (4.5-8.0); PROTEIN,URINE NEGATIVE (NEGATIVE); UROBILINOGEN,URINE NORMAL MG/DL (0.0-1.0)
[2017-12-21 16:00] VITALS: BP 107/65
[2017-12-21] MEDS: Metoprolol Tartrate 50mg tab GT SCH (18:00)
--- NOTE | 2017-12-21 18:52 | Pulmonolgy Critical Care Note ---
Critical Care - Asmt/Plan Assessment/Plan: Patient is a 77-year-old female brought in by EMS after diminished oxygen saturation. Patient had recently been hospitalized after increased difficulty breathing. She was noted to have prior history of interstitial lung disease. The patient had recent tracheostomy placement. She was noted to have decreased oxygen saturation at her nursing facility. Patient is from [facility]. She is followed by Dr. seymour. The patient had subjective fever she is ventilator dependent. Allergies: Coded Allergies: PENICILLINS (Verified Allergy, Mild, Rash, 06/30/14) Patient History Past Medical History: Possible Interstitial Lung Disease Reviewed Nursing Documentation: PMH: Agreed; PSxH: Agreed Nursing Documentation-PMH Hx Cardiac Problems: Yes - chf Hx Hypertension: Yes Hx COPD: Yes - trach vent dependant Hx Cancer: No Hx Gastrointestinal Problems: No - anemia,gerd Hx Neurological Problems: No - osteoporosis Review of Systems All Other Systems: negative except mentioned in HPI Physical Exam Vital Signs Date Time Temp Pulse Resp B/P (MAP) Pulse Ox O2 Delivery O2 Flow Rate FiO2 12/21/17 10:54 130 26 160/80 97 Ambu-Bag 12/21/17 10:55 80 Sp02 EP Interpretation: reviewed, normal General Appearance: normal inspection, well appearing, no apparent distress, alert, GCS 15 Head: atraumatic ENT: normal ENT inspection, hearing grossly normal, normal voice Neck: normal inspection, full range of motion, supple, no bony tend Respiratory: normal inspection, lungs clear, normal breath sounds, no respiratory distress, no retraction, no wheezing Cardiovascular #1: regular rate, rhythm, no edema Gastrointestinal: normal inspection, normal bowel sounds, non tender, soft, no guarding, no hernia Genitourinary: no CVA tenderness Musculoskeletal: normal inspection, back normal, normal range of motion Neurologic: normal inspection, alert, oriented x3, responsive, 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 Chest x-ray one view interpreted by me showed interstitial lung disease with cardiomegaly tracheostomy appeared to be the within the trachea. The blood cultures are obtained and sepsis workup was obtained due to patient's hypotension and the fever. Patient was given IV antibiotics.She was started on IV fluids. Continue current Antiniotics Oxygen for O2 sats 92-98% Negative fluid balance SQ Heparin Labs Test 12/21/17 10:20 White Blood Count 22.6 K/UL (4.8-10.8) Red Blood Count 3.31 M/UL (4.20-5.40) Hemoglobin 9.5 G/DL (12.0-16.0) Hematocrit 28.8 % (37.0-47.0) Mean Corpuscular Volume 87 FL (80-99) Mean Corpuscular Hemoglobin 28.7 PG (27.0-31.0) Mean Corpuscular Hemoglobin Concent 32.9 G/DL (32.0-36.0) Red Cell Distribution Width 14.9 % (11.6-14.8) Platelet Count 408 K/UL (150-450) Mean Platelet Volume 5.9 FL (6.5-10.1) Neutrophils (%) (Auto) % (45.0-75.0) Lymphocytes (%) (Auto) % (20.0-45.0) Monocytes (%) (Auto) % (1.0-10.0) Eosinophils (%) (Auto) % (0.0-3.0) Basophils (%) (Auto) % (0.0-2.0) Sodium Level 133 MMOL/L (136-145) Potassium Level 3.9 MMOL/L (3.5-5.1) Chloride Level 91 MMOL/L (98-107) Carbon Dioxide Level 33 MMOL/L (21-32) Anion Gap 9 mmol/L (5-15) Blood Urea Nitrogen 17 mg/dL (7-18) Creatinine 0.7 MG/DL (0.55-1.30) Estimat Glomerular Filtration Rate mL/min (>60) Glucose Level 144 MG/DL (74-106) Calcium Level 8.4 MG/DL (8.5-10.1) Last Vital Signs Date Time Temp Pulse Resp B/P (MAP) Pulse Ox O2 Delivery O2 Flow Rate FiO2 12/21/17 10:55 133 42 80 12/21/17 10:54 160/80 97 Ambu-Bag Status: unchanged Critical Care - Objective Last 24 Hour Vital Signs Date Time Temp Pulse Resp B/P (MAP) Pulse Ox O2 Delivery O2 Flow Rate FiO2 12/21/17 17:15 108 35 100 12/21/17 16:00 105 12/21/17 15:53 99.0 12/21/17 15:48 99.0 29 131/72 98 Mechanical Ventilator 80 99.0 12/21/17 15:47 80 12/21/17 15:18 99.0 29 131/72 98 Mechanical Ventilator 80 99.0 12/21/17 14:42 115 29 80 12/21/17 14:09 110 22 100 Mechanical Ventilator 12/21/17 14:01 111 22 98 Mechanical Ventilator 50 12/21/17 13:53 101.9 12/21/17 12:30 115 29 60 12/21/17 12:17 101.9 42 91/43 97 Ambu-Bag 80 101.9 12/21/17 11:20 133 42 Ambu-Bag 80 12/21/17 11:20 101.9 42 160/80 97 Ambu-Bag 80 101.9 12/21/17 10:55 133 42 80 12/21/17 10:54 130 26 160/80 97 Ambu-Bag Critical Care - Subjective ROS Limited/Unobtainable: Yes Condition: unchanged EKG Rhythm: Sinus Rhythm FI02: 100 Vent Support Breath Rate: 10 Vent Support Mode: AC Vent Tidal Volume: 300 Sputum Amount: Small PEEP: 8.0 PIP: 25 Emmanuel Pérez M.D. Dec 21, 2017 18:52
[2017-12-21] MEDS: Albuterol/Ipratropium 3ml neb HHN SCH ×2 (19:59→22:44)
[2017-12-21 20:00] VITALS: BP 136/76
[2017-12-21] MEDS: Meropenem 1 GM in NS 55 ML IVPB SCH (21:35)
[2017-12-22] VITALS (7 sets, daily range): BP systolic 100–156; BP diastolic 57–71
[2017-12-22] MEDS: Vancomycin 500mg/D5W 110ml IVPB SCH ×4 (00:32→12:08)
[2017-12-22] MEDS: Albuterol/Ipratropium 3ml neb HHN SCH ×6 (02:32→19:00)
[2017-12-22 04:43] LABS: HEMATOCRIT 24.6 % (37.0-47.0); HEMOGLOBIN 8.2 G/DL (12.0-16.0); MEAN CORPUSCULAR VOLUME 88 FL (80-99); PLATELET COUNT 456 K/UL (150-450); RED BLOOD COUNT 2.81 M/UL (4.20-5.40); WHITE BLOOD COUNT 15.4 K/UL (4.8-10.8)
[2017-12-22] MEDS: Meropenem 1 GM in NS 55 ML IVPB SCH ×2 (05:00→14:09)
[2017-12-22 05:12] LABS: ANION GAP 5 mmol/L (5-15); BLOOD UREA NITROGEN 17 mg/dL (7-18); CALCIUM 7.8 MG/DL (8.5-10.1); CARBON DIOXIDE 33 MMOL/L (21-32); CHLORIDE 96 MMOL/L (98-107); CREATININE 0.8 MG/DL (0.55-1.30); POTASSIUM 3.5 MMOL/L (3.5-5.1); SODIUM 134 MMOL/L (136-145)
[2017-12-22] MEDS: Morphine Sulfate 2mg/ml Inj IVP PRN ×2 (06:25→15:17)
[2017-12-22] MEDS ORDERED: Acetaminophen 650mg/20.3ml GT PRN (06:30)
--- NOTE | 2017-12-22 08:38 | Diagnostic Imaging Report ---
Indication: Shortness of breath Technique: One view of the chest Comparison: 12/01/2017 Findings: Bilateral diffuse airspace disease in a patchy and macronodular pattern as increased considerably from the prior exam. Tracheostomy remains. The heart is enlarged. There may be a small left pleural effusion Impression: Bilateral extensive diffuse parenchymal infiltrates versus edema, increased from 12/01/2017 Cardiomegaly
[2017-12-22] MEDS: Heparin 5000 units/ml inj SUBQ SCH ×2 (09:00→21:28)
[2017-12-22] MEDS ORDERED: Aspirin Baby 81mg GT SCH (09:00)
[2017-12-22] MEDS: Metoprolol Tartrate 50mg tab GT SCH ×2 (09:15→21:28)
--- NOTE | 2017-12-22 12:26 | History & Physical ---
History and Physical History & Physicial Dictated for Int Med-Dr Dior no. [id number]. ZACARIAS GALEAS Dec 22, 2017 12:26
--- NOTE | 2017-12-22 13:02 | Consultation ---
History of Present Illness General Date patient seen: Dec 22, 2017 Time patient seen: 12:43 Chief Complaint: Dyspnea/Respdistress Present Illness HPI 77 y/o F with hx of CHF, COPD, ILD, recent resp failure now s/p trach/vent dependant, s/p GT 10/2017, severe pHTN, anemia, GERD, osteoporosis presents to ED on 12/21 with hypoxia at [place] Of note, patient recently admitted here on 11/08-12/01 w/ diarrhea, acute hypoxic failure required intubation and prolonged ICU admission; unable to weaned and eventually trach. She was found to have probable PsA VAP and treated w/ 14 days of Aztreeonam. febrile up to 101.9, now afebrile ~24hrs. leukocytosis up to 22, now donw to 15. Allergies: Coded Allergies: PENICILLINS (Verified Allergy, Mild, Rash, 06/30/14) Medication History Scheduled Alendronate Sodium* (Fosamax*), 35 MG ORAL ONCE A WEEK, (Reported) Amlodipine Besylate (Norvasc), 5 MG ORAL DAILY Aspirin* (Aspir 81*), 81 MG ORAL DAILY, (Reported) Docusate Sodium* (Colace*), 100 MG GT DAILY, (Reported) Furosemide* (Lasix*), 20 MG ORAL DAILY Hydrochlorothiazide* (Hydrochlorothiazide*), 25 MG ORAL DAILY Magnesium Hydroxide* (Milk Of Magnesia*), 30 ML GT DAILY, (Reported) Metoprolol Tartrate* (Metoprolol Tartrate*), 25 MG ORAL DAILY, (Reported) Metoprolol Tartrate* (Metoprolol Tartrate*), 50 MG NG Q12HR Scheduled PRN Acetaminophen* (Acetaminophen 325MG Tablet*), 650 MG GT Q6H PRN for For Pain, ( Reported) Miscellaneous Medications Bisacodyl (Dulcolax), 10 MG RC, (Reported) Cran/Vitc/Mannose/Inulin/Brom (Uti-Stat Liquid), 3,875 MG PO, (Reported) Cranberry Extract (Cranberry), 425 MG GT, (Reported) Lactose-Reduced Food (Osmolite 1.2 Lazarus), 1,500 ML GT, (Reported) Discontinued Medications Heparin Sod (Porcine) (Heparin Sodium*), 5,000 UNITS SUBQ EVERY 12 HOURS, ( Reported) Discontinued Reason: MD discontinued med Pantoprazole* (Protonix*), 40 MG GT DAILY, (Reported) Discontinued Reason: MD discontinued med Patient History Healthcare decision maker [place] ALVA Resuscitation status Full Code Advanced Directive on File No Review of Systems ROS Narrative unable to obtain Physical Exam Physical Exam Narrative General Appearance: normal inspection, well appearing, no apparent distress, alert, GCS 15 Head: atraumatic ENT: normal ENT inspection, hearing grossly normal, normal voice Neck: normal inspection, full range of motion, supple, no bony tend Respiratory: normal inspection, lungs clear, normal breath sounds, no respiratory distress, no retraction, no wheezing Cardiovascular #1: regular rate, rhythm, no edema Gastrointestinal: normal inspection, normal bowel sounds, non tender, soft, no guarding, no hernia Genitourinary: no CVA tenderness Musculoskeletal: normal inspection, back normal, normal range of motion Neurologic: normal inspection, alert, oriented x3, responsive, 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, speech normal Psychiatric: normal inspection, judgement/insight normal, mood/affect normal Skin: normal inspection, normal color, no rash Last 24 Hour Vital Signs Date Time Temp Pulse Resp B/P (MAP) Pulse Ox O2 Delivery O2 Flow Rate FiO2 12/22/17 12:00 80 12/22/17 12:00 97.3 121 40 156/70 95 Mechanical Ventilator 70 97.3 12/22/17 10:50 109 38 80 12/22/17 10:49 111 22 100 Mechanical Ventilator 70 12/22/17 10:42 100 36 100 Mechanical Ventilator 70 12/22/17 09:15 125 125/69 12/22/17 09:15 125 125/69 12/22/17 08:44 128 37 80 12/22/17 08:00 97.7 125 34 125/69 100 Mechanical Ventilator 80 97.7 12/22/17 08:00 80 12/22/17 08:00 129 12/22/17 08:00 Mechanical Ventilator 80 12/22/17 07:57 Mechanical Ventilator 80 12/22/17 07:51 124 34 80 12/22/17 06:55 97.7 12/22/17 06:25 97.7 12/22/17 05:04 109 30 45 12/22/17 04:00 97.7 112 30 100/57 100 Mechanical Ventilator 80 97.7 12/22/17 04:00 113 12/22/17 04:00 80 12/22/17 03:19 109 22 100 Mechanical Ventilator 45 12/22/17 03:06 109 26 100 Mechanical Ventilator 45 12/22/17 02:32 117 34 45 12/22/17 01:20 118 26 50 12/22/17 00:00 98.1 107 28 130/66 100 Mechanical Ventilator 80 98.1 12/22/17 00:00 110 12/22/17 00:00 80 12/21/17 22:54 107 22 100 Mechanical Ventilator 12/21/17 22:44 99 26 100 Mechanical Ventilator 60 12/21/17 22:36 104 26 60 12/21/17 20:59 104 31 60 12/21/17 20:09 109 18 100 Mechanical Ventilator 12/21/17 20:00 100 12/21/17 20:00 98.1 114 25 136/76 100 Mechanical Ventilator 80 98.1 12/21/17 20:00 80 12/21/17 19:59 107 30 100 Mechanical Ventilator 80 12/21/17 19:53 113 31 80 12/21/17 18:00 20 99 Mechanical Ventilator 100 12/21/17 17:45 24 88 Mechanical Ventilator 80 12/21/17 17:15 108 35 100 12/21/17 16:00 97.3 107 20 107/65 100 Mechanical Ventilator 80 97.3 12/21/17 16:00 105 12/21/17 15:53 99.0 12/21/17 15:48 99.0 29 131/72 98 Mechanical Ventilator 80 99.0 12/21/17 15:47 80 12/21/17 15:18 99.0 29 131/72 98 Mechanical Ventilator 80 99.0 12/21/17 14:42 115 29 80 12/21/17 14:09 110 22 100 Mechanical Ventilator 12/21/17 14:01 111 22 98 Mechanical Ventilator 50 12/21/17 13:53 101.9 Intake and Output 12/21/17 12/22/17 19:00 07:00 Intake Total 0 ml 570 ml Output Total 750 ml 300 ml Balance -750 ml 270 ml Intake Oral 0 ml IV Total 330 ml Tube Feeding 240 ml Other 0 ml Output Urine Total 750 ml 300 ml # Bowel Movements 1 Laboratory Tests Test 12/21/17 12:49 12/21/17 15:19 12/21/17 17:35 12/21/17 20:40 Lactic Acid Level 1.60 mmol/L (0.66-2.22) Urine Color Pale yellow Urine Appearance Clear Urine pH 6 (4.5-8.0) Urine Specific [place] 1.010 (1.005-1.035) Urine Protein Negative (NEGATIVE) Urine Glucose (UA) Negative (NEGATIVE) Urine Ketones Negative (NEGATIVE) Urine Occult Blood 1+ (NEGATIVE) H Urine Nitrite Negative (NEGATIVE) Urine Bilirubin Negative (NEGATIVE) Urine Urobilinogen Normal MG/DL (0.0-1.0) Urine Leukocyte Esterase 1+ (NEGATIVE) H Urine RBC 0-2 /HPF (0 - 2) Urine WBC 0-2 /HPF (0 - 2) Urine Squamous Epithelial Cells Occasional /LPF Urine Bacteria Occasional /HPF (NONE) Arterial Blood pH 7.400 (7.350-7.450) Arterial Blood Partial Pressure CO2 44.0 mmHg (35.0-45.0) Arterial Blood Partial Pressure O2 219.9 mmHg (75.0-100.0) H Arterial Blood HCO3 27.0 mmol/L (22.0-26.0) H Arterial Blood Oxygen Saturation 99.7 % (92.0-98.0) H Arterial Blood Base Excess 2.1 Rafy Test Positive Troponin I 0.126 ng/mL (0.000-0.056) Test 12/22/17 04:10 White Blood Count 15.4 K/UL (4.8-10.8) H Red Blood Count 2.81 M/UL (4.20-5.40) L Hemoglobin 8.2 G/DL (12.0-16.0) L Hematocrit 24.6 % (37.0-47.0) L Mean Corpuscular Volume 88 FL (80-99) Mean Corpuscular Hemoglobin 29.0 PG (27.0-31.0) Mean Corpuscular Hemoglobin Concent 33.1 G/DL (32.0-36.0) Red Cell Distribution Width 15.0 % (11.6-14.8) H Platelet Count 456 K/UL (150-450) H Mean Platelet Volume 5.5 FL (6.5-10.1) L Neutrophils (%) (Auto) % (45.0-75.0) Lymphocytes (%) (Auto) % (20.0-45.0) Monocytes (%) (Auto) % (1.0-10.0) Eosinophils (%) (Auto) % (0.0-3.0) Basophils (%) (Auto) % (0.0-2.0) Differential Total Cells Counted 100 Neutrophils % (Manual) 94 % (45-75) H Lymphocytes % (Manual) 3 % (20-45) L Monocytes % (Manual) 3 % (1-10) Eosinophils % (Manual) 0 % (0-3) Basophils % (Manual) 0 % (0-2) Band Neutrophils 0 % (0-8) Platelet Estimate Adequate Platelet Morphology Normal Anisocytosis 1+ Ovalocytes Occasional Sodium Level 134 MMOL/L (136-145) L Potassium Level 3.5 MMOL/L (3.5-5.1) Chloride Level 96 MMOL/L (98-107) L Carbon Dioxide Level 33 MMOL/L (21-32) H Anion Gap 5 mmol/L (5-15) Blood Urea Nitrogen 17 mg/dL (7-18) Creatinine 0.8 MG/DL (0.55-1.30) Estimat Glomerular Filtration Rate mL/min (>60) Glucose Level 190 MG/DL (74-106) H Calcium Level 7.8 MG/DL (8.5-10.1) L Troponin I 0.064 ng/mL (0.000-0.056) Height (Feet): 4 Height (Inches): 8.00 Weight (Pounds): 77 Medications Current Medications Medications (Trade) Dose Ordered Sig/Puja Route PRN Reason Start Time Stop Time Status Last Admin Dose Admin Acetaminophen (Tylenol) 500 mg TID PRN GT Mild Pain/Temp > 100.5 12/22/17 06:30 01/21/18 06:29 Albuterol/ Ipratropium (Albuterol/ Ipratropium) 3 ml Q4HRT HHN 12/21/17 19:00 12/26/17 18:59 12/22/17 10:42 Amlodipine Besylate (Norvasc) 5 mg DAILY GT 12/22/17 09:00 01/21/18 08:59 12/22/17 09:15 Aspirin (ASA) 81 mg DAILY GT 12/22/17 09:00 01/21/18 08:59 12/22/17 09:15 Furosemide (Lasix) 20 mg DAILY GT 12/21/17 18:00 01/20/18 17:59 12/22/17 09:15 Heparin Sodium (Porcine) (Heparin 5000 units/ml) 5,000 units EVERY 12 HOURS SUBQ 12/22/17 09:00 01/21/18 08:59 Lansoprazole (Prevacid) 30 mg DAILY GT 12/22/17 09:00 01/21/18 08:59 12/22/17 09:15 Meropenem 1 gm/ Sodium Chloride 55 ml @ 110 mls/hr Q8HR IVPB 12/21/17 22:00 12/26/17 21:59 12/22/17 05:00 Metoprolol Tartrate (Lopressor) 50 mg Q12HR GT 12/21/17 18:00 01/20/18 17:59 12/22/17 09:15 Morphine Sulfate (Morphine Sulfate) 2 mg Q8H PRN IVP for severe pain 12/22/17 06:15 12/29/17 06:14 12/22/17 06:25 Oseltamivir Phosphate (Tamiflu) 30 mg BID ORAL 12/21/17 22:00 12/26/17 21:59 12/22/17 09:14 Vancomycin HCl (Vanco rx to dose) 1 ea DAILY PRN MISC Per rx protocol 12/21/17 20:15 01/20/18 20:14 Vancomycin HCl 500 mg/Dextrose 110 ml @ 110 mls/hr Q12H IVPB 12/22/17 00:00 12/27/17 00:00 12/22/17 12:08 Assessment/Plan Assessment/Plan Abx: IV Vancomcyin 12/21- Meropenem 12/21- Levaquin x1 12/21 Tamiflu 12/21- Assessment: Sepsis- likely 2ry to PNA; r/o flu, r/o bacteremia -CXR: Bilateral extensive diffuse parenchymal infiltrates versus edema, increased from 12/01/2017 -u/a neg -Bcx p, sp cx p -influenza sc p Fever/leukocytosis, improving Acute on subacute/chronic resp failure- Recent Probable ventilator-associated pneumonia. Scx : PSA, s/p Rx -Chest x-ray, bilateral diffuse interstitial opacity PEG 11/20 TRACH 11/18 Hypertension Anemia Severe pHTN COPD/ILD CHF GERD osteoporosis Plan: -Continue empiric IV Vancomycin and Meropenem #2 pending sputum culture -Continue empiric Tamiflu #2 and add Azithromycin for atypical coverage -monitor qtc -3/ Azactam day # 14 / 14 -11/22 SP vancomycin day # 7 / -sputum culture, influenza sc, legionella ag urine, Cocci ab, Crag serum, fungitell -f/u cx -Monitor CBC/BMP, temperatures -trach/peg care -aspiration precautions Thank you for this consultation. Will continue to follow along with you. Discussed with RN. Reviewed previous records. Brandi Perea M.D. Dec 22, 2017 13:02
--- NOTE | 2017-12-22 13:07 | GI Initial Consult Note ---
WeathersJanet Jose N.PRebel 12/22/17 1307: History of Present Illness General Date patient seen: Dec 22, 2017 Time patient seen: 13:07 Reason for Hospitalization: Dyspnea/Respdistress Referring physician: SHRUTI MYRICK Reason for Consultation: ANEMIA Present Illness HPI Patient is a 77-year-old female brought in by EMS after diminished oxygen saturation. Patient had recently been hospitalized after increased difficulty breathing. She was noted to have prior history of interstitial lung disease. The patient had recent tracheostomy placement. She was noted to have decreased oxygen saturation at her nursing facility. Patient is from [facility]. She is followed by Dr. pittman. The patient had subjective fever she is ventilator dependent. GI consulted for anemia/GT management. ROS limited, patient trached s/p PEG placement 11/27/17. Pt is awake NAD with no active s/sx of N/V/D. Noted at SNF , patient was on diet for oral gratification. She presents today with anemia, leukocytosis and elevated troponin levels. Endoscopy Procedure Note General Indication for Procedure: dysphagia Procedures Performed: MIKE HERNANDEZ - Nov 27, 2017 22:22 Home Meds Active Scripts Furosemide* (LASIX*) 20 Mg Tablet, 20 MG ORAL DAILY for 30 Days, TAB Prov:Dylan Pittman MD 12/01/17 Metoprolol Tartrate* (METOPROLOL TARTRATE*) 50 Mg Tablet, 50 MG NG Q12HR for 30 Days, TAB Prov:Dylan Pittman MD 12/01/17 Hydrochlorothiazide* (HYDROCHLOROTHIAZIDE*) 25 Mg Tablet, 25 MG ORAL DAILY, #30 TAB Prov:JASON RODRIGUEZ M.D. 05/05/14 Amlodipine Besylate (Norvasc) 5 Mg Tab, 5 MG ORAL DAILY, #30 TAB Prov:JASON RODRIGUEZ M.D. 05/05/14 Reported Medications Cran/Vitc/Mannose/Inulin/Brom (UTI-STAT LIQUID) 3,875 Mg/30 Ml Liquid, 3875 MG PO, ML 12/21/17 Cranberry Extract (CRANBERRY) 425 Mg Capsule, 425 MG GT, CAP 12/21/17 Bisacodyl (DULCOLAX) 10 Mg Supp.rect, 10 MG RC, SUPP 12/21/17 Magnesium Hydroxide* (MILK OF MAGNESIA*) 400 Mg/5 Ml Oral.susp, 30 ML GT DAILY, ML 12/21/17 Docusate Sodium* (COLACE*) 100 Mg Capsule, 100 MG GT DAILY, CAP 12/21/17 Lactose-Reduced Food (Osmolite 1.2 Lazarus) 237 Ml Liquid, 1500 ML GT, ML 12/21/17 Acetaminophen* (ACETAMINOPHEN 325MG TABLET*) 325 Mg Tablet, 650 MG GT Q6H PRN for For Pain, TAB 12/21/17 Aspirin* (ASPIR 81*) 81 Mg Tablet.dr, 81 MG ORAL DAILY 11/08/17 Alendronate Sodium* (FOSAMAX*) 70 Mg Tablet, 35 MG ORAL ONCE A WEEK 11/08/17 Metoprolol Tartrate* (METOPROLOL TARTRATE*) 25 Mg Tablet, 25 MG ORAL DAILY 11/08/17 Discontinued Reported Medications Pantoprazole* (PROTONIX*) 40 Mg Tablet.dr, 40 MG GT DAILY, TAB 12/21/17 Heparin Sod (Porcine) (HEPARIN SODIUM*) 5 000/1 Ml Vial, 5000 UNITS SUBQ EVERY 12 HOURS, VIAL 12/21/17 Med list reviewed/reconciled: Yes Allergies: Coded Allergies: PENICILLINS (Verified Allergy, Mild, Rash, 06/30/14) Patient History Limited by: medical condition History Provided By: Medical Record PMH Narrative Hx Cardiac Problems: Yes - chf Hx Hypertension: Yes Hx COPD: Yes - trach vent dependant Hx Cancer: No Hx Gastrointestinal Problems: No - anemia,gerd Hx Neurological Problems: No - osteoporosis Social History: Denies: smoking, alcohol use, drug use, other Review of Systems All Other Systems: limited Physical Exam Vital Signs Date Time Temp Pulse Resp B/P (MAP) Pulse Ox O2 Delivery O2 Flow Rate FiO2 12/21/17 10:54 130 26 160/80 97 Ambu-Bag 12/21/17 10:55 80 12/21/17 11:20 101.9 101.9 Sp02 EP Interpretation: reviewed Labs Laboratory Tests Test 12/21/17 15:19 12/21/17 17:35 12/21/17 20:40 12/22/17 04:10 Urine Color Pale yellow Urine Appearance Clear Urine pH 6 (4.5-8.0) Urine Specific [place] 1.010 (1.005-1.035) Urine Protein Negative (NEGATIVE) Urine Glucose (UA) Negative (NEGATIVE) Urine Ketones Negative (NEGATIVE) Urine Occult Blood 1+ (NEGATIVE) H Urine Nitrite Negative (NEGATIVE) Urine Bilirubin Negative (NEGATIVE) Urine Urobilinogen Normal MG/DL (0.0-1.0) Urine Leukocyte Esterase 1+ (NEGATIVE) H Urine RBC 0-2 /HPF (0 - 2) Urine WBC 0-2 /HPF (0 - 2) Urine Squamous Epithelial Cells Occasional /LPF Urine Bacteria Occasional /HPF (NONE) Arterial Blood pH 7.400 (7.350-7.450) Arterial Blood Partial Pressure CO2 44.0 mmHg (35.0-45.0) Arterial Blood Partial Pressure O2 219.9 mmHg (75.0-100.0) H Arterial Blood HCO3 27.0 mmol/L (22.0-26.0) H Arterial Blood Oxygen Saturation 99.7 % (92.0-98.0) H Arterial Blood Base Excess 2.1 Rafy Test Positive Troponin I 0.126 ng/mL (0.000-0.056) 0.064 ng/mL (0.000-0.056) White Blood Count 15.4 K/UL (4.8-10.8) H Red Blood Count 2.81 M/UL (4.20-5.40) L Hemoglobin 8.2 G/DL (12.0-16.0) L Hematocrit 24.6 % (37.0-47.0) L Mean Corpuscular Volume 88 FL (80-99) Mean Corpuscular Hemoglobin 29.0 PG (27.0-31.0) Mean Corpuscular Hemoglobin Concent 33.1 G/DL (32.0-36.0) Red Cell Distribution Width 15.0 % (11.6-14.8) H Platelet Count 456 K/UL (150-450) H Mean Platelet Volume 5.5 FL (6.5-10.1) L Neutrophils (%) (Auto) % (45.0-75.0) Lymphocytes (%) (Auto) % (20.0-45.0) Monocytes (%) (Auto) % (1.0-10.0) Eosinophils (%) (Auto) % (0.0-3.0) Basophils (%) (Auto) % (0.0-2.0) Differential Total Cells Counted 100 Neutrophils % (Manual) 94 % (45-75) H Lymphocytes % (Manual) 3 % (20-45) L Monocytes % (Manual) 3 % (1-10) Eosinophils % (Manual) 0 % (0-3) Basophils % (Manual) 0 % (0-2) Band Neutrophils 0 % (0-8) Platelet Estimate Adequate Platelet Morphology Normal Anisocytosis 1+ Ovalocytes Occasional Sodium Level 134 MMOL/L (136-145) L Potassium Level 3.5 MMOL/L (3.5-5.1) Chloride Level 96 MMOL/L (98-107) L Carbon Dioxide Level 33 MMOL/L (21-32) H Anion Gap 5 mmol/L (5-15) Blood Urea Nitrogen 17 mg/dL (7-18) Creatinine 0.8 MG/DL (0.55-1.30) Estimat Glomerular Filtration Rate mL/min (>60) Glucose Level 190 MG/DL (74-106) H Calcium Level 7.8 MG/DL (8.5-10.1) L General Appearance: well appearing, no apparent distress Head: normocephalic EENT: normal ENT inspection Neck: supple, tracheotomy Respiratory: no respiratory distress Cardiovascular: normal rate Gastrointestinal: gt - c/d/i Neurologic: alert Skin: normal color, no rash, warm/dry Lymphatic: normal inspection, no adenopathy Current Medications Current Medications Medications (Trade) Dose Ordered Sig/Puja Route PRN Reason Start Time Stop Time Status Last Admin Dose Admin Acetaminophen (Tylenol) 500 mg TID PRN GT Mild Pain/Temp > 100.5 12/22/17 06:30 01/21/18 06:29 Albuterol/ Ipratropium (Albuterol/ Ipratropium) 3 ml Q4HRT HHN 12/21/17 19:00 12/26/17 18:59 12/22/17 10:42 Amlodipine Besylate (Norvasc) 5 mg DAILY GT 12/22/17 09:00 01/21/18 08:59 12/22/17 09:15 Aspirin (ASA) 81 mg DAILY GT 12/22/17 09:00 01/21/18 08:59 12/22/17 09:15 Azithromycin (Zithromax) 500 mg DAILY ORAL 12/22/17 13:00 12/29/17 12:59 UNV Furosemide (Lasix) 20 mg DAILY GT 12/21/17 18:00 01/20/18 17:59 12/22/17 09:15 Heparin Sodium (Porcine) (Heparin 5000 units/ml) 5,000 units EVERY 12 HOURS SUBQ 12/22/17 09:00 01/21/18 08:59 Lansoprazole (Prevacid) 30 mg DAILY GT 12/22/17 09:00 01/21/18 08:59 12/22/17 09:15 Meropenem 1 gm/ Sodium Chloride 55 ml @ 110 mls/hr Q8HR IVPB 12/21/17 22:00 12/26/17 21:59 12/22/17 05:00 Metoprolol Tartrate (Lopressor) 50 mg Q12HR GT 12/21/17 18:00 01/20/18 17:59 12/22/17 09:15 Morphine Sulfate (Morphine Sulfate) 2 mg Q8H PRN IVP for severe pain 12/22/17 06:15 12/29/17 06:14 12/22/17 06:25 Oseltamivir Phosphate (Tamiflu) 30 mg BID ORAL 12/21/17 22:00 12/26/17 21:59 12/22/17 09:14 Vancomycin HCl (Vanco rx to dose) 1 ea DAILY PRN MISC Per rx protocol 12/21/17 20:15 01/20/18 20:14 Vancomycin HCl 500 mg/Dextrose 110 ml @ 110 mls/hr Q12H IVPB 12/22/17 00:00 12/27/17 00:00 12/22/17 12:08 GI: Plan Problems: (1) G tube feedings (2) Severe sepsis (3) Protein-calorie malnutrition, severe (4) Anemia Plan Assessment - Resp failure - valvular heart disease - anemia - s/p trach - s/p PEG - leukocytosis - AMS Recommendations supportive care GTFs per ST evaluation for oral grat anemia work up OB stool r/o GI bleed monitor H&H, prn transfusions bowel regime ppi elevated HOB fu labs Discussed with Dr. Carlson. Thank you for this patient referral, we will follow. WILTON CARLSON 12/23/17 4605: History of Present Illness General Reason for Hospitalization: Dyspnea/Respdistress Present Illness Home Meds Active Scripts Furosemide* (LASIX*) 20 Mg Tablet, 20 MG ORAL DAILY for 30 Days, TAB Prov:Dylan Pittman MD 12/01/17 Metoprolol Tartrate* (METOPROLOL TARTRATE*) 50 Mg Tablet, 50 MG NG Q12HR for 30 Days, TAB Prov:Dylan Pittman MD 12/01/17 Hydrochlorothiazide* (HYDROCHLOROTHIAZIDE*) 25 Mg Tablet, 25 MG ORAL DAILY, #30 TAB Prov:JASON RODRIGUEZ M.D. 05/05/14 Amlodipine Besylate (Norvasc) 5 Mg Tab, 5 MG ORAL DAILY, #30 TAB Prov:JASON RODRIGUEZ M.D. 05/05/14 Reported Medications Cran/Vitc/Mannose/Inulin/Brom (UTI-STAT LIQUID) 3,875 Mg/30 Ml Liquid, 3875 MG PO, ML 12/21/17 Cranberry Extract (CRANBERRY) 425 Mg Capsule, 425 MG GT, CAP 12/21/17 Bisacodyl (DULCOLAX) 10 Mg Supp.rect, 10 MG RC, SUPP 12/21/17 Magnesium Hydroxide* (MILK OF MAGNESIA*) 400 Mg/5 Ml Oral.susp, 30 ML GT DAILY, ML 12/21/17 Docusate Sodium* (COLACE*) 100 Mg Capsule, 100 MG GT DAILY, CAP 12/21/17 Lactose-Reduced Food (Osmolite 1.2 Lazarus) 237 Ml Liquid, 1500 ML GT, ML 12/21/17 Acetaminophen* (ACETAMINOPHEN 325MG TABLET*) 325 Mg Tablet, 650 MG GT Q6H PRN for For Pain, TAB 12/21/17 Aspirin* (ASPIR 81*) 81 Mg Tablet.dr, 81 MG ORAL DAILY 11/08/17 Alendronate Sodium* (FOSAMAX*) 70 Mg Tablet, 35 MG ORAL ONCE A WEEK 11/08/17 Metoprolol Tartrate* (METOPROLOL TARTRATE*) 25 Mg Tablet, 25 MG ORAL DAILY 11/08/17 Discontinued Reported Medications Pantoprazole* (PROTONIX*) 40 Mg Tablet.dr, 40 MG GT DAILY, TAB 12/21/17 Heparin Sod (Porcine) (HEPARIN SODIUM*) 5 000/1 Ml Vial, 5000 UNITS SUBQ EVERY 12 HOURS, VIAL 12/21/17 Allergies: Coded Allergies: PENICILLINS (Verified Allergy, Mild, Rash, 06/30/14) GI: Plan Plan The patient was seen and examined at bedside and all new and available data was reviewed in the patients chart. I agree with the above findings, impression and plan. (Patient seen earlier today. Signature stamp does not reflect patient encounter time.). - MD Sarahy Le Anh Jose Reeder Dec 22, 2017 13:07 WILTON CARLSON Dec 23, 2017 13:21
[2017-12-22] MEDS ORDERED: Azithromycin 250mg tab ORAL SCH (13:32)
--- NOTE | 2017-12-22 17:36 | Cardiology Progress Note ---
Assessment/Plan Assessment/Plan The patient is seen and examined, full consult note is dictated. Objective Last 24 Hour Vital Signs Date Time Temp Pulse Resp B/P (MAP) Pulse Ox O2 Delivery O2 Flow Rate FiO2 12/22/17 17:16 102 32 100 12/22/17 16:00 100 12/22/17 16:00 137 12/22/17 15:04 95 40 100 12/22/17 15:03 95 22 92 Mechanical Ventilator 100 12/22/17 14:55 48 36 91 Mechanical Ventilator 100 12/22/17 13:08 122 33 100 12/22/17 12:00 80 12/22/17 12:00 125 12/22/17 12:00 97.3 121 40 156/70 95 Mechanical Ventilator 70 97.3 12/22/17 10:50 109 38 80 12/22/17 10:49 111 22 100 Mechanical Ventilator 70 12/22/17 10:42 100 36 100 Mechanical Ventilator 70 12/22/17 09:15 125 125/69 12/22/17 09:15 125 125/69 12/22/17 08:44 128 37 80 12/22/17 08:00 97.7 125 34 125/69 100 Mechanical Ventilator 80 97.7 12/22/17 08:00 80 12/22/17 08:00 129 12/22/17 08:00 Mechanical Ventilator 80 12/22/17 07:57 Mechanical Ventilator 80 12/22/17 07:51 124 34 80 12/22/17 06:55 97.7 12/22/17 06:25 97.7 12/22/17 05:04 109 30 45 12/22/17 04:00 97.7 112 30 100/57 100 Mechanical Ventilator 80 97.7 12/22/17 04:00 113 12/22/17 04:00 80 12/22/17 03:19 109 22 100 Mechanical Ventilator 45 12/22/17 03:06 109 26 100 Mechanical Ventilator 45 12/22/17 02:32 117 34 45 12/22/17 01:20 118 26 50 12/22/17 00:00 98.1 107 28 130/66 100 Mechanical Ventilator 80 98.1 12/22/17 00:00 110 12/22/17 00:00 80 12/21/17 22:54 107 22 100 Mechanical Ventilator 12/21/17 22:44 99 26 100 Mechanical Ventilator 60 12/21/17 22:36 104 26 60 12/21/17 20:59 104 31 60 12/21/17 20:09 109 18 100 Mechanical Ventilator 12/21/17 20:00 100 12/21/17 20:00 98.1 114 25 136/76 100 Mechanical Ventilator 80 98.1 12/21/17 20:00 80 12/21/17 19:59 107 30 100 Mechanical Ventilator 80 12/21/17 19:53 113 31 80 12/21/17 18:00 20 99 Mechanical Ventilator 100 12/21/17 17:45 24 88 Mechanical Ventilator 80 Intake and Output 12/21/17 12/22/17 19:00 07:00 Intake Total 0 ml 570 ml Output Total 750 ml 300 ml Balance -750 ml 270 ml Intake Oral 0 ml IV Total 330 ml Tube Feeding 240 ml Other 0 ml Output Urine Total 750 ml 300 ml # Bowel Movements 1 Laboratory Tests Test 12/21/17 20:40 12/22/17 04:10 12/22/17 14:10 Troponin I 0.126 ng/mL (0.000-0.056) 0.064 ng/mL (0.000-0.056) 0.084 ng/mL (0.000-0.056) White Blood Count 15.4 K/UL (4.8-10.8) H Red Blood Count 2.81 M/UL (4.20-5.40) L Hemoglobin 8.2 G/DL (12.0-16.0) L Hematocrit 24.6 % (37.0-47.0) L Mean Corpuscular Volume 88 FL (80-99) Mean Corpuscular Hemoglobin 29.0 PG (27.0-31.0) Mean Corpuscular Hemoglobin Concent 33.1 G/DL (32.0-36.0) Red Cell Distribution Width 15.0 % (11.6-14.8) H Platelet Count 456 K/UL (150-450) H Mean Platelet Volume 5.5 FL (6.5-10.1) L Neutrophils (%) (Auto) % (45.0-75.0) Lymphocytes (%) (Auto) % (20.0-45.0) Monocytes (%) (Auto) % (1.0-10.0) Eosinophils (%) (Auto) % (0.0-3.0) Basophils (%) (Auto) % (0.0-2.0) Differential Total Cells Counted 100 Neutrophils % (Manual) 94 % (45-75) H Lymphocytes % (Manual) 3 % (20-45) L Monocytes % (Manual) 3 % (1-10) Eosinophils % (Manual) 0 % (0-3) Basophils % (Manual) 0 % (0-2) Band Neutrophils 0 % (0-8) Platelet Estimate Adequate Platelet Morphology Normal Anisocytosis 1+ Ovalocytes Occasional Sodium Level 134 MMOL/L (136-145) L Potassium Level 3.5 MMOL/L (3.5-5.1) Chloride Level 96 MMOL/L (98-107) L Carbon Dioxide Level 33 MMOL/L (21-32) H Anion Gap 5 mmol/L (5-15) Blood Urea Nitrogen 17 mg/dL (7-18) Creatinine 0.8 MG/DL (0.55-1.30) Estimat Glomerular Filtration Rate mL/min (>60) Glucose Level 190 MG/DL (74-106) H Calcium Level 7.8 MG/DL (8.5-10.1) ROSY HERNANDEZ Dec 22, 2017 17:36
--- NOTE | 2017-12-22 20:05 | Wound Care Consultation ---
Wound Assessment Wound Assessment #1: Wound Number: 1 Wound Present on Admission: Yes New Wound: No Status Change of Wound: No Wound Location Body Site Modif: right, upper Wound Location Body Site: sacral Wound Type: pressure ulcer Piper Test: Does not Piper Pressure Ulcer Stage: II Wound Thickness: Partial Thickness Wound Length: 0.5 Wound Width: 0.5 Wound Depth: less than 0.1 Percent of Wound [place]/Red: 100 Wound Drainage Amount: None Wound Drainage Odor: None/Absent Tissue Surrounding Wound: Erythemic Wound General Appearance: Reddened Wound Assessment #2: Wound Number: 2 Wound Present on Admission: Yes New Wound: No Status Change of Wound: No Wound Location Body Site Modif: right Wound Location Body Site: other - flank area Wound Type: discoloration - scattered Piper Test: Does not Piper Percent of Wound Purple/Maroon: 100 Wound Drainage Amount: None Wound Drainage Odor: None/Absent Tissue Surrounding Wound: Intact Wound General Appearance: Reddened - purple/maroon Wound Comment #1 Right upper sacral area stage II pressure ulcer #2 Right flank area purple/maroon discoloration Recommendation -Local wound care per protocol -Keep clean and dry -Optimize nutrition -Turn and reposition -Offload both heels -Low air loss mattress -Assess and f/u accordingly for any changes CATRINA LOZADA RN Dec 22, 2017 20:05
--- NOTE | 2017-12-22 21:31 | History and Physical Report ---
DATE OF ADMISSION: 12/21/2017 CHIEF COMPLAINT: The patient is a 77-year-old female presents with chief complaint of decreased oxygen saturation. HISTORY OF PRESENT ILLNESS: The patient was admitted to [facility] from 11/08/2017 through 12/01/2017. The patient had chronic respiratory failure during that admission. The patient is chronic vent dependent after that admission. Please see History and Physical and discharge summary dictated at that time. The patient currently is a resident of [facility]. According to staff at [facility], the patient began to experience hypoxemia yesterday, 12/21/2017. The patient was transferred to [facility]. The patient is admitted for hypoxemia to rule out pneumonia. PAST MEDICAL HISTORY: Significant for 1. Hypertension. 2. Congestive heart failure. 3. Gastroesophageal reflux disease. 4. Chronic pulmonary edema. 5. Chronic vent dependence. 6. Chronic respiratory failure. PAST SURGICAL HISTORY: Significant for 1. Tracheostomy placement in 11/2017. 2. PEG placement. CURRENT MEDICATIONS: From [facility], 1. Metoprolol 50 mg one tablet p.o. twice daily. 2. Protonix 40 mg per G-tube daily. 3. Lasix 20 mg per G-tube daily. 4. Aspirin 81 mg per G-tube daily. 5. Norvasc 5 mg per G-tube daily. 6. Fosamax 35 mg per G-tube daily. 7. Heparin 5000 units subcutaneously twice daily. ALLERGIES: Penicillin. SOCIAL HISTORY: The patient is previous smoker. The patient denies alcohol use. REVIEW OF SYSTEMS: Unable to assess secondary to the patient's tracheostomy status. PHYSICAL EXAMINATION: GENERAL: The patient is thin-appearing female, in no apparent distress. VITAL SIGNS: Temperature 97.7 degrees, respirations 34, pulse 125 and blood pressure 125/69. HEENT: Eyes, pupils are equal and responsive to light and accommodation. Extraocular movements are intact. NECK: Supple without lymphadenopathy. There is tracheostomy tube present. CHEST: Few scattered wheezes bilaterally in the bilateral bases with crackles. Otherwise, clear to auscultation without wheezes or rales. CARDIOVASCULAR: Tachycardic, regular rhythm. S1 and S2 are normal without murmurs, rubs, gallops. ABDOMEN: Soft, nontender, and nondistended. Positive bowel sounds. No evidence of hepatosplenomegaly. Currently, no rebound or guarding noted. EXTREMITIES: Negative for clubbing, cyanosis, or edema. RECTAL/GENITAL: Refused. NEUROLOGIC: Cranial nerves II through XII are grossly intact without focal deficits. Motor strength is 5/5 bilaterally. Deep tendon reflexes 2+ plantar. LABORATORY AND DIAGNOSTIC DATA: Chest x-ray revealed extensive diffuse parenchymal infiltrates bilaterally consistent with pneumonia. WBC 22.6, hemoglobin 9.5, hematocrit 28.8, platelets 408,000. Sodium 133, potassium 3.9, chloride 91, CO2 33, BUN 17, creatinine 0.7 and glucose 144. Troponin elevated at 0.132. BNP elevated at 3496. ASSESSMENT: This is a 77-year-old female with 1. Bilateral pneumonia. 2. Respiratory failure. 3. Chronic vent dependent. 4. Leukocytosis. 5. Hypertension. 6. Congestive heart failure. 7. Gastroesophageal reflux disease. 8. Pulmonary edema. 9. Dysphagia. TREATMENT: 1. Bilateral pneumonia/respiratory failure/chronic vent dependence/pulmonary edema. A Pulmonary consultation has been obtained with . . We will follow recommendation of Pulmonary concerning ventilator settings. The patient has been started empirically on meropenem and vancomycin per Infectious Disease. 2. Hypertension. The patient has been started on metoprolol p.r.n. for systolic greater than 150 or diastolic greater than 100. 3. Congestive heart failure. A Cardiology consultation is pending. 4. Gastroesophageal reflux disease. The patient has been started on Protonix. 5. Dysphagia. The patient has previously had a PEG placed. Ryan Gayle M.D. DR: ALLY JOB#: [id number] CC:
--- NOTE | 2017-12-22 23:12 | Emergency Room Report ---
Physical Exam Vital Signs Date Time Temp Pulse Resp B/P (MAP) Pulse Ox O2 Delivery O2 Flow Rate FiO2 12/21/17 10:54 130 26 160/80 97 Ambu-Bag 12/21/17 10:55 80 12/21/17 11:20 101.9 101.9 Medical Decision Making Diagnostic Impression: Primary Impression: Severe sepsis Additional Impression: Interstitial lung disease ER Course This is a 77-year-old female from long term who has a tracheostomy. She was admitted to [facility] for severe sepsis secondary to pneumonia and ARDS. Her symptoms continued to worsen and she became asystolic. A CODE BLUE was called. On my arrival CPR was in progress and she received 1 dose of epinephrine. There was a strong pulse with CPR and non-without CPR. After the second dose of epinephrine, she was in a PA rhythm. After the third dose of epinephrine she had spontaneous return of pulse. Patient was then sent to the ICU placed on the ventilator. I discussed discussed the CODE STATUS with the younger sister who was there. She could not make a decision for DO NOT RESUSCITATE. She wanted to talk with her 2 older sister who are coming. Shortly afterward, she coded again. CPR was initiated. At this time the other 2 sisters are here. I discussed the case with them and they wanted to make her DO NOT RESUSCITATE. They do not want any more CPR. I checked on the patient. She has no pulse. She received 1 dose of epinephrine. She is in a PEA rhythm. There are again no Doppler pulse. I stop that CPR and pronounced the patient at 11:03 PM. I discussed the case with the family expressed my condolences. Impression: Cardiac arrest. ARDS. Last Vital Signs Date Time Temp Pulse Resp B/P (MAP) Pulse Ox O2 Delivery O2 Flow Rate FiO2 12/22/17 22:47 97 20 100 12/22/17 21:30 100.9 12/22/17 21:28 126/66 12/22/17 20:00 90 Mechanical Ventilator Disposition: ADMITTED INPATIENT Condition: Referrals: Dylan Pittman MD (PCP) JULIÁN BAILEY M.D. Dec 22, 2017 23:12
[2017-12-23] MEDS ORDERED: Meropenem 1 GM in NS 55 ML IVPB SCH (02:00)
--- NOTE | 2017-12-23 06:01 | Consultation ---
DATE OF CONSULTATION: 12/22/2017 NOTE: POOR AUDIO CARDIOLOGY CONSULTATION CONSULTING PHYSICIAN: Low Murdock M.D. REFERRING PHYSICIAN: Leticia Dior M.D. REASON FOR CONSULTATION: Management of tachycardia. HISTORY OF PRESENT ILLNESS: The patient is a very unfortunate 77-year-old female with history of interstitial lung disease, who presents to this hospital with oxygen desaturation. The patient was recently discharged from another facility for increased difficulty breathing. Apparently, at the [facility], she was desaturating and was sent to the emergency department of [facility] for further evaluation and management. The patient has history of ventilatory-drive respiratory failure. Status post tracheostomy tube placement. PAST MEDICAL HISTORY: 1. History of hypertension. 2. History of interstitial lung disease. 3. History of congestive heart failure. 4. History of COPD. 5. History of ventilatory-drive respiratory failure. 6. History of anemia. 7. History of gastroesophageal reflux disease. 8. History of osteoporosis. PAST SURGICAL HISTORY: Tracheostomy tube placement and status post PEG placement. MEDICATIONS: List of medications from nursing facility, acetaminophen 650 mg G-tube q.6 hours p.r.n. pain, Fosamax 35 mg p.o. once daily, amlodipine 5 mg p.o. daily, aspirin 81 mg p.o. daily, 10 mg rectal, liquid 375 mL p.o. daily, cranberry 425 mg G-tube daily, Colace 100 mg G-tube daily, Lasix 20 mg G-tube daily, hydrochlorothiazide 20 mg G-tube daily, lactulose reduced food 1500 mL G-tube daily, milk of magnesia 30 mL G-tube daily, and metoprolol 25 mg G-tube daily. ALLERGIES: Penicillin. REVIEW OF SYSTEMS: The patient is currently lethargic and not capable of providing 12-system review. PHYSICAL EXAMINATION: VITAL SIGNS: Blood pressure was 160/80, respirations 26, pulse of 130, and O2 saturation 97% on Ambu bag 80%. GENERAL: The patient is a very emaciated 77-year-old female, who is in moderate to severe respiratory distress on the ventilator, lethargic. HEENT: Atraumatic and normocephalic. Anicteric. Pupils are equal, round, and reactive to light and accommodation. There is a conjunctival pallor. NECK: There is tracheostomy tube placement. The patient is attached to the ventilator on FiO2 of 100%. No carotid bruit. Carotid upstroke is 2+ bilaterally. CVS: Normal S1, S2. Regular rate and rhythm. Tachycardic. Do not appreciate murmur, gallop, or rubs. LUNGS: Bilateral diffuse dry crackles. ABDOMEN: Soft, nontender, and nondistended. No hepatosplenomegaly. There is presence of G-tube. EXTREMITIES: No evidence of edema, clubbing, or cyanosis. LABORATORY AND DIAGNOSTIC DATA: Laboratory findings, WBC is 22.6, hemoglobin 9.5, hematocrit of 28.8, platelet count is 408,000; and 12% bandemia. Sodium is 134, potassium is 3.5, chloride 96, bicarbonate 33, BUN of 17, creatinine 0.8, and glucose is 190. Calcium is 7.8. Troponin I 0.126, 0.064, and 0.084. Blood gas, pH of 7.4, pCO2 of 44, pO2 of 219.9, bicarbonate 27, and O2 saturation 99.7%. Chest x-ray shows diffuse extensive parenchymal infiltration consistent with a pattern of ARDS, presence of tracheostomy tube, and small left pleural effusion. ASSESSMENT AND PLAN: This is a very unfortunate 77-year-old female, seen in Cardiology consultation at the request of Dr. Dior. 1. Dyspnea, this is due to diffuse patchy infiltration of lungs consistent with ARDS as the patient is not responding to 100% FiO2 with the oxygen saturation barely reaching 90%. The patient has moderate to severe respiratory distress. Despite high FiO2, she did not respond to 250 mL intravenous fluid challenge. 2. Sinus tachycardia, most likely as a result of severe hypoxemia, metoprolol 50 mg twice daily already ordered. It is not providing any benefit. 3. Pulmonary consultation is warranted and the patient may require change of ventilator setting for better oxygenation. 4. A 2D echocardiography from October 2017 revealing hyperdynamic LV function with LVEF of approximately 75% to 80%. 5. 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 Normal intracardiac filling pressure based on the E to E prime method. 6. This patient does not meet the echo criteria or clinical criteria for congestive heart failure. I would like to thank, Dr. Dior, for allowing me to participate in the care of this patient. Low Murdock M.D. DR: AMPARO JOB#: [id number] CC:
--- NOTE | 2017-12-23 16:40 | Cardiology Report ---
APPROVED REPORT EKG Measurement Heart [id number] Sinus tachycardia Biatrial enlargement Rightward axis Nonspecific ST abnormality Abnormal ECG
--- NOTE | 2017-12-24 13:13 | Discharge Summary ---
Discharge Summary Hospital Course Date of Admission Dec 21, 2017 at 12:15 Date of Discharge Dec 22, 2017 at 23:31 Admitting Diagnosis sever sepsis respiratory distress HPI Wilma Raymond is a 77 year old female who was admitted on Dec 21, 2017 at 12 :15 for Severe Sepsis, Respiratory Distress Hospital Course summary #[id number] Discharge Discharge Disposition Patient Discharge Instructions Discharge Instructions Special Instructions I have been assigned to complete a D/C Summary on this account. I was not involved in the patient management Angélica Wen NP ([place]) Dec 24, 2017 13:13
--- NOTE | 2017-12-25 08:46 | Discharge Summary 2 SIG ---
SUMMARY DATE OF ADMISSION: 12/21/2017 DATE OF EXPIRATION: 12/22/2017. REASON FOR ADMISSION: 77-year-old female with past medical history significant for ventilator-dependent respiratory failure, tracheostomy status, COPD/interstitial lung disease, hypertension, dysphagia, G-tube, mitral valve prolapse, anemia, was sent from the [facility] for evaluation. Upon evaluation in the emergency room, the patient was febrile, hypoxic, tachycardic, and tachypneic. WBC -22.6 Troponin -0.126. Urinalysis revealed no evidence of UTI. The chest x-ray revealed bilateral extensive diffuse parenchymal infiltrates and pattern consistent with ARDS. The patient admitted with diagnoses of severe sepsis, likely secondary to pneumonia, bilateral pneumonia, acute on chronic respiratory failure, ARDS, chronic ventilator dependency with tracheostomy status, hypertension, dysphagia, G-tube, anemia, COPD/interstitial lung disease, abnormal troponin, status post cardiopulmonary arrest x2. HOSPITAL COURSE: The patient admitted to [facility]. Baseline ABG was done and settings were titrated. FiO2 increased to 100% to keep proper oxygenation along with increase in PEEP to 8. Infectious Disease specialist, Cardiology and Pulmonary consults were requested. Per segment block layer, ventilator support and tracheostomy care were provided. Initially dose of the steroid was given. Patient was on IV antibiotic. Infectious Disease specialist closely followed. Blood cultures were negative. Sputum culture showed Strep group G and Staph aureus. The patient was on antibiotic as per ID management. The patient was also started empirically on Tamiflu. Utility Helicopter Repairer closely followed. Serial troponin trending down. Per fbi investigator , the patient had a sinus tachycardia likely due to the severe hypoxemia. Dyspnea was likely due to the ARDS noted on the chest x-ray. The patient was on beta-matilde . Prior 2D echo revealed hyperdynamic LV function with ejection fraction of 75% to 80% and mitral valve prolapse with mild tricuspid regurgitation, mild mitral regurgitation as well as mild eccentric mitral regurgitation. Per fbi investigator, the patient did not meet Echo criteria or clinical criteria for congestive heart failure. Blood pressure was managed with calcium channel matilde and beta-matilde. DVT and GI prophylaxis provided. Strict aspiration precautions were maintained. The patient was started on the tube feeding. Wound care provided as per wound care nurse recommendation for right upper sacral stage II decubitus ulcer present on admission. Hemoglobin and hematocrit were monitored. Hemoglobin trending down from 9.5 to 8.2 and hematocrit from 28.8 to 24.6. The patient remained febrile, tachycardic, and tachypneic despite increase in FiO2 to 100% and PEEP to 8. On 12/22/2017, in the evening Code Blue was called. The patient was initially resuscitated with spontaneous return of pulses after epinephrine. ER physician spoke with the sister, who was on the bedside regarding Code Status. Sister was waiting for two other older sister to arrive. Shortly afterwards the patient coded again and CPR was initiated. At that time, two older sisters arrived. The further care was discussed with all sisters, who decided to have the patient DNR/DNI status and declined further CPR. The patient was in pulseless electrical activity. No Doppler pulses. CPR was stopped. The patient was pronounced at 11:03 p.m. on 12/22/2017. Cause of :cardiopulmonary arrest. FINAL DIAGNOSES: Status post cardiopulmonary arrest x2. Severe sepsis likely secondary to pneumonia. Bilateral pneumonia. Acute on chronic respiratory failure. ARDS. Chronic ventilator dependent respiratory failure with tracheostomy status. Hypertension. Dysphagia, G-tube. Anemia. COPD/interstitial lung disease. Abnormal troponin. Anemia. Leticia Dior M.D. I have been assigned to dictate discharge summary on this account and I was not involved in the patient's management. Angélica ChristiansonWeill Cornell Medical CenterCriselda N.PRebel MAHAN: KRYSTYNA JOB#: [id number] CC: THERESE
--- NOTE | 2017-12-25 19:21 | Cardiology Report ---
APPROVED REPORT EKG Measurement Heart [id number] [place] [id number] [id number] Sinus tachycardia with single APCs Left ventricular hypertrophy with repolarization abnormality Lateral infarct, age undetermined Abnormal ECG
--- NOTE | 2017-12-26 08:53 | Diagnostic Imaging Report ---
APPROVED REPORT CPT Code: 38815 Present Symptoms Comments: DVT Prophylaxis BILATERAL: Imaging reveals a patent deep venous system bilaterally. There is no evidence of thrombus within the femoral, popliteal or tibial segments. The greater saphenous veins are also within normal limits. Doppler indicates normal spontaneous flow within these segments.
== END 2017-12-22 23:31 | disposition expired | DRG 720 ==
LOC: EDBD 10:54 → EMR 11:37 → 2W 12:15 → EDBEDREQ 13:31 → ICU 12-22 22:40
PROC: 5A1945Z Respiratory Ventilation, 24-96 Consecutive Hours (ICD-10-PCS; principal; 2017-12-21)
PROC: 5A12012 Performance of Cardiac Output, Single, Manual (ICD-10-PCS; 2017-12-22)
DX: A41.9 Sepsis, unspecified organism (principal); J96.21 Acute and chronic respiratory failure with hypoxia; E43 Unspecified severe protein-calorie malnutrition; J18.9 Pneumonia, unspecified organism; Z99.11 Dependence on respirator [ventilator] status; J84.9 Interstitial pulmonary disease, unspecified; L89.152 Pressure ulcer of sacral region, stage 2; I11.0 Hypertensive heart disease with heart failure; I50.9 Heart failure, unspecified; Z43.0 Encounter for attention to tracheostomy; I27.20 Pulmonary hypertension, unspecified; J44.9 Chronic obstructive pulmonary disease, unspecified; Z43.1 Encounter for attention to gastrostomy; K21.9 Gastro-esophageal reflux disease without esophagitis; Z87.891 Personal history of nicotine dependence; Z88.0 Allergy status to penicillin; M81.0 Age-related osteoporosis without current pathological fracture; D64.9 Anemia, unspecified; Z66 Do not resuscitate; R65.20 Severe sepsis without septic shock; R79.89 Other specified abnormal findings of blood chemistry; I34.1 Nonrheumatic mitral (valve) prolapse; B95.8 Unspecified staphylococcus as the cause of diseases classified elsewhere; B95.5 Unspecified streptococcus as the cause of diseases classified elsewhere; R13.19 Other dysphagia
CPT/HCPCS: 36415; 36600; 71045; 80048; 80053; 81003; 82550; 82553; 82803; 82962; 83605; 83735; 83880; 84100; 84484; 85007; 85025; 87040; 87070; 87081; 87181; 87205; 92950; 93005; 93970; 94002; 94003; 94640; 99285; J0171; J7620